=== PATIENT | female | born 1960 | race Caucasian/White ===

== ENCOUNTER → 2016-04-14 | Outpatient (CLI) | payer OTHER ==
[~2016-04-14] MED LIST: ACET-1256 PO; ALBINS/ INH; ALBU0.08 INH; ALUM-76 PO; ASPEC325 PO; ATV/1 PO; BENZ1TAB2 PO; BISA1TAB15 PO; CEFU1TAB36 PO; CLC100X PO; CLON1TAB3 PO; CLON2TAB3 PO; DEXTSYP29 PO; DIVA500T5 PO; DIVA500T59 PO; FLUP10TA PO; FLUP5TAB PO; FRRG PO; GLIP5TAB11 PO; GLYB5TAB8 PO; GLYCDRO6 OPB; HYDCR25 TOP; HYDROCORTISONE CR TOP; INSUINJ14 SC; LOPE1CAP6 PO; LOPE1TAB25 PO; LSX40 PO; METF-384 PO; MIRA1TAB3 PO; NVLGIPEN SQ; NYST100098 TOP; NYST1POW7 TOP; OMEP20CA9 PO; ONDA4TAB46 PO; POLY99.02 OPB; PPTBS PO; PRED50TA PO; PRLDMDV INJ; PROC1TAB5 PO; PROP10TA7 PO; PSYL55.43 PO; QUET1TAB13 PO; SIMV20TA2 PO; SOLI10TA2 PO; ULT/50 PO; ZONI100C39 PO; ZTHM250 PO; [UNRECOGNIZED DRUG - CODE] PO
[2016-04-14 08:46] LABS: ALT/SGPT 38 U/L (12-78); BLOOD UREA NITROGEN 10 mg/dl (7-18); BUN/CREATININE RATIO 13.1 (10-20); CALCIUM 9.2 mg/dl (8.5-10.1); CARBON DIOXIDE 27 mmol/L (21-32); CHLORIDE 103 mmol/L (98-107); CHOLESTEROL 176 mg/dl (0-200); CREATININE 0.78 mg/dl (0.60-1.20); GLUCOSE 92 mg/dl (70-99); POTASSIUM 3.7 mmol/L (3.5-5.1); SODIUM 142 mmol/L (136-145)
[2016-04-14 08:49] LABS: ALB/GLOB RATIO 0.9 (0.9-2); ALKALINE PHOSPHATASE 116 U/L (45-117); AST/SGOT 28 U/L (15-37); CHOLESTEROL/HDL RATIO 6.1; HDL CHOLESTEROL 29 mg/dl; LDL CHOLESTEROL CALCULATED 78 mg/dl; TRIGLYCERIDES 347 mg/dl (0-150); VERY LOW DENSITY LIPOPROT CALC 69 mg/dl
[2016-04-14 09:07] LABS: ESTIMATED AVERAGE GLUCOSE 140 mg/dl; HA1C FLAG Normal (Normal)
== END | disposition home or self-care (01) ==
LOC: C.LABSPEC 08:21
PROVIDERS: ATTEND Nurse Practitioner Family
DX: E11.9 Type 2 diabetes mellitus without complications (principal)

== ENCOUNTER → 2016-04-23 | Outpatient (CLI) | payer OTHER ==
[2016-04-23 10:14] LABS: ALT/SGPT 37 U/L (12-78); BLOOD UREA NITROGEN 5 mg/dl (7-18); BUN/CREATININE RATIO 5.7 (10-20); CALCIUM 9.2 mg/dl (8.5-10.1); CARBON DIOXIDE 26 mmol/L (21-32); CHLORIDE 105 mmol/L (98-107); CREATININE 0.91 mg/dl (0.60-1.20); GLUCOSE 139 mg/dl (70-99); POTASSIUM 4.6 mmol/L (3.5-5.1); SODIUM 142 mmol/L (136-145)
[2016-04-23 10:24] LABS: ALB/GLOB RATIO 0.9 (0.9-2); ALKALINE PHOSPHATASE 120 U/L (45-117); AST/SGOT 33 U/L (15-37)
== END | disposition home or self-care (01) ==
LOC: C.LAB 09:12
PROVIDERS: ATTEND Psychiatry & Neurology Psychiatry
DX: Z79.899 Other long term (current) drug therapy (principal)

== ENCOUNTER → 2016-05-25 | Outpatient (CLI) | payer OTHER ==
--- NOTE | 2016-05-27 08:06 | CODING QUERY NO DIAGNOSIS ---
: 1960 TREATMENT RENDERED WITHOUT A DIAGNOSIS To promote full compliance with coding requirements relating to patient care, physician participation is requested in all cases of process development chemist uncertainty. Please assist us with providing a diagnosis/symptom for the test(s) below: A diagnosis/symptom was not documented on your Order. A valid diagnosis/symptom is required to bill all insurances. Please remember that we are unable to code a diagnosis of rule out, probable, possible, questionable, or suspected. Tests that require a diagnosis: DOS: 05/25/16 * Cdiff Toxin B Gene DIAGNOSIS: Provider Signature: Date: Thank you Evelina Rogel Health Information Management Once completed, please kindly fax back to [phone] For questions please call [phone]
== END | disposition home or self-care (01) ==
LOC: C.LABSPEC 08:38
PROVIDERS: ATTEND Internal Medicine
DX: R19.7 Diarrhea, unspecified (principal)

== ENCOUNTER → 2016-06-09 | Outpatient (CLI) | payer OTHER ==
[2016-06-09 08:46] LABS: URINE APPEARANCE CLOUDY (CLEAR); URINE BILIRUBIN NEG (NEG); URINE COLOR YELLOW; URINE EPITHELIAL CELL AUTO 20-30 /lpf (0-5); URINE NITRITE NEG (NEG); URINE PH 5.5 (4.5-7.5); URINE SPECIFIC GRAVITY 1.014 (1.000-1.030); UROBILINOGEN NEG (NEG)
[2016-06-09 08:47] LABS: MANUAL MICROSCOPIC REQUIRED? NO; REVIEW REQ? NO
== END | disposition home or self-care (01) ==
LOC: C.LABSPEC 08:16
PROVIDERS: ATTEND Internal Medicine
DX: N39.0 Urinary tract infection, site not specified (principal)

== ENCOUNTER → 2016-06-21 | Outpatient (CLI) | payer OTHER | END | disposition home or self-care (01) | LOC: C.LABSPEC 17:12 | PROVIDERS: ATTEND Nurse Practitioner Family | DX: R35.0 Frequency of micturition (principal); N39.41 Urge incontinence ==

== ENCOUNTER 2016-06-30 03:20 | Emergency (ER) | payer OTHER ==
[~2016-06-30] VITALS: Ht 167.6 cm; Wt 109.0 kg
[~2016-06-30 03:20] MED LIST changes: -ALBINS/ INH; -CLON2TAB3 PO; -FLUP5TAB PO; -GLIP5TAB11 PO; -GLYCDRO6 OPB; -HYDCR25 TOP; -LOPE1CAP6 PO; -NVLGIPEN SQ; -NYST1POW7 TOP; -ONDA4TAB46 PO; -PRED50TA PO; -ZTHM250 PO
[2016-06-30 03:35] VITALS: Ht 167.6 cm; Wt 109.0 kg
[2016-06-30] MEDS ORDERED: ALBUT/IPRATROP 3MG/0.5MG NEB 3 ML VIAL INH STA ×2 (03:58→04:33)
[2016-06-30] MEDS ORDERED: SODIUM CHLORIDE 0.9% 500ML 500 ML IV STA (03:58)
[2016-06-30] MEDS ORDERED: CEFTRIAXONE SOD INJ 1 GM ADDVIAL IV STA (03:58)
[2016-06-30] MEDS ORDERED: SODIUM CHLORIDE 0.9% 1000ML 1,000 ML IV STA (03:58)
[2016-06-30] MEDS ORDERED: ACETAMINOPHEN 500 MG TAB PO STA (03:58)
[2016-06-30 04:07] LABS: BASO % 0.4 %; BASO ABS # 0.02 K/uL (0-0.2); COMPLETE YES; EOS % 2.6 %; HEMATOCRIT 37.5 % (37-47); IG% 0.4 %; LYMPH % 21.1 %; LYMPH ABS # 1.06 K/uL (1.2-3.4); MEAN CELL VOLUME 90.6 fL (80-100); MEAN CORPUSCULAR HEMOGLOBIN 30.4 pg (25-34); MEAN CORPUSCULAR HGB CONC 33.6 g/dl (32-36); MEAN PLATELET VOLUME 11.4 fL (7.4-10.4); MONO % 12.5 %; PLATELET COUNT 111 K/uL (130-400); RED BLOOD COUNT 4.14 M/uL (4.2-5.4); WHITE BLOOD COUNT 5.02 K/uL (4.8-10.8)
[2016-06-30 04:24] LABS: BUN/CREATININE RATIO 17.3 (10-20); CALCIUM 8.7 mg/dl (8.5-10.1); CREATININE 0.79 mg/dl (0.60-1.20); MAGNESIUM 1.9 mg/dl (1.8-2.4); POTASSIUM 4.6 mmol/L (3.5-5.1)
[2016-06-30 04:26] LABS: C-REACTIVE PROTEIN 0.99 mg/dl (0-0.29); CKMB/CK RATIO 1.3 (0-3.0)
[2016-06-30] MEDS ORDERED: METHYLPREDNISOLONE IV 80 MG in SYRINGE 0 ML IV ONE (04:30)
[2016-06-30] MEDS ORDERED: ALBINS/ INH (04:35)
[2016-06-30] MEDS ORDERED: GLYCDRO6 OPB (04:38)
[2016-06-30] MEDS ORDERED: LOPE1CAP6 PO (04:38)
[2016-06-30] MEDS ORDERED: CLON2TAB3 PO (04:41)
[2016-06-30] MEDS ORDERED: DIVA500T5 PO ×2 (04:44)
[2016-06-30] MEDS ORDERED: METHYLPREDNISOLONE 125 MG VIAL ONE (04:46)
[2016-06-30] MEDS ORDERED: GLIP5TAB11 PO (05:05)
[2016-06-30] MEDS ORDERED: ONDA4TAB46 PO (05:09)
[2016-06-30] MEDS ORDERED: HYDCR25 TOP (05:13)
[2016-06-30] MEDS ORDERED: FLUP5TAB PO (05:16)
[2016-06-30] MEDS ORDERED: FLUP10TA PO (05:16)
[2016-06-30] MEDS ORDERED: PRLDMDV INJ (05:18)
[2016-06-30] MEDS ORDERED: NVLGIPEN SQ (05:24)
[2016-06-30] MEDS ORDERED: NYST1POW7 TOP (05:24)
[2016-06-30 05:38] VITALS: TEMP 37.3
[2016-06-30 05:55] LABS: URINE APPEARANCE CLEAR (CLEAR); URINE BILIRUBIN NEG (NEG); URINE COLOR YELLOW; URINE EPITHELIAL CELL AUTO 20-30 /lpf (0-5); URINE NITRITE NEG (NEG); URINE PH 7.5 (4.5-7.5); URINE SPECIFIC GRAVITY 1.018 (1.000-1.030); UROBILINOGEN NEG (NEG); ZZUR CULT IF INDIC CLEAN CATCH YES
[2016-06-30 06:00] LABS: MANUAL MICROSCOPIC REQUIRED? NO; REVIEW REQ? NO
[2016-06-30] MEDS ORDERED: ZTHM250 PO (06:13)
[2016-06-30] MEDS ORDERED: PRED50TA PO (06:13)
[2016-06-30] MEDS ORDERED: AZITHROMYCIN 250 MG TAB PO ONE (06:15)
--- NOTE | 2016-06-30 06:17 | EMERGENCY ROOM VISIT NOTE ---
History First contact with patient: 03:34 Chief Complaint: ILLNESS Stated Complaint: FEVER, COUGH, CONGESTION, RIB PAIN History of Present Illness The patient is a 55 year old female who presents to the Emergency Department via EMS for evaluation of her fever, cough, congestion, and complaints of rib pain. The patient was recently treated for urinary tract infection with Omnicef. It was noticed this evening the patient was having a moist productive cough. She was having increasing rest for comfort. The patient does have a history of respiratory disease. She was found to have a fever. The patient reports after smoking a cigarette tonight, she had worsening symptoms of cough and breathing difficulties. The patient complains of pain to the RIGHT-sided ribs. She denies any headaches, dizziness, palpitations, hemoptysis, abdominal pain, hematuria, or dysuria. Review of Systems A complete 10-point Review of Systems was discussed with the patient, with pertinent positives and negatives listed in the History of Present Illness. All remaining Review of Systems questions can be considered negative unless otherwise specified. Past Medical/Surgical History Medical Problems: (1) Bipolar disorder (2) DM2 (diabetes mellitus, type 2) (3) GERD (gastroesophageal reflux disease) (4) History of kidney stones (5) HLD (hyperlipidemia) (6) Left Hip DJD (7) Schizoaffective disorder (8) Seizure disorder (9) Tobacco abuse Surgical Problems: (1) H/O hand surgery (2) H/O tubal ligation Family History Patient reports no known family medical history. Social History Smoking Status: Current Every Day Smoker Alcohol Use: none Drug Use: none Marital Status: single Housing Status: assisted living Occupation Status: disabled Current/Historical Medications Scheduled Azithromycin (Azithromycin), 1 TAB PO DAILY Cefuroxime Axetil (Cefuroxime Axetil), 500 MG PO BID Clonazepam (Klonopin), 2 MG PO DAILY Divalproex Sodium (Depakote Delay Rel), 1,000 MG PO HS Divalproex Sodium (Depakote Delay Rel), 500 MG PO QAM Fluphenazine Decanoate (Fluphenazine Decanoate), 25 MG INJ MONTHLY Fluphenazine Hcl (Prolixin), 5 MG PO HS Fluphenazine Hcl (Prolixin), 10 MG PO HS Furosemide (Furosemide), 40 MG PO QAM Glipizide (Glucotrol), 5 MG PO QAM Ydnkmcus-Cuzqzsmwyzkm-Vpgdmwzh (Artificial Tears), 1 DROP OPB TID Insulin Aspart (Novolog Flexpen), SQ ACHS Metformin Hcl (Glucophage), 1,000 MG PO BIDM Mirabegron (Myrbetriq Er), 50 MG PO QAM Omeprazole (Prilosec), 20 MG PO DAILY Propranolol Hcl (Inderal), 10 MG PO HS Simvastatin (Zocor), 20 MG PO HS Zonisamide (Zonegran), 200 MG PO QAM Scheduled PRN Acetaminophen (Tylenol), 500 MG PO Q4 PRN for Mild Pain Albuterol Sulf (Proventil 0.083% 2.5MG/3ML), 2.5 MG INH Q6 PRN for SOB/Wheezing Hydrocortisone (Hydrocortisone), 1 APPLN TOP BID PRN for RASH Loperamide Hcl (Anti-Diarrheal), 2 MG PO TID PRN for Diarrhea Nystatin (Topical) (Nystatin), 1 APPLN TOP BID PRN for IRRITATION Ondansetron Hcl (Zofran), 4 MG PO Q8 PRN for Nausea or Vomiting Allergies Coded Allergies: No Known Allergies (Unverified , 06/30/16) Physical Exam Vital Signs Date Time Temp Pulse Resp B/P Pulse Ox O2 Delivery O2 Flow Rate FiO2 06/30/16 06:29 70 20 105/58 95 06/30/16 05:38 37.3 06/30/16 05:01 123/50 06/30/16 04:50 66 18 100 Room Air 06/30/16 04:31 140/86 06/30/16 04:20 69 94 Room Air 06/30/16 04:02 Room Air 06/30/16 04:01 06/30/16 03:50 70 26 94 Room Air 06/30/16 03:43 118/64 06/30/16 03:36 71 06/30/16 03:35 38.7 71 26 118/64 95 Room Air 06/30/16 03:29 Pain Rating (0-10): 8 Physical Exam VITAL SIGNS - Vital signs and nursing notes were reviewed. GENERAL - 55-year-old female appearing her stated age who is in no acute distress. Communicates well with provider and answers questions appropriately. HEAD - NC/AT. EYES - PERRL with EOMI bilaterally. Sclera anicteric. Palpebral conjunctiva pink and moist with no injection noted. EARS - No deformities of external structures noted on gross examination bilaterally. No pain elicited with palpation of the tragus bilaterally. External auditory canals without discharge or otorrhea. Tympanic membranes pearly hall without retraction or bulging. NOSE - Midline and without cyanosis. No epistaxis or purulent drainage noted. Septum midline without deviation or septal hematoma noted. MOUTH/OROPHARYNX - Without perioral cyanosis. Buccal mucosa pink and moist and without leukoplakia. Tongue midline with equal elevation of palate bilaterally. No tonsillar hypertrophy, erythema, or exudates noted. NECK - Neck with FROM. Supple to palpation. LUNGS - Chest wall symmetric without accessory muscle use, intercostals retractions, or central cyanosis. Normal vesicular breath sounds CTA B/L. No wheezes, rales, or rhonchi appreciated. CARDIAC - RRR with S1/S2. No murmur, rubs, or gallops appreciated. No reproducible tenderness to palpation appreciated over the anterior chest wall. ABDOMEN - Abdominal contour flat and without pulsations or visible masses. BS normoactive all four quadrants. No tenderness, palpable masses, hepatosplenomegaly, or ascites noted. EXTREMITIES - No clubbing or peripheral cyanosis. No pretibial edema present. +3 /5 radial and dorsalis pedis pulses palpated throughout. +5/5 strength noted in UE/LE bilaterally. NEUROLOGIC - Cranial nerves II through XII grossly intact. Sensory intact to light touch throughout. PSYCH - A&Ox3 and cooperates fully with examiner. Pt is very pleasant and interacts well with examiner. Medical Decision & Procedures ER Provider Diagnostic Interpretation: Chest x-ray was obtained and demonstrates no acute focal consolidations or cardiopulmonary processes per my interpretation. Images were reviewed by my attending physician who agrees. Radiologist's impression unavailable at the time of dictation. Laboratory Results 06/30/16 03:40 Red Blood Count 4.14, Mean Corpuscular Volume 90.6, Mean Corpuscular Hemoglobin 30.4, Mean Corpuscular Hemoglobin Concent 33.6, Mean Platelet Volume 11.4, Neutrophils (%) (Auto) 63.0, Lymphocytes (%) (Auto) 21.1, Monocytes (%) (Auto) 12.5, Eosinophils (%) (Auto) 2.6, Basophils (%) (Auto) 0.4, Neutrophils # (Auto ) 3.16, Lymphocytes # (Auto) 1.06, Monocytes # (Auto) 0.63, Eosinophils # (Auto ) 0.13, Basophils # (Auto) 0.02 06/30/16 03:40 Test 06/30/16 03:40 06/30/16 04:24 06/30/16 04:25 06/30/16 04:31 White Blood Count 5.02 K/uL (4.8-10.8) Red Blood Count 4.14 M/uL (4.2-5.4) Hemoglobin 12.6 g/dL (12.0-16.0) Hematocrit 37.5 % (37-47) Mean Corpuscular Volume 90.6 fL (80-100) Mean Corpuscular Hemoglobin 30.4 pg (25-34) Mean Corpuscular Hemoglobin Concent 33.6 g/dl (32-36) Platelet Count 111 K/uL (130-400) Mean Platelet Volume 11.4 fL (7.4-10.4) Neutrophils (%) (Auto) 63.0 % Lymphocytes (%) (Auto) 21.1 % Monocytes (%) (Auto) 12.5 % Eosinophils (%) (Auto) 2.6 % Basophils (%) (Auto) 0.4 % Neutrophils # (Auto) 3.16 K/uL (1.4-6.5) Lymphocytes # (Auto) 1.06 K/uL (1.2-3.4) Monocytes # (Auto) 0.63 K/uL (0.11-0.59) Eosinophils # (Auto) 0.13 K/uL (0-0.5) Basophils # (Auto) 0.02 K/uL (0-0.2) RDW Standard Deviation 46.3 fL (36.4-46.3) RDW Coefficient of Variation 14.0 % (11.5-14.5) Immature Granulocyte % (Auto) 0.4 % Immature Granulocyte # (Auto) 0.02 K/uL (0.00-0.02) Prothrombin Time 11.0 SECONDS (9.0-12.0) Prothromb Time International Ratio 1.0 (0.9-1.1) Activated Partial Thromboplast Time 25.9 SECONDS (21.0-31.0) Partial Thromboplastin Ratio 1.0 Anion Gap 7.0 mmol/L (3-11) Est Creatinine Clear Calc Drug Dose 102.9 ml/min Estimated GFR () 99.1 Estimated GFR (Non- 85.5 BUN/Creatinine Ratio 17.3 (10-20) Calcium Level 8.7 mg/dl (8.5-10.1) Magnesium Level 1.9 mg/dl (1.8-2.4) Total Bilirubin 0.3 mg/dl (0.2-1) Aspartate Amino Transf (AST/SGOT) 61 U/L (15-37) Alanine Aminotransferase (ALT/SGPT) 40 U/L (12-78) Alkaline Phosphatase 79 U/L (45-117) Total Creatine Kinase 69 U/L (26-192) Creatine Kinase MB 0.9 ng/ml (0.5-3.6) Creatine Kinase MB Ratio 1.3 (0-3.0) C-Reactive Protein 0.99 mg/dl (0-0.29) Total Protein 6.9 gm/dl (6.4-8.2) Albumin 3.4 gm/dl (3.4-5.0) Globulin 3.5 gm/dl (2.5-4.0) Albumin/Globulin Ratio 1.0 (0.9-2) Lipase 155 U/L (73-393) Bedside Lactic Acid Venous 2.05 mmol/L (0.90-1.70) Bedside D-Dimer 265 ng/mlFEU (0-450) Bedside Troponin I 0.000 ng/ml (0-0.045) Influenza Type A Antigen Neg for Influ A (NEG) Influenza Type B Antigen Neg for Influ B (NEG) Test 06/30/16 05:30 Urine Color YELLOW Urine Appearance CLEAR (CLEAR) Urine pH 7.5 (4.5-7.5) Urine Specific [place] 1.018 (1.000-1.030) Urine Protein NEG (NEG) Urine Glucose (UA) NEG (NEG) Urine Ketones TRACE (NEG) Urine Occult Blood NEG (NEG) Urine Nitrite NEG (NEG) Urine Bilirubin NEG (NEG) Urine Urobilinogen NEG (NEG) Urine Leukocyte Esterase SMALL (NEG) Urine WBC (Auto) 10-30 /hpf (0-5) Urine RBC (Auto) 0-4 /hpf (0-4) Urine Hyaline Casts (Auto) 1-5 /lpf (0-5) Urine Epithelial Cells (Auto) 20-30 /lpf (0-5) Urine Bacteria (Auto) NEG (NEG) Date/Time Source Procedure Growth Status 06/30/16 04:15 Blood Blood Culture - Final NO GROWTH Complete 06/30/16 05:30 Urine , Clean Catch Urine Culture - Final THREE TYPES OF ORGANISMS PRESENT, ALL... Complete Medications Administered Medications (Trade) Dose Ordered Sig/Kanu Route Start Time Stop Time Status Last Admin Dose Admin Sodium Chloride 500 ml @ 999 mls/hr Q31M STAT IV 06/30/16 03:58 06/30/16 04:28 DC 06/30/16 03:58 999 MLS/HR Sodium Chloride (Nss 1000ml) 1,000 ml @ 125 mls/hr Q8H STAT IV 06/30/16 03:58 06/30/16 06:45 DC 06/30/16 04:12 125 MLS/HR Acetaminophen (Tylenol Tab) 1,000 mg NOW STAT PO 06/30/16 03:58 06/30/16 04:02 DC 06/30/16 04:12 1,000 MG Albuterol/ Ipratropium (Duoneb) 3 ml NOW STAT INH 06/30/16 03:58 06/30/16 04:02 DC 06/30/16 04:11 3 ML Ceftriaxone Sodium (Rocephin Inj) 1 gm NOW STAT IV 06/30/16 03:58 06/30/16 04:02 DC 06/30/16 04:12 1 GM Albuterol/ Ipratropium (Duoneb) 3 ml NOW STAT INH 06/30/16 04:33 06/30/16 04:34 DC 06/30/16 04:42 3 ML Methylprednisolone Sodium Succinate (Solu-Medrol IV) 125 mg STK-MED ONCE .ROUTE 06/30/16 04:46 06/30/16 04:47 DC 06/30/16 04:42 80 MG Azithromycin (Zithromax Tab) 500 mg NOW ONCE PO 06/30/16 06:15 06/30/16 06:16 DC 06/30/16 06:13 500 MG Procedure Patient was placed on the quality assurance monitor body and monitored throughout the entire extent of their stay. In addition, the patient's pulse oximetry was monitored throughout the entire stay. Any abnormalities or aberrancies were addressed appropriately. ECG Indication: SOB/dyspnea Rate (beats per minute): 70 Rhythm: normal sinus Findings: no acute ischemic change, other (T-wave flatening in the lateral leads - improved from ST inversion in lateral leads seen on 11/26/2015.) ED Course Patient was seen and evaluated by myself. Labs were drawn, saline lock in place. The patient was hydrated with a 500 mL normal saline bolus. Blood cultures were obtained. Influenza swabs were obtained. Chest x-ray and EKG were obtained. She received 1 g of Tylenol orally for fever. She received 1 DuoNeb as well as 1 g of IV Rocephin. Laboratory results demonstrate no acute leukocytosis. The patient is not anemic. There are no significant electrolyte abnormalities. Cardiac enzymes were negative. Troponin was negative. D-dimer was not elevated. Chest x-ray was reviewed by myself and my attending physician. Patient was reviewed and feels somewhat better at this time. She was treated with an additional DuoNeb and received 125 mg Solu-Medrol intravenously. Plantar lactic acid is mildly elevated. On review the patient, she feels markedly better at this time. She is drinking and feeling much better. She was provided initial dose of azithromycin in the emergency setting. She'll follow closely with her primary care provider later this week for recheck. She will return for any changing or worsening symptoms. Patient discharged home afebrile and in good condition. Medical Decision Given the patient's presentation and stated complaints, I did elect to perform the above-mentioned workup. The patient presents today with a fever as well as difficulty with breathing. Chest x-ray demonstrate no focal consolidations or cardiac palpated processes otherwise. EKG and cardiac enzymes are negative. D- dimer does not suggest likelihood of PE. She responded well to DuoNeb treatment as well as IV Solu-Medrol. Her fever responded to antipyretics. She received IV fluid and was drinking without issue in the emergency setting. Blood cultures are pending at this time. The patient is likely experiencing an acute bronchitis on a chronic COPD patient. Her symptoms didn't resolve appropriately with the above-mentioned treatment. She is not hypoxic. I do not feel the patient warrants admission at this time. She will follow closely with her primary care provider from today's visit. She will return for any changing or worsening symptoms. Patient discharged home afebrile and in good condition. In the evaluation and treatment of this patient, the following differential diagnoses were considered: AL, ASC, Dysrhythmia, Angina, Mediastinitis, GERD, Esophagitis, PE, Pneumonia, Bronchitis, Costochondritis, Rib Fracture, Zoster. Impression Primary Impression: Acute bronchitis Additional Impressions: COPD with exacerbation Fever Departure Information Dispostion Home / Self-Care Condition GOOD Prescriptions Azithromycin (Azithromycin) 250 Mg Tab 1 TAB PO DAILY for 4 Days, #4 TAB Prov: Xavier Miguel PA-C 06/30/16 Referrals Segundo Rojas D.O. (PCP) Patient Instructions Bronchitis Acute, ED Fever Control, [facility] Additional Instructions Patient was seen in the emergency department today for cough and fever with COPD exacerbation. Please use nebulizer treatments every 4 hours for the next 3-4 days and then as needed for symptoms. You were prescribed Azithromycin to be taken as prescribed. This is an antibiotic. All antibiotics have the potential to cause diarrhea. Stop this medication and contact a medical provider if you were to develop any significant adverse side effects including: wheezing, shortness of breath, passing out, vomiting, or a diffuse rash. Always take antibiotics as directed and COMPLETE the ENTIRE course regardless of the improvement of your symptoms. You have been prescribed Prednisone 50 mg to be taken orally once a day for the next 4 days. This is an anti-inflammatory medicine to be used to help minimize your symptoms. You should take the COMPLETE course of the medication. For pain/fever control, you can use the following yzqe-anv-ikmbnhp medicines ( if >12 yo): - Regular strength (325mg/tab) Tylenol (acetaminophen) 2 tabs every 4-6 hours as needed. Do not exceed 12 tablets in a 24 hour period. Avoid taking more than 4 grams (4000 mg) of Tylenol per day. This includes any other sources of acetaminophen you may take on a regular basis. - Regular strength (200 mg/tab) Advil (ibuprofen) 1-2 tabs every 4-6 hours as needed. Do not exceed a dose of 3200 mg per day. Follow-up with your primary care provider in 48-72 hours for recheck. Return for any changing or worsening symptoms. Problem Qualifiers Primary Impression: Acute bronchitis Bronchitis organism: unspecified organism Qualified Codes: J20.9 - Acute bronchitis, unspecified Additional Impressions: Fever Fever type: unspecified Qualified Codes: R50.9 - Fever, unspecified
[2016-06-30 06:29] VITALS: BP 105/58; PULSE 70; O2SAT 95
--- NOTE | 2016-06-30 07:14 | DIAGNOSTIC IMAGING REPORT ---
CHEST ONE VIEW PORTABLE CLINICAL HISTORY: Cough and fever. COMPARISON STUDY: Chest radiograph November 26, 2015. FINDINGS: Lung volumes are normal. There is no consolidation to suggest pneumonia. Cardiomediastinal silhouette is stable. Pulmonary vascularity is normal. IMPRESSION: No acute cardiopulmonary findings. Electronically signed by: Gaurav Ferris M.D. 06/30/2016 7:12 AM Dictated Date/Time: 06/30/2016 7:11 AM
== END 2016-06-30 06:31 | disposition home or self-care (01) ==
LOC: EDBD 03:20 → C.EDB 03:21
DX: J44.1 Chronic obstructive pulmonary disease with (acute) exacerbation (principal); F31.9 Bipolar disorder, unspecified; E11.9 Type 2 diabetes mellitus without complications; Z87.442 Personal history of urinary calculi; K21.9 Gastro-esophageal reflux disease without esophagitis; E78.5 Hyperlipidemia, unspecified; G40.909 Epilepsy, unspecified, not intractable, without status epilepticus; F25.9 Schizoaffective disorder, unspecified; F17.210 Nicotine dependence, cigarettes, uncomplicated; Z98.51 Tubal ligation status; Z79.4 Long term (current) use of insulin; Z79.899 Other long term (current) drug therapy

== ENCOUNTER → 2016-08-23 | Outpatient (CLI) | payer OTHER ==
[~2016-08-23] MED LIST changes: +ALBINS/ INH; -ALBU0.08 INH; -ALUM-76 PO; -ASPEC325 PO; -ATV/1 PO; +AZIT-57 PO; -BENZ1TAB2 PO; -BISA1TAB15 PO; -CLC100X PO; -CLON1TAB3 PO; +CLON2TAB3 PO; -DEXTSYP29 PO; -DIVA500T59 PO; +FLUP5TAB PO; -FRRG PO; +GLIP5TAB11 PO; -GLYB5TAB8 PO; +GLYCDRO6 OPB; +HYDCR25 TOP; -HYDROCORTISONE CR TOP; -INSUINJ14 SC; +LOPE1CAP6 PO; -LOPE1TAB25 PO; +NVLGIPEN SQ; -NYST100098 TOP; +NYST1POW7 TOP; +ONDA4TAB46 PO; -POLY99.02 OPB; -PPTBS PO; -PROC1TAB5 PO; -PSYL55.43 PO; -QUET1TAB13 PO; -SOLI10TA2 PO; -ULT/50 PO; -[UNRECOGNIZED DRUG - CODE] PO
== END | disposition home or self-care (01) ==
LOC: C.LABSPEC 17:01
PROVIDERS: ATTEND Nurse Practitioner Family
DX: N39.0 Urinary tract infection, site not specified (principal)

== ENCOUNTER → 2016-09-18 | Outpatient (CLI) | payer OTHER ==
[2016-09-18 11:05] LABS: URINE APPEARANCE TURBID (CLEAR); URINE BILIRUBIN NEG (NEG); URINE COLOR YELLOW; URINE EPITHELIAL CELL AUTO >30 /lpf (0-5); URINE NITRITE POS (NEG); URINE PH 7.5 (4.5-7.5); URINE SPECIFIC GRAVITY 1.016 (1.000-1.030); UROBILINOGEN NEG (NEG)
[2016-09-18 11:16] LABS: MANUAL MICROSCOPIC REQUIRED? NO; REVIEW REQ? YES; SULFASALICYLIC ACID NEG (NEG)
== END | disposition home or self-care (01) ==
LOC: C.LABSPEC 08:16
PROVIDERS: ATTEND Internal Medicine
DX: N39.0 Urinary tract infection, site not specified (principal)

== ENCOUNTER → 2016-10-11 | Outpatient (CLI) | payer OTHER ==
[~2016-10-11] MED LIST changes: -AZIT-57 PO; +ZTHM250 PO
--- NOTE | 2016-10-11 16:06 | MAMMOGRAPHY REPORT ---
BILATERAL DIGITAL SCREENING MAMMOGRAM WITH CAD: 10/11/2016 CLINICAL HISTORY: Routine screening. Patient has no complaints. TECHNIQUE: Bilateral CC and MLO views were obtained. Current study was also evaluated with a Compute r Aided Detection (CAD) system. COMPARISON: Comparison is made to exams dated: 10/10/2015 mammogram, 09/26/2014 mammogram, 09/25/2013 ma mmogram, 09/19/2012 mammogram, 09/09/2011 mammogram, and 08/19/2010 mammogram - [facility]. BREAST COMPOSITION: There are scattered areas of fibroglandular density in both breasts. FINDINGS: The exam is suboptimal due to inability of the patient to adequately position for the exam, despite assistance from 2 mammography technologists. An asymmetry in the lateral anterior right sarah ast appears similar on all available prior mammograms dating back to at least 08/07/2009, therefore l ikely benign. No new suspicious mass, architectural distortion or cluster of microcalcifications is seen. IMPRESSION: ACR BI-RADS CATEGORY 1: NEGATIVE There is no mammographic evidence of malignancy. A 1 year screening mammogram is recommended. The pa tient will receive written notification of the results. Approximately 10% of breast cancers are not detected with mammography. A negative mammographic report should not delay biopsy if a clinically suggestive mass is present. Cornelia Ambrose M.D. ay/:10/11/2016 15:23:38 Attending Technologist: Tiara Castorena RT(R)(M), [facility] Visual Merchandiser: Lacy Dietz RT(R)(M), [facility] letter sent: Normal 1/2 BI-RADS Code: ACR BI-RADS Category 1: Negative
== END | disposition home or self-care (01) ==
LOC: C.MAMM 14:53
PROVIDERS: ATTEND Obstetrics & Gynecology
DX: Z12.31 Encounter for screening mammogram for malignant neoplasm of breast (principal)

== ENCOUNTER → 2016-10-26 | Outpatient (CLI) | payer OTHER ==
[2016-10-26 15:02] LABS: URINE APPEARANCE CLOUDY (CLEAR); URINE BILIRUBIN NEG (NEG); URINE COLOR DK YELLOW; URINE EPITHELIAL CELL AUTO >30 /lpf (0-5); URINE NITRITE POS (NEG); URINE PH 5.5 (4.5-7.5); URINE SPECIFIC GRAVITY 1.028 (1.000-1.030); UROBILINOGEN NEG (NEG)
[2016-10-26 15:03] LABS: MANUAL MICROSCOPIC REQUIRED? NO; REVIEW REQ? NO
== END | disposition home or self-care (01) ==
LOC: C.LAB 12:41
PROVIDERS: ATTEND Psychiatry & Neurology Psychiatry
DX: N39.0 Urinary tract infection, site not specified (principal); Z51.81 Encounter for therapeutic drug level monitoring; Z79.899 Other long term (current) drug therapy

== ENCOUNTER → 2017-01-14 | Outpatient (CLI) | payer OTHER ==
[~2017-01-14] MED LIST changes: +AZIT-57 PO; -ZTHM250 PO
== END | disposition home or self-care (01) ==
LOC: C.PAPS 10:53
PROVIDERS: ATTEND Physician Assistant
DX: Z12.4 Encounter for screening for malignant neoplasm of cervix (principal)

== ENCOUNTER → 2017-01-26 | Outpatient (CLI) | payer OTHER ==
[2017-01-26 09:26] LABS: BLOOD UREA NITROGEN 11 mg/dl (7-18); CALCIUM 8.9 mg/dl (8.5-10.1); CARBON DIOXIDE 25 mmol/L (21-32); CHLORIDE 108 mmol/L (98-107); CHOLESTEROL 134 mg/dl (0-200); CREATININE 0.71 mg/dl (0.60-1.20); GLUCOSE 89 mg/dl (70-99); POTASSIUM 4.2 mmol/L (3.5-5.1); SODIUM 142 mmol/L (136-145); TRIGLYCERIDES 169 mg/dl (0-150); VERY LOW DENSITY LIPOPROT CALC 34 mg/dl
[2017-01-26 09:29] LABS: CHOLESTEROL/HDL RATIO 3.6; HDL CHOLESTEROL 37 mg/dl; LDL CHOLESTEROL CALCULATED 63 mg/dl
[2017-01-26 09:53] LABS: HEMATOCRIT 38.1 % (37-47); MEAN CELL VOLUME 92.7 fL (80-100); MEAN CORPUSCULAR HEMOGLOBIN 30.9 pg (25-34); MEAN CORPUSCULAR HGB CONC 33.3 g/dl (32-36); MEAN PLATELET VOLUME 12.2 fL (7.4-10.4); PLATELET COUNT 101 K/uL (130-400); RED BLOOD COUNT 4.11 M/uL (4.2-5.4); WHITE BLOOD COUNT 9.24 K/uL (4.8-10.8)
[2017-01-26 09:54] LABS: PLT ESTIMATE DECREASED
[2017-01-26 10:09] LABS: ESTIMATED AVERAGE GLUCOSE 117 mg/dl; HA1C FLAG Normal (Normal)
== END | disposition home or self-care (01) ==
LOC: C.LABSPEC 08:58
PROVIDERS: ATTEND Nurse Practitioner Adult Health
DX: I10 Essential (primary) hypertension (principal); E11.9 Type 2 diabetes mellitus without complications; E78.5 Hyperlipidemia, unspecified

== ENCOUNTER → 2017-04-13 | Outpatient (CLI) | payer OTHER | END | disposition home or self-care (01) | LOC: C.LABSPEC 08:23 | PROVIDERS: ATTEND Psychiatry & Neurology Psychiatry | DX: Z79.899 Other long term (current) drug therapy (principal) ==

== ENCOUNTER → 2017-05-25 | Outpatient (CLI) | payer OTHER ==
[2017-05-25 09:09] LABS: HEMOGLOBIN A1C 5.7 % (4.5-5.6)
== END | disposition home or self-care (01) ==
LOC: C.LABSPEC 07:43
PROVIDERS: ATTEND Internal Medicine
DX: E11.9 Type 2 diabetes mellitus without complications (principal)

== ENCOUNTER → 2017-10-26 | Outpatient (CLI) | payer OTHER ==
[~2017-10-26] MED LIST changes: +CLON2TAB10 PO; -CLON2TAB3 PO; +DIVA-36 PO; -DIVA500T5 PO
== END | disposition home or self-care (01) ==
LOC: C.LABSPEC 08:25
PROVIDERS: ATTEND Psychiatry & Neurology Psychiatry
DX: Z79.899 Other long term (current) drug therapy (principal)

== ENCOUNTER 2018-06-02 06:22 | Inpatient (IN) ==
[2018-06-02] MEDS ORDERED: ACETAMINOPHEN 500 MG TAB PO STA (06:44)
[2018-06-02] MEDS ORDERED: SODIUM CHLORIDE 0.9% 500 ML IV SCH (06:45)
[2018-06-02 07:14] LABS: Appearance Urine Turbid (Clear); Bacteria Urine Automated Negative (Negative); Bilirubin Urine Negative (Negative); Blood Urine 2+ (Negative); Color Urine Yellow; Glucose Urine UA Negative (Negative); Ketones Urine Trace (Negative); Leukocyte Esterase Urine 3+ (Negative); Nitrite Urine Negative (Negative); Protein Urine 1+ (Negative); Specific Gravity Urine 1.011 (1.000-1.030); Urobilinogen Urine Negative (Negative); WBC Urine Automated >30 /hpf (0-5)
--- NOTE | 2018-06-02 07:24 | XRay Report ---
XR chest 1V portable CLINICAL HISTORY: fever, AMS COMPARISON STUDY: Chest radiograph June 28, 2016. FINDINGS: Lung volumes are at the lower limits of normal. There is no pneumothorax or pleural effusio n. There is no consolidation or evidence for pulmonary edema. Mild enlargement of the cardiac silhoue tte is noted. Otherwise, mediastinal contours are unremarkable. IMPRESSION: 1. No acute cardiopulmonary findings. 2. Mild enlargement of the cardiac silhouette. Electronically signed by: Gaurav Ferris M.D. 06/02/2018 7:23 AM
[2018-06-02] MEDS ORDERED: cefTRIAXone SODIUM 1,000 MG/50 ML BAG IV STA (07:25)
--- NOTE | 2018-06-02 07:30 | Emergency Department Note ---
Entered by Brett Ovalle acting as a scribe for History of Present Illness General Chief complaint: Illness Time Seen by Provider: 06/02/18 06:38 Source: patient History of Present Illness Provider complaint: Cough/Fever Onset (ago): day(s) Location: chest Pain Consistency: + other (worsening) Quality: + other (Cough) Associated symptoms: + fever/chills and + weakness Treatments prior to arrival: none This history is limited secondary to confusion in the patient. The patient is a 57 year old female who presents to the Emergency Room with complaints of a worsening cough over the past couple of days. The patient presents from the assisted living facility at [facility] for worsening weakness. She has been febrile as well. There were no falls reported by [facility] staff. Home Medications Home Medications Medication Instructions Recorded Confirmed Type acetaminophen 650 mg PO Q4H PRN 06/02/18 06/02/18 History albuterol sulfate 2.5 mg INHALATION Q6H PRN 06/02/18 06/02/18 History clonazepam 2 mg PO HS 06/02/18 06/02/18 History dextran 70-hypromellose (PF) 1 drp OPHTHALMIC (EYE) TID 06/02/18 06/02/18 History [Artificial Tears (PF)] dextromethorphan-guaifenesin 5 ml PO Q4H PRN 06/02/18 06/02/18 History [Siltussin-DM] divalproex 1,000 mg PO HS 06/02/18 06/02/18 History divalproex 500 mg PO QAM 06/02/18 06/02/18 History fluphenazine HCl 1 ml INJ MONTHLY 06/02/18 06/02/18 History fluphenazine HCl 5 mg PO HS 06/02/18 06/02/18 History fluphenazine HCl 10 mg PO HS 06/02/18 06/02/18 History fluticasone 2 spray INTRANASAL DAILY 06/02/18 06/02/18 History insulin aspart U-100 [Novolog 0 unit SUBCUT BID 06/02/18 06/02/18 History Flexpen U-100 Insulin] menthol-zinc oxide [Calmoseptine] 1 applic TOPICAL DAILY PRN 06/02/18 06/02/18 History metformin 1,000 mg PO QPM 06/02/18 06/02/18 History metformin 500 mg PO QAM 06/02/18 06/02/18 History mirabegron [Myrbetriq] 50 mg PO DAILY 06/02/18 06/02/18 History naproxen sodium 440 mg PO BID PRN 06/02/18 06/02/18 History nitrofurantoin macrocrystal 50 mg PO DAILY 06/02/18 06/02/18 History nystatin 1 applic TOPICAL UD PRN 06/02/18 06/02/18 History omeprazole 20 mg PO BID 06/02/18 06/02/18 History propranolol 10 mg PO DAILY 06/02/18 06/02/18 History simvastatin 20 mg PO PM 06/02/18 06/02/18 History tolterodine 4 mg PO DAILY 06/02/18 06/02/18 History zonisamide 200 mg PO DAILY 06/02/18 06/02/18 History Allergies Allergy/AdvReac Type Severity Reaction Status Date / Time No Known Allergies Allergy Unverified 06/02/18 07:04 Past Med/Surg History Social History Communication Ability: Effective Beliefs That Will Affect Care: None Current Living Situation: Personal Care Facility Other Information That Helps Us Care for You: No Feels Safe at Home: Yes Safety Concerns: Feels Safe At This Time Smoking Status: Current every day smoker Hx Alcohol Use: No Hx Substance Use: No Review of Systems See HPI for pertinent positives & negatives. and A total of 10 systems reviewed and were otherwise negative Physical Exam Vital Signs Vital Signs - 24 hr 06/03/18 23:15 06/03/18 23:51 06/04/18 07:32 Temperature 37.1 C 37.2 C Temperature Source Oral Oral Pulse Rate [Right Finger] 82 76 Respiratory Rate 22 20 Respiratory Effort / Characteristics Non-Labored Spontaneous Respiratory Depth Normal Respiratory Pattern Regular Blood Pressure [Right Arm] 136/74 147/80 H Blood Pressure Mean [Right Arm] 94 102 Blood Pressure Position [Right Arm] Lying Lying Pulse Oximetry 90 90 Oxygen Delivery Method Room Air Room Air Room Air 06/04/18 15:16 06/04/18 16:15 Temperature 36.6 C Temperature Source Oral Pulse Rate [Right Finger] 61 Respiratory Rate 20 Respiratory Effort / Characteristics Non-Labored Respiratory Depth Normal Respiratory Pattern Regular Blood Pressure [Right Arm] 118/65 Blood Pressure Mean [Right Arm] 82 Blood Pressure Position [Right Arm] Pulse Oximetry 98 Oxygen Delivery Method Room Air Vital signs reviewed. General: Chronically ill-appearing middle aged female, in no significant distress. Somnolent but arousable. HEENT: No scleral icterus, PERRLA, neck supple. Atraumatic. Mucous membranes are dry. Cardiovascular: Regular rate and rhythm, no extra sounds. Pulmonary: Clear to auscultation bilaterally, normal work of breathing. Abdomen: Soft, nontender, nondistended, positive bowel sounds. Musculoskeletal: Atraumatic, no peripheral edema. Neurologic: Somnolent, but arousable. Patient answers some questions appropriately. Follows commands. Cranial nerves 2 through 12 grossly intact. Skin: Warm, dry, no rash Course 0644: Past medical records reviewed. The patient was evaluated in room B7, and a complete history and physical examination were performed. 0937: I reviewed the patient's case with Celine Felder Caesar LIRA. She will evaluate the patient for further management. Consultations Consultation #1: [id number]: I reviewed the patient's case with Celine Felder Caesar LIRA. She will evaluate the patient for further management. Administered Medications Acetaminophen (Tylenol) 650 mg PO Q6 PRN PRN Reason: Pain Stop: 07/02/18 19:51 Last Admin: 06/03/18 09:16 Dose: 650 mg Documented by: [id number] Artificial Tears (Artificial Tears) 1 drops OP TID [facility] Stop: 07/02/18 20:59 Last Admin: 06/04/18 14:06 Dose: 1 drops Documented by: [id number] Admin: 06/04/18 08:34 Dose: 1 drops Documented by: [id number] Admin: 06/03/18 20:38 Dose: 1 drops Documented by: [id number] Admin: 06/03/18 13:10 Dose: 1 drops Documented by: [id number] Admin: 06/03/18 09:02 Dose: 1 drops Documented by: [id number] Admin: 06/02/18 20:29 Dose: 1 drops Documented by: [id number] Clonazepam (Klonopin) 2 mg PO HS [facility] Stop: 07/02/18 20:59 Last Admin: 06/03/18 20:37 Dose: 2 mg Documented by: [id number] Admin: 06/02/18 20:28 Dose: 2 mg Documented by: [id number] Divalproex Sodium (Depakote Delay Release) 500 mg PO DAILY [facility] Stop: 07/03/18 08:59 Last Admin: 06/04/18 08:35 Dose: 500 mg Documented by: [id number] Admin: 06/03/18 09:02 Dose: 500 mg Documented by: [id number] Divalproex Sodium (Depakote Delay Release) 1,000 mg PO [facility] Stop: 07/02/18 20:59 Last Admin: 06/03/18 20:38 Dose: 1,000 mg Documented by: [id number] Admin: 06/02/18 20:27 Dose: 1,000 mg Documented by: [id number] Enoxaparin Sodium (Lovenox) 40 mg SQ QAM [facility] Stop: 07/03/18 08:59 Last Admin: 06/04/18 08:38 Dose: 40 mg Documented by: [id number] Admin: 06/03/18 09:08 Dose: 40 mg Documented by: [id number] Fluphenazine HCl (Prolixin) 15 mg PO [facility] Stop: 07/02/18 20:59 Last Admin: 06/03/18 20:39 Dose: 15 mg Documented by: [id number] Admin: 06/02/18 20:27 Dose: 15 mg Documented by: [id number] Fluticasone Propionate (Flonase) 2 sprays NA DAILY [facility] Stop: 07/03/18 08:59 Last Admin: 06/04/18 08:34 Dose: 2 sprays Documented by: [id number] Admin: 06/03/18 09:03 Dose: 2 sprays Documented by: [id number] Cefepime HCl 2,000 mg/ Syringe 20 mls @ 1 mls/min IV Q8H [facility] Stop: 06/17/18 09:59 Last Admin: 06/04/18 17:40 Dose: 1 mls/min Documented by: [id number] Admin: 06/04/18 08:43 Dose: 1 mls/min Documented by: [id number] Admin: 06/04/18 02:00 Dose: 1 mls/min Documented by: [id number] Admin: 06/03/18 17:31 Dose: 1 mls/min Documented by: [id number] Admin: 06/03/18 10:08 Dose: 1 mls/min Documented by: [id number] Insulin Aspart (Novolog Flexpen) 0 units SC ACHS [facility] Stop: 07/02/18 13:33 Last Admin: 06/04/18 17:42 Dose: 6 units Documented by: [id number] Cosigned by: [id number] Admin: 06/04/18 14:06 Dose: Not Given Documented by: [id number] Cosigned by: [id number] Admin: 06/04/18 08:41 Dose: 5 units Documented by: [id number] Cosigned by: [id number] Admin: 06/03/18 20:37 Dose: Not Given Documented by: [id number] Cosigned by: [id number] Admin: 06/03/18 17:30 Dose: 4 units Documented by: [id number] Cosigned by: [id number] Admin: 06/03/18 13:09 Dose: 4 units Documented by: [id number] Cosigned by: [id number] Admin: 06/03/18 09:00 Dose: 6 units Documented by: [id number] Cosigned by: [id number] Admin: 06/02/18 20:13 Dose: Not Given Documented by: [id number] Cosigned by: [id number] Admin: 06/02/18 18:00 Dose: 3 units Documented by: [id number] Cosigned by: [id number] Admin: 06/02/18 14:05 Dose: Not Given Documented by: [id number] Cosigned by: [id number] Myrbetriq Er~ Non- Formulary Patient's Own Med 1 ea PO QAM [facility] Stop: 07/04/18 08:59 Last Admin: 06/04/18 08:37 Dose: 1 tab Documented by: [id number] Zonisamide ~ Non- Formulary Patient's Own Med 1 ea PO QAM [facility] Stop: 07/04/18 08:59 Last Admin: 06/04/18 08:36 Dose: 1 tab Documented by: [id number] Pantoprazole Sodium (Protonix) 40 mg PO BID [facility] Stop: 07/02/18 20:59 Last Admin: 06/04/18 08:35 Dose: 40 mg Documented by: [id number] Admin: 06/03/18 20:38 Dose: 40 mg Documented by: [id number] Admin: 06/03/18 09:03 Dose: 40 mg Documented by: [id number] Admin: 06/02/18 20:27 Dose: 40 mg Documented by: [id number] Propranolol HCl (Inderal) 10 mg PO DAILY [facility] Stop: 07/03/18 08:59 Last Admin: 06/04/18 08:39 Dose: 10 mg Documented by: [id number] Admin: 06/03/18 09:02 Dose: 10 mg Documented by: [id number] Simvastatin (Zocor) 20 mg PO PM [facility] Stop: 07/02/18 20:59 Last Admin: 06/03/18 20:38 Dose: 20 mg Documented by: [id number] Admin: 06/02/18 20:27 Dose: 20 mg Documented by: [id number] Tolterodine Tartrate (Detrol La) 4 mg PO DAILY [facility] Stop: 07/03/18 08:59 Last Admin: 06/04/18 08:35 Dose: 4 mg Documented by: [id number] Admin: 06/03/18 09:03 Dose: 4 mg Documented by: [id number] Discontinued Medications Acetaminophen (Tylenol) 1,000 mg PO ONE STA Stop: 06/02/18 06:45 Last Admin: 06/02/18 07:18 Dose: 1,000 mg Documented by: [id number] Acetaminophen (Tylenol) Confirm Administered Dose 650 mg .ROUTE .STK-MED ONE Stop: 06/02/18 20:25 Last Admin: 06/02/18 20:26 Dose: 650 mg Documented by: [id number] Sodium Chloride (Nss) 500 mls @ 999 mls/hr IV .Q31M [facility] Stop: 06/02/18 07:15 Last Infusion: 06/02/18 07:52 Dose: 0 mls/hr Documented by: [id number] Admin: 06/02/18 07:18 Dose: 999 mls/hr Documented by: [id number] Ceftriaxone Sodium (Rocephin) 1,000 mg in 50 mls @ 100 mls/hr IV NOW STA Stop: 06/02/18 07:54 Last Infusion: 06/02/18 08:13 Dose: 0 mls/hr Documented by: [id number] Admin: 06/02/18 07:41 Dose: 100 mls/hr Documented by: [id number] Sodium Chloride (Nss) 500 mls @ 999 mls/hr IV .Q31M ONE Stop: 06/02/18 09:30 Last Infusion: 06/02/18 09:37 Dose: 0 mls/hr Documented by: [id number] Admin: 06/02/18 09:05 Dose: 999 mls/hr Documented by: [id number] Ceftriaxone Sodium 1,000 mg/ (Dextrose) 50 mls @ 100 mls/hr IV Q24H [facility]; Protocol Stop: 06/13/18 07:59 Last Admin: 06/03/18 09:15 Dose: Not Given Documented by: [id number] Sodium Chloride (Nss 1000ml) 1,000 mls @ 80 mls/hr IV .[id number] [facility] Stop: 06/03/18 03:14 Last Infusion: 06/03/18 03:45 Dose: 0 mls/hr Documented by: [id number] Admin: 06/02/18 14:46 Dose: 80 mls/hr Documented by: [id number] Miscellaneous (Order Awaiting Action) 1 ea N/A QS [facility] Stop: 07/02/18 15:59 Last Admin: 06/03/18 22:25 Dose: Not Given Documented by: [id number] Admin: 06/03/18 08:58 Dose: Not Given Documented by: [id number] Admin: 06/02/18 23:15 Dose: Not Given Documented by: [id number] Admin: 06/02/18 16:01 Dose: Not Given Documented by: [id number] Miscellaneous (Order Awaiting Action) 1 ea N/A QS [facility] Stop: 07/02/18 15:59 Last Admin: 06/03/18 22:25 Dose: Not Given Documented by: [id number] Admin: 06/03/18 08:59 Dose: Not Given Documented by: [id number] Admin: 06/02/18 23:15 Dose: Not Given Documented by: [id number] Admin: 06/02/18 16:01 Dose: Not Given Documented by: [id number] Non-Formulary Medication (Zonisamide) 200 mg PO DAILY [facility] Stop: 07/03/18 08:59 Last Admin: 06/03/18 10:14 Dose: Not Given Documented by: [id number] Medical Decision Making Differential Diagnosis Differential diagnosis: Etiologies such as viral syndrome, otitis, pharyngitis, pneumonia, influenza, meningitis, urinary tract infection, septic arthritis, soft tissue infectious process, intra-abdominal process, sepsis, bacteremia, as well as others were entertained. Medical Records Attestation: I reviewed the patient's medical records. Home Medications Current Medication List: was personally reviewed by me Laboratory Data Attestation: I reviewed the patient's lab results. Result diagrams: 06/04/18 06:07 06/04/18 06:07 Lab Results 06/02/18 06/02/18 06/02/18 Range/Units 06:50 06:50 07:37 WBC (4.8-10.8) K/uL RBC (4.2-5.4) M/uL Hgb (12.0-16.0) g/dL Hct (37-47) % MCV (80-100) fL MCH (25-34) pg MCHC (32-36) g/dL RDW Std Deviation (36.4-46.3) fL RDW Coeff of Celio (11.5-14.5) % Plt Count (130-400) K/uL MPV (7.4-10.4) fL Immature Gran % (Auto) % Neut % (Auto) % Lymph % (Auto) % Gage % (Auto) % Eos % (Auto) % Baso % (Auto) % Immature Gran # (Auto) (0.00-0.02) K/uL Neut # (Auto) (1.4-6.5) K/uL Lymph # (Auto) (1.2-3.4) K/uL Gage # (Auto) (0.11-0.59) K/uL Eos # (Auto) (0-0.5) K/uL Baso # (Auto) (0-0.2) K/uL Platelet Estimate (Normal) PT (9.0-12.0) Seconds INR (0.9-1.1) Sodium (136-145) mmol/L Potassium (3.5-5.1) mmol/L Chloride (98-107) mmol/L Carbon Dioxide (21-32) mmol/L Anion Gap (3-11) BUN (7-18) mg/dl Creatinine (0.6-1.2) mg/dl Est Cr Clr Drug Dosing ml/min Est GFR ( Amer) Est GFR (Non-Af Amer) BUN/Creatinine Ratio (10-20) Glucose (70-99) mg/dl POC Glucose (70-99) Estimat Average Glucose mg/dl Hemoglobin A1c (4.5-5.6) % Lactate 2.5 H* (0.4-2.0) mmol/L Calcium (8.5-10.1) mg/dl Total Bilirubin (0.2-1) mg/dl AST (15-37) U/L ALT (12-78) U/L Alkaline Phosphatase (45-117) U/L Troponin I (0-0.045) ng/ml Total Protein (6.4-8.2) gm/dl Albumin (3.4-5.0) gm/dl Globulin (2.5-4.0) gm/dl Albumin/Globulin Ratio (0.9-2) Urine Color Yellow Urine Appearance Turbid H (Clear) Urine pH 7.0 (4.5-7.5) Ur Specific Luana 1.011 (1.000-1.030) Urine Protein 1+ H (Negative) Urine Glucose (UA) Negative (Negative) Urine Ketones Trace H (Negative) Urine Blood 2+ H (Negative) Urine Nitrite Negative (Negative) Urine Bilirubin Negative (Negative) Urine Urobilinogen Negative (Negative) Ur Leukocyte Esterase 3+ H (Negative) Urine WBC (Auto) >30 H (0-5) /hpf Urine RBC (Auto) 10-30 H (0-4) /hpf U Hyaline Cast (Auto) 1-5 (0-5) /lpf U Epithel Cells (Auto) 5-10 H (0-5) /lpf Urine Bacteria (Auto) Negative (Negative) Influenza Type A (PCR) Neg for Influ A (Neg) Influenza Type B (PCR) Neg for Influ B (Neg) 06/02/18 06/02/18 06/02/18 Range/Units 07:39 07:39 13:55 WBC 10.57 (4.8-10.8) K/uL RBC 3.73 L (4.2-5.4) M/uL Hgb 11.7 L (12.0-16.0) g/dL Hct 34.6 L (37-47) % MCV 92.8 (80-100) fL MCH 31.4 (25-34) pg MCHC 33.8 (32-36) g/dL RDW Std Deviation 46.8 H (36.4-46.3) fL RDW Coeff of Celio 13.8 (11.5-14.5) % Plt Count 101 L (130-400) K/uL MPV 10.8 H (7.4-10.4) fL Immature Gran % (Auto) 0.4 % Neut % (Auto) 59.9 % Lymph % (Auto) 22.2 % Gage % (Auto) 17.1 % Eos % (Auto) 0.3 % Baso % (Auto) 0.1 % Immature Gran # (Auto) 0.04 H (0.00-0.02) K/uL Neut # (Auto) 6.33 (1.4-6.5) K/uL Lymph # (Auto) 2.35 (1.2-3.4) K/uL Gage # (Auto) 1.81 H (0.11-0.59) K/uL Eos # (Auto) 0.03 (0-0.5) K/uL Baso # (Auto) 0.01 (0-0.2) K/uL Platelet Estimate (Normal) PT (9.0-12.0) Seconds INR (0.9-1.1) Sodium 135 L (136-145) mmol/L Potassium 3.8 (3.5-5.1) mmol/L Chloride 101 (98-107) mmol/L Carbon Dioxide 28 (21-32) mmol/L Anion Gap 6.0 (3-11) BUN 15 (7-18) mg/dl Creatinine 0.98 (0.6-1.2) mg/dl Est Cr Clr Drug Dosing 78.3 ml/min Est GFR ( Amer) 75.3 Est GFR (Non-Af Amer) 64.9 BUN/Creatinine Ratio 15.4 (10-20) Glucose 159 H (70-99) mg/dl POC Glucose (70-99) Estimat Average Glucose mg/dl Hemoglobin A1c (4.5-5.6) % Lactate 2.7 H* (0.4-2.0) mmol/L Calcium 9.0 (8.5-10.1) mg/dl Total Bilirubin 0.6 (0.2-1) mg/dl AST 34 (15-37) U/L ALT 32 (12-78) U/L Alkaline Phosphatase 86 (45-117) U/L Troponin I < 0.015 (0-0.045) ng/ml Total Protein 7.1 (6.4-8.2) gm/dl Albumin 2.9 L (3.4-5.0) gm/dl Globulin 4.2 H (2.5-4.0) gm/dl Albumin/Globulin Ratio 0.7 L (0.9-2) Urine Color Urine Appearance (Clear) Urine pH (4.5-7.5) Ur Specific Luana (1.000-1.030) Urine Protein (Negative) Urine Glucose (UA) (Negative) Urine Ketones (Negative) Urine Blood (Negative) Urine Nitrite (Negative) Urine Bilirubin (Negative) Urine Urobilinogen (Negative) Ur Leukocyte Esterase (Negative) Urine WBC (Auto) (0-5) /hpf Urine RBC (Auto) (0-4) /hpf U Hyaline Cast (Auto) (0-5) /lpf U Epithel Cells (Auto) (0-5) /lpf Urine Bacteria (Auto) (Negative) Influenza Type A (PCR) (Neg) Influenza Type B (PCR) (Neg) 06/02/18 06/02/18 06/02/18 Range/Units 13:55 16:41 20:09 WBC (4.8-10.8) K/uL RBC (4.2-5.4) M/uL Hgb (12.0-16.0) g/dL Hct (37-47) % MCV (80-100) fL MCH (25-34) pg MCHC (32-36) g/dL RDW Std Deviation (36.4-46.3) fL RDW Coeff of Celio (11.5-14.5) % Plt Count (130-400) K/uL MPV (7.4-10.4) fL Immature Gran % (Auto) % Neut % (Auto) % Lymph % (Auto) % Gage % (Auto) % Eos % (Auto) % Baso % (Auto) % Immature Gran # (Auto) (0.00-0.02) K/uL Neut # (Auto) (1.4-6.5) K/uL Lymph # (Auto) (1.2-3.4) K/uL Gage # (Auto) (0.11-0.59) K/uL Eos # (Auto) (0-0.5) K/uL Baso # (Auto) (0-0.2) K/uL Platelet Estimate (Normal) PT (9.0-12.0) Seconds INR (0.9-1.1) Sodium (136-145) mmol/L Potassium (3.5-5.1) mmol/L Chloride (98-107) mmol/L Carbon Dioxide (21-32) mmol/L Anion Gap (3-11) BUN (7-18) mg/dl Creatinine (0.6-1.2) mg/dl Est Cr Clr Drug Dosing ml/min Est GFR ( Amer) Est GFR (Non-Af Amer) BUN/Creatinine Ratio (10-20) Glucose (70-99) mg/dl POC Glucose 100 H 194 H 151 H (70-99) Estimat Average Glucose mg/dl Hemoglobin A1c (4.5-5.6) % Lactate (0.4-2.0) mmol/L Calcium (8.5-10.1) mg/dl Total Bilirubin (0.2-1) mg/dl AST (15-37) U/L ALT (12-78) U/L Alkaline Phosphatase (45-117) U/L Troponin I (0-0.045) ng/ml Total Protein (6.4-8.2) gm/dl Albumin (3.4-5.0) gm/dl Globulin (2.5-4.0) gm/dl Albumin/Globulin Ratio (0.9-2) Urine Color Urine Appearance (Clear) Urine pH (4.5-7.5) Ur Specific Luana (1.000-1.030) Urine Protein (Negative) Urine Glucose (UA) (Negative) Urine Ketones (Negative) Urine Blood (Negative) Urine Nitrite (Negative) Urine Bilirubin (Negative) Urine Urobilinogen (Negative) Ur Leukocyte Esterase (Negative) Urine WBC (Auto) (0-5) /hpf Urine RBC (Auto) (0-4) /hpf U Hyaline Cast (Auto) (0-5) /lpf U Epithel Cells (Auto) (0-5) /lpf Urine Bacteria (Auto) (Negative) Influenza Type A (PCR) (Neg) Influenza Type B (PCR) (Neg) 06/03/18 06/03/18 06/03/18 Range/Units 07:34 07:34 07:34 WBC 9.01 (4.8-10.8) K/uL RBC 3.71 L (4.2-5.4) M/uL Hgb 11.4 L (12.0-16.0) g/dL Hct 34.6 L (37-47) % MCV 93.3 (80-100) fL MCH 30.7 (25-34) pg MCHC 32.9 (32-36) g/dL RDW Std Deviation 47.5 H (36.4-46.3) fL RDW Coeff of Celio 13.8 (11.5-14.5) % Plt Count 84 L (130-400) K/uL MPV 10.8 H (7.4-10.4) fL Immature Gran % (Auto) 0.2 % Neut % (Auto) 61.7 % Lymph % (Auto) 18.9 % Gage % (Auto) 18.3 % Eos % (Auto) 0.8 % Baso % (Auto) 0.1 % Immature Gran # (Auto) 0.02 (0.00-0.02) K/uL Neut # (Auto) 5.56 (1.4-6.5) K/uL Lymph # (Auto) 1.70 (1.2-3.4) K/uL Gage # (Auto) 1.65 H (0.11-0.59) K/uL Eos # (Auto) 0.07 (0-0.5) K/uL Baso # (Auto) 0.01 (0-0.2) K/uL Platelet Estimate Decreased (Normal) PT (9.0-12.0) Seconds INR (0.9-1.1) Sodium 138 (136-145) mmol/L Potassium 3.8 (3.5-5.1) mmol/L Chloride 106 (98-107) mmol/L Carbon Dioxide 26 (21-32) mmol/L Anion Gap 6.0 (3-11) BUN 9 D (7-18) mg/dl Creatinine 0.66 D (0.6-1.2) mg/dl Est Cr Clr Drug Dosing 116.2 ml/min Est GFR ( Amer) 115.3 Est GFR (Non-Af Amer) 99.4 BUN/Creatinine Ratio 13.9 (10-20) Glucose 155 H (70-99) mg/dl POC Glucose (70-99) Estimat Average Glucose 140 mg/dl Hemoglobin A1c 6.5 H (4.5-5.6) % Lactate (0.4-2.0) mmol/L Calcium 8.8 (8.5-10.1) mg/dl Total Bilirubin (0.2-1) mg/dl AST (15-37) U/L ALT (12-78) U/L Alkaline Phosphatase (45-117) U/L Troponin I (0-0.045) ng/ml Total Protein (6.4-8.2) gm/dl Albumin (3.4-5.0) gm/dl Globulin (2.5-4.0) gm/dl Albumin/Globulin Ratio (0.9-2) Urine Color Urine Appearance (Clear) Urine pH (4.5-7.5) Ur Specific Luana (1.000-1.030) Urine Protein (Negative) Urine Glucose (UA) (Negative) Urine Ketones (Negative) Urine Blood (Negative) Urine Nitrite (Negative) Urine Bilirubin (Negative) Urine Urobilinogen (Negative) Ur Leukocyte Esterase (Negative) Urine WBC (Auto) (0-5) /hpf Urine RBC (Auto) (0-4) /hpf U Hyaline Cast (Auto) (0-5) /lpf U Epithel Cells (Auto) (0-5) /lpf Urine Bacteria (Auto) (Negative) Influenza Type A (PCR) (Neg) Influenza Type B (PCR) (Neg) 06/03/18 06/03/18 06/03/18 Range/Units 07:34 07:45 11:46 WBC (4.8-10.8) K/uL RBC (4.2-5.4) M/uL Hgb (12.0-16.0) g/dL Hct (37-47) % MCV (80-100) fL MCH (25-34) pg MCHC (32-36) g/dL RDW Std Deviation (36.4-46.3) fL RDW Coeff of Celio (11.5-14.5) % Plt Count (130-400) K/uL MPV (7.4-10.4) fL Immature Gran % (Auto) % Neut % (Auto) % Lymph % (Auto) % Gage % (Auto) % Eos % (Auto) % Baso % (Auto) % Immature Gran # (Auto) (0.00-0.02) K/uL Neut # (Auto) (1.4-6.5) K/uL Lymph # (Auto) (1.2-3.4) K/uL Gage # (Auto) (0.11-0.59) K/uL Eos # (Auto) (0-0.5) K/uL Baso # (Auto) (0-0.2) K/uL Platelet Estimate (Normal) PT 10.3 (9.0-12.0) Seconds INR 1.0 (0.9-1.1) Sodium (136-145) mmol/L Potassium (3.5-5.1) mmol/L Chloride (98-107) mmol/L Carbon Dioxide (21-32) mmol/L Anion Gap (3-11) BUN (7-18) mg/dl Creatinine (0.6-1.2) mg/dl Est Cr Clr Drug Dosing ml/min Est GFR ( Amer) Est GFR (Non-Af Amer) BUN/Creatinine Ratio (10-20) Glucose (70-99) mg/dl POC Glucose 154 H 112 H (70-99) Estimat Average Glucose mg/dl Hemoglobin A1c (4.5-5.6) % Lactate (0.4-2.0) mmol/L Calcium (8.5-10.1) mg/dl Total Bilirubin (0.2-1) mg/dl AST (15-37) U/L ALT (12-78) U/L Alkaline Phosphatase (45-117) U/L Troponin I (0-0.045) ng/ml Total Protein (6.4-8.2) gm/dl Albumin (3.4-5.0) gm/dl Globulin (2.5-4.0) gm/dl Albumin/Globulin Ratio (0.9-2) Urine Color Urine Appearance (Clear) Urine pH (4.5-7.5) Ur Specific Luana (1.000-1.030) Urine Protein (Negative) Urine Glucose (UA) (Negative) Urine Ketones (Negative) Urine Blood (Negative) Urine Nitrite (Negative) Urine Bilirubin (Negative) Urine Urobilinogen (Negative) Ur Leukocyte Esterase (Negative) Urine WBC (Auto) (0-5) /hpf Urine RBC (Auto) (0-4) /hpf U Hyaline Cast (Auto) (0-5) /lpf U Epithel Cells (Auto) (0-5) /lpf Urine Bacteria (Auto) (Negative) Influenza Type A (PCR) (Neg) Influenza Type B (PCR) (Neg) 06/03/18 06/03/18 06/04/18 Range/Units 16:53 20:28 06:07 WBC (4.8-10.8) K/uL RBC (4.2-5.4) M/uL Hgb (12.0-16.0) g/dL Hct (37-47) % MCV (80-100) fL MCH (25-34) pg MCHC (32-36) g/dL RDW Std Deviation (36.4-46.3) fL RDW Coeff of Celio (11.5-14.5) % Plt Count (130-400) K/uL MPV (7.4-10.4) fL Immature Gran % (Auto) % Neut % (Auto) % Lymph % (Auto) % Gage % (Auto) % Eos % (Auto) % Baso % (Auto) % Immature Gran # (Auto) (0.00-0.02) K/uL Neut # (Auto) (1.4-6.5) K/uL Lymph # (Auto) (1.2-3.4) K/uL Gage # (Auto) (0.11-0.59) K/uL Eos # (Auto) (0-0.5) K/uL Baso # (Auto) (0-0.2) K/uL Platelet Estimate (Normal) PT (9.0-12.0) Seconds INR (0.9-1.1) Sodium 139 (136-145) mmol/L Potassium 3.7 (3.5-5.1) mmol/L Chloride 106 (98-107) mmol/L Carbon Dioxide 25 (21-32) mmol/L Anion Gap 9.0 (3-11) BUN 12 (7-18) mg/dl Creatinine 0.68 (0.6-1.2) mg/dl Est Cr Clr Drug Dosing 112.8 ml/min Est GFR ( Amer) 114.1 Est GFR (Non-Af Amer) 98.5 BUN/Creatinine Ratio 17.7 (10-20) Glucose 137 H (70-99) mg/dl POC Glucose 100 H 141 H (70-99) Estimat Average Glucose mg/dl Hemoglobin A1c (4.5-5.6) % Lactate (0.4-2.0) mmol/L Calcium 8.8 (8.5-10.1) mg/dl Total Bilirubin (0.2-1) mg/dl AST (15-37) U/L ALT (12-78) U/L Alkaline Phosphatase (45-117) U/L Troponin I (0-0.045) ng/ml Total Protein (6.4-8.2) gm/dl Albumin (3.4-5.0) gm/dl Globulin (2.5-4.0) gm/dl Albumin/Globulin Ratio (0.9-2) Urine Color Urine Appearance (Clear) Urine pH (4.5-7.5) Ur Specific Luana (1.000-1.030) Urine Protein (Negative) Urine Glucose (UA) (Negative) Urine Ketones (Negative) Urine Blood (Negative) Urine Nitrite (Negative) Urine Bilirubin (Negative) Urine Urobilinogen (Negative) Ur Leukocyte Esterase (Negative) Urine WBC (Auto) (0-5) /hpf Urine RBC (Auto) (0-4) /hpf U Hyaline Cast (Auto) (0-5) /lpf U Epithel Cells (Auto) (0-5) /lpf Urine Bacteria (Auto) (Negative) Influenza Type A (PCR) (Neg) Influenza Type B (PCR) (Neg) 06/04/18 06/04/18 06/04/18 Range/Units 06:07 06:07 07:44 WBC 7.26 (4.8-10.8) K/uL RBC 3.68 L (4.2-5.4) M/uL Hgb 11.3 L (12.0-16.0) g/dL Hct 34.0 L (37-47) % MCV 92.4 (80-100) fL MCH 30.7 (25-34) pg MCHC 33.2 (32-36) g/dL RDW Std Deviation 47.1 H (36.4-46.3) fL RDW Coeff of Celio 13.8 (11.5-14.5) % Plt Count 102 L (130-400) K/uL MPV 10.7 H (7.4-10.4) fL Immature Gran % (Auto) 0.3 % Neut % (Auto) 54.0 % Lymph % (Auto) 28.1 % Gage % (Auto) 15.3 % Eos % (Auto) 2.2 % Baso % (Auto) 0.1 % Immature Gran # (Auto) 0.02 (0.00-0.02) K/uL Neut # (Auto) 3.92 (1.4-6.5) K/uL Lymph # (Auto) 2.04 (1.2-3.4) K/uL [place] # (Auto) 1.11 H (0.11-0.59) K/uL Eos # (Auto) 0.16 (0-0.5) K/uL Baso # (Auto) 0.01 (0-0.2) K/uL Platelet Estimate (Normal) PT 10.4 (9.0-12.0) Seconds INR 1.0 (0.9-1.1) Sodium (136-145) mmol/L Potassium (3.5-5.1) mmol/L Chloride (98-107) mmol/L Carbon Dioxide (21-32) mmol/L Anion Gap (3-11) BUN (7-18) mg/dl Creatinine (0.6-1.2) mg/dl Est Cr Clr Drug Dosing ml/min Est GFR ( Amer) Est GFR (Non-Af Amer) BUN/Creatinine Ratio (10-20) Glucose (70-99) mg/dl POC Glucose 140 H (70-99) Estimat Average Glucose mg/dl Hemoglobin A1c (4.5-5.6) % Lactate (0.4-2.0) mmol/L Calcium (8.5-10.1) mg/dl Total Bilirubin (0.2-1) mg/dl AST (15-37) U/L ALT (12-78) U/L Alkaline Phosphatase (45-117) U/L Troponin I (0-0.045) ng/ml Total Protein (6.4-8.2) gm/dl Albumin (3.4-5.0) gm/dl Globulin (2.5-4.0) gm/dl Albumin/Globulin Ratio (0.9-2) Urine Color Urine Appearance (Clear) Urine pH (4.5-7.5) Ur Specific [place] (1.000-1.030) Urine Protein (Negative) Urine Glucose (UA) (Negative) Urine Ketones (Negative) Urine Blood (Negative) Urine Nitrite (Negative) Urine Bilirubin (Negative) Urine Urobilinogen (Negative) Ur Leukocyte Esterase (Negative) Urine WBC (Auto) (0-5) /hpf Urine RBC (Auto) (0-4) /hpf U Hyaline Cast (Auto) (0-5) /lpf U Epithel Cells (Auto) (0-5) /lpf Urine Bacteria (Auto) (Negative) Influenza Type A (PCR) (Neg) Influenza Type B (PCR) (Neg) 06/04/18 06/04/18 Range/Units 11:55 16:17 WBC (4.8-10.8) K/uL RBC (4.2-5.4) M/uL Hgb (12.0-16.0) g/dL Hct (37-47) % MCV (80-100) fL MCH (25-34) pg MCHC (32-36) g/dL RDW Std Deviation (36.4-46.3) fL RDW Coeff of Celio (11.5-14.5) % Plt Count (130-400) K/uL MPV (7.4-10.4) fL Immature Gran % (Auto) % Neut % (Auto) % Lymph % (Auto) % [place] % (Auto) % Eos % (Auto) % Baso % (Auto) % Immature Gran # (Auto) (0.00-0.02) K/uL Neut # (Auto) (1.4-6.5) K/uL Lymph # (Auto) (1.2-3.4) K/uL [place] # (Auto) (0.11-0.59) K/uL Eos # (Auto) (0-0.5) K/uL Baso # (Auto) (0-0.2) K/uL Platelet Estimate (Normal) PT (9.0-12.0) Seconds INR (0.9-1.1) Sodium (136-145) mmol/L Potassium (3.5-5.1) mmol/L Chloride (98-107) mmol/L Carbon Dioxide (21-32) mmol/L Anion Gap (3-11) BUN (7-18) mg/dl Creatinine (0.6-1.2) mg/dl Est Cr Clr Drug Dosing ml/min Est GFR ( Amer) Est GFR (Non-Af Amer) BUN/Creatinine Ratio (10-20) Glucose (70-99) mg/dl POC Glucose 119 H 175 H (70-99) Estimat Average Glucose mg/dl Hemoglobin A1c (4.5-5.6) % Lactate (0.4-2.0) mmol/L Calcium (8.5-10.1) mg/dl Total Bilirubin (0.2-1) mg/dl AST (15-37) U/L ALT (12-78) U/L Alkaline Phosphatase (45-117) U/L Troponin I (0-0.045) ng/ml Total Protein (6.4-8.2) gm/dl Albumin (3.4-5.0) gm/dl Globulin (2.5-4.0) gm/dl Albumin/Globulin Ratio (0.9-2) Urine Color Urine Appearance (Clear) Urine pH (4.5-7.5) Ur Specific [place] (1.000-1.030) Urine Protein (Negative) Urine Glucose (UA) (Negative) Urine Ketones (Negative) Urine Blood (Negative) Urine Nitrite (Negative) Urine Bilirubin (Negative) Urine Urobilinogen (Negative) Ur Leukocyte Esterase (Negative) Urine WBC (Auto) (0-5) /hpf Urine RBC (Auto) (0-4) /hpf U Hyaline Cast (Auto) (0-5) /lpf U Epithel Cells (Auto) (0-5) /lpf Urine Bacteria (Auto) (Negative) Influenza Type A (PCR) (Neg) Influenza Type B (PCR) (Neg) Imaging Data Attestation: I personally reviewed and interpreted this imaging study as foll ows: Radiologist's Impression: XR chest 1V portable CLINICAL HISTORY: fever, AMS COMPARISON STUDY: Chest radiograph June 28, 2016. FINDINGS: Lung volumes are at the lower limits of normal. There is no pneumothorax or pleural effusion. There is no consolidation or evidence for pulmonary edema. Mild enlargement of the cardiac silhouette is noted. Otherwise, mediastinal contours are unremarkable. IMPRESSION: 1. No acute cardiopulmonary findings. 2. Mild enlargement of the cardiac silhouette. Electronically signed by: Gaurav Ferris M.D. 06/02/2018 7:23 AM ECG Data Attestation: I personally reviewed and interpreted this ECG as follows: Indication: altered mental status Rate (beats per minute): 69 Rhythm: normal sinus Findings: + nonspecific-ST abn; no ectopy Blood Pressure Blood Pressure Findings: Normal blood pressure MDM Narrative This pt was evaluated and appeared to be in no distress. IV access was obtained and lab work was drawn. Pt was hydrated with NSS. Lab work reveals a normal WBC and slightly elevated lactate. UA is positive for infection. Ceftriaxone 1 gm was given IV. EKG reveals nonspecific ST changes. CXR reveals no acute changes. Pt's case was d/w the hospitalist service for further management. Impression & Plan Altered mental status, UTI (urinary tract infection) Discharge Plan Visit Data *Final* Discharge Date/Time: 06/02/18 13:10 Chief Complaint: Illness ED Provider: Huma Mayes Discharge Problem: Altered mental status, UTI (urinary tract infection) Patient Disposition: Admitted As Inpatient Discharge Instructions Interventions: ED Discharge Assessment Last Done: 06/02/18 13:10 Discharge Problem: Altered mental status Qualifiers: Altered mental status type: unspecified Qualified Code(s): R41.82 - Altered mental status, unspecified UTI (urinary tract infection) Qualifiers: Urinary tract infection type: site unspecified Hematuria presence: without hematuria Qualified Code(s): N39.0 - Urinary tract infection, site not specified The scribe's documentation has been prepared under my direction and personally reviewed by me in its entirety. I confirm that the note above accurately reflects all work, treatment, procedures, and medical decision making performed by me.
[2018-06-02 07:54] LABS: Basophils # (auto) 0.01 K/uL (0-0.2); Basophils % (auto) 0.1 %; Eosinophils # (auto) 0.03 K/uL (0-0.5); Eosinophils % (auto) 0.3 %; Hematocrit (blood only) 34.6 % (37-47); Hemoglobin 11.7 g/dL (12.0-16.0); Immature Granulocytes # (auto) 0.04 K/uL (0.00-0.02); Immature Granulocytes % (auto) 0.4 %; Lymphocytes # (auto) 2.35 K/uL (1.2-3.4); Lymphocytes % (auto) 22.2 %; Mean Corpuscular Hgb Conc 33.8 g/dL (32-36); Mean Corpuscular Volume 92.8 fL (80-100); Mean Platelet Volume 10.8 fL (7.4-10.4); Monocytes # (auto) 1.81 K/uL (0.11-0.59); Monocytes % (auto) 17.1 %; Neutrophils # (auto) 6.33 K/uL (1.4-6.5); Neutrophils % (auto) 59.9 %; Platelet Count 101 K/uL (130-400); RDW Coefficient of Variation 13.8 % (11.5-14.5); RDW Standard Deviation 46.8 fL (36.4-46.3); Red Blood Count 3.73 M/uL (4.2-5.4); White Blood Count 10.57 K/uL (4.8-10.8)
[2018-06-02 08:24] LABS: Alanine Aminotransferase 32 U/L (12-78); Albumin Level 2.9 gm/dl (3.4-5.0); Aspartate Aminotransferase 34 U/L (15-37); BUN Creatinine Ratio 15.4 (10-20); Blood Urea Nitrogen 15 mg/dl (7-18); Carbon Dioxide 28 mmol/L (21-32); Chloride 101 mmol/L (98-107); Creatinine Clr Calc Pharmacy 78.3 ml/min; Est GFR (African American) 75.3; Est GFR (Non-African American) 64.9; Glucose 159 mg/dl (70-99); Potassium 3.8 mmol/L (3.5-5.1); Sodium 135 mmol/L (136-145)
[2018-06-02 08:28] LABS: Albumin Globulin Ratio 0.7 (0.9-2); Alkaline Phosphatase 86 U/L (45-117); Bilirubin,Total 0.6 mg/dl (0.2-1); Globulin 4.2 gm/dl (2.5-4.0); Total Protein 7.1 gm/dl (6.4-8.2); Troponin I < 0.015 ng/ml (0-0.045)
[2018-06-02 08:44] LABS: Influenza A virus by PCR Neg for Influ A (Neg); Influenza B virus by PCR Neg for Influ B (Neg)
[2018-06-02] MEDS ORDERED: SODIUM CHLORIDE 0.9% 500 ML IV ONE (09:00)
--- NOTE | 2018-06-02 10:59 | History & Physical Report ---
Date of Service June 02, 2018 Assessment & Plan (1) UTI (urinary tract infection): Pt with a history of prior UTIs - last appears to have been in March (Proteus resistant to nitrofurantoin) - Starting empiric Rocephin while waiting on urine culture - Does not appear septic on exam (no tachycardia, not hypotensive, afebrile, no leukocytosis) - elevated lactate likely secondary to hypovolemia in conjunction with Metformin. Pt received IVF in ED - will recheck lactate later today. - Will hold on further IVF for now due to chronic dependent edema - attempt to encourage oral fluid intake instead. - Repeat labs in AM (2) DM2 (diabetes mellitus, type 2): - Last A1c 3 months ago was 6.7 - will recheck in AM - HOLD Metformin for now - BSG ACHS - Sliding scale insulin coverage - Diabetic diet (3) GERD (gastroesophageal reflux disease): - Continue outpatient PPI therapy (4) Seizure disorder: - Continue outpatient zonisamide and divalproex (5) Bipolar disorder: Appears stable at present time - continue outpatient regimen (6) Tobacco abuse: - Pt uninterested in quitting at this time (7) HLD (hyperlipidemia): - Continue simvastatin (8) Schizophrenia: - Continue outpatient regimen - appears stable at this time (9) Mild intellectual disability: Pt seems to have limited understanding of treatment plan and goals of care - resides at [facility]. activities leader/caregiver updated at bedside - Consult case management for discharge planning - PT/OT evaluation to ensure pt appropriate to return to [facility] or if significantly deconditioned and requiring additional services (10) Overactive bladder: - Continue home meds (11) Dependent edema: Per caregiver, no worse than usual. Hold additional IVF at this time. Patient seen and reviewed with collaborating physician, Dr. Maldonado. Plan of care discussed and as outlined above. Pt to be followed by Dr. Ríos starting in the AM. Leslye Oreilly PA-C History of Present Illness Primary Care Provider: Dr. Matthew Lopez This is a 57 y/o female with a past medical history of schizophrenia, mild intellectual disability, type 2 DM, seizure disorder, hyperlipidemia and GERD who presents via EMS from [facility] with progressive weakness resulting in two controlled falls last night. Patient is a poor historian so additional history obtained from medical records and caregiver from [facility] (Jayde) who is at the bedside. Apparently pt was exposed to someone who had the flu earlier this week. She was started on Tamiflu for prophylaxis but couldn't tolerate due to side effects (specifically shakiness) so this was stopped. Two days ago, EMS was called due to low BP and weakness but vitals were normal when EMS arrived and patient declined transport. Since then, she has continued with progressive weakness culminating in two controlled falls last night. After the second, EMS was called again and pt agreed to transport. She has been more fatigued and sleeping more than usual for the past few days. She has been having fevers up to 102F per staff for which she has been receiving ATC Tylenol with improvement. Her appetite has been decreased but no reported nausea or vomiting. She had two loose BMs yesterday but no other diarrhea. No melena or hematochezia. Staff have noted increased urinary incontinence. Urine is dark colored with sediment and foul odor. No hematuria. Has not complained of dysuria but does admit to some lower abdominal pain. Pt has a history of overactive bladder for which she follows with Dr. Adame - last visit about a month ago per caregiver. Last UTI in March - Proteus on culture. Allergies Allergy/AdvReac Type Severity Reaction Status Date / Time No Known Allergies Allergy Unverified 06/02/18 07:04 Home Medications Home Medications Medication Instructions Recorded Confirmed Type acetaminophen 650 mg PO Q4H PRN 06/02/18 06/02/18 History albuterol sulfate 2.5 mg INHALATION Q6H PRN 06/02/18 06/02/18 History clonazepam 2 mg PO HS 06/02/18 06/02/18 History dextran 70-hypromellose (PF) 1 drp OPHTHALMIC (EYE) TID 06/02/18 06/02/18 History [Artificial Tears (PF)] dextromethorphan-guaifenesin 5 ml PO Q4H PRN 06/02/18 06/02/18 History [Siltussin-DM] divalproex 1,000 mg PO DAILY 06/02/18 06/02/18 History divalproex 500 mg PO DAILY 06/02/18 06/02/18 History fluphenazine HCl 1 ml INJ MONTHLY 06/02/18 06/02/18 History fluphenazine HCl 5 mg PO HS 06/02/18 06/02/18 History fluphenazine HCl 10 mg PO HS 06/02/18 06/02/18 History fluticasone 2 spray INTRANASAL DAILY 06/02/18 06/02/18 History insulin aspart U-100 [Novolog 0 unit SUBCUT BID 06/02/18 06/02/18 History Flexpen U-100 Insulin] menthol-zinc oxide [Calmoseptine] 1 applic TOPICAL DAILY PRN 06/02/18 06/02/18 History metformin 1,000 mg PO QPM 06/02/18 06/02/18 History metformin 500 mg PO QAM 06/02/18 06/02/18 History mirabegron [Myrbetriq] 50 mg PO DAILY 06/02/18 06/02/18 History naproxen sodium 440 mg PO BID PRN 06/02/18 06/02/18 History nitrofurantoin macrocrystal 50 mg PO DAILY 06/02/18 06/02/18 History nystatin 1 applic TOPICAL UD PRN 06/02/18 06/02/18 History omeprazole 20 mg PO BID 06/02/18 06/02/18 History propranolol 10 mg PO DAILY 06/02/18 06/02/18 History simvastatin 20 mg PO PM 06/02/18 06/02/18 History tolterodine 4 mg PO DAILY 06/02/18 06/02/18 History zonisamide 200 mg PO DAILY 06/02/18 06/02/18 History Past Med/Surg History Social History Preferred Language: Czech Communication Ability: Effective Thai Masseur Required: No Beliefs That Will Affect Care: None Current Living Situation: Personal Care Facility Other Information That Helps Us Care for You: No Feels Safe at Home: Yes Safety Concerns: Feels Safe At This Time Smoking Status: Current every day smoker Hx Alcohol Use: No Hx Substance Use: No Review of Systems Unobtainable due to mental health condition (See HPI - additional ROS limited) Physical Exam Vital Signs (Past 24 Hours): Last Vital Signs Temp 36.9 C 06/02/18 09:06 Pulse 68 06/02/18 07:00 Resp 26 H 06/02/18 10:01 BP 112/50 L 06/02/18 10:01 Pulse Ox 99 06/02/18 10:01 Constitutional: WD/WN, vitals as above + obese; no acute distress and not lethargic frequently sleeping but easily arousable - will attempt to answer questions when asked but doesn't always know the answer Eyes: PERRL, conjunctivae normal, anicteric sclerae ENMT: external ear and nose normal, oropharynx normal Neck: trachea midline Respiratory: no respiratory distress and no labored breathing Auscultation: + wheezes (occasional faint); no diminished lung sounds, no rales and no rhonchi Cardiovascular: Rate/Rhythm: regular rate and regular rhythm Heart Sounds: no gallop, no murmur and no cardiac rub Vessels: no carotid bruit Extremities: normal capillary refill and + edema (bilateral LE (non-pitting)); no calf tenderness Gastrointestinal (Abdomen): Inspection/Auscultation: normal bowel sounds; abdomen not distended Percussion/Palpation: abdomen soft; abdomen nontender and no guarding Musculoskeletal: no cyanosis or clubbing, extremities motor strength 5/5 Skin: no rashes, warm and dry Neurologic: moves all extremities; not confused Cranial Nerves: tongue m idline Results & Data Laboratory Results Laboratory Results - last 24 hr 06/02/18 06/02/18 06/02/18 06:50 06:50 07:37 WBC RBC Hgb Hct MCV MCH MCHC RDW Std Deviation RDW Coeff of Celio Plt Count MPV Immature Gran % (Auto) Neut % (Auto) Lymph % (Auto) [place] % (Auto) Eos % (Auto) Baso % (Auto) Immature Gran # (Auto) Neut # (Auto) Lymph # (Auto) [place] # (Auto) Eos # (Auto) Baso # (Auto) Sodium Potassium Chloride Carbon Dioxide Anion Gap BUN Creatinine Est Cr Clr Drug Dosing Est GFR ( Amer) Est GFR (Non-Af Amer) BUN/Creatinine Ratio Glucose Lactate 2.5 H* Calcium Total Bilirubin AST ALT Alkaline Phosphatase Troponin I Total Protein Albumin Globulin Albumin/Globulin Ratio Urine Color Yellow Urine Appearance Turbid H Urine pH 7.0 Ur Specific [place] 1.011 Urine Protein 1+ H Urine Glucose (UA) Negative Urine Ketones Trace H Urine Blood 2+ H Urine Nitrite Negative Urine Bilirubin Negative Urine Urobilinogen Negative Ur Leukocyte Esterase 3+ H Urine WBC (Auto) >30 H Urine RBC (Auto) 10-30 H U Hyaline Cast (Auto) 1-5 U Epithel Cells (Auto) 5-10 H Urine Bacteria (Auto) Negative Influenza Type A (PCR) Neg for Influ A Influenza Type B (PCR) Neg for Influ B 06/02/18 06/02/18 07:39 07:39 WBC 10.57 RBC 3.73 L Hgb 11.7 L Hct 34.6 L MCV 92.8 MCH 31.4 MCHC 33.8 RDW Std Deviation 46.8 H RDW Coeff of Celio 13.8 Plt Count 101 L MPV 10.8 H Immature Gran % (Auto) 0.4 Neut % (Auto) 59.9 Lymph % (Auto) 22.2 [place] % (Auto) 17.1 Eos % (Auto) 0.3 Baso % (Auto) 0.1 Immature Gran # (Auto) 0.04 H Neut # (Auto) 6.33 Lymph # (Auto) 2.35 [place] # (Auto) 1.81 H Eos # (Auto) 0.03 Baso # (Auto) 0.01 Sodium 135 L Potassium 3.8 Chloride 101 Carbon Dioxide 28 Anion Gap 6.0 BUN 15 Creatinine 0.98 Est Cr Clr Drug Dosing 78.3 Est GFR ( Amer) 75.3 Est GFR (Non-Af Amer) 64.9 BUN/Creatinine Ratio 15.4 Glucose 159 H Lactate Calcium 9.0 Total Bilirubin 0.6 AST 34 ALT 32 Alkaline Phosphatase 86 Troponin I < 0.015 Total Protein 7.1 Albumin 2.9 L Globulin 4.2 H Albumin/Globulin Ratio 0.7 L Urine Color Urine Appearance Urine pH Ur Specific [place] Urine Protein Urine Glucose (UA) Urine Ketones Urine Blood Urine Nitrite Urine Bilirubin Urine Urobilinogen Ur Leukocyte Esterase Urine WBC (Auto) Urine RBC (Auto) U Hyaline Cast (Auto) U Epithel Cells (Auto) Urine Bacteria (Auto) Influenza Type A (PCR) Influenza Type B (PCR) Diagnostic Findings Chest X-ray 06/02/18 - IMPRESSION: 1. No acute cardiopulmonary findings. 2. Mild enlargement of the cardiac silhouette. Medications Administered Discontinued Medications Acetaminophen (Tylenol) 1,000 mg PO ONE STA Stop: 06/02/18 06:45 Last Admin: 06/02/18 07:18 Dose: 1,000 mg Documented by: [id number] Sodium Chloride (Nss) 500 mls @ 999 mls/hr IV .Q31M MAGDA Stop: 06/02/18 07:15 Last Infusion: 06/02/18 07:52 Dose: 0 mls/hr Documented by: [id number] Admin: 06/02/18 07:18 Dose: 999 mls/hr Documented by: [id number] Ceftriaxone Sodium (Rocephin) 1,000 mg in 50 mls @ 100 mls/hr IV NOW STA Stop: 06/02/18 07:54 Last Infusion: 06/02/18 08:13 Dose: 0 mls/hr Documented by: [id number] Admin: 06/02/18 07:41 Dose: 100 mls/hr Documented by: [id number] Sodium Chloride (Nss) 500 mls @ 999 mls/hr IV .Q31M ONE Stop: 06/02/18 09:30 Last Infusion: 06/02/18 09:37 Dose: 0 mls/hr Documented by: [id number] Admin: 06/02/18 09:05 Dose: 999 mls/hr Documented by: [id number] Supervising Physician Co-Signing Physician Notes Attending addendum The patient was seen and examined in emergency room in presence of the caregiver She is a 57 y/o female with a past medical history of schizophrenia, mild intellectual disability, type 2 DM, seizure disorder, hyperlipidemia and GERD who presents via EMS from [facility] with progressive weakness resulting in two controlled falls last night. Complains to have lower abdominal pain with urinary symptoms and generalized weakness Denies any fever and/or chills, no chest pain and no shortness of breath no numbness or tingling in extremities, On examination Alert and awake without any apparent distress at rest Hemodynamically stable Chest-clear to auscultate bilaterally Heart S1-S2 Abdomen-soft, tender hypogastrium, no tenderness in renal angles, bowel sounds present Extremities-trace edema bilaterally Admission labs and imaging studies noted UA suggestive of UTI Antibiotic has been started We will continue her usual medications at home Agree with assessment and plan as outlined above by Jayshree Maldonado (1) DM2 (diabetes mellitus, type 2) 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
[2018-06-02] MEDS ORDERED: GLUCOSE 40% GEL 15 GM TUBE PO PRN (13:34)
[2018-06-02] MEDS ORDERED: DEXTROSE 50% 50 ML SYRINGE IV PRN (13:34)
[2018-06-02] MEDS ORDERED: GLUCAGON FOR INJ 1 MG VIAL SQ PRN (13:34)
[2018-06-02] MEDS ORDERED: GLUCOSE 10 TABS/TUBE PO PRN (13:34)
[2018-06-02] MEDS ORDERED: CARBOHYDRATES FOR HYPOGLYCEMIA PO PRN (13:34)
[2018-06-02] MEDS ORDERED: ALBUTEROL 0.083% NEBU SOLN 3 ML VIAL INH PRN (13:35)
[2018-06-02] MEDS: INSULIN ASPART 100 UNITS/ML 3 ML PEN SC SCH ×3 (14:05→20:13)
[2018-06-02] MEDS ORDERED: SODIUM CHLORIDE 0.9% 1000ML 1,000 ML IV SCH (14:45)
[2018-06-02] MEDS ORDERED: ACETAMINOPHEN SOL 650 MG/20.3 ML UDC PO PRN (19:52)
[2018-06-02] MEDS ORDERED: ACETAMINOPHEN 325 MG TAB ONE (20:24)
[2018-06-02] MEDS: DIVALPROEX DELAY RELEASE 500 MG TAB PO SCH (20:27)
[2018-06-02] MEDS: PANTOprazole 40 MG TAB PO SCH (20:27)
[2018-06-02] MEDS: SIMVASTATIN 20 MG TAB PO SCH (20:27)
[2018-06-02] MEDS: clonazePAM 1 MG TAB PO SCH (20:28)
[2018-06-02] MEDS: ARTIFICIAL TEARS OP SCH (20:29)
[2018-06-02] MEDS ORDERED: DIVALPROEX EXTENDED RELEASE 500 MG TAB PO SCH (21:00)
[2018-06-03] MEDS ORDERED: cefTRIAXone SODIUM 1,000 MG in DEXTROSE 5% 50 ML IV SCH (08:00)
[2018-06-03 08:06] LABS: Hematocrit (blood only) 34.6 % (37-47); Hemoglobin 11.4 g/dL (12.0-16.0); Mean Corpuscular Hgb Conc 32.9 g/dL (32-36); Mean Corpuscular Volume 93.3 fL (80-100); RDW Coefficient of Variation 13.8 % (11.5-14.5); RDW Standard Deviation 47.5 fL (36.4-46.3); Red Blood Count 3.71 M/uL (4.2-5.4); White Blood Count 9.01 K/uL (4.8-10.8)
[2018-06-03 08:16] LABS: Prothrombin Time 10.3 Seconds (9.0-12.0)
[2018-06-03] MEDS ORDERED: CEFEPIME CONSULT ACTIVE PRN (08:23)
--- NOTE | 2018-06-03 08:28 | Hospitalist Progress Note ---
Date of Service June 03, 2018 Subjective Aware by RN of gram-negative jazmín bacteremia one bottle. Pseudomonas species on initial urine cultures. Change IV Ceftriaxone to Cefepime for now. Physical Exam Vital Signs (Past 24 Hours): Last Vital Signs Temp 38.6 C H 06/03/18 07:31 Pulse 82 06/03/18 07:31 Resp 20 06/03/18 07:31 BP 117/75 06/03/18 07:31 Pulse Ox 97 06/03/18 07:31
[2018-06-03 08:35] LABS: Basophils # (auto) 0.01 K/uL (0-0.2); Basophils % (auto) 0.1 %; Eosinophils # (auto) 0.07 K/uL (0-0.5); Eosinophils % (auto) 0.8 %; Immature Granulocytes # (auto) 0.02 K/uL (0.00-0.02); Immature Granulocytes % (auto) 0.2 %; Lymphocytes % (auto) 18.9 %; Mean Platelet Volume 10.8 fL (7.4-10.4); Monocytes # (auto) 1.65 K/uL (0.11-0.59); Monocytes % (auto) 18.3 %; Neutrophils # (auto) 5.56 K/uL (1.4-6.5); Neutrophils % (auto) 61.7 %; Platelet Count 84 K/uL (130-400)
[2018-06-03 08:38] LABS: Platelet Estimate Decreased (Normal)
[2018-06-03 08:49] LABS: BUN Creatinine Ratio 13.9 (10-20); Calcium 8.8 mg/dl (8.5-10.1); Creatinine Clr Calc Pharmacy 116.2 ml/min; Est GFR (African American) 115.3; Est GFR (Non-African American) 99.4; Potassium 3.8 mmol/L (3.5-5.1)
[2018-06-03 08:57] LABS: Estimated Average Glucose 140 mg/dl; Hemoglobin A1C 6.5 % (4.5-5.6)
[2018-06-03] MEDS ORDERED: ZONISAMIDE 200 MG PO SCH (09:00)
[2018-06-03] MEDS: INSULIN ASPART 100 UNITS/ML 3 ML PEN SC SCH ×4 (09:00→20:37)
[2018-06-03] MEDS ORDERED: NITROFURANTOIN MACROCRYSTAL 50 MG CAP PO SCH (09:00)
[2018-06-03] MEDS: DIVALPROEX DELAY RELEASE 500 MG TAB PO SCH ×2 (09:02→20:38)
[2018-06-03] MEDS: ARTIFICIAL TEARS OP SCH ×3 (09:02→20:38)
[2018-06-03] MEDS: PROPRANOLOL HCL 10 MG TAB PO SCH (09:02)
[2018-06-03] MEDS: FLUTICASONE PROPIONATE NA SPR 16 GM BTL SCH (09:03)
[2018-06-03] MEDS: PANTOprazole 40 MG TAB PO SCH ×2 (09:03→20:38)
[2018-06-03] MEDS: TOLTERODINE TARTRATE LA 4 MG CAPCR PO SCH (09:03)
[2018-06-03] MEDS: ENOXAPARIN INJ 40 MG/0.4 ML SYR SQ SCH (09:08)
[2018-06-03] MEDS: CEFEPIME 2,000 MG in SYRINGE 7.5 ML IV SCH ×2 (10:08→17:31)
--- NOTE | 2018-06-03 17:25 | Hospitalist Progress Note ---
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 HLD: Continue simvastatin Schizophrenia: Continue home meds Mild intellectual disability: Resides at [facility] Case management for discharge planning Overactive bladder: On Miragegron Dependent edema: Per caregiver, no worse than usual DVT Px: Lovenox SQ Code Status Full Code Disposition: PT/OT prior to DC Subjective Patient is seen and examined at bedside No apparent distress on exam Patient denies any chest pain, SOB, dizziness, abd pain History no reliable given intellectual disability No family at bedside Physical Exam Vital Signs (Past 24 Hours): Last Vital Signs Temp 36.7 C 06/03/18 15:13 Pulse 67 06/03/18 15:13 Resp 20 06/03/18 15:13 BP 107/59 L 06/03/18 15:13 Pulse Ox 97 06/03/18 15:53 Physical Exam: Physical Exam: Vitals signs as noted above General Appearance:Obese, no apparent distress Head: normocephalic, Atraumatic Eyes: normal inspection, EOMI Neck: supple, Trachea midline Respiratory/Chest: Decreased breath sounds, CTA Cardiovascular: S1, S2, No murmur Abdomen/GI:Soft, Non tender, Bowel sounds present Extremities/Musculoskelatal:normal inspection, B/L LE edema Neurologic/Psych:AAOX3, grossly no focal neurological deficits Skin: normal color, warm Results & Data Laboratory Results Short CBC 06/03/18 Range/Units 07:34 WBC 9.01 (4.8-10.8) K/uL Hgb 11.4 L (12.0-16.0) g/dL Hct 34.6 L (37-47) % Plt Count 84 L (130-400) K/uL BMP 06/03/18 07:34 Sodium 138 Potassium 3.8 Chloride 106 Carbon Dioxide 26 BUN 9 D Creatinine 0.66 D Glucose 155 H Calcium 8.8 (1) UTI (urinary tract infection) Hematuria presence: without hematuria Urinary tract infection type: site unspecified Qualified Code(s): N39.0 - Urinary tract infection, site not specified
[2018-06-03] MEDS: clonazePAM 1 MG TAB PO SCH (20:37)
[2018-06-03] MEDS: SIMVASTATIN 20 MG TAB PO SCH (20:38)
[2018-06-04] MEDS: CEFEPIME 2,000 MG in SYRINGE 7.5 ML IV SCH ×3 (02:00→17:40)
[2018-06-04 06:27] LABS: Basophils # (auto) 0.01 K/uL (0-0.2); Basophils % (auto) 0.1 %; Eosinophils # (auto) 0.16 K/uL (0-0.5); Eosinophils % (auto) 2.2 %; Hemoglobin 11.3 g/dL (12.0-16.0); Immature Granulocytes # (auto) 0.02 K/uL (0.00-0.02); Immature Granulocytes % (auto) 0.3 %; Lymphocytes # (auto) 2.04 K/uL (1.2-3.4); Lymphocytes % (auto) 28.1 %; Mean Corpuscular Hgb Conc 33.2 g/dL (32-36); Mean Corpuscular Volume 92.4 fL (80-100); Mean Platelet Volume 10.7 fL (7.4-10.4); Monocytes # (auto) 1.11 K/uL (0.11-0.59); Monocytes % (auto) 15.3 %; Neutrophils # (auto) 3.92 K/uL (1.4-6.5); Platelet Count 102 K/uL (130-400); RDW Coefficient of Variation 13.8 % (11.5-14.5); RDW Standard Deviation 47.1 fL (36.4-46.3); Red Blood Count 3.68 M/uL (4.2-5.4); White Blood Count 7.26 K/uL (4.8-10.8)
[2018-06-04 06:44] LABS: Prothrombin Time 10.4 Seconds (9.0-12.0)
[2018-06-04 07:13] LABS: BUN Creatinine Ratio 17.7 (10-20); Calcium 8.8 mg/dl (8.5-10.1); Creatinine Clr Calc Pharmacy 112.8 ml/min; Est GFR (African American) 114.1; Est GFR (Non-African American) 98.5; Potassium 3.7 mmol/L (3.5-5.1)
[2018-06-04] MEDS: FLUTICASONE PROPIONATE NA SPR 16 GM BTL SCH (08:34)
[2018-06-04] MEDS: ARTIFICIAL TEARS OP SCH ×3 (08:34→20:22)
[2018-06-04] MEDS: PANTOprazole 40 MG TAB PO SCH ×2 (08:35→20:23)
[2018-06-04] MEDS: DIVALPROEX DELAY RELEASE 500 MG TAB PO SCH ×2 (08:35→20:22)
[2018-06-04] MEDS: TOLTERODINE TARTRATE LA 4 MG CAPCR PO SCH (08:35)
[2018-06-04] MEDS: ZONISAMIDE PO SCH (08:36)
[2018-06-04] MEDS: MYRBETRIQ PO SCH (08:37)
[2018-06-04] MEDS: ENOXAPARIN INJ 40 MG/0.4 ML SYR SQ SCH (08:38)
[2018-06-04] MEDS: PROPRANOLOL HCL 10 MG TAB PO SCH (08:39)
[2018-06-04] MEDS: INSULIN ASPART 100 UNITS/ML 3 ML PEN SC SCH ×4 (08:41→20:23)
[2018-06-04] MEDS ORDERED: LORazepam 0.5 MG TAB PO PRN (14:23)
--- NOTE | 2018-06-04 16:13 | Hospitalist Progress Note ---
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 HLD: Continue simvastatin Schizophrenia: Continue home meds Mild intellectual disability: Resides [facility] Case management for discharge planning Overactive bladder: On Miragegron Dependent edema: Per caregiver, no worse than usual DVT Px: Lovenox SQ Code Status Full Code Disposition: PT/OT prior to DC Subjective Patient is seen and examined at bedside Agitated intermittent per staff Patient denies any chest pain, SOB, dizziness, abd pain History no reliable given intellectual disability No family at bedside Physical Exam Vital Signs (Past 24 Hours): Last Vital Signs Temp 36.6 C 06/04/18 15:16 Pulse 61 06/04/18 15:16 Resp 20 06/04/18 15:16 BP 118/65 06/04/18 15:16 Pulse Ox 98 06/04/18 15:16 Physical Exam: Physical Exam: Vitals signs as noted above General Appearance:Obese, no apparent distress Head: normocephalic, Atraumatic Eyes: normal inspection, EOMI Neck: supple, Trachea midline Respiratory/Chest: Decreased breath sounds, CTA Cardiovascular: S1, S2, No murmur Abdomen/GI:Soft, Non tender, Bowel sounds present Extremities/Musculoskelatal:normal inspection, B/L LE edema Neurologic/Psych:AAOX3, grossly no focal neurological deficits Skin: normal color, warm Results & Data Laboratory Results Short CBC 06/04/18 Range/Units 06:07 WBC 7.26 (4.8-10.8) K/uL Hgb 11.3 L (12.0-16.0) g/dL Hct 34.0 L (37-47) % Plt Count 102 L (130-400) K/uL BMP 06/04/18 06:07 Sodium 139 Potassium 3.7 Chloride 106 Carbon Dioxide 25 BUN 12 Creatinine 0.68 Glucose 137 H Calcium 8.8 (1) UTI (urinary tract infection) Hematuria presence: without hematuria Urinary tract infection type: site unspecified Qualified Code(s): N39.0 - Urinary tract infection, site not specified
[2018-06-04] MEDS: clonazePAM 1 MG TAB PO SCH (20:21)
[2018-06-04] MEDS: SIMVASTATIN 20 MG TAB PO SCH (20:22)
[2018-06-05] MEDS: CEFEPIME 2,000 MG in SYRINGE 7.5 ML IV SCH ×3 (01:57→17:39)
[2018-06-05 06:38] LABS: Hematocrit (blood only) 34.1 % (37-47); Hemoglobin 11.1 g/dL (12.0-16.0); Mean Corpuscular Hgb Conc 32.6 g/dL (32-36); Mean Corpuscular Volume 92.7 fL (80-100); Mean Platelet Volume 10.6 fL (7.4-10.4); Platelet Count 128 K/uL (130-400); RDW Coefficient of Variation 14.1 % (11.5-14.5); Red Blood Count 3.68 M/uL (4.2-5.4); White Blood Count 5.86 K/uL (4.8-10.8)
[2018-06-05 07:05] LABS: BUN Creatinine Ratio 18.1 (10-20); Calcium 8.5 mg/dl (8.5-10.1); Creatinine Clr Calc Pharmacy 94.7 ml/min; Est GFR (African American) 94.8; Est GFR (Non-African American) 81.8; Potassium 3.7 mmol/L (3.5-5.1)
[2018-06-05] MEDS: TOLTERODINE TARTRATE LA 4 MG CAPCR PO SCH (08:26)
[2018-06-05] MEDS: PANTOprazole 40 MG TAB PO SCH ×2 (08:26→21:31)
[2018-06-05] MEDS: PROPRANOLOL HCL 10 MG TAB PO SCH (08:26)
[2018-06-05] MEDS: FLUTICASONE PROPIONATE NA SPR 16 GM BTL SCH (08:27)
[2018-06-05] MEDS: DIVALPROEX DELAY RELEASE 500 MG TAB PO SCH ×2 (08:27→21:31)
[2018-06-05] MEDS: ARTIFICIAL TEARS OP SCH ×3 (08:27→21:37)
[2018-06-05] MEDS: ENOXAPARIN INJ 40 MG/0.4 ML SYR SQ SCH (08:27)
[2018-06-05] MEDS: ZONISAMIDE PO SCH (08:29)
[2018-06-05] MEDS: MYRBETRIQ PO SCH (08:32)
[2018-06-05] MEDS: INSULIN ASPART 100 UNITS/ML 3 ML PEN SC SCH ×4 (08:38→21:31)
--- NOTE | 2018-06-05 14:18 | Infectious Disease Consult ---
Date of Consultation June 05, 2018 Assessment & Plan (1) Bacteremia due to Pseudomonas: Patient was pseudomonal bacteremia likely from urinary tract infection. Appears to be responding to cefepime. Would recommend 7 days of IV cefepime, followed by another 1-2 weeks of oral ciprofloxacin. Await follow-up blood cultures. Will follow. (2) UTI (urinary tract infection): History of Present Illness Reason for Consultation: Bacteremia Attending Physician: Chapincito Ríos MD History of Present Illness 57-year-old female with history of schizophrenia, intellectual disability, hyperlipidemia, type 2 diabetes mellitus, recurrent urinary tract infections, who was admitted with several days of increasing weakness, anorexia, nausea, with several falls. She been exposed to the flu earlier in the week and had been given Tamiflu for prophylaxis. She was ultimately admitted to the hospital with evidence of recurrent urinary tract infection and now blood cultures were reported positive for pseudomonas aeruginosa. Previous urine culture also positive for fully sensitive Pseudomonas. Patiently currently on IV cefepime. She denies any specific complaints although reliability in question. Has been afebrile with normal white count. Allergies Allergy/AdvReac Type Severity Reaction Status Date / Time No Known Allergies Allergy Unverified 06/02/18 07:04 Home Medications Home Medications Medication Instructions Recorded Confirmed Type acetaminophen 650 mg PO Q4H PRN 06/02/18 06/02/18 History albuterol sulfate 2.5 mg INHALATION Q6H PRN 06/02/18 06/02/18 History clonazepam 2 mg PO HS 06/02/18 06/02/18 History dextran 70-hypromellose (PF) 1 drp OPHTHALMIC (EYE) TID 06/02/18 06/02/18 History [Artificial Tears (PF)] dextromethorphan-guaifenesin 5 ml PO Q4H PRN 06/02/18 06/02/18 History [Siltussin-DM] divalproex 1,000 mg PO HS 06/02/18 06/02/18 History divalproex 500 mg PO QAM 06/02/18 06/02/18 History fluphenazine HCl 1 ml INJ MONTHLY 06/02/18 06/02/18 History fluphenazine HCl 5 mg PO HS 06/02/18 06/02/18 History fluphenazine HCl 10 mg PO HS 06/02/18 06/02/18 History fluticasone 2 spray INTRANASAL DAILY 06/02/18 06/02/18 History insulin aspart U-100 [Novolog 0 unit SUBCUT BID 06/02/18 06/02/18 History Flexpen U-100 Insulin] menthol-zinc oxide [Calmoseptine] 1 applic TOPICAL DAILY PRN 06/02/18 06/02/18 History metformin 1,000 mg PO QPM 06/02/18 06/02/18 History metformin 500 mg PO QAM 06/02/18 06/02/18 History mirabegron [Myrbetriq] 50 mg PO DAILY 06/02/18 06/02/18 History naproxen sodium 440 mg PO BID PRN 06/02/18 06/02/18 History nitrofurantoin macrocrystal 50 mg PO DAILY 06/02/18 06/02/18 History nystatin 1 applic TOPICAL UD PRN 06/02/18 06/02/18 History omeprazole 20 mg PO BID 06/02/18 06/02/18 History propranolol 10 mg PO DAILY 06/02/18 06/02/18 History simvastatin 20 mg PO PM 06/02/18 06/02/18 History tolterodine 4 mg PO DAILY 06/02/18 06/02/18 History zonisamide 200 mg PO DAILY 06/02/18 06/02/18 History Patient History Medical History Schizophrenia (Chronic) Overactive bladder (Chronic) Mild intellectual disability (Chronic) Dependent edema (Chronic) Schizoaffective disorder (Chronic) Bipolar disorder (Chronic) Seizure disorder (Chronic) GERD (gastroesophageal reflux disease) (Chronic) DM2 (diabetes mellitus, type 2) (Chronic) HLD (hyperlipidemia) (Chronic) Tobacco abuse (Chronic) Morbid obesity (Chronic) Osteoarthritis (Chronic) Surgical History H/O tubal ligation (Chronic) History of total left hip replacement (Chronic) Social History Communication Ability: Effective Beliefs That Will Affect Care: None Current Living Situation: Personal Care Facility Other Information That Helps Us Care for You: No Feels Safe at Home: Yes Safety Concerns: Feels Safe At This Time Smoking Status: Current every day smoker Hx Alcohol Use: No Hx Substance Use: No Review of Systems Not obtainable because of patient's cognitive status Physical Exam Vital Signs (Past 24 Hours): Last Vital Signs Temp 36.8 C 06/05/18 07:24 Pulse 61 06/05/18 07:24 Resp 16 06/05/18 07:24 BP 118/73 06/05/18 07:24 Pulse Ox 93 06/05/18 07:24 Constitutional: WD/WN, vitals as above comfortable; no acute distress Eyes: PERRL, conjunctivae normal, anicteric sclerae ENMT: external ear and nose normal, oropharynx normal Neck: trachea midline, no thyromegaly neck nontender Respiratory: normal respiratory effort, lungs clear to auscultation normal percussion; does not use accessory muscles Cardiovascular: Rate/Rhythm: regular rate and regular rhythm Heart Sounds: normal S1 and normal S2; no gallop, no murmur and no cardiac rub Vessels: normal peripheral pulses; no JVD Gastrointestinal (Abdomen): normal bowel sounds, soft, nontender, no hepatosplenomegaly Musculoskeletal: no cyanosis or clubbing, extremities motor strength 5/5 Spine: thoracic spine normal to inspection and lumbar spine normal to inspection; no cervical spinal tenderness Skin: no rashes, warm and dry normal turgor; no lesions Neurologic: patellar DTR's 2+ bilat, sensation intact no focal motor deficits Psychiatric: A+Ox3, euthymic affect Orientation: cooperative Lymphatic: no cervical or axillary lymphadenopathy no inguinal lymphadenopathy Results & Data Laboratory Results Short CBC 06/05/18 Range/Units 06:08 WBC 5.86 (4.8-10.8) K/uL Hgb 11.1 L (12.0-16.0) g/dL Hct 34.1 L (37-47) % Plt Count 128 L (130-400) K/uL BMP 06/05/18 06:08 Sodium 140 Potassium 3.7 Chloride 106 Carbon Dioxide 27 BUN 15 Creatinine 0.81 Glucose 149 H Calcium 8.5 Diagnostic Findings Microbiology 06/02/18 07:42 Blood Blood Culture - Preliminary Pseudomonas aeruginosa 06/02/18 06:50 Urine,Straight Cath Urine Culture - Final Pseudomonas aeruginosa 06/02/18 07:38 Blood Blood Culture - Preliminary No growth to date. XR chest 1V portable CLINICAL HISTORY: fever, AMS COMPARISON STUDY: Chest radiograph June 28, 2016. FINDINGS: Lung volumes are at the lower limits of normal. There is no pneumothorax or pleural effusion. There is no consolidation or evidence for pulmonary edema. Mild enlargement of the cardiac silhouette is noted. Otherwise, mediastinal contours are unremarkable. IMPRESSION: 1. No acute cardiopulmonary findings. 2. Mild enlargement of the cardiac silhouette. Electronically signed by: Gaurav Ferris M.D. (1) UTI (urinary tract infection) Hematuria presence: without hematuria Urinary tract infection type: site unspecified Qualified Code(s): N39.0 - Urinary tract infection, site not specified
--- NOTE | 2018-06-05 18:58 | Hospitalist Progress Note ---
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 HLD: Continue simvastatin Schizophrenia: Continue home meds Mild intellectual disability: Resides at [facility] Case management for discharge planning Overactive bladder: On Miragegron Dependent edema: Per caregiver, no worse than usual DVT Px: Lovenox SQ Code Status Full Code Disposition: PT/OT prior to DC Subjective Patient is seen and examined at bedside Reports diarrhea Patient denies any chest pain, SOB, dizziness, abd pain History no reliable given intellectual disability No other complaints Eager to get discharged Physical Exam Vital Signs (Past 24 Hours): Last Vital Signs Temp 36.7 C 06/05/18 15:28 Pulse 54 L 06/05/18 15:28 Resp 16 06/05/18 15:28 BP 126/64 06/05/18 15:28 Pulse Ox 97 06/05/18 15:28 Physical Exam: Physical Exam: Vitals signs as noted above General Appearance:Obese, no apparent distress Head: normocephalic, Atraumatic Eyes: normal inspection, EOMI Neck: supple, Trachea midline Respiratory/Chest: Decreased breath sounds, CTA Cardiovascular: S1, S2, No murmur Abdomen/GI:Soft, Non tender, Bowel sounds present Extremities/Musculoskelatal:normal inspection, B/L LE edema Neurologic/Psych:AAOX3, grossly no focal neurological deficits Skin: normal color, warm Results & Data Laboratory Results Short CBC 06/05/18 Range/Units 06:08 WBC 5.86 (4.8-10.8) K/uL Hgb 11.1 L (12.0-16.0) g/dL Hct 34.1 L (37-47) % Plt Count 128 L (130-400) K/uL BMP 06/05/18 06:08 Sodium 140 Potassium 3.7 Chloride 106 Carbon Dioxide 27 BUN 15 Creatinine 0.81 Glucose 149 H Calcium 8.5 (1) UTI (urinary tract infection) Hematuria presence: without hematuria Urinary tract infection type: site unspecified Qualified Code(s): N39.0 - Urinary tract infection, site not specified
[2018-06-05] MEDS: clonazePAM 1 MG TAB PO SCH (21:31)
[2018-06-05] MEDS: SIMVASTATIN 20 MG TAB PO SCH (21:31)
[2018-06-06] MEDS: CEFEPIME 2,000 MG in SYRINGE 7.5 ML IV SCH ×3 (01:50→17:58)
[2018-06-06 06:42] LABS: BUN Creatinine Ratio 18.4 (10-20); Calcium 8.5 mg/dl (8.5-10.1); Creatinine Clr Calc Pharmacy 102.2 ml/min; Est GFR (Non-African American) 89.7; Potassium 3.9 mmol/L (3.5-5.1)
[2018-06-06] MEDS: PANTOprazole 40 MG TAB PO SCH ×2 (07:44→20:20)
[2018-06-06] MEDS: PROPRANOLOL HCL 10 MG TAB PO SCH (07:44)
[2018-06-06] MEDS: TOLTERODINE TARTRATE LA 4 MG CAPCR PO SCH (07:44)
[2018-06-06] MEDS: FLUTICASONE PROPIONATE NA SPR 16 GM BTL SCH (07:45)
[2018-06-06] MEDS: ARTIFICIAL TEARS OP SCH ×3 (07:45→20:18)
[2018-06-06] MEDS: ENOXAPARIN INJ 40 MG/0.4 ML SYR SQ SCH (07:45)
[2018-06-06] MEDS: MYRBETRIQ PO SCH (07:46)
[2018-06-06] MEDS: ZONISAMIDE PO SCH (07:47)
[2018-06-06] MEDS: INSULIN ASPART 100 UNITS/ML 3 ML PEN SC SCH ×4 (08:45→20:21)
[2018-06-06] MEDS: DIVALPROEX DELAY RELEASE 500 MG TAB PO SCH ×2 (08:46→20:19)
--- NOTE | 2018-06-06 17:29 | Hospitalist Progress Note ---
Date of Service June 06, 2018 Assessment & Plan (1) UTI (urinary tract infection): UTI Possible Bacteremia Urine Culture:Pesudomonas Blood Culture: 2: Pesudomonas Received IV fluids ECHO: No evidence of mass/vegetation Repeat Blood Cx:No growth to date Continue Cefepime Day #4/7 Need to be transitioned to 1-2 weeks of oral ciprofloxacin Appreciate ID Input Diarrhea: Likely due to Abx Stool For C.diff: pending diarrhea improving DM II A1C: 6.5 Hold Metformin Monitor BGs Continue ISS GERD (gastroesophageal reflux disease): Continue PPI Seizure disorder: Continue zonisamide, divalproex Bipolar disorder: continue home meds 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 HLD: Continue simvastatin Schizophrenia: Continue home meds Mild intellectual disability: Resides at [facility] Case management for discharge planning Overactive bladder: On Miragegron Dependent edema: Per caregiver, no worse than usual DVT Px: Lovenox SQ Code Status Full Code Disposition: PT/OT prior to DC Subjective Patient is seen and examined at bedside Diarrhea improving Requests to be discharged Denies chest pain, SOB, dizziness, abd pain History no reliable given intellectual disability Physical Exam Vital Signs (Past 24 Hours): Last Vital Signs Temp 36.3 C L 06/06/18 15:23 Pulse 58 L 06/06/18 15:23 Resp 20 06/06/18 15:23 BP 121/73 06/06/18 15:23 Pulse Ox 97 06/06/18 15:23 Physical Exam: Physical Exam: Vitals signs as noted above General Appearance:Obese, no apparent distress Head: normocephalic, Atraumatic Eyes: normal inspection, EOMI Neck: supple, Trachea midline Respiratory/Chest: Decreased breath sounds, CTA Cardiovascular: S1, S2, No murmur Abdomen/GI:Soft, Non tender, Bowel sounds present Extremities/Musculoskelatal:normal inspection, B/L LE edema Neurologic/Psych:AAOX3, grossly no focal neurological deficits Skin: normal color, warm Results & Data Laboratory Results [facility] 06/06/18 05:40 Sodium 141 Potassium 3.9 Chloride 108 H Carbon Dioxide 26 BUN 14 Creatinine 0.75 Glucose 153 H Calcium 8.5 (1) UTI (urinary tract infection) Hematuria presence: without hematuria Urinary tract infection type: site unspecified Qualified Code(s): N39.0 - Urinary tract infection, site not specified
[2018-06-06] MEDS: SIMVASTATIN 20 MG TAB PO SCH (20:20)
[2018-06-06] MEDS: clonazePAM 1 MG TAB PO SCH (20:22)
[2018-06-07] MEDS: CEFEPIME 2,000 MG in SYRINGE 7.5 ML IV SCH ×2 (05:27→17:37)
[2018-06-07] MEDS: PROPRANOLOL HCL 10 MG TAB PO SCH (08:07)
[2018-06-07] MEDS: TOLTERODINE TARTRATE LA 4 MG CAPCR PO SCH (08:07)
[2018-06-07] MEDS: DIVALPROEX DELAY RELEASE 500 MG TAB PO SCH ×2 (08:07→19:43)
[2018-06-07] MEDS: ARTIFICIAL TEARS OP SCH ×3 (08:07→19:42)
[2018-06-07] MEDS: MYRBETRIQ PO SCH (08:08)
[2018-06-07] MEDS: ZONISAMIDE PO SCH (08:08)
[2018-06-07] MEDS: FLUTICASONE PROPIONATE NA SPR 16 GM BTL SCH (08:10)
[2018-06-07] MEDS: ENOXAPARIN INJ 40 MG/0.4 ML SYR SQ SCH (08:10)
[2018-06-07] MEDS: PANTOprazole 40 MG TAB PO SCH ×2 (08:10→19:43)
[2018-06-07] MEDS: INSULIN ASPART 100 UNITS/ML 3 ML PEN SC SCH ×4 (09:02→20:41)
--- NOTE | 2018-06-07 15:29 | Hospitalist Progress Note ---
Date of Service June 07, 2018 Assessment & Plan (1) UTI (urinary tract infection): UTI Possible Bacteremia -/2 Positive Urine Culture:Pesudomonas Blood Culture: 04/05: Pesudomonas ECHO: No evidence of mass/vegetation Repeat Blood Cx:No growth to date Continue Cefepime Day #5/7 Need to be transitioned to 1-2 weeks of oral ciprofloxacin Appreciate ID Input and recommendation Clinically without any symptoms Diarrhea: Likely due to Abx Stool For C.diff: Not collected yet diarrhea improving Denies any chest DM II A1C: 6.5 Hold Metformin Monitor BGs Continue ISS GERD (gastroesophageal reflux disease): Continue PPI Seizure disorder: Continue zonisamide, divalproex No seizures noted Bipolar disorder: continue home meds 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 HLD: Continue simvastatin Schizophrenia: Continue home meds Mild intellectual disability: Resides at [facility] Case management for discharge planning Overactive bladder: On Miragegron Dependent edema: Per caregiver, no worse than usual DVT Px: Lovenox SQ Code Status Full Code Disposition: PT/OT prior to DC Medically stable to be discharged We will discharge with intravenous antibiotic course is done Subjective This is a 57 y/o female with a past medical history of schizophrenia, mild intellectual disability, type 2 DM, seizure disorder, hyperlipidemia and GERD who presents via EMS from [facility] with progressive weakness resulting in two controlled falls the night before admission. 06/07 Patient is seen and examined the medical floor She remains stable in bed without any acute symptoms She wants to be discharged Physical Exam Vital Signs (Past 24 Hours): Last Vital Signs Temp 36.6 C 06/07/18 15:08 Pulse 53 L 06/07/18 15:08 Resp 20 06/07/18 15:08 BP 113/59 L 06/07/18 15:08 Pulse Ox 95 06/07/18 15:08 Constitutional: WD/WN, vitals as above + obese and comfortable; no acute distress and not lethargic Eyes: PERRL, conjunctivae normal, anicteric sclerae ENMT: external ear and nose normal, oropharynx normal Neck: trachea midline, no thyromegaly Respiratory: normal respiratory effort, lungs clear to auscultation normal percussion; no respiratory distress, no labored breathing and does not use accessory muscles Auscultation: + diminished lung sounds and + wheezes (occasional faint) Cardiovascular: Rate/Rhythm: regular rate and regular rhythm Heart Sounds: normal S1 and normal S2 Vessels: + JVD Extremities: normal capillary refill and + edema (bilateral LE (non-pitting)) Gastrointestinal (Abdomen): normal bowel sounds, soft, nontender, no hepatosplenomegaly Inspection/Auscultation: normal bowel sounds; abdomen not distended Percussion/Palpation: abdomen soft; abdomen nontender and no guarding Musculoskeletal: no cyanosis or clubbing, extremities motor strength 5/5 Spine: thoracic spine normal to inspection and lumbar spine normal to inspection; no cervical spinal tenderness Skin: no rashes, warm and dry normal turgor; no lesions Neurologic: patellar DTR's 2+ bilat, sensation intact moves all extremities; no focal motor deficits and not confused Psychiatric: A+Ox3, euthymic affect Orientation: cooperative Lymphatic: no cervical or axillary lymphadenopathy no inguinal lymphadenopathy Results & Data Medications Administered Current Inpatient Medications Acetaminophen (Tylenol) 650 mg PO Q6 PRN PRN Reason: Pain Stop: 07/02/18 19:51 Last Admin: 06/03/18 09:16 Dose: 650 mg Documented by: Albuterol (Ventolin 0.083% 2.5mg/3ml) 2.5 mg INH Q6H PRN PRN Reason: Shortness Of Breath Stop: 07/02/18 13:34 Artificial Tears (Artificial Tears) 1 drops OP TID MAGDA Stop: 07/02/18 20:59 Last Admin: 06/07/18 12:49 Dose: 1 drops Documented by: Clonazepam (Klonopin) 2 mg PO HS MAGDA Stop: 07/02/18 20:59 Last Admin: 06/06/18 20:22 Dose: 2 mg Documented by: Dextrose (Dextrose 50%) 25 - 50 ml IV UD PRN; Protocol PRN Reason: Hypoglycemia Protocol Stop: 07/02/18 13:33 Divalproex Sodium (Depakote Delay Release) 500 mg PO DAILY MAGDA Stop: 07/03/18 08:59 Last Admin: 06/07/18 08:07 Dose: 500 mg Documented by: Divalproex Sodium (Depakote Delay Release) 1,000 mg PO HS MAGDA Stop: 07/02/18 20:59 Last Admin: 06/06/18 20:19 Dose: 1,000 mg Documented by: Enoxaparin Sodium (Lovenox) 40 mg SQ QAM MAGDA Stop: 07/03/18 08:59 Last Admin: 06/07/18 08:10 Dose: 40 mg Documented by: Fluphenazine HCl (Prolixin) 15 mg PO HS [facility] Stop: 07/02/18 20:59 Last Admin: 06/07/18 08:09 Dose: 15 mg Documented by: Fluticasone Propionate (Flonase) 2 sprays NA DAILY MAGDA Stop: 07/03/18 08:59 Last Admin: 06/07/18 08:10 Dose: 2 sprays Documented by: Glucagon (Glucagen) 1 mg SQ UD PRN; Protocol PRN Reason: Hypoglycemia Protocol Stop: 07/02/18 13:33 Glucose (Dex4 Glucose) 4 - 8 tabs PO UD PRN; Protocol PRN Reason: Hypoglycemia Protocol Stop: 07/02/18 13:33 Glucose (Glucose 40%) 15 - 30 gm PO UD PRN; Protocol PRN Reason: Hypoglycemia Protocol Stop: 07/02/18 13:33 Cefepime HCl 2,000 mg/ Syringe 20 mls @ 5 mls/min IV Q12H MAGDA Stop: 06/17/18 05:59 Last Admin: 06/07/18 05:27 Dose: 5 mls/min Documented by: Insulin Aspart (Novolog Flexpen) 0 units SC ACHS [facility] Stop: 07/02/18 13:33 Last Admin: 06/07/18 12:49 Dose: 5 units Documented by: Lorazepam (Ativan) 0.5 mg PO TID PRN PRN Reason: Agitation Stop: 07/04/18 14:22 Last Admin: 06/04/18 20:21 Dose: 0.5 mg Documented by: Miscellaneous (Carbohydrates For Hypoglycemia) 15 - 30 gm PO UD PRN PRN Reason: Hypoglycemia Treatment Stop: 07/02/18 13:33 Miscellaneous Information (Cefepime Consult Active) 1 ea N/A UD PRN PRN Reason: Consult Stop: 07/03/18 08:22 Myrbetriq Er~ Non- Formulary Patient's Own Med 1 ea PO QAM [facility] Stop: 07/04/18 08:59 Last Admin: 06/07/18 08:08 Dose: 1 tab Documented by: Zonisamide ~ Non- Formulary Patient's Own Med 1 ea PO QAM [facility] Stop: 07/04/18 08:59 Last Admin: 06/07/18 08:08 Dose: 1 tab Documented by: Pantoprazole Sodium (Protonix) 40 mg PO BID [facility] Stop: 07/02/18 20:59 Last Admin: 06/07/18 08:10 Dose: 40 mg Documented by: Propranolol HCl (Inderal) 10 mg PO DAILY [facility] Stop: 07/03/18 08:59 Last Admin: 06/07/18 08:07 Dose: 10 mg Documented by: Simvastatin (Zocor) 20 mg PO PM [facility] Stop: 07/02/18 20:59 Last Admin: 06/06/18 20:20 Dose: 20 mg Documented by: Tolterodine Tartrate (Detrol La) 4 mg PO DAILY [facility] Stop: 07/03/18 08:59 Last Admin: 06/07/18 08:07 Dose: 4 mg Documented by: (1) UTI (urinary tract infection) Hematuria presence: without hematuria Urinary tract infection type: site unspecified Qualified Code(s): N39.0 - Urinary tract infection, site not specified
[2018-06-07] MEDS: clonazePAM 1 MG TAB PO SCH (19:42)
[2018-06-07] MEDS: SIMVASTATIN 20 MG TAB PO SCH (19:43)
[2018-06-08] MEDS: CEFEPIME 2,000 MG in SYRINGE 7.5 ML IV SCH ×2 (05:18→18:15)
[2018-06-08] MEDS: FLUTICASONE PROPIONATE NA SPR 16 GM BTL SCH (07:35)
[2018-06-08] MEDS: ZONISAMIDE PO SCH (07:35)
[2018-06-08] MEDS: MYRBETRIQ PO SCH (07:35)
[2018-06-08] MEDS: PANTOprazole 40 MG TAB PO SCH ×2 (07:36→20:14)
[2018-06-08] MEDS: TOLTERODINE TARTRATE LA 4 MG CAPCR PO SCH (07:36)
[2018-06-08] MEDS: DIVALPROEX DELAY RELEASE 500 MG TAB PO SCH ×2 (07:36→20:14)
[2018-06-08] MEDS: ARTIFICIAL TEARS OP SCH ×3 (07:36→20:18)
[2018-06-08] MEDS: PROPRANOLOL HCL 10 MG TAB PO SCH (07:37)
[2018-06-08] MEDS: ENOXAPARIN INJ 40 MG/0.4 ML SYR SQ SCH (07:39)
[2018-06-08 08:00] LABS: Basophils # (auto) 0.02 K/uL (0-0.2); Basophils % (auto) 0.3 %; Eosinophils # (auto) 0.28 K/uL (0-0.5); Hematocrit (blood only) 37.7 % (37-47); Hemoglobin 12.5 g/dL (12.0-16.0); Immature Granulocytes # (auto) 0.32 K/uL (0.00-0.02); Immature Granulocytes % (auto) 4.6 %; Lymphocytes # (auto) 3.02 K/uL (1.2-3.4); Lymphocytes % (auto) 43.6 %; Mean Corpuscular Hgb Conc 33.2 g/dL (32-36); Mean Corpuscular Volume 94.3 fL (80-100); Mean Platelet Volume 9.9 fL (7.4-10.4); Monocytes # (auto) 0.62 K/uL (0.11-0.59); Monocytes % (auto) 8.9 %; Neutrophils # (auto) 2.67 K/uL (1.4-6.5); Neutrophils % (auto) 38.6 %; Platelet Count 222 K/uL (130-400); RDW Coefficient of Variation 14.3 % (11.5-14.5); RDW Standard Deviation 49.1 fL (36.4-46.3); White Blood Count 6.93 K/uL (4.8-10.8)
[2018-06-08 08:43] LABS: BUN Creatinine Ratio 11.2 (10-20); Calcium 9.1 mg/dl (8.5-10.1); Est GFR (African American) 107.5; Est GFR (Non-African American) 92.7; Potassium 4.3 mmol/L (3.5-5.1)
[2018-06-08] MEDS: INSULIN ASPART 100 UNITS/ML 3 ML PEN SC SCH ×4 (08:52→20:30)
--- NOTE | 2018-06-08 10:58 | Infectious Disease Progress Nt ---
Date of Service June 08, 2018 Assessment & Plan (1) Bacteremia due to Pseudomonas: Patient with pseudomonal bacteremia likely from urinary tract infection. Appears to be responding to cefepime. Would complete 7 days of IV cefepime, followed by another 1-2 weeks of oral ciprofloxacin. Will follow. (2) UTI (urinary tract infection): Subjective Patient seen in follow-up for pseudomonal sepsis with urinary tract infection. Continues on IV antibiotics, tolerating without apparent difficulty. Denies any new complaints. No fever. Review of Systems All systems reviewed & are unremarkable except as noted in HPI & below Physical Exam Vital Signs (Past 24 Hours): Last Vital Signs Temp 36.4 C L 06/08/18 08:27 Pulse 61 06/08/18 08:27 Resp 20 06/08/18 08:27 BP 119/72 06/08/18 08:27 Pulse Ox 98 06/08/18 08:27 Constitutional: WD/WN, vitals as above comfortable; no acute distress Eyes: PERRL, conjunctivae normal, anicteric sclerae ENMT: external ear and nose normal, oropharynx normal Neck: trachea midline, no thyromegaly neck nontender Respiratory: normal respiratory effort, lungs clear to auscultation normal percussion; does not use accessory muscles Cardiovascular: Rate/Rhythm: regular rate and regular rhythm Heart Sounds: normal S1 and normal S2; no gallop, no murmur and no cardiac rub Vessels: normal peripheral pulses; no JVD Gastrointestinal (Abdomen): normal bowel sounds, soft, nontender, no hepatosplenomegaly Musculoskeletal: no cyanosis or clubbing, extremities motor strength 5/5 Spine: thoracic spine normal to inspection and lumbar spine normal to inspection; no cervical spinal tenderness Skin: no rashes, warm and dry normal turgor; no lesions Neurologic: patellar DTR's 2+ bilat, sensation intact no focal motor deficits Psychiatric: A+Ox3, euthymic affect Orientation: cooperative Lymphatic: no cervical or axillary lymphadenopathy no inguinal lymphad enopathy Results & Data Laboratory Results Short CBC 06/08/18 Range/Units 07:33 WBC 6.93 (4.8-10.8) K/uL Hgb 12.5 (12.0-16.0) g/dL Hct 37.7 (37-47) % Plt Count 222 (130-400) K/uL [facility] 06/08/18 07:33 Sodium 141 Potassium 4.3 Chloride 106 Carbon Dioxide 27 BUN 8 Creatinine 0.73 Glucose 146 H Calcium 9.1 Diagnostic Findings Microbiology 06/02/18 07:42 Blood Blood Culture - Final Pseudomonas aeruginosa 06/02/18 07:38 Blood Blood Culture - Final No growth 06/04/18 06:13 Blood Blood Culture - Preliminary No growth to date. 06/04/18 06:07 Blood Blood Culture - Preliminary No growth to date. 06/02/18 06:50 Urine,Straight Cath Urine Culture - Final Pseudomonas aeruginosa (1) UTI (urinary tract infection) Hematuria presence: without hematuria Urinary tract infection type: site unspecified Qualified Code(s): N39.0 - Urinary tract infection, site not specified
--- NOTE | 2018-06-08 14:56 | Hospitalist Progress Note ---
Date of Service June 08, 2018 Assessment & Plan (1) UTI (urinary tract infection): UTI Possible Bacteremia -1/2 Positive Urine Culture:Pesudomonas Blood Culture: 2: Pesudomonas ECHO: No evidence of mass/vegetation Repeat Blood Cx:No growth to date Continue Cefepime Day #6/7 Need to be transitioned to 1-2 weeks of oral ciprofloxacin Appreciate ID Input and recommendation Clinically without any symptoms We will discharge tomorrow with oral antibiotic as planned Diarrhea: Likely due to Abx Stool For C.diff: Not collected yet diarrhea improving Denies any more symptoms DM II A1C: 6.5 Hold Metformin Monitor BGs Continue ISS GERD (gastroesophageal reflux disease): Continue PPI Seizure disorder: Continue zonisamide, divalproex No seizures noted Bipolar disorder: continue home meds No acute delirium 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 HLD: Continue simvastatin Schizophrenia: Continue home meds Mild intellectual disability: Resides at [facility] Case management for discharge planning Overactive bladder: On Miragegron Dependent edema: Per caregiver, no worse than usual DVT Px: Lovenox SQ Code Status Full Code Disposition: PT/OT prior to DC Medically stable to be discharged Likely be discharged tomorrow on oral antibiotic Subjective This is a 57 y/o female with a past medical history of schizophrenia, mild intellectual disability, type 2 DM, seizure disorder, hyperlipidemia and GERD who presents via EMS from [facility] with progressive weakness resulting in two controlled falls the night before admission. 06/07 Patient is seen and examined the medical floor She remains stable in bed without any acute symptoms She wants to be discharged 06/08 She denies any complaints today She wants to be discharged soon No acute events noted since yesterday Physical Exam Vital Signs (Past 24 Hours): Last Vital Signs Temp 36.4 C L 06/08/18 08:27 Pulse 61 06/08/18 08:27 Resp 20 06/08/18 08:27 BP 119/72 06/08/18 08:27 Pulse Ox 98 06/08/18 08:27 Physical Exam: No apparent distress at rest. Out of bed on a chair without any symptoms Constitutional: WD/WN, vitals as above + obese and comfortable; no acute distress and not lethargic Eyes: PERRL, conjunctivae normal, anicteric sclerae ENMT: external ear and nose normal, oropharynx normal Neck: trachea midline, no thyromegaly trachea midline; neck nontender Respiratory: normal respiratory effort, lungs clear to auscultation normal percussion; no respiratory distress, no labored breathing and does not use accessory muscles Auscultation: + diminished lung sounds and + wheezes (occasional faint) Cardiovascular: Rate/Rhythm: regular rate and regular rhythm Heart Sounds: normal S1 and normal S2 Vessels: + JVD Extremities: normal capillary refill and + edema (bilateral LE (non-pitting)) Gastrointestinal (Abdomen): normal bowel sounds, soft, nontender, no hepatosplenomegaly Inspection/Auscultation: normal bowel sounds; abdomen not distended Percussion/Palpation: abdomen soft; abdomen nontender and no guarding Musculoskeletal: no cyanosis or clubbing, extremities motor strength 5/5 Spine: thoracic spine normal to inspection and lumbar spine normal to inspection; no cervical spinal tenderness Skin: no rashes, warm and dry normal turgor; no lesions Neurologic: patellar DTR's 2+ bilat, sensation intact moves all extremities; no focal motor deficits and not confused Cranial Nerves: tongue midline Lymphatic: no cervical or axillary lymphadenopathy no inguinal lymphadenopathy Results & Data Laboratory Results Short CBC 06/08/18 Range/Units 07:33 WBC 6.93 (4.8-10.8) K/uL Hgb 12.5 (12.0-16.0) g/dL Hct 37.7 (37-47) % Plt Count 222 (130-400) K/uL BMP 06/08/18 07:33 Sodium 141 Potassium 4.3 Chloride 106 Carbon Dioxide 27 BUN 8 Creatinine 0.73 Glucose 146 H Calcium 9.1 Medications Administered Current Inpatient Medications Acetaminophen (Tylenol) 650 mg PO Q6 PRN PRN Reason: Pain Stop: 07/02/18 19:51 Last Admin: 06/03/18 09:16 Dose: 650 mg Documented by: Albuterol (Ventolin 0.083% 2.5mg/3ml) 2.5 mg INH Q6H PRN PRN Reason: Shortness Of Breath Stop: 07/02/18 13:34 Artificial Tears (Artificial Tears) 1 drops OP TID MAGDA Stop: 07/02/18 20:59 Last Admin: 06/08/18 14:28 Dose: Not Given Documented by: Clonazepam (Klonopin) 2 mg PO HS MAGDA Stop: 07/02/18 20:59 Last Admin: 06/07/18 19:42 Dose: 2 mg Documented by: Dextrose (Dextrose 50%) 25 - 50 ml IV UD PRN; Protocol PRN Reason: Hypoglycemia Protocol Stop: 07/02/18 13:33 Divalproex Sodium (Depakote Delay Release) 500 mg PO DAILY [facility] Stop: 07/03/18 08:59 Last Admin: 06/08/18 07:36 Dose: 500 mg Documented by: Divalproex Sodium (Depakote Delay Release) 1,000 mg PO HS [facility] Stop: 07/02/18 20:59 Last Admin: 06/07/18 19:43 Dose: 1,000 mg Documented by: Enoxaparin Sodium (Lovenox) 40 mg SQ QAM [facility] Stop: 07/03/18 08:59 Last Admin: 06/08/18 07:39 Dose: 40 mg Documented by: Fluphenazine HCl (Prolixin) 15 mg PO HS [facility] Stop: 07/02/18 20:59 Last Admin: 06/07/18 19:42 Dose: 15 mg Documented by: Fluticasone Propionate (Flonase) 2 sprays NA DAILY [facility] Stop: 07/03/18 08:59 Last Admin: 06/08/18 07:35 Dose: 2 sprays Documented by: Glucagon (Glucagen) 1 mg SQ UD PRN; Protocol PRN Reason: Hypoglycemia Protocol Stop: 07/02/18 13:33 Glucose (Dex4 Glucose) 4 - 8 tabs PO UD PRN; Protocol PRN Reason: Hypoglycemia Protocol Stop: 07/02/18 13:33 Glucose (Glucose 40%) 15 - 30 gm PO UD PRN; Protocol PRN Reason: Hypoglycemia Protocol Stop: 07/02/18 13:33 Cefepime HCl 2,000 mg/ Syringe 20 mls @ 5 mls/min IV Q12H MAGDA Stop: 06/09/18 23:59 Last Admin: 06/08/18 05:18 Dose: 5 mls/min Documented by: Insulin Aspart (Novolog Flexpen) 0 units SC ACHS [facility] Stop: 07/02/18 13:33 Last Admin: 06/08/18 12:58 Dose: 6 units Documented by: Lorazepam (Ativan) 0.5 mg PO TID PRN PRN Reason: Agitation Stop: 07/04/18 14:22 Last Admin: 06/04/18 20:21 Dose: 0.5 mg Documented by: Miscellaneous (Carbohydrates For Hypoglycemia) 15 - 30 gm PO UD PRN PRN Reason: Hypoglycemia Treatment Stop: 07/02/18 13:33 Miscellaneous Information (Cefepime Consult Active) 1 ea N/A UD PRN PRN Reason: Consult Stop: 06/09/18 23:59 Myrbetriq Er~ Non- Formulary Patient's Own Med 1 ea PO QAM [facility]DA Stop: 07/04/18 08:59 Last Admin: 06/08/18 07:35 Dose: 1 tab Documented by: Zonisamide ~ Non- Formulary Patient's Own Med 1 ea PO QAM [facility] Stop: 07/04/18 08:59 Last Admin: 06/08/18 07:35 Dose: 1 tab Documented by: Pantoprazole Sodium (Protonix) 40 mg PO BID [facility] Stop: 07/02/18 20:59 Last Admin: 06/08/18 07:36 Dose: 40 mg Documented by: Propranolol HCl (Inderal) 10 mg PO DAILY [facility] Stop: 07/03/18 08:59 Last Admin: 06/08/18 07:37 Dose: 10 mg Documented by: Simvastatin (Zocor) 20 mg PO PM [facility] Stop: 07/02/18 20:59 Last Admin: 06/07/18 19:43 Dose: 20 mg Documented by: Tolterodine Tartrate (Detrol La) 4 mg PO DAILY [facility] Stop: 07/03/18 08:59 Last Admin: 06/08/18 07:36 Dose: 4 mg Documented by: (1) UTI (urinary tract infection) Hematuria presence: without hematuria Urinary tract infection type: site unspecified Qualified Code(s): N39.0 - Urinary tract infection, site not specified
[2018-06-08] MEDS: SIMVASTATIN 20 MG TAB PO SCH (20:15)
[2018-06-08] MEDS: clonazePAM 1 MG TAB PO SCH (20:17)
[2018-06-09] MEDS: CEFEPIME 2,000 MG in SYRINGE 7.5 ML IV SCH (05:29)
[2018-06-09] MEDS: ARTIFICIAL TEARS OP SCH (08:37)
[2018-06-09] MEDS: PROPRANOLOL HCL 10 MG TAB PO SCH (08:37)
[2018-06-09] MEDS: PANTOprazole 40 MG TAB PO SCH (08:37)
[2018-06-09] MEDS: ENOXAPARIN INJ 40 MG/0.4 ML SYR SQ SCH (08:38)
[2018-06-09] MEDS: FLUTICASONE PROPIONATE NA SPR 16 GM BTL SCH (08:38)
[2018-06-09] MEDS: TOLTERODINE TARTRATE LA 4 MG CAPCR PO SCH (08:39)
[2018-06-09] MEDS: DIVALPROEX DELAY RELEASE 500 MG TAB PO SCH (08:39)
[2018-06-09] MEDS: ZONISAMIDE PO SCH (08:41)
[2018-06-09] MEDS: MYRBETRIQ PO SCH (08:41)
[2018-06-09] MEDS: INSULIN ASPART 100 UNITS/ML 3 ML PEN SC SCH ×2 (08:46→12:47)
--- NOTE | 2018-06-09 12:23 | Hospitalist Progress Note ---
Date of Service June 09, 2018 Assessment & Plan (1) UTI (urinary tract infection): UTI Possible Bacteremia -1/2 Positive Urine Culture:Pesudomonas Blood Culture: 04/05: Pesudomonas ECHO: No evidence of mass/vegetation Repeat Blood Cx:No growth to date Continue Cefepime Day #7/ Need to be transitioned to 1-2 weeks of oral ciprofloxacin Appreciate ID Input and recommendation Clinically without any symptoms We will discharge tomorrow with oral antibiotic as planned IV antibiotic course is done and she will be discharged this afternoon on oral Cipro for 2 weeks Diarrhea: Likely due to Abx Stool For C.diff: Not collected yet diarrhea improving Denies any more symptoms Diarrhea is stopped DM II A1C: 6.5 Hold Metformin Monitor BGs Continue ISS GERD (gastroesophageal reflux disease): Continue PPI Seizure disorder: Continue zonisamide, divalproex No seizures noted Bipolar disorder: continue home meds No acute delirium Tobacco abuse: Wel[employer] to quit smoking HLD: Continue simvastatin Schizophrenia: Continue home meds Mild intellectual disability: Resides at [facility] Case management for discharge planning Overactive bladder: On Miragegron Dependent edema: Per caregiver, no worse than usual DVT Px: Lovenox SQ Code Status Full Code Disposition: PT/OT prior to DC Medically stable to be discharged Subjective This is a 57 y/o female with a past medical history of schizophrenia, mild intellectual disability, type 2 DM, seizure disorder, hyperlipidemia and GERD who presents via EMS from [facility] with progressive weakness resulting in two controlled falls the night before admission. 06/07 Patient is seen and examined the medical floor She remains stable in bed without any acute symptoms She wants to be discharged 06/08 She denies any complaints today She wants to be discharged soon No acute events noted since yesterday 06/09 Patient was seen and examined by me She remains stable without any symptoms She will be back [place] [facility] [place] Physical Exam Vital Signs (Past 24 Hours): Last Vital Signs Temp 36.5 C 06/09/18 11:34 Pulse 56 L 06/09/18 11:34 Resp 18 06/09/18 11:34 BP 113/59 L 06/09/18 11:34 Pulse Ox 94 06/09/18 11:34 Physical Exam: No apparent distress at rest Constitutional: WD/WN, vitals as above + obese and comfortable; no acute distress and not lethargic Eyes: PERRL, conjunctivae normal, anicteric sclerae ENMT: external ear and nose normal, oropharynx normal Neck: trachea midline, no thyromegaly trachea midline; neck nontender Respiratory: normal respiratory effort, lungs clear to auscultation normal percussion; no respiratory distress, no labored breathing and does not use accessory muscles Auscultation: + diminished lung sounds Cardiovascular: Rate/Rhythm: regular rate and regular rhythm Heart Sounds: normal S1 and normal S2 Vessels: + JVD Extremities: normal capillary refill and + edema (bilateral LE (non-pitting)) Gastrointestinal (Abdomen): normal bowel sounds, soft, nontender, no hepatosplenomegaly Inspection/Auscultation: normal bowel sounds; abdomen not distended Percussion/Palpation: abdomen soft; abdomen nontender and no guarding Musculoskeletal: no cyanosis or clubbing, extremities motor strength 5/5 Spine: thoracic spine normal to inspection and lumbar spine normal to insp ection; no cervical spinal tenderness Skin: no rashes, warm and dry normal turgor; no lesions Neurologic: moves all extremities; no focal motor deficits and not confused Cranial Nerves: tongue midline Psychiatric: A+Ox3, euthymic affect Orientation: cooperative Lymphatic: no cervical or axillary lymphadenopathy no inguinal lymphadenopathy Results & Data Medications Administered Current Inpatient Medications Acetaminophen (Tylenol) 650 mg PO Q6 PRN PRN Reason: Pain Stop: 07/02/18 19:51 Last Admin: 06/03/18 09:16 Dose: 650 mg Documented by: Albuterol (Ventolin 0.083% 2.5mg/3ml) 2.5 mg INH Q6H PRN PRN Reason: Shortness Of Breath Stop: 07/02/18 13:34 Artificial Tears (Artificial Tears) 1 drops OP TID [facility]DA Stop: 07/02/18 20:59 Last Admin: 06/09/18 08:37 Dose: 1 drops Documented by: Ciprofloxacin (Cipro) 500 mg PO BID [facility]; Protocol Stop: 06/24/18 20:59 Ciprofloxacin (Cipro) 500 mg PO BID [facility]; Protocol Stop: 06/10/18 12:00 Clonazepam (Klonopin) 2 mg PO HS [facility] Stop: 07/02/18 20:59 Last Admin: 06/08/18 20:17 Dose: 2 mg Documented by: Dextrose (Dextrose 50%) 25 - 50 ml IV UD PRN; Protocol PRN Reason: Hypoglycemia Protocol Stop: 07/02/18 13:33 Divalproex Sodium (Depakote Delay Release) 500 mg PO DAILY [facility] Stop: 07/03/18 08:59 Last Admin: 06/09/18 08:39 Dose: 500 mg Documented by: Divalproex Sodium (Depakote Delay Release) 1,000 mg PO HS [facility] Stop: 07/02/18 20:59 Last Admin: 06/08/18 20:14 Dose: 1,000 mg Documented by: Enoxaparin Sodium (Lovenox) 40 mg SQ QAM [facility] Stop: 07/03/18 08:59 Last Admin: 06/09/18 08:38 Dose: 40 mg Documented by: Fluphenazine HCl (Prolixin) 15 mg PO HS [facility] Stop: 07/02/18 20:59 Last Admin: 06/07/18 19:42 Dose: 15 mg Documented by: Fluticasone Propionate (Flonase) 2 sprays NA DAILY [facility] Stop: 07/03/18 08:59 Last Admin: 06/09/18 08:38 Dose: 2 sprays Documented by: Glucagon (Glucagen) 1 mg SQ UD PRN; Protocol PRN Reason: Hypoglycemia Protocol Stop: 07/02/18 13:33 Glucose (Dex4 Glucose) 4 - 8 tabs PO UD PRN; Protocol PRN Reason: Hypoglycemia Protocol Stop: 07/02/18 13:33 Glucose (Glucose 40%) 15 - 30 gm PO UD PRN; Protocol PRN Reason: Hypoglycemia Protocol Stop: 07/02/18 13:33 Cefepime HCl 2,000 mg/ Syringe 20 mls @ 5 mls/min IV Q12H [facility] Stop: 06/09/18 23:59 Last Admin: 06/09/18 05:29 Dose: 5 mls/min Documented by: Insulin Aspart (Novolog Flexpen) 0 units SC ACHS [facility] Stop: 07/02/18 13:33 Last Admin: 06/09/18 08:46 Dose: 3 units Documented by: Lorazepam (Ativan) 0.5 mg PO TID PRN PRN Reason: Agitation Stop: 07/04/18 14:22 Last Admin: 06/04/18 20:21 Dose: 0.5 mg Documented by: Miscellaneous (Carbohydrates For Hypoglycemia) 15 - 30 gm PO UD PRN PRN Reason: Hypoglycemia Treatment Stop: 07/02/18 13:33 Miscellaneous Information (Cefepime Consult Active) 1 ea N/A UD PRN PRN Reason: Consult Stop: 06/09/18 23:59 Myrbetriq Er~ Non- Formulary Patient's Own Med 1 ea PO QAM [facility] Stop: 07/04/18 08:59 Last Admin: 06/09/18 08:41 Dose: 1 tab Documented by: Zonisamide ~ Non- Formulary Patient's Own Med 1 ea PO QAM [facility] Stop: 07/04/18 08:59 Last Admin: 06/09/18 08:41 Dose: 2 tab Documented by: Pantoprazole Sodium (Protonix) 40 mg PO BID [facility] Stop: 07/02/18 20:59 Last Admin: 06/09/18 08:37 Dose: 40 mg Documented by: Propranolol HCl (Inderal) 10 mg PO DAILY [facility] Stop: 07/03/18 08:59 Last Admin: 06/09/18 08:37 Dose: 10 mg Documented by: Simvastatin (Zocor) 20 mg PO PM [facility] Stop: 07/02/18 20:59 Last Admin: 06/08/18 20:15 Dose: 20 mg Documented by: Tolterodine Tartrate (Detrol La) 4 mg PO DAILY [facility] Stop: 07/03/18 08:59 Last Admin: 06/09/18 08:39 Dose: 4 mg Documented by: (1) UTI (urinary tract infection) Hematuria presence: without hematuria Urinary tract infection type: site unspecified Qualified Code(s): N39.0 - Urinary tract infection, site not specified
--- NOTE | 2018-06-09 18:09 | Discharge Summary ---
Date of Service June 09, 2018 Admission HPI Per Admitting Provider Primary Care Provider: Dr. Matthew Lopez This is a 57 y/o female with a past medical history of schizophrenia, mild intellectual disability, type 2 DM, seizure disorder, hyperlipidemia and GERD who presents via EMS from [facility] with progressive weakness resulting in two controlled falls last night. Patient is a poor historian so additional history obtained from medical records and caregiver from [facility] (Jayde) who is at the bedside. Apparently pt was exposed to someone who had the flu earlier this week. She was started on Tamiflu for prophylaxis but couldn't tolerate due to side effects (specifically shakiness) so this was stopped. Two days ago, EMS was called due to low BP and weakness but vitals were normal when EMS arrived and patient declined transport. Since then, she has continued with progressive weakness culminating in two controlled falls last night. After the second, EMS was called again and pt agreed to transport. She has been more fatigued and sleeping more than usual for the past few days. She has been having fevers up to 102F per staff for which she has been receiving ATC Tylenol with improvement. Her appetite has been decreased but no reported nausea or vomiting. She had two loose BMs yesterday but no other diarrhea. No melena or hematochezia. Staff have noted increased urinary incontinence. Urine is dark colored with sediment and foul odor. No hematuria. Has not complained of dysuria but does admit to some lower abdominal pain. Pt has a history of overactive bladder for which she follows with Dr. Adame - last visit about a month ago per caregiver. Last UTI in March - Proteus on culture. Admission Exam Per Admitting Provider Vital Signs (Past 24 Hours): Last Vital Signs Temp 36.9 C 06/02/18 09:06 Pulse 68 06/02/18 07:00 Resp 26 H 06/02/18 10:01 BP 112/50 L 06/02/18 10:01 Pulse Ox 99 06/02/18 10:01 Constitutional: WD/WN, vitals as above + obese; no acute distress and not lethargic frequently sleeping but easily arousable - will attempt to answer questions when asked but doesn't always know the answer Eyes: PERRL, conjunctivae normal, anicteric sclerae ENMT: external ear and nose normal, oropharynx normal Neck: trachea midline Respiratory: no respiratory distress and no labored breathing Auscultation: + wheezes (occasional faint); no diminished lung sounds, no rales and no rhonchi Cardiovascular: Rate/Rhythm: regular rate and regular rhythm Heart Sounds: no gallop, no murmur and no cardiac rub Vessels: no carotid bruit Extremities: normal capillary refill and + edema (bilateral LE (non-pitting)); no calf tenderness Gastrointestinal (Abdomen): Inspection/Auscultation: normal bowel sounds; abdomen not distended Percussion/Palpation: abdomen soft; abdomen nontender and no guarding Musculoskeletal: no cyanosis or clubbing, extremities motor strength 5/5 Skin: no rashes, warm and dry Neurologic: moves all extremities; not confused Cranial Nerves: tongue midline Principal Diagnosis UTI-ongoing treatment with Cipro, generalized weakness-improved Discharge Exam Constitutional WD/WN, vitals as above + obese and comfortable; no acute distress and not lethargic Eyes PERRL, conjunctivae normal, anicteric sclerae ENMT external ear and nose normal, oropharynx normal Neck trachea midline, no thyromegaly trachea midline; neck nontender Respiratory normal respiratory effort, lungs clear to auscultation normal percussion; no respiratory distress, no labored breathing and does not use accessory muscles Auscultation: + diminished lung sounds Cardiovascular Rate/Rhythm: regular rate and regular rhythm Heart Sounds: normal S1 and normal S2 Vessels: + JVD Extremities: normal capillary refill and + edema (bilateral LE (non-pitting)) Gastrointestinal (Abdomen) normal bowel sounds, soft, nontender, no hepatosplenomegaly Inspection/Auscultation: normal bowel sounds; abdomen not distended Percussion/Palpation: abdomen soft; abdomen nontender and no guarding Musculoskeletal no cyanosis or clubbing, extremities motor strength 5/5 Spine: thoracic spine normal to inspection and lumbar spine normal to inspection; no cervical spinal tenderness Skin no rashes, warm and dry normal turgor; no lesions Neurologic patellar DTR's 2+ bilat, sensation intact moves all extremities; no focal motor deficits and not confused Cranial Nerves: tongue midline Psychiatric A+Ox3, euthymic affect Orientation: cooperative Lymphatic no cervical or axillary lymphadenopathy no inguinal lymphadenopathy Discharge Data Allergies Allergy/AdvReac Type Severity Reaction Status Date / Time No Known Allergies Allergy Unverified 06/02/18 07:04 Consultations 06/02/18 09:36 ED Decision to Admit Stat 06/02/18 13:42 Consult Case Management - Discharge Planning Routine 06/04/18 12:28 Consult Infectious Diseases Routine Hospital Course (1) UTI (urinary tract infection): UTI Possible Bacteremia -1/2 Positive Urine Culture:Pesudomonas Blood Culture: 2: Pesudomonas ECHO: No evidence of mass/vegetation Repeat Blood Cx:No growth to date Continue Cefepime Day #7 Need to be transitioned to 1-2 weeks of oral ciprofloxacin Appreciate ID Input and recommendation Clinically without any symptoms We will discharge tomorrow with oral antibiotic as planned IV antibiotic course is done and she will be discharged this afternoon on oral Cipro for 2 weeks Diarrhea: Likely due to Abx Stool For C.diff: Not collected yet diarrhea improving Denies any more symptoms Diarrhea is stopped DM II A1C: 6.5 Hold Metformin Monitor BGs Continue ISS GERD (gastroesophageal reflux disease): Continue PPI Seizure disorder: Continue zonisamide, divalproex No seizures noted Bipolar disorder: continue home meds No acute delirium 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 HLD: Continue simvastatin Schizophrenia: Continue home meds Mild intellectual disability: Resides at [facility] Case management for discharge planning Overactive bladder: On Miragegron Dependent edema: Per caregiver, no worse than usual DVT Px: Lovenox SQ Code Status Full Code Disposition: PT/OT prior to DC Medically stable to be discharged Total Time Total Time Spent Total Time Spent (In Minutes): 35 minutes Total Time Includes: Examination of the Patient, Discharge Planning, Medication Reconciliation and Communication With Other Providers Discharge Plan Discharge Items Patient Disposition: Home - Home Health Services Reason For Visit: UTI, WEAKNESS Discharge Diagnosis: UTI-ongoing treatment with Cipro, generalized weakness- improved Condition: Good Discharge Goals: Decrease discomfort and Improve function Activity: Resume your previous activity Activity Comment: Please take precaution to avoid falls Non-emergency contact: Primary Care Provider Call non-emergency contact if: you have any medication questions and your symptoms worsen Follow-up/Referrals: [facility] [Primary Care Provider] - Diet: Carb Consistent or DM2 and Heart Healthy Addtl Provider Instructions: Please take precaution to avoid falls Prescriptions: New ciprofloxacin HCl 500 mg Tablet 500 mg PO BID 14 Days Qty: 28 RF: 0 Continued metformin 500 mg Tablet 500 mg PO QAM RF: 0 metformin 500 mg Tablet 1,000 mg PO QPM RF: 0 acetaminophen 325 mg Tablet 650 mg PO Q4H PRN (Reason: Pain) RF: 0 albuterol sulfate 2.5 mg /3 mL (0.083 %) Solution For Nebulization 2.5 mg INHALATION Q6H PRN (Reason: Shortness Of Breath) RF: 0 fluphenazine HCl 10 mg Tablet 10 mg PO HS RF: 0 clonazepam 2 mg Tablet 2 mg PO HS RF: 0 fluticasone 50 mcg/actuation [place],Suspension 2 spray INTRANASAL DAILY RF: 0 fluphenazine HCl 5 mg Tablet 5 mg PO HS RF: 0 Artificial Tears (PF) 0.1-0.3 % Dropperette 1 drp OPHTHALMIC (EYE) TID RF: 0 Calmoseptine 0.44-20.6 % Ointment 1 applic TOPICAL DAILY PRN (Reason: Itching) RF: 0 fluphenazine HCl 1 ml INJ MONTHLY RF: 0 tolterodine 4 mg Capsule,Extended Release 24hr 4 mg PO DAILY RF: 0 dextromethorphan-guaifenesin [Siltussin-DM] 10-100 mg/5 mL Syrup 5 ml PO Q4H PRN (Reason: Cough) RF: 0 zonisamide 100 mg Capsule 200 mg PO DAILY RF: 0 propranolol 10 mg Tablet 10 mg PO DAILY RF: 0 simvastatin 20 mg Tablet 20 mg PO PM RF: 0 omeprazole 20 mg Capsule,Delayed Release(Dr/Ec) 20 mg PO BID RF: 0 nystatin 100,000 unit/gram Powder 1 applic TOPICAL UD PRN (Reason: Unknown) RF: 0 Novolog Flexpen U-100 Insulin 100 unit/mL Insulin Pen SUBCUT BID RF: 0 naproxen sodium 220 mg Capsule 440 mg PO BID PRN (Reason: Pain) RF: 0 Myrbetriq 50 mg Tablet Extended Release 24 Hr 50 mg PO DAILY RF: 0 divalproex 500 mg Tablet,Delayed Release (Dr/Ec) 500 mg PO QAM RF: 0 divalproex 500 mg Tablet,Delayed Release (Dr/Ec) 1,000 mg PO HS RF: 0 Discontinued nitrofurantoin macrocrystal 50 mg Capsule 50 mg PO DAILY RF: 0 Stand-Alone Forms: [facility] Discharge Orders: Discharge Order (Routine); Ordered 06/09/18 Ordered By: Madiha Maldonado Admission Data Admit Date/Time: 06/02/18 10:28 Attending Provider: Madiha Maldonado Admit Provider: [place] Ríos [facility] Other Providers: Gorge Tavera ; Jessica Ruggiero ; [place] Ríos Service: Medical Other Interventions: Discharge Summary Assessment (RN) Last Done: 06/09/18 11:34 DC Date/Time DO NOT enter until pt leaves facility: 06/09/18 13:45
[2018-06-10] MEDS ORDERED: CIPROFLOXACIN 500 MG TAB PO SCH ×2 (09:00→21:00)
== END 2018-06-09 13:45 | disposition home health service (06) | DRG 690 ==
LOC: ED 06:22 → SUATTDRO 10:28 → 4E 10:28

== ENCOUNTER 2018-08-08 17:46 | Inpatient (IN) ==
--- OUTSIDE RECORDS SUMMARY | 2018-08-08 17:49 | External Medical Summary | Continuity of Care Document ---
:1960 Author Name Luis Alfredo Bui Address Unavailable Unavailable , Care Team Providers Name Role Phone Deep Bui I. Unavailable [email or web address] Waqas MATHIS Unavailable [email or web address] Adrian LIRA Unavailable 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 Refills: 0 Ibuprofen 600 MG Oral Tablet; TAKE 1 TABLET 3 TIMES DA KATIE NEEDED. SORAYA Campbell Start: 07-Jul-2016 Quantity: 21 Refills: 0 Tolterodine Tartrate ER 4 MG Oral Capsul e Extended Release 24 Hour; TAKE ONE CAPSULE BY MOUTH ONE TIME DAILY DEL [place] Start: 16-Jun-2018 Quantity: 30 Refills: 1 Albuterol AERS Refills: 0 Artificial Tears SOLN Refills: 0 NovoLOG SOLN Refills: 0 Nitrofurantoin 50 MG CAPS Refills: 0 Furosemide 40 MG Oral Tablet; 1 po daily Refills: 0 Omeprazole 20 MG Oral Capsule Delayed Release; 1 po BID Refills: 0 Divalproex Sodium ER 500 MG Oral Tablet Extended Release 24 Hour; 1 PO in AM and 2 PO at HS Refills: 0 Zonegran 100 MG Oral Capsule; TAKE 2 CAPSULES DAILY Refills: 0 MiraLax Oral Powder; as directed Refills: 0 Propranolol HCl - 10 MG Oral Tablet; 1 tablet PO daily at HS Refills: 0 fluPHENAZine HCl - 10 MG Oral Tablet Refills: 0 Nystatin 887899 UNIT/GM External Cream Refills: 0 Myrbetriq 50 MG Oral Tablet Extended Release 24 Hour; TAKE 1 TABLET EVERY DAY DEL Alan Start: 19-Jun-2014 Quantity: 30 Refills: 6 Siltussin-DM Alcohol Free SYRP Refills: 0 Anti-Diarrheal 2 MG Oral Tablet Refills: 0 fluPHENAZine HCl TABS Refills: 0 fluPHENAZine Decanoate 25 MG/ML Injection Solution Refills: 0 glipiZIDE 5 MG Oral Tablet Refills: 0 Procedures History of Tubal Ligation Status: Comple mindy History of Cholecystectomy Status: Compl eted History of Wrist Surgery Status: Complet ed History of Hip Surgery Status: Completed Immunizations Immunizations not documented Family History Mother Family history of Mother At Age ___ Status: Active Father Family history of Acute Myocardial Infarction (V17.3) Status : Active Family history of Father At Age ___ Status: Active Plan of Treatment Planned Encounters Appointment; Hawk Adame M.D. Start: 15-Aug-2018 11:45 R equest Planned Observations Planned Goals not documented Results No Known Results Results not documented Encounters Appointment; Hawk Adame M.D. 11-Jul-2018 10:40 Encounter Diagnosis: Problem not documented Appointment; Anupam Matthew Au.D.|[facility] 27-Jun-2018 11:20 Encounter Diagnosis: Problem not documented Appointment; Hawk Adame M.D. 19-Apr-2018 11:15 Encounter Diagnosis: Problem not documented Appointment; Urology, Room 6 23-Mar-2018 11:15 Encounter Diagnosis: Problem not documented Appointment; Urology, Room 6 16-Mar-2018 11:15 Encounter Diagnosis: Problem not documented Appointment; Urology, Room 6 09-Mar-2018 11:15 Encounter Diagnosis: Problem not documented Appointment; Urology, Room 6 02-Mar-2018 16:00 Encounter Diagnosis: Problem not documented Appointment; Urology, Room 6 17-Feb-2018 12:30 Encounter Diagnosis: Problem not documented Appointment; Urology, Room 6 09-Feb-2018 13:00 Encounter Diagnosis: Problem not documented Appointment; Urology, Room 6 02-Feb-2018 9:00 Encounter Diagnosis: Problem not documented Appointment; Urology, Room 6 26-Jan-2018 11:40 Encounter Diagnosis: Problem not documented Appointment; Urology, Room 6 19-Jan-2018 11:40 Encounter Diagnosis: Problem not documented Appointment; Urology, Room 6 12-Jan-2018 11:45 Encounter Diagnosis: Problem not documented Appointment; Urology, Room 6 05-Jan-2018 11:45 Encounter Diagnosis: Problem not documented Appointment; Urology, Room 6 29-Dec-2017 13:00 Encounter Diagnosis: Problem not documented Appointment; Hawk Adame M.D. 20-Dec-2017 15:45 Encounter Diagnosis: Problem not documented Appointment; Kelly Stephens M.D. 09-Sep-2017 11:20 Encounter Diagnosis: Problem not documented Appointment; Hawk Adame M.D. 03-Aug-2017 16:00 Encounter Diagnosis: Problem not documented Appointment; Anupam Matthew Au.D.|[facility] 22-Jun-2017 10:20 Encounter Diagnosis: Problem not documented Appointment; Cornelia Weinberg PA-C 14-Jan-2017 10:50 Encounter Diagnosis: Problem not documented Appointment; Urology, RN 23-Aug-2016 13:00 Encounter Diagnosis: Problem not documented Appointment; Hawk Adame M.D. 15-Aug-2018 11:45 Encounter Diagnosis: Problem not documented"
[2018-08-08] MEDS ORDERED: SODIUM CHLORIDE 0.9% 500 ML IV SCH (18:00)
--- NOTE | 2018-08-08 18:29 | XRay Report ---
XR chest 1V portable CLINICAL HISTORY: fever COMPARISON STUDY: Chest radiograph June 02, 2018. FINDINGS: Mild elevation of the right hemidiaphragm is unchanged. There is no pneumothorax or pleural effusion. There is no consolidation or evidence for pulmonary edema. Cardiomediastinal silhouette is stable. Appearance of the chest is unchanged. IMPRESSION: No acute cardiopulmonary findings. No change in appearance of the chest. Electronically signed by: Gaurav Ferrsi M.D. 08/08/2018 6:28 PM
[2018-08-08] MEDS ORDERED: DAPTOmycin 600 MG in SYRINGE 0 ML IV ONE (18:31)
[2018-08-08] MEDS ORDERED: PIPERACILLIN/TAZOBACTAM 4.5 GM/120 ML BAG IV ONE (18:31)
[2018-08-08] MEDS ORDERED: PIPERACILL/TAZOBAC CONSULT ACTIVE PRN (18:31)
[2018-08-08 18:37] LABS: Basophils # (auto) 0.01 K/uL (0-0.2); Basophils % (auto) 0.1 %; Eosinophils # (auto) 0.09 K/uL (0-0.5); Eosinophils % (auto) 1.3 %; Hematocrit (blood only) 35.3 % (37-47); Hemoglobin 12.2 g/dL (12.0-16.0); Immature Granulocytes # (auto) 0.02 K/uL (0.00-0.02); Immature Granulocytes % (auto) 0.3 %; Lymphocytes # (auto) 2.29 K/uL (1.2-3.4); Lymphocytes % (auto) 32.2 %; Mean Corpuscular Hgb Conc 34.6 g/dL (32-36); Mean Platelet Volume 10.4 fL (7.4-10.4); Monocytes # (auto) 0.95 K/uL (0.11-0.59); Monocytes % (auto) 13.4 %; Neutrophils # (auto) 3.75 K/uL (1.4-6.5); Neutrophils % (auto) 52.7 %; Platelet Count 140 K/uL (130-400); RDW Coefficient of Variation 14.6 % (11.5-14.5); RDW Standard Deviation 48.2 fL (36.4-46.3); Red Blood Count 3.88 M/uL (4.2-5.4); White Blood Count 7.11 K/uL (4.8-10.8)
[2018-08-08] MEDS ORDERED: DAPTOmycin 475 MG in SYRINGE 0 ML IV ONE (18:45)
[2018-08-08 18:56] LABS: Alanine Aminotransferase 22 U/L (12-78); Albumin Level 3.2 gm/dl (3.4-5.0); Aspartate Aminotransferase 21 U/L (15-37); BUN Creatinine Ratio 10.9 (10-20); Blood Urea Nitrogen 11 mg/dl (7-18); Calcium 8.9 mg/dl (8.5-10.1); Carbon Dioxide 25 mmol/L (21-32); Chloride 102 mmol/L (98-107); Creatinine Clr Calc Pharmacy 80.3 ml/min; Est GFR (African American) 76.2; Est GFR (Non-African American) 65.8; Glucose 123 mg/dl (70-99); Potassium 4.1 mmol/L (3.5-5.1); Sodium 135 mmol/L (136-145)
[2018-08-08 19:01] LABS: Albumin Globulin Ratio 0.8 (0.9-2); Alkaline Phosphatase 83 U/L (45-117); Bilirubin,Total 0.5 mg/dl (0.2-1); Globulin 4.2 gm/dl (2.5-4.0); Total Protein 7.4 gm/dl (6.4-8.2); Troponin I < 0.015 ng/ml (0-0.045)
[2018-08-08 19:49] LABS: Appearance Urine Cloudy (Clear); Bacteria Urine Automated Negative (Negative); Bilirubin Urine Negative (Negative); Blood Urine Trace (Negative); Cast Urine Automated 0 /lpf (0-5); Color Urine Dark Yellow; Epithelial Cell Urine Auto 20-30 /lpf (0-5); Glucose Urine UA Negative (Negative); Ketones Urine 1+ (Negative); Leukocyte Esterase Urine 3+ (Negative); Nitrite Urine Negative (Negative); Specific Gravity Urine 1.021 (1.000-1.030); Urobilinogen Urine Negative (Negative); WBC Urine Automated >30 /hpf (0-5); pH Urine 8.5 (4.5-7.5)
--- NOTE | 2018-08-08 20:11 | CT Scan Report ---
CT OF THE HEAD WITHOUT CONTRAST CLINICAL HISTORY: Fall. COMPARISON STUDY: Head CT November 20, 2011. CT DOSE: 537.48 mGy.cm TECHNIQUE: Helical axial images of the head were obtained without IV contrast. Automated exposure con trol was utilized for the study. A dose lowering technique was utilized adhering to the principles o f ALARA. FINDINGS: No acute intracranial hemorrhage, midline shift or mass effect is present. Ventricular syst em is normal. Basilar cisterns are patent. A hypodensity within the right basal ganglia is unchanged. This may reflect an old lacunar infarct or prominent perivascular space. Mild white matter hypodensi ty suggests small vessel disease. There are no findings to suggest acute dural sinus thrombosis or ac ronaldo territorial infarct. There is no calvarial fracture. IMPRESSION: 1. No acute intracranial findings. 2. No calvarial fracture. Electronically signed by: Gaurav Ferris M.D. 08/08/2018 8:10 PM
[2018-08-08 20:12] LABS: Protein Urine Negative (Negative)
[2018-08-08] MEDS ORDERED: ACETAMINOPHEN 500 MG TAB PO STA (20:42)
--- NOTE | 2018-08-08 21:31 | History & Physical Report ---
Date of Service August 08, 2018 Assessment & Plan (1) Severe sepsis: (2) UTI (urinary tract infection): -Admit to [facility] with telemetry -Patient presenting by referral of [facility] for evaluation of suspected UTI, fever, weakness, confusion -On arrival to the ED: T-max 38.1, initial lactate 4.2 with repeat being 2.5 after IVF; no leukocytosis, heart rate and BP stable -Patient was given a 500cc NSS in the ED, given improvement in lactate and stable vitals will not resuscitate with 30 mL/kg -Admission to [facility] 06/2018 for pseudomonal UTI with bacteremia -Received Zosyn and daptomycin the ED, will continue with Zosyn only per now per prior culture results -Continue IVF, NSS at 125/hr -Infectious disease consult, ? Need for long-term prophylactic antibiotics given recurrent UTIs (3) DM2 (diabetes mellitus, type 2): -Hgb A1c 6.7 03/2018 -Hold oral agents and utilize NovoLog per protocol while hospitalized (4) Schizophrenia: (5) Bipolar disorder: -Continue home meds (6) Seizure disorder: -No recent seizure activity, continue Depakote (7) Dependent edema: -Hold furosemide and potassium replacement while receiving IVF for sepsis (8) HLD (hyperlipidemia): -Continue statin (9) DVT prophylaxis: -SQ Lovenox History of Present Illness Chief Complaint: Altered mental status, generalized weakness Primary Care Provider: Dr. Lopez 57-year-old female who presents to the ED with altered mental status and generalized weakness. Patient has underlying bipolar, s chizophrenia, mild intellectual disability and some information is obtained from caregiver at the bedside. Patient was admitted to [facility] 06/2018 for sepsis secondary to pseudomonal UTI and pseudomonal bacteremia. Patient has history of recurrent UTIs in the past. Yesterday, patient developed confusion, fevers, intermittent hypotension, urinary incontinence with foul-smelling urine. Today, patient was sitting out on the porch smoking a cigarette and caregiver reports that when she stood up she fell to the ground. There is no loss of consciousness however she did strike her head. No seizure-like activity reported. Patient did not want to come to the hospital therefore she was evaluated at [facility], was found to have fever of 102.2, and was referred to the ED for further evaluation. At the time my exam, patient is resting comfortably in bed. She offers no complaints. She denies chest pain or shortness of breath. No abdominal pain, nausea, vomiting, diarrhea. In the ED, T-max is 38.1, initial lactate 4.2 with repeat being 2.5 after IVF. UA suggest UTI. Head CT is negative for acute findings. BP remained stable. Patient was also given Tylenol, IV Dapto, IV Zosyn. Allergies Allergy/AdvReac Type Severity Reaction Status Date / Time No Known Allergies Allergy Unverified 08/08/18 19:10 Home Medications Home Medications Medication Instructions Recorded Confirmed Type Calmoseptine 1 applic TOPICAL DAILY PRN 06/02/18 08/08/18 History Myrbetriq 50 mg PO DAILY 06/02/18 08/08/18 History Novolog Flexpen U-100 Insulin 0 unit SUBCUT BID 06/02/18 08/08/18 History acetaminophen 650 mg PO Q4H PRN 06/02/18 08/08/18 History albuterol sulfate 2.5 mg INHALATION Q6H PRN 06/02/18 08/08/18 History clonazepam 2 mg PO HS 06/02/18 08/08/18 History dextromethorphan-guaifenesin 5 ml PO Q4H PRN 06/02/18 08/08/18 History [Siltussin-DM] divalproex 1,000 mg PO HS 06/02/18 08/08/18 History divalproex 500 mg PO QAM 06/02/18 08/08/18 History fluphenazine HCl 5 mg PO HS 06/02/18 08/08/18 History fluphenazine HCl 10 mg PO HS 06/02/18 08/08/18 History fluticasone propionate 2 spray INTRANASAL DAILY 06/02/18 08/08/18 History metformin 1,000 mg PO QPM 06/02/18 08/08/18 History metformin 500 mg PO QAM 06/02/18 08/08/18 History naproxen sodium 440 mg PO BID PRN 06/02/18 08/08/18 History nystatin 1 applic TOPICAL UD PRN 06/02/18 08/08/18 History omeprazole 20 mg PO BID 06/02/18 08/08/18 History propranolol 10 mg PO DAILY 06/02/18 08/08/18 History simvastatin 20 mg PO PM 06/02/18 08/08/18 History tolterodine 4 mg PO DAILY 06/02/18 08/08/18 History zonisamide 200 mg PO DAILY 06/02/18 08/08/18 History fluphenazine HCl 2.5 mg PO DAILY PRN 08/08/18 08/08/18 History fluphenazine decanoate 25 mg IM MONTHLY 08/08/18 08/08/18 History furosemide 20 mg PO DAILY 08/08/18 08/08/18 History ibuprofen 600 mg PO BID PRN 08/08/18 08/08/18 History lactobacillus combination no.4 3,000 mmu cells PO TIDM 08/08/18 08/08/18 History [Probiotic] loperamide 2 mg PO .DAILY UD PRN 08/08/18 08/08/18 History potassium chloride 10 meq PO DAILY 08/08/18 08/08/18 History Past Med/Surg History Medical History Osteoarthritis (Chronic) Morbid obesity (Chronic) Schizophrenia (Chronic) Overactive bladder (Chronic) Mild intellectual disability (Chronic) Dependent edema (Chronic) Bipolar disorder (Chronic) Seizure disorder (Chronic) GERD (gastroesophageal reflux disease) (Chronic) DM2 (diabetes mellitus, type 2) (Chronic) HLD (hyperlipidemia) (Chronic) Tobacco abuse (Chronic) Surgical History History of total left hip replacement (Chronic) H/O tubal ligation (Chronic) Family History Other Family history unobtainable Social History Preferred Language: Serbian Communication Ability: Effective Ski Patrol Required: No Beliefs That Will Affect Care: None marital status: Current Living Situation: Boarding Home and Legal Guardian Current Living Situation Comment: Robi Ruffin current occupational status: unemployed and disabled Other Information That Helps Us Care for You: No Feels Safe at Home: Yes Safety Concerns: Feels Safe At This Time Smoking Status: Current every day smoker Tobacco Type: cigarettes Cigarettes Per Day: 10 Do You Dip or Chew Tobacco: No Second Hand Exposure: Yes Tobacco Cessation Education Requested by Patient: No Hx Alcohol Use: No Hx Substance Use: No Review of Systems Review of Systems: Unobtainable due to mental health condition (Reviewed with patient and caregiver with pertinent positives and negatives per HPI) Physical Exam Constitutional: WD/WN, vitals as above + obese Eyes: PERRL, conjunctivae normal, anicteric sclerae ENMT: Ears: no external ear abnormality Nose: no external nose abnormality Mouth: + dry oral mucous membranes Respiratory: normal respiratory effort, lungs clear to auscultation Cardiovascular: Rate/Rhythm: regular rate and regular rhythm Vessels: normal peripheral pulses Extremities: + edema (+2 BLE, chronic) Gastrointestinal (Abdomen): normal bowel sounds, soft, nontender, no hepatosplenomegaly Musculoskeletal: no cyanosis or clubbing, extremities motor strength 5/5 Skin: no rashes, warm and dry Neurologic: PERRL, EOMI, accommodation nl, no face palsy, no dysarthria Psychiatric: Orientation: alert and oriented x 3 Affect: + flat affect Insight: + limited insight Results & Data Vital Signs (Past 12 Hours) Vital Signs Temp Pulse Pulse Resp BP BP Pulse Ox 08/08/18 20:25 38.1 C H 79 24 114/57 L 94 08/08/18 19:09 78 24 128/59 L 95 08/08/18 18:15 82 25 H 113/52 L 93 08/08/18 17:52 37.9 C H 83 20 103/48 L 92 Laboratory Results Laboratory Last Values WBC 7.11 K/uL (4.8-10.8) 08/08/18 18:18 RBC 3.88 M/uL (4.2-5.4) L 08/08/18 18:18 Hgb 12.2 g/dL (12.0-16.0) 08/08/18 18:18 Hct 35.3 % (37-47) L 08/08/18 18:18 MCV 91.0 fL (80-100) 08/08/18 18:18 MCH 31.4 pg (25-34) 08/08/18 18:18 MCHC 34.6 g/dL (32-36) 08/08/18 18:18 RDW Std Deviation 48.2 fL (36.4-46.3) H 08/08/18 18:18 RDW Coeff of Celio 14.6 % (11.5-14.5) H 08/08/18 18:18 Plt Count 140 K/uL (130-400) 08/08/18 18:18 MPV 10.4 fL (7.4-10.4) 08/08/18 18:18 Immature Gran % (Auto) 0.3 % 08/08/18 18:18 Neut % (Auto) 52.7 % 08/08/18 18:18 Lymph % (Auto) 32.2 % 08/08/18 18:18 [place] % (Auto) 13.4 % 08/08/18 18:18 Eos % (Auto) 1.3 % 08/08/18 18:18 Baso % (Auto) 0.1 % 08/08/18 18:18 Immature Gran # (Auto) 0.02 K/uL (0.00-0.02) 08/08/18 18:18 Neut # (Auto) 3.75 K/uL (1.4-6.5) 08/08/18 18:18 Lymph # (Auto) 2.29 K/uL (1.2-3.4) 08/08/18 18:18 [place] # (Auto) 0.95 K/uL (0.11-0.59) H 08/08/18 18:18 Eos # (Auto) 0.09 K/uL (0-0.5) 08/08/18 18:18 Baso # (Auto) 0.01 K/uL (0-0.2) 08/08/18 18:18 Sodium 135 mmol/L (136-145) L 08/08/18 18:18 Potassium 4.1 mmol/L (3.5-5.1) 08/08/18 18:18 Chloride 102 mmol/L (98-107) 08/08/18 18:18 Carbon Dioxide 25 mmol/L (21-32) 08/08/18 18:18 Anion Gap 8.0 (3-11) 08/08/18 18:18 BUN 11 mg/dl (7-18) 08/08/18 18:18 Creatinine 0.97 mg/dl (0.6-1.2) 08/08/18 18:18 Est Cr Clr Drug Dosing 80.3 ml/min 08/08/18 18:18 Est GFR ( Amer) 76.2 08/08/18 18:18 Est GFR (Non-Af Amer) 65.8 08/08/18 18:18 BUN/Creatinine Ratio 10.9 (10-20) 08/08/18 18:18 Glucose 123 mg/dl (70-99) H 08/08/18 18:18 POC Lactic Acid Otoniel 2.52 mmol/L (0.90-1.70) H 08/08/18 20:34 Calcium 8.9 mg/dl (8.5-10.1) 08/08/18 18:18 Total Bilirubin 0.5 mg/dl (0.2-1) 08/08/18 18:18 AST 21 U/L (15-37) 08/08/18 18:18 ALT 22 U/L (12-78) 08/08/18 18:18 Alkaline Phosphatase 83 U/L (45-117) 08/08/18 18:18 Troponin I < 0.015 ng/ml (0-0.045) 08/08/18 18:18 Total Protein 7.4 gm/dl (6.4-8.2) 08/08/18 18:18 Albumin 3.2 gm/dl (3.4-5.0) L 08/08/18 18:18 Globulin 4.2 gm/dl (2.5-4.0) H 08/08/18 18:18 Albumin/Globulin Ratio 0.8 (0.9-2) L 08/08/18 18:18 Urine Color Dark Yellow 08/08/18 19:27 Urine Appearance Cloudy (Clear) A 08/08/18 19:27 Urine pH 8.5 (4.5-7.5) H 08/08/18 19: Ur Specific [place] 1.021 (1.000-1.030) 08/08/18 19:27 Urine Protein Negative (Negative) 08/08/18 19: Urine Glucose (UA) Negative (Negative) 08/08/18 19: Urine Ketones 1+ (Negative) H 08/08/18 19: Urine Blood Trace (Negative) H 08/08/18 19: Urine Nitrite Negative (Negative) 08/08/18 19: Urine Bilirubin Negative (Negative) 08/08/18 19: Urine Urobilinogen Negative (Negative) 08/08/18 19: Ur Leukocyte Esterase 3+ (Negative) H 08/08/18 19:27 Urine WBC (Auto) >30 /hpf (0-5) H 08/08/18 19:27 Urine RBC (Auto) 10-30 /hpf (0-4) H 08/08/18 19:27 U Hyaline Cast (Auto) 0 /lpf (0-5) 08/08/18 19:27 U Epithel Cells (Auto) 20-30 /lpf (0-5) H 08/08/18 19:27 Urine Bacteria (Auto) Negative (Negative) 08/08/18 19:27 Diagnostic Findings CXR IMPRESSION: No acute cardiopulmonary findings. No change in appearance of the chest. HEAD CT IMPRESSION: 1. No acute intracranial findings. 2. No calvarial fracture. Code Status & VTE Plan Code Status Patient is a full code as per my discussion with patient's caregiver who is the bedside. VTE Prophylaxis Plan VTE Prophylaxis will be ordered: Yes Supervising Physician Co-Signing Physician Notes Care coordinated with Arabella MATHIS. Agree with above note. Patient seen and examined. Please refer to her notes for full details. Vital signs reviewed. Physical exam: General exam: Alert and awake. Not in acute distress. CVS: S1 and S2 heard, regular rate and rhythm, no murmurs. RS: Clear to auscultation, no wheezing or crackles. ABD: Soft, bowel sounds present, nontender, no distention. WINTER INTERN: alert and awake and obeys simple commands EXT: No edema, no erythema. Labs: Reviewed. Assessment and plan: 57F with hx Bipolar, schizophrenia,Mild intellectual disability , Recent UTI and bacteremia with pseudomonas again presents with sepsis from UTI. Severe sepsis UTi Hx of pseudomonas bacteremia elevated lactic acid iv fluids received zosyn and daptomycin in ER will continue zosyn for now follow cx currently hemodynamically stable. Hxof seizures on Depakote Hx of dependent edema lasix and kcl supplement on hold Other diagnosis and plan of care as per DEL Angela. Alejandro lucio MD. 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
[2018-08-08] MEDS ORDERED: GLUCOSE 10 TABS/TUBE PO PRN (22:28)
[2018-08-08] MEDS ORDERED: GLUCOSE 40% GEL 15 GM TUBE PO PRN (22:28)
[2018-08-08] MEDS ORDERED: GLUCAGON FOR INJ 1 MG VIAL SQ PRN (22:28)
[2018-08-08] MEDS ORDERED: DEXTROSE 50% 50 ML SYRINGE IV PRN (22:28)
[2018-08-08] MEDS ORDERED: CARBOHYDRATES FOR HYPOGLYCEMIA PO PRN (22:28)
[2018-08-08] MEDS ORDERED: ACETAMINOPHEN 325 MG TAB PO PRN (22:28)
[2018-08-08] MEDS: SODIUM CHLORIDE 0.9% 1000ML 1,000 ML IV SCH (23:30)
[2018-08-08] MEDS: DIVALPROEX DELAY RELEASE 500 MG TAB PO SCH (23:31)
[2018-08-08] MEDS: ENOXAPARIN INJ 40 MG/0.4 ML SYR SQ SCH (23:31)
[2018-08-08] MEDS: clonazePAM 1 MG TAB PO SCH (23:33)
--- NOTE | 2018-08-09 00:15 | Emergency Department Note ---
Entered by Pily Becker acting as a scribe for Foreign Richardson MD ED Provider Note CHIEF COMPLAINT: Fall HISTORY OF PRESENT ILLNESS: The patient is a 57 year old female with a history of GERD, diabetes, hyperlipidemia, osteoarthritis, seizure disorder, bipolar disorder, and schizophrenia who presents to the Emergency Room with complaints of an episode of a fall occurring just prior to arrival. Per cna caregiver, the patient was on her way to the ER from [facility] for a UA out of concern for a UTI when she fell and hit the back of her head. She states that the patient subsequently complained of a headache. She notes that the patient was last in the ER in June for a UTI and sepsis. She reports that the patient was sent in today because the patient was again experiencing increasing incontinence and confusion. She adds that the patient's blood pressure and temperature has been fluctuating. The cna caregiver notes that the patient's legs are edematous at baseline. She states that the patient's PCP is Dr. Lopez. Pt denies LOC, neck pain, chest pain, breathing difficulties, nausea, vomiting, abdominal pain, back pain, melena, hematochezia, urinary symptoms. REVIEW OF SYSTEMS: Limited secondary to altered mental status. PMHx/PSHx: UTI, GERD, diabetes, hyperlipidemia, osteoarthritis, seizure disorder, bipolar disorder, and schizophrenia SOCIAL HISTORY: Patient lives in assisted living at [facility]. She is , unemployed, and disabled. She is a current every day smoker. PHYSICAL EXAM: GENERAL: Awake, alert, tired-appearing, in no distress HENT: Normocephalic, atraumatic. Oropharynx unremarkable. EYES: PERRL. Normal conjunctiva. Sclera non-icteric. NECK: Inspection normal. Non-tender. Supple. No nuchal rigidity. FROM. No masses. RESPIRATORY: Clear to auscultation. No wheezes. No rales. Normal respiratory effort. CARDIAC: Normal rate. Normal rhythm. No murmurs. No rubs. Extremities warm and well perfused. Pulses equal. No JVD. GI: Soft, non-distended. No tenderness to palpation. No rebound or guarding. No masses. RECTAL: Deferred. MUSCULOSKELETAL: Atraumatic. Chest examination reveals no tenderness. The back is symmetrical on inspection without obvious abnormality. There is no CVA tenderness to palpation. No joint edema. LOWER EXTREMITIES: Calves are equal size bilaterally and non-tender. 1+ edema. No discoloration. NEURO: Mildly altered sensorium. Answers "no" to every question. No sensory or motor deficits noted. SKIN: No rash or jaundice noted. EMERGENCY DEPARTMENT COURSE: 1808: Past medical records reviewed. The patient was evaluated in room C11B, and a complete history and physical examination were performed. 2020: I checked on the patient and updated her and her cna caregiver on her results. 2107: I reviewed the patient's case with Dr. López - HospitalistVandana. Dr. López will evaluate the patient for further management. MEDICAL DECISION MAKING: Prior records/ancillary studies reviewed. Last urine blood infection was Pseudomonas. Nursing notes reviewed and agree them. Additional history obtained from the patient's caregiver. The patient's history was concerning for altered mental status and history of UTI. Differential diagnosis: Etiologies such as infection, sepsis, hypoglycemia, electrolyte abnormalities, cardiac sources, intracerebral event, toxicologic, neurologic, as well as others were entertained. Physical examination: As above. The patient was confused. She was answering no to all questions. ER treatment provided: IV Lock Normal saline hydration IV daptomycin IV Zosyn Oral Tylenol On reassessment the patient felt better. She was more coherent. She was answering questions. She was without complaints. Diagnostics interpretation by me: ECG: No ischemia The labs revealed an unremarkable CBC. Chemistry panel normal. Urinalysis conc erning for infection. The patient's lactate was significantly elevated. Repeat lactate after hydration showed improvement but still elevated. Given the fever, urine infection, and elevated lactate this is concerning for sepsis. The patient received broad-spectrum antibiotics. She will need admission to the hospital. Imaging studies: Head CT and chest x-ray were negative. Consultation: A consultation was placed with the hospitalist. The case was discussed and diagnostics were reviewed. The patient was evaluated in the ER for further treatment. IMPRESSION: Sepsis, UTI, altered mental status PLAN: Admitted as inpatient The scribe's documentation has been prepared under my direction and personally reviewed by me in its entirety. I confirm that the note above accurately reflects all work, treatment, procedures, and medical decision making performed by me. Impression & Plan Sepsis, UTI (urinary tract infection), Altered mental status Past Med/Surg History Medical History Osteoarthritis (Chronic) Morbid obesity (Chronic) Schizophrenia (Chronic) Overactive bladder (Chronic) Mild intellectual disability (Chronic) Dependent edema (Chronic) Bipolar disorder (Chronic) Seizure disorder (Chronic) GERD (gastroesophageal reflux disease) (Chronic) DM2 (diabetes mellitus, type 2) (Chronic) HLD (hyperlipidemia) (Chronic) Tobacco abuse (Chronic) Surgical History History of total left hip replacement (Chronic) H/O tubal ligation (Chronic) Family History Other Family history unobtainable Social History Preferred Language: Japanese Communication Ability: Effective Dental Prosthetist Required: No Beliefs That Will Affect Care: None marital status: Current Living Situation: Boarding Home and Legal Guardian Current Living Situation Comment: Robi Ruffin current occupational status: unemployed and disabled Other Information That Helps Us Care for You: No Feels Safe at Home: Yes Safety Concerns: Feels Safe At This Time Smoking Status: Current every day smoker Tobacco Type: cigarettes Cigarettes Per Day: 10 Do You Dip or Chew Tobacco: No Second Hand Exposure: Yes Tobacco Cessation Education Requested by Patient: No Hx Alcohol Use: No Hx Substance Use: No Results & Data Vital Signs Vital Signs - 24 hr 08/08/18 17:52 08/08/18 18:15 08/08/18 19:09 Temperature 37.9 C H Temperature Source Oral Sepsis Recent Fever Within 48 Hours No Sepsis Action Taken by Nursing No Action Required Pulse Rate 83 Pulse Rate [Finger] 82 78 Pulse Rhythm Regular Pulse Rhythm [Finger] Pulse Strength Normal Pulse Strength [Finger] Respiratory Rate 20 25 H 24 Respiratory Effort / Characteristics Non-Labored Spontaneous Respiratory Depth Normal Respiratory Pattern Regular Blood Pressure 103/48 L Blood Pressure [Right Arm] 113/52 L 128/59 L Blood Pressure Mean 66 Blood Pressure Mean [Right Arm] 72 82 Blood Pressure Position Sitting Blood Pressure Position [Right Arm] Pulse Oximetry 92 93 95 Oxygen Delivery Method Room Air Room Air Room Air 08/08/18 20:25 08/08/18 21:51 08/08/18 22:31 Temperature 38.1 C H 37.9 C H 37 C Temperature Source Oral Oral Oral Sepsis Recent Fever Within 48 Hours Sepsis Action Taken by Nursing Pulse Rate 77 Pulse Rate [Finger] 79 71 Pulse Rhythm Pulse Rhythm [Finger] Regular Pulse Strength Pulse Strength [Finger] Normal Respiratory Rate 24 26 H 20 Respiratory Effort / Characteristics Non-Labored Respiratory Depth Normal Respiratory Pattern Blood Pressure 118/53 L Blood Pressure [Right Arm] 114/57 L 120/57 L Blood Pressure Mean Blood Pressure Mean [Right Arm] 76 78 Blood Pressure Position Blood Pressure Position [Right Arm] Pulse Oximetry 94 92 92 Oxygen Delivery Method Room Air Room Air 08/08/18 23:00 Temperature 36.8 C Temperature Source Oral Sepsis Recent Fever Within 48 Hours Sepsis Action Taken by Nursing Pulse Rate Pulse Rate [Finger] 75 Pulse Rhythm Pulse Rhythm [Finger] Pulse Strength Pulse Strength [Finger] Respiratory Rate 20 Respiratory Effort / Characteristics Respiratory Depth Respiratory Pattern Blood Pressure Blood Pressure [Right Arm] 128/74 Blood Pressure Mean Blood Pressure Mean [Right Arm] 92 Blood Pressure Position Blood Pressure Position [Right Arm] Sitting Pulse Oximetry 95 Oxygen Delivery Method Room Air Home Medications Current Medication List: was personally reviewed by me Laboratory Data Attestation: I reviewed the patient's lab results. Result diagrams: 08/08/18 18:18 08/08/18 18:18 Lab Results 08/08/18 08/08/18 08/08/18 Range/Units 18:18 18:18 18:28 WBC 7.11 (4.8-10.8) K/uL RBC 3.88 L (4.2-5.4) M/uL Hgb 12.2 (12.0-16.0) g/dL Hct 35.3 L (37-47) % MCV 91.0 (80-100) fL MCH 31.4 (25-34) pg MCHC 34.6 (32-36) g/dL RDW Std Deviation 48.2 H (36.4-46.3) fL RDW Coeff of Celio 14.6 H (11.5-14.5) % Plt Count 140 (130-400) K/uL MPV 10.4 (7.4-10.4) fL Immature Gran % (Auto) 0.3 % Neut % (Auto) 52.7 % Lymph % (Auto) 32.2 % [place] % (Auto) 13.4 % Eos % (Auto) 1.3 % Baso % (Auto) 0.1 % Immature Gran # (Auto) 0.02 (0.00-0.02) K/uL Neut # (Auto) 3.75 (1.4-6.5) K/uL Lymph # (Auto) 2.29 (1.2-3.4) K/uL [place] # (Auto) 0.95 H (0.11-0.59) K/uL Eos # (Auto) 0.09 (0-0.5) K/uL Baso # (Auto) 0.01 (0-0.2) K/uL Sodium 135 L (136-145) mmol/L Potassium 4.1 (3.5-5.1) mmol/L Chloride 102 (98-107) mmol/L Carbon Dioxide 25 (21-32) mmol/L Anion Gap 8.0 (3-11) BUN 11 (7-18) mg/dl Creatinine 0.97 (0.6-1.2) mg/dl Est Cr Clr Drug Dosing 80.3 ml/min Est GFR ( Amer) 76.2 Est GFR (Non-Af Amer) 65.8 BUN/Creatinine Ratio 10.9 (10-20) Glucose 123 H (70-99) mg/dl POC Glucose (70-99) POC Lactic Acid Otoniel 4.28 H (0.90-1.70) mmol/L Calcium 8.9 (8.5-10.1) mg/dl Total Bilirubin 0.5 (0.2-1) mg/dl AST 21 (15-37) U/L ALT 22 (12-78) U/L Alkaline Phosphatase 83 (45-117) U/L Troponin I < 0.015 (0-0.045) ng/ml Total Protein 7.4 (6.4-8.2) gm/dl Albumin 3.2 L (3.4-5.0) gm/dl Globulin 4.2 H (2.5-4.0) gm/dl Albumin/Globulin Ratio 0.8 L (0.9-2) Urine Color Urine Appearance (Clear) Urine pH (4.5-7.5) Ur Specific Broxton (1.000-1.030) Urine Protein (Negative) Urine Glucose (UA) (Negative) Urine Ketones (Negative) Urine Blood (Negative) Urine Nitrite (Negative) Urine Bilirubin (Negative) Urine Urobilinogen (Negative) Ur Leukocyte Esterase (Negative) Urine WBC (Auto) (0-5) /hpf Urine RBC (Auto) (0-4) /hpf U Hyaline Cast (Auto) (0-5) /lpf U Epithel Cells (Auto) (0-5) /lpf Urine Bacteria (Auto) (Negative) 08/08/18 08/08/18 08/08/18 Range/Units 19:27 20:34 22:23 WBC (4.8-10.8) K/uL RBC (4.2-5.4) M/uL Hgb (12.0-16.0) g/dL Hct (37-47) % MCV (80-100) fL MCH (25-34) pg MCHC (32-36) g/dL RDW Std Deviation (36.4-46.3) fL RDW Coeff of Celio (11.5-14.5) % Plt Count (130-400) K/uL MPV (7.4-10.4) fL Immature Gran % (Auto) % Neut % (Auto) % Lymph % (Auto) % [place] % (Auto) % Eos % (Auto) % Baso % (Auto) % Immature Gran # (Auto) (0.00-0.02) K/uL Neut # (Auto) (1.4-6.5) K/uL Lymph # (Auto) (1.2-3.4) K/uL [place] # (Auto) (0.11-0.59) K/uL Eos # (Auto) (0-0.5) K/uL Baso # (Auto) (0-0.2) K/uL Sodium (136-145) mmol/L Potassium (3.5-5.1) mmol/L Chloride (98-107) mmol/L Carbon Dioxide (21-32) mmol/L Anion Gap (3-11) BUN (7-18) mg/dl Creatinine (0.6-1.2) mg/dl Est Cr Clr Drug Dosing ml/min Est GFR ( Amer) Est GFR (Non-Af Amer) BUN/Creatinine Ratio (10-20) Glucose (70-99) mg/dl POC Glucose 128 H (70-99) POC Lactic Acid Otoniel 2.52 H (0.90-1.70) mmol/L Calcium (8.5-10.1) mg/dl Total Bilirubin (0.2-1) mg/dl AST (15-37) U/L ALT (12-78) U/L Alkaline Phosphatase (45-117) U/L Troponin I (0-0.045) ng/ml Total Protein (6.4-8.2) gm/dl Albumin (3.4-5.0) gm/dl Globulin (2.5-4.0) gm/dl Albumin/Globulin Ratio (0.9-2) Urine Color Dark Yellow Urine Appearance Cloudy A (Clear) Urine pH 8.5 H (4.5-7.5) Ur Specific Broxton 1.021 (1.000-1.030) Urine Protein Negative (Negative) Urine Glucose (UA) Negative (Negative) Urine Ketones 1+ H (Negative) Urine Blood Trace H (Negative) Urine Nitrite Negative (Negative) Urine Bilirubin Negative (Negative) Urine Urobilinogen Negative (Negative) Ur Leukocyte Esterase 3+ H (Negative) Urine WBC (Auto) >30 H (0-5) /hpf Urine RBC (Auto) 10-30 H (0-4) /hpf U Hyaline Cast (Auto) 0 (0-5) /lpf U Epithel Cells (Auto) 20-30 H (0-5) /lpf Urine Bacteria (Auto) Negative (Negative) Administered Medications Clonazepam (Klonopin) 2 mg PO HS MAGDA Stop: 09/07/18 22:27 Last Admin: 08/08/18 23:33 Dose: 2 mg Documented by: [id number] Divalproex Sodium (Depakote Delay Release) 1,000 mg PO HS MAGDA Stop: 09/07/18 22:27 Last Admin: 08/08/18 23:31 Dose: 1,000 mg Documented by: [id number] Enoxaparin Sodium (Lovenox) 40 mg SQ QPM MAGDA Stop: 09/07/18 22:27 Last Admin: 08/08/18 23:31 Dose: 40 mg Documented by: [id number] Sodium Chloride (Nss 1000ml) 1,000 mls @ 125 mls/hr IV .Q8H MAGDA Stop: 09/07/18 22:27 Last Admin: 08/08/18 23:30 Dose: 125 mls/hr Documented by: [id number] Miscellaneous (Order Awaiting Action) 1 ea N/A QS MAGDA Stop: 09/08/18 00:00 Last Admin: 08/08/18 23:52 Dose: Not Given Documented by: [id number] Discontinued Medications Acetaminophen (Tylenol) 1,000 mg PO NOW STA Stop: 08/08/18 20:43 Last Admin: 08/08/18 20:52 Dose: 1,000 mg Documented by: [id number] Sodium Chloride (Nss) 500 mls @ 999 mls/hr IV .Q31M MAGDA Stop: 08/08/18 18:30 Last Infusion: 08/08/18 19:30 Dose: 0 mls/hr Documented by: [id number] Admin: 08/08/18 18:55 Dose: 999 mls/hr Documented by: [id number] Piperacillin Sod/Tazobactam Sod (Zosyn) 4.5 gm in 120 mls @ 240 mls/hr IV NOW O NE Stop: 08/08/18 19:00 Last Infusion: 08/08/18 19:54 Dose: 0 mls/hr Documented by: [id number] Admin: 08/08/18 19:28 Dose: 240 mls/hr Documented by: [id number] Daptomycin 475 mg/ Syringe 9.5 mls @ 4.75 mls/min IV NOW ONE; Protocol Stop: 08/08/18 18:46 Last Admin: 08/08/18 19:27 Dose: 4.75 mls/min Documented by: [id number] Imaging Data Radiologist's Impression: Radiology results as stated below per my review and the radiologist's interpretation: XR chest 1V portable CLINICAL HISTORY: fever COMPARISON STUDY: Chest radiograph June 02, 2018. FINDINGS: Mild elevation of the right hemidiaphragm is unchanged. There is no pneumothorax or pleural effusion. There is no consolidation or evidence for pulmonary edema. Cardiomediastinal silhouette is stable. Appearance of the chest is unchanged. IMPRESSION: No acute cardiopulmonary findings. No change in appearance of the chest. Electronically signed by: Gaurav Ferris M.D. 08/08/2018 6:[address] OF THE HEAD WITHOUT CONTRAST CLINICAL HISTORY: Fall. COMPARISON STUDY: Head CT November 20, 2011. CT DOSE: 537.48 mGy.cm TECHNIQUE: Helical axial images of the head were obtained without IV contrast. Automated exposure control was utilized for the study. A dose lowering technique was utilized adhering to the principles of ALARA. FINDINGS: No acute intracranial hemorrhage, midline shift or mass effect is present. Ventricular system is normal. Basilar cisterns are patent. A hypodensity within the right basal ganglia is unchanged. This may reflect an old lacunar infarct or prominent perivascular space. Mild white matter hypodensity suggests small vessel disease. There are no findings to suggest acute dural sinus thrombosis or acute territorial infarct. There is no calvarial fracture. IMPRESSION: 1. No acute intracranial findings. 2. No calvarial fracture. Electronically signed by: Gaurav Ferris M.D. 08/08/2018 8:10 PM ECG Data Attestation: I personally reviewed and interpreted this ECG as follows: Indication: other (fall) Rate (beats per minute): 79 Rhythm: normal sinus Findings: + T-wave inversion (lateral); no PAC, no PVC and no ST elevation Comparison ECG Date: from (06/02/18) Change: no significant change Blood Pressure Blood Pressure Findings: Normal blood pressure Discharge Plan Visit Data *Final* Discharge Date/Time: 08/08/18 21:51 Chief Complaint: Fall Stated Complaint: FALL, FEVER, UA ED Provider: Foreign Richardson Discharge Problem: Sepsis, UTI (urinary tract infection), Altered mental status Patient Disposition: Admitted As Inpatient Discharge Instructions Interventions: ED Discharge Assessment Last Done: 08/08/18 21:51 The scribe's documentation has been prepared under my direction and personally reviewed by me in its entirety. I confirm that the note above accurately reflects all work, treatment, procedures, and medical decision making performed by me.
[2018-08-09] MEDS ORDERED: SODIUM CHLORIDE 0.9% 500 ML IV SCH (00:45)
[2018-08-09] MEDS: PIPERACILLIN/TAZOBACTAM 4.5 GM in DEXTROSE 5% 100 ML IV SCH ×3 (02:22→17:49)
[2018-08-09 07:06] LABS: Hematocrit (blood only) 33.9 % (37-47); Hemoglobin 11.3 g/dL (12.0-16.0); Mean Corpuscular Hgb Conc 33.3 g/dL (32-36); Mean Corpuscular Volume 92.6 fL (80-100); Mean Platelet Volume 10.4 fL (7.4-10.4); Platelet Count 114 K/uL (130-400); RDW Coefficient of Variation 14.6 % (11.5-14.5); RDW Standard Deviation 49.9 fL (36.4-46.3); Red Blood Count 3.66 M/uL (4.2-5.4); White Blood Count 5.67 K/uL (4.8-10.8)
[2018-08-09 07:25] LABS: BUN Creatinine Ratio 11.2 (10-20); Calcium 8.6 mg/dl (8.5-10.1); Creatinine Clr Calc Pharmacy 93.8 ml/min; Est GFR (Non-African American) 79.4; Potassium 3.9 mmol/L (3.5-5.1)
[2018-08-09] MEDS: SODIUM CHLORIDE 0.9% 1000ML 1,000 ML IV SCH ×3 (07:42→21:31)
[2018-08-09] MEDS: LACTOBACILLUS ACIDOPHILUS (FLORANEX) TAB PO SCH ×3 (07:43→17:12)
[2018-08-09] MEDS: PROPRANOLOL HCL 10 MG TAB PO SCH (07:43)
[2018-08-09] MEDS: TOLTERODINE TARTRATE LA 4 MG CAPCR PO SCH (07:44)
[2018-08-09] MEDS: PANTOprazole 40 MG TAB PO SCH ×2 (07:44→21:15)
[2018-08-09] MEDS: MIRABEGRON ER 25 MG TAB PO SCH (07:44)
[2018-08-09] MEDS: DIVALPROEX DELAY RELEASE 500 MG TAB PO SCH ×2 (07:44→21:14)
[2018-08-09] MEDS: INSULIN ASPART 100 UNITS/ML 3 ML PEN SC SCH ×4 (08:31→21:11)
--- NOTE | 2018-08-09 10:15 | Infectious Disease Consult ---
Date of Consultation August 09, 2018 Assessment & Plan (1) UTI (urinary tract infection): pt will continue on zosyn for now pending additional culture results. History of Present Illness Attending Physician: Madiha Maldonado MD pt admitted with fevers and change in mental status. Temp in ER 38.1, now afebrile. Also had lactate 4 in ER, improved with hydration. UA in ER >30 wbc, 20-30 ep cell and no bacteria. blood and urine cultures pending .wbc nml at 5.6, creat 0.8. CT head and CXR negative in ER. Recent hospital stay in June for pseudomonas uti, dyer sensitive. Placed on zosyn pending culture results, tolerat ing well. On my exam she is oob to chair. Does c/o abd pain but denies dysuria, hematuria, no increased frequency. States +f/c at home, currently afebrile. no cp, sob, cough, wheeze, wheat. eating well no n/v/d/abd pain. Allergies Allergy/AdvReac Type Severity Reaction Status Date / Time No Known Allergies Allergy Unverified 08/08/18 19:10 Home Medications Home Medications Medication Instructions Recorded Confirmed Type Calmoseptine 1 applic TOPICAL DAILY PRN 06/02/18 08/08/18 History Myrbetriq 50 mg PO DAILY 06/02/18 08/08/18 History Novolog Flexpen U-100 Insulin 0 unit SUBCUT BID 06/02/18 08/08/18 History acetaminophen 650 mg PO Q4H PRN 06/02/18 08/08/18 History albuterol sulfate 2.5 mg INHALATION Q6H PRN 06/02/18 08/08/18 History clonazepam 2 mg PO HS 06/02/18 08/08/18 History dextromethorphan-guaifenesin 5 ml PO Q4H PRN 06/02/18 08/08/18 History [Siltussin-DM] divalproex 1,000 mg PO HS 06/02/18 08/08/18 History divalproex 500 mg PO QAM 06/02/18 08/08/18 History fluphenazine HCl 5 mg PO HS 06/02/18 08/08/18 History fluphenazine HCl 10 mg PO HS 06/02/18 08/08/18 History fluticasone propionate 2 spray INTRANASAL DAILY 06/02/18 08/08/18 History metformin 1,000 mg PO QPM 06/02/18 08/08/18 History metformin 500 mg PO QAM 06/02/18 08/08/18 History naproxen sodium 440 mg PO BID PRN 06/02/18 08/08/18 History nystatin 1 applic TOPICAL UD PRN 06/02/18 08/08/18 History omeprazole 20 mg PO BID 06/02/18 08/08/18 History propranolol 10 mg PO DAILY 06/02/18 08/08/18 History simvastatin 20 mg PO PM 06/02/18 08/08/18 History tolterodine 4 mg PO DAILY 06/02/18 08/08/18 History zonisamide 200 mg PO DAILY 06/02/18 08/08/18 History fluphenazine HCl 2.5 mg PO DAILY PRN 08/08/18 08/08/18 History fluphenazine decanoate 25 mg IM MONTHLY 08/08/18 08/08/18 History furosemide 20 mg PO DAILY 08/08/18 08/08/18 History ibuprofen 600 mg PO BID PRN 08/08/18 08/08/18 History lactobacillus combination no.4 3,000 mmu cells PO TIDM 08/08/18 08/08/18 History [Probiotic] loperamide 2 mg PO .DAILY UD PRN 08/08/18 08/08/18 History potassium chloride 10 meq PO DAILY 08/08/18 08/08/18 History Patient History Medical History Osteoarthritis (Chronic) Morbid obesity (Chronic) Schizophrenia (Chronic) Overactive bladder (Chronic) Mild intellectual disability (Chronic) Dependent edema (Chronic) Bipolar disorder (Chronic) Seizure disorder (Chronic) GERD (gastroesophageal reflux disease) (Chronic) DM2 (diabetes mellitus, type 2) (Chronic) HLD (hyperlipidemia) (Chronic) Tobacco abuse (Chronic) Surgical History History of total left hip replacement (Chronic) H/O tubal ligation (Chronic) Family History Other Family history unobtainable Social History Preferred Language: Yakut Communication Ability: Effective 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 Beliefs That Will Affect Care: None marital status: Current Living Situation: Boarding Home and Legal Guardian Current Living Situation Comment: Robi Ruffin current occupational status: unemployed and disabled Other Information That Helps Us Care for You: No Feels Safe at Home: Yes Safety Concerns: Feels Safe At This Time Smoking Status: Current every day smoker Tobacco Type: cigarettes Cigarettes Per Day: 10 Do You Dip or Chew Tobacco: No Second Hand Exposure: Yes Tobacco Cessation Education Requested by Patient: No Hx Alcohol Use: No Hx Substance Use: No Review of Systems Review of Systems: All systems reviewed & are unremarkable except as noted in HPI & below Physical Exam Constitutional: WD/WN, vitals as above Eyes: PERRL, conjunctivae normal, anicteric sclerae ENMT: external ear and nose normal, oropharynx normal Neck: normal visual inspection Respiratory: normal respiratory effort, lungs clear to auscultation Cardiovascular: RRR, no murmur, no edema Gastrointestinal (Abdomen): normal bowel sounds, soft, nontender, no hepatosplenomegaly Inspection/Auscultation: abdomen not distended Percussion/Palpation: abdomen soft; abdomen nontender, no guarding and abdomen not rigid Musculoskeletal: no cyanosis or clubbing, extremities motor strength 5/5 Skin: no rashes, warm and dry Psychiatric: A+Ox3, euthymic affect Results & Data Vital Signs (Past 12 Hours) Vital Signs Temp Pulse Pulse Resp BP Pulse Ox 08/09/18 07:42 36.3 C L 64 16 118/68 96 08/09/18 03:20 36.5 C 72 20 115/77 95 08/09/18 00:47 75 08/08/18 23:00 36.8 C 75 20 128/74 95 08/08/18 22:31 37 C 71 20 120/57 L 92
--- NOTE | 2018-08-09 12:02 | Hospitalist Progress Note ---
Date of Service August 09, 2018 Assessment & Plan (1) Severe sepsis: On admission :T-max 38.1, initial lactate 4.2 with repeat being 2.5 after IVF; no leukocytosis, heart rate and BP stable Management as mentioned below (2) UTI (urinary tract infection): Patient presenting by referral of [facility] for evaluation of suspected UTI, fever, weakness, confusion -Patient was given a 500cc NSS in the ED, given improvement in lactate and stable vitals will not resuscitate with 30 mL/kg -Admission to [facility] 06/2018 for pseudomonal UTI with bacteremia -Received Zosyn and daptomycin the ED, will continue with Zosyn only per now per prior culture results -Continue IVF, NSS at 125/hr -Infectious disease consult-appreciate input -Blood and urine culture are pending -Patient is clinically better (3) DM2 (diabetes mellitus, type 2): -Hgb A1c 6.7 03/2018 -Hold oral agents and utilize NovoLog per protocol while hospitalized (4) Schizophrenia: No acute symptoms (5) Bipolar disorder: -Continue home meds (6) Seizure disorder: -No recent seizure activity, continue Depakote (7) Dependent edema: -Hold furosemide and potassium replacement while receiving IVF for sepsis (8) HLD (hyperlipidemia): -Continue statin (9) DVT prophylaxis: -SQ Lovenox Wants to be discharged Subjective 08/09 Patient was seen and examined in medical telemetry unit 57F with hx Bipolar, schizophrenia,Mild intellectual disability , Recent UTI and bacteremia with pseudomonas again presents with sepsis from UTI. Denies any complaints today and wanted to know when she is going to get out of the hospital No shortness of breath, chest pain, palpitation, abdominal pain, nausea and/or vomiting Review of Systems Review of Systems: All systems reviewed and are unremarkable except as noted below Psychiatric: + depression and + anxiety Physical Exam Physical Exam: Sitting on a chair without any acute distress Constitutional: well developed and well nourished; no acute distress Eyes: PERRL, conjunctivae normal, anicteric sclerae ENMT: external ear and nose normal, oropharynx normal Neck: trachea midline, no thyromegaly Respiratory: normal respiratory effort Auscultation: + diminished lung sounds; no crackles Cardiovascular: Rate/Rhythm: regular rate and regular rhythm Heart Sounds: normal S1 and normal S2 Extremities: + edema (1+ bilateral) Gastrointestinal (Abdomen): Inspection/Auscultation: abdomen normal to inspection and normal bowel sounds Percussion/Palpation: abdomen soft; abdomen nontender Lymphatic: no cervical or axillary lymphadenopathy Results & Data Vital Signs (Past 12 Hours) Vital Signs Temp Pulse Pulse Resp BP Pulse Ox 08/09/18 11:11 36.2 C L 65 16 114/72 93 08/09/18 07:42 36.3 C L 64 16 118/68 96 08/09/18 03:20 36.5 C 72 20 115/77 95 08/09/18 00:47 75 (1) DM2 (diabetes mellitus, type 2) Diabetes mellitus custodial insulin use: without exterminator termite use
[2018-08-09] MEDS ORDERED: ZONISAMIDE PO SCH (17:45)
[2018-08-09] MEDS ORDERED: SIMVASTATIN 20 MG TAB PO SCH (21:00)
[2018-08-09] MEDS: ENOXAPARIN INJ 40 MG/0.4 ML SYR SQ SCH (21:13)
[2018-08-09] MEDS: clonazePAM 1 MG TAB PO SCH (21:17)
[2018-08-10] MEDS: PIPERACILLIN/TAZOBACTAM 4.5 GM in DEXTROSE 5% 100 ML IV SCH ×3 (02:12→19:31)
[2018-08-10] MEDS: SODIUM CHLORIDE 0.9% 1000ML 1,000 ML IV SCH ×2 (05:28→14:01)
[2018-08-10] MEDS: LACTOBACILLUS ACIDOPHILUS (FLORANEX) TAB PO SCH ×3 (07:59→18:20)
[2018-08-10] MEDS: TOLTERODINE TARTRATE LA 4 MG CAPCR PO SCH (07:59)
[2018-08-10] MEDS: MIRABEGRON ER 25 MG TAB PO SCH (07:59)
[2018-08-10] MEDS: DIVALPROEX DELAY RELEASE 500 MG TAB PO SCH (07:59)
[2018-08-10] MEDS: PANTOprazole 40 MG TAB PO SCH (07:59)
[2018-08-10] MEDS: PROPRANOLOL HCL 10 MG TAB PO SCH (07:59)
[2018-08-10] MEDS: INSULIN ASPART 100 UNITS/ML 3 ML PEN SC SCH ×3 (08:00→18:20)
[2018-08-10] MEDS ORDERED: ZONISAMIDE PO SCH ×2 (09:00)
--- NOTE | 2018-08-10 11:18 | Infectious Disease Progress Nt ---
Date of Service August 10, 2018 Assessment & Plan (1) UTI (urinary tract infection): pt will continue on zosyn for 3 days total. clinically improved. ok for d/c from ID standpoint when otherwise stable. Subjective oob to chair, feeling better, tolerating zosyn no abd pain ,no n/v/d. no f/c. eating well. no cp, sob, cough. urine culture with contaminant. clinically improved. blood cultures negative to date. no am labs. all remaining ros revie wed and are negative Review of Systems Review of Systems: All systems reviewed & are unremarkable except as noted in HPI & below Physical Exam Constitutional: WD/WN, vitals as above Eyes: PERRL, conjunctivae normal, anicteric sclerae ENMT: external ear and nose normal, oropharynx normal Neck: normal visual inspection Respiratory: normal respiratory effort, lungs clear to auscultation Cardiovascular: RRR, no murmur, no edema Gastrointestinal (Abdomen): normal bowel sounds, soft, nontender, no hepatosplenomegaly Inspection/Auscultation: abdomen not distended Percussion/Palpation: abdomen soft; abdomen nontender, no guarding and abdomen not rigid Musculoskeletal: no cyanosis or clubbing, extremities motor strength 5/5 Skin: no rashes, warm and dry Psychiatric: A+Ox3, euthymic affect Results & Data Vital Signs (Past 12 Hours) Vital Signs Temp Pulse Pulse Resp BP Pulse Ox 08/10/18 08:00 69 08/10/18 07:30 36.3 C L 53 L 18 129/78 94 08/10/18 04:18 36.6 C 94 H 22 129/84 92 08/10/18 00:05 58 L 08/09/18 23:24 36.6 C 58 L 24 138/78 94 Laboratory Results Microbiology 08/08/18 18:35 Blood Blood Culture - Preliminary No growth to date. 08/08/18 18:18 Blood Blood Culture - Preliminary No growth to date. 08/08/18 19:27 Urine,Clean Catch Urine Culture - Final Three types of organisms present, all moderate counts. Repeat collection recommended. No further identifications or sensitivities to follow.
--- NOTE | 2018-08-10 19:26 | Hospitalist Progress Note ---
Date of Service August 10, 2018 Assessment & Plan (1) UTI (urinary tract infection): Sepsis rule out Was sent from [facility] for eval of UTI, wekaness and confusion Present on admission with fever and elevated lactic acid UA positive for leukocytes Urine cx grew multiple organisms (contamination ) Received Dapto and zosyn in the ER has been on Zosyn since 08/08 Blood cx no growth so far ID on board recommended a total of 3 days course of abx Pt does not want to stay anymore in the hospital case discussed with and ID and ok from ID standpoint to discharge home No further abx needed on discharge Clinically improves (2) DM2 (diabetes mellitus, type 2): Hgb A1c 6.7 03/2018 Hold oral agents and utilize NovoLog per protocol while hospitalized Monitor BS (3) Schizophrenia: No acute symptoms (4) Bipolar disorder: -Continue home meds (5) Seizure disorder: No recent seizure activity continue Depakote Seizure precaution (6) Weakness: Fall precaution Continue PT/OT (7) Dependent edema: resume lasix on discharge (8) HLD (hyperlipidemia): Continue statin Bradycardia Asymptomatic Consider to decrease propranolol to 5 mg if worsening Continue monitor (9) DVT prophylaxis: -SQ Lovenox Disposition Does not want to stay for another night in the hospital Follow up with primary care provider in 1 week Subjective Pt was seen and examined Sitting in chair with no distress Pt said that she feels much better She does not want to stay for another night in the hospital She denies any urinary symptoms Denies any chest pain, palpitation, dizziness and SOB Physical Exam Physical Exam: General- No acute distress Head- atraumatic Eyes- PERRL, EOMI, ENT- oropharynx clear Neck- supple, no JVD Lungs- Diminished BS Heart- regular rhythm; no murmur Abdomen- normal bowel sounds, soft, nontender Extremities- no calf tenderness, +edema Neuro- alert, oriented x 3; PERRL, EOMI; no facial palsy; no dysarthria Skin- warm & dry Results & Data Vital Signs (Past 12 Hours) Vital Signs Temp Pulse Pulse Resp BP Pulse Ox 08/10/18 15:00 50 L 08/10/18 14:54 35.5 C L 51 L 19 140/77 96 08/10/18 11:39 36.6 C 51 L 18 125/74 97 08/10/18 08:00 69 05/09/19 07:30 36.3 C L 53 L 18 129/78 94 (1) DM2 (diabetes mellitus, type 2) Diabetes mellitus half-way insulin use: without half-way use
--- NOTE | 2018-08-12 00:39 | Discharge Summary ---
Date of Service August 10, 2018 Admission HPI Per Admitting Provider 57-year-old female who presents to the ED with altered mental status and generalized weakness. Patient has underlying bipolar, schizophrenia, mild intellectual disability and some information is obtained from caregiver at the bedside. Patient was admitted to [facility] 06/2018 for sepsis secondary to pseudomonal UTI and pseudomonal bacteremia. Patient has history of recurrent UTIs in the past. Yesterday, patient developed confusion, fevers, intermittent hypotension, urinary incontinence with foul-smelling urine. Today, patient was sitting out on the porch smoking a cigarette and caregiver reports that when she stood up she fell to the ground. There is no loss of consciousness however she did strike her head. No seizure-like activity reported. Patient did not want to come to the hospital therefore she was evaluated at [facility], was found to have fever of 102.2, and was referred to the ED for further evaluation. At the time my exam, patient is resting comfortably in bed. She offers no complaints. She denies chest pain or shortness of breath. No abdominal pain, nausea, vomiting, diarrhea. In the ED, T-max is 38.1, initial lactate 4.2 with repeat being 2.5 after IVF. UA suggest UTI. Head CT is negative for acute findings. BP remained stable. Patient was also given Tylenol, IV Dapto, IV Zosyn. Admission Exam Per Admitting Provider Constitutional: WD/WN, vitals as above + obese Eyes: PERRL, conjunctivae normal, anicteric sclerae ENMT: Ears: no external ear abnormality Nose: no external nose abnormality Mouth: + dry oral mucous membranes Respiratory: normal respiratory effort, lungs clear to auscultation Cardiovascular: Rate/Rhythm: regular rate and regular rhythm Vessels: normal peripheral pulses Extremities: + edema (+2 BLE, chronic) Gastrointestinal (Abdomen): normal bowel sounds, soft, nontender, no hepatosplenomegaly Musculoskeletal: no cyanosis or clubbing, extremities motor strength 5/5 Skin: no rashes, warm and dry Neurologic: PERRL, EOMI, accommodation nl, no face palsy, no dysarthria Psychiatric: Orientation: alert and oriented x 3 Affect: + flat affect Insight: + limited insight Principal Diagnosis UTI Weakness Bradycardia DM type 2 Schizophrenia Seizure Bipolar dx Dyslipidemia Discharge Exam General- No acute distress Head- atraumatic Eyes- PERRL, EOMI, ENT- oropharynx clear Neck- supple, no JVD Lungs- Diminished BS Heart- regular rhythm; no murmur Abdomen- normal bowel sounds, soft, nontender Extremities- no calf tenderness, +edema Neuro- alert, oriented x 3; PERRL, EOMI; no facial palsy; no dysarthria Skin- warm & dry Discharge Data Allergies Allergy/AdvReac Type Severity Reaction Status Date / Time No Known Allergies Allergy Unverified 08/08/18 19:10 Consultations 08/08/18 20:42 ED Decision to Admit Stat 08/08/18 22:28 Consult Case Management - Discharge Planning Routine Consult Infectious Diseases Routine Ordered Studies 08/08/18 17:58 CT head/brain wo con Stat XR chest 1V portable CLINICAL HISTORY: fever COMPARISON STUDY: Chest radiograph June 02, 2018. FINDINGS: Mild elevation of the right hemidiaphragm is unchanged. There is no pneumothorax or pleural effusion. There is no consolidation or evidence for p ulmonary edema. Cardiomediastinal silhouette is stable. Appearance of the chest is unchanged. IMPRESSION: No acute cardiopulmonary findings. No change in appearance of the chest. Electronically signed by: Gaurav Ferris M.D. 08/08/2018 6:28 PM Dictated: 08/08/181826 Transcribed: 08/08/181826 CT OF THE HEAD WITHOUT CONTRAST CLINICAL HISTORY: Fall. COMPARISON STUDY: Head CT November 20, 2011. CT DOSE: 537.48 mGy.cm TECHNIQUE: Helical axial images of the head were obtained without IV contrast. Automated exposure control was utilized for the study. A dose lowering techniqu e was utilized adhering to the principles of ALARA. FINDINGS: No acute intracranial hemorrhage, midline shift or mass effect is present. Ventricular system is normal. Basilar cisterns are patent. A hypodensity within the right basal ganglia is unchanged. This may reflect an old lacunar infarct or prominent perivascular space. Mild white matter hypodensity suggests small vessel disease. There are no findings to suggest acute dural sinus thrombosis or acute territorial infarct. There is no calvarial fracture. IMPRESSION: 1. No acute intracranial findings. 2. No calvarial fracture. Electronically signed by: Gaurav Ferris M.D. 08/08/2018 8:10 PM Dictated: 08/08/182007 Transcribed: 08/08/182007 Hospital Course (1) UTI (urinary tract infection): Sepsis rule out Was sent from [facility] for eval of UTI, wekaness and confusion Present on admission with fever and elevated lactic acid UA positive for leukocytes Urine cx grew multiple organisms (contamination ) Received Dapto and zosyn in the ER has been on Zosyn since 08/08 Blood cx no growth so far ID on board recommended a total of 3 days course of abx Pt does not want to stay anymore in the hospital case discussed with and ID and ok from ID standpoint to discharge home No further abx needed on discharge Clinically improves (2) DM2 (diabetes mellitus, type 2): Hgb A1c 6.7 03/2018 Hold oral agents and utilize NovoLog per protocol while hospitalized Monitor BS (3) Schizophrenia: No acute symptoms (4) Bipolar disorder: -Continue home meds (5) Seizure disorder: No recent seizure activity continue Depakote Seizure precaution (6) Weakness: Fall precaution Continue PT/OT (7) Dependent edema: resume lasix on discharge (8) HLD (hyperlipidemia): Continue statin Bradycardia Asymptomatic Consider to decrease propranolol to 5 mg if worsening Continue monitor (9) DVT prophylaxis: -SQ Lovenox Disposition Does not want to stay for another night in the hospital Follow up with primary care provider in 1 week Total Time Total Time Spent Total Time Spent (In Minutes): 35 minutes Total Time Includes: Examination of the Patient, Discharge Planning, Medication Reconciliation, Communication With Other Providers and Other Discharge Plan Discharge Items Patient Disposition: Personal Correction Reason For Visit: UTI,SEPSIS Discharge Diagnosis: UTI Weakness Bradycardia Discharge Goals: Decrease discomfort, Improve disease control, Improve function and Increase independence Activity: Resume your previous activity Activity Comment: as tolerated Non-emergency contact: Primary Care Provider Call non-emergency contact if: you have any medication questions and your temperature is above 101 Follow-up/Referrals: [facility] [Primary Care Provider] - Diet: Carb Consistent or DM2 Addtl Provider Instructions: Follow up with your primary care provider within 1 week (Please call to schedule for the follow up) Monitor your hear rate and if you become symptomatic your physician will decrease or discontinue the propranolol Continue physical and occupational therapy Fall precaution Seizure precaution Prescriptions: Continued fluphenazine decanoate 25 mg/mL Solution 25 mg IM MONTHLY RF: 0 fluphenazine HCl 2.5 mg Tablet 2.5 mg PO DAILY PRN (Reason: .MENTAL HEALTH) RF: 0 furosemide 20 mg Tablet 20 mg PO DAILY RF: 0 ibuprofen 600 mg Tablet 600 mg PO BID PRN (Reason: Pain) RF: 0 loperamide 2 mg Tablet 2 mg PO .DAILY UD PRN (Reason: Diarrhea) RF: 0 potassium chloride 10 mEq Capsule, Extended Release 10 meq PO DAILY RF: 0 Probiotic 3 billion cell Capsule 3,000 mmu cells PO TIDM RF: 0 metformin 500 mg Tablet 500 mg PO QAM RF: 0 metformin 500 mg Tablet 1,000 mg PO QPM RF: 0 acetaminophen 325 mg Tablet 650 mg PO Q4H PRN (Reason: Fever Or Pain) RF: 0 albuterol sulfate 2.5 mg /3 mL (0.083 %) Solution For Nebulization 2.5 mg INHALATION Q6H PRN (Reason: Shortness Of Breath) RF: 0 fluphenazine HCl 10 mg Tablet 10 mg PO HS RF: 0 clonazepam 2 mg Tablet 2 mg PO HS RF: 0 fluticasone propionate 50 mcg/actuation [place],Suspension 2 spray INTRANASAL DAILY RF: 0 fluphenazine HCl 5 mg Tablet 5 mg PO HS RF: 0 Calmoseptine 0.44-20.6 % Ointment 1 applic TOPICAL DAILY PRN (Reason: Itching) RF: 0 tolterodine 4 mg Capsule,Extended Release 24hr 4 mg PO DAILY RF: 0 dextromethorphan-guaifenesin [Siltussin-DM] 10-100 mg/5 mL Syrup 5 ml PO Q4H PRN (Reason: Cough) RF: 0 zonisamide 100 mg Capsule 200 mg PO DAILY RF: 0 propranolol 10 mg Tablet 10 mg PO DAILY RF: 0 simvastatin 20 mg Tablet 20 mg PO PM RF: 0 omeprazole 20 mg Capsule,Delayed Release(Dr/Ec) 20 mg PO BID RF: 0 nystatin 100,000 unit/gram Powder 1 applic TOPICAL UD PRN (Reason: .MONILIA INFECTION) RF: 0 Novolog Flexpen U-100 Insulin 100 unit/mL Insulin Pen SUBCUT BID RF: 0 naproxen sodium 220 mg Capsule 440 mg PO BID PRN (Reason: Pain) RF: 0 Myrbetriq 50 mg Tablet Extended Release 24 Hr 50 mg PO DAILY RF: 0 divalproex 500 mg Tablet,Delayed Release (Dr/Ec) 500 mg PO QAM RF: 0 divalproex 500 mg Tablet,Delayed Release (Dr/Ec) 1,000 mg PO HS RF: 0 Stand-Alone Forms: [facility], [facility], Work/School Release (Inpt) Discharge Orders: Discharge Order (Routine); Ordered 08/10/18 Ordered By: Richard Reyes Admission Data Admit Date/Time: 08/08/18 21:09 Attending Provider: Richard Reyes Admit Provider: Alejandro López [facility] Other Providers: Alejandro López ; Rafa Grady ; Madiha Maldonado Service: Telemetry Medical Other Interventions: Discharge Summary Assessment (RN) Last Done: 08/10/18 19:52 DC Date/Time DO NOT enter until pt leaves facility: 08/10/18 20:18
== END 2018-08-10 20:18 | disposition home or self-care (01) | DRG 689 ==
LOC: ED 17:46 → SUATTDRO 21:09 → 2N 21:09

== ENCOUNTER 2018-09-30 15:27 | Inpatient (IN) ==
[2018-09-30] MEDS ORDERED: SODIUM CHLORIDE 0.9% 1000ML 1,000 ML IV ONE ×3 (16:02→18:26)
--- NOTE | 2018-09-30 16:28 | XRay Report ---
SINGLE VIEW CHEST CLINICAL HISTORY: Generalized weakness. FINDINGS: An AP, portable, upright chest radiograph is compared to study dated 08/08/2018. Antegrade Th e cardiomediastinal silhouette is unremarkable noting atherosclerotic calcification of the thoracic a yusef. There are low lung volumes with bibasilar atelectasis. The lungs and pleural spaces are otherwi se clear. No pneumothorax is seen. The skeletal structures are osteopenic. The bony thorax is grossly intact. IMPRESSION: Low lung volumes with no active disease in the chest. Electronically signed by: Angelo Barclay M.D. 09/30/2018 4:26 PM
[2018-09-30 16:36] LABS: Basophils # (auto) 0.01 K/uL (0-0.2); Basophils % (auto) 0.1 %; Eosinophils # (auto) 0.07 K/uL (0-0.5); Eosinophils % (auto) 0.7 %; Hematocrit (blood only) 35.9 % (37-47); Hemoglobin 11.9 g/dL (12.0-16.0); Immature Granulocytes # (auto) 0.04 K/uL (0.00-0.02); Immature Granulocytes % (auto) 0.4 %; Lymphocytes # (auto) 3.13 K/uL (1.2-3.4); Lymphocytes % (auto) 32.3 %; Mean Corpuscular Hgb Conc 33.1 g/dL (32-36); Mean Corpuscular Volume 92.1 fL (80-100); Mean Platelet Volume 11.2 fL (7.4-10.4); Monocytes # (auto) 1.17 K/uL (0.11-0.59); Monocytes % (auto) 12.1 %; Neutrophils # (auto) 5.26 K/uL (1.4-6.5); Neutrophils % (auto) 54.4 %; Platelet Count 112 K/uL (130-400); RDW Coefficient of Variation 14.2 % (11.5-14.5); RDW Standard Deviation 47.6 fL (36.4-46.3); White Blood Count 9.68 K/uL (4.8-10.8)
[2018-09-30 16:53] LABS: Partial Thromboplastin Ratio 0.9; Partial Thromboplastin Time 24.5 Seconds (21.0-31.0); Prothrombin Time 10.5 Seconds (9.0-12.0)
[2018-09-30 16:54] LABS: Alanine Aminotransferase 23 U/L (12-78); Albumin Level 3.4 gm/dl (3.4-5.0); Aspartate Aminotransferase 25 U/L (15-37); BUN Creatinine Ratio 11.4 (10-20); Blood Urea Nitrogen 13 mg/dl (7-18); Calcium 8.9 mg/dl (8.5-10.1); Carbon Dioxide 25 mmol/L (21-32); Chloride 97 mmol/L (98-107); Creatinine Clr Calc Pharmacy 70.7 ml/min; Est GFR (Non-African American) 56.1; Glucose 147 mg/dl (70-99); Magnesium 1.9 mg/dl (1.8-2.4); Potassium 3.7 mmol/L (3.5-5.1); Sodium 132 mmol/L (136-145)
[2018-09-30 16:59] LABS: Albumin Globulin Ratio 0.8 (0.9-2); Alkaline Phosphatase 80 U/L (45-117); Bilirubin,Total 0.6 mg/dl (0.2-1); Globulin 4.1 gm/dl (2.5-4.0); Total Protein 7.5 gm/dl (6.4-8.2); Troponin I < 0.015 ng/ml (0-0.045)
[2018-09-30 17:24] LABS: Appearance Urine Clear (Clear); Bilirubin Urine Negative (Negative); Blood Urine Trace (Negative); Color Urine Yellow; Glucose Urine UA Negative (Negative); Ketones Urine Negative (Negative); Leukocyte Esterase Urine 3+ (Negative); Nitrite Urine Negative (Negative); Protein Urine Negative (Negative); Specific Gravity Urine 1.003 (1.000-1.030); Urobilinogen Urine Negative (Negative); pH Urine 7.5 (4.5-7.5)
[2018-09-30 17:49] LABS: Bacteria Urine Automated 1+ (Negative); RBC Urine Automated 0-4 /hpf (0-4); WBC Urine Automated >30 /hpf (0-5)
[2018-09-30] MEDS ORDERED: cefTRIAXone SODIUM 1,000 MG/50 ML BAG IV STA (18:26)
--- NOTE | 2018-09-30 18:56 | Emergency Department Note ---
Entered by Delmy Adam acting as a scribe for Constance Odom DO History of Present Illness General Chief complaint: Urinary Symptoms Stated complaint: URINARY SX Time Seen by Provider: 09/30/18 15:50 Source: other (caregiver) History of Present Illness Provider complaint: frequent urination Onset (ago): hour(s) (several days) Location: genitals Severity: similar to prior episodes Relieved By: + none Exacerbated By: + none Associated symptoms: + fever/chills, + weakness and + other (+less steady, +abdominal pain, +fatigue) The patient is a 58 year old female who presents to the Emergency Room with complaints of frequent urination. The patients caregiver states that she has had frequent UTIs in the past. She states that the patient was admitted here twice for a UTI. She states that the patient has been less steady, weak, and has been experiencing a fever, chills, and abdominal pain. The patients caregiver states that the patient has been complaining of abdominal pain for several days. She states that the patient has been more fatigued. She states that she has no change in her bowel movements and that she has chronic diarrhea, which is baseline. She reports that the patient normally wears adult briefs. Caregiver states she has previously been septic from a urinary tract infection. They states she has had poor p.o. intake today, although she has eaten. Home Medications Home Medications Medication Instructions Recorded Confirmed Type Calmoseptine 1 applic TOPICAL DAILY PRN 06/02/18 09/30/18 History Myrbetriq 50 mg PO DAILY 06/02/18 09/30/18 History Novolog Flexpen U-100 Insulin 0 unit SUBCUT BID 06/02/18 09/30/18 History acetaminophen 650 mg PO Q4H PRN 06/02/18 09/30/18 History clonazepam 2 mg PO HS 06/02/18 09/30/18 History dextromethorphan-guaifenesin 5 ml PO Q4H PRN 06/02/18 09/30/18 History [Siltussin-DM] divalproex 1,000 mg PO HS 06/02/18 09/30/18 History divalproex 500 mg PO QAM 06/02/18 09/30/18 History fluphenazine HCl 5 mg PO HS 06/02/18 09/30/18 History fluphenazine HCl 10 mg PO HS 06/02/18 09/30/18 History fluticasone propionate 2 spray INTRANASAL DAILY 06/02/18 09/30/18 History metformin 1,000 mg PO QPM 06/02/18 09/30/18 History metformin 500 mg PO QAM 06/02/18 09/30/18 History naproxen sodium 440 mg PO BID PRN 06/02/18 09/30/18 History nystatin 1 applic TOPICAL UD PRN 06/02/18 09/30/18 History omeprazole 20 mg PO BID 06/02/18 09/30/18 History propranolol 10 mg PO DAILY 06/02/18 09/30/18 History simvastatin 20 mg PO PM 06/02/18 09/30/18 History tolterodine 4 mg PO DAILY 06/02/18 09/30/18 History zonisamide 200 mg PO DAILY 06/02/18 09/30/18 History Probiotic 3,000 mmu cells PO TIDM 08/08/18 09/30/18 History fluphenazine decanoate 25 mg IM MONTHLY 08/08/18 09/30/18 History furosemide 20 mg PO DAILY 08/08/18 09/30/18 History ibuprofen 600 mg PO BID PRN 08/08/18 09/30/18 History loperamide 2 mg PO .DAILY UD PRN 08/08/18 09/30/18 History potassium chloride 10 meq PO DAILY 08/08/18 09/30/18 History bismuth subsalicylate 524 mg PO Q4H PRN 09/30/18 09/30/18 History [Pepto-Bismol] calcium carbonate [Tums] 200 mg PO TID PRN 09/30/18 09/30/18 History clotrimazole 1 applic TOPICAL BID 09/30/18 09/30/18 History Allergies Allergy/AdvReac Type Severity Reaction Status Date / Time No Known Allergies Allergy Unverified 09/30/18 17:52 Past Med/Surg History Medical History Osteoarthritis (Chronic) Morbid obesity (Chronic) Schizophrenia (Chronic) Overactive bladder (Chronic) Mild intellectual disability (Chronic) Dependent edema (Chronic) Bipolar disorder (Chronic) Seizure disorder (Chronic) GERD (gastroesophageal reflux disease) (Chronic) DM2 (diabetes mellitus, type 2) (Chronic) HLD (hyperlipidemia) (Chronic) Tobacco abuse (Chronic) Surgical History History of total left hip replacement (Chronic) H/O tubal ligation (Chronic) Family History Other Family history unobtainable Social History Preferred Language: Telugu Communication Ability: Effective Beliefs That Will Affect Care: None marital status: Current Living Situation: Boarding Home and Legal Guardian Current Living Situation Comment: Robi Ruffin current occupational status: unemployed and disabled Feels Safe at Home: Yes Smoking Status: Current every day smoker Tobacco Type: cigarettes Cigarettes Per Day: 10 Second Hand Exposure: Yes Hx Alcohol Use: No Hx Substance Use: No Review of Systems See HPI for pertinent positives & negatives. and A total of 10 systems reviewed and were otherwise negative Physical Exam Vital Signs Vital Signs - 24 hr 09/30/18 15:44 09/30/18 18:16 09/30/18 21:38 Temperature 37.3 C Temperature Source Oral Sepsis Recent Fever Within 48 Hours No Sepsis Action Taken by Nursing No Action Required Pulse Rate 85 92 H Pulse Rate [Right Finger] 86 Pulse Rhythm Regular Pulse Rhythm [Right Finger] Regular Pulse Strength [Right Finger] Normal Respiratory Rate 20 20 16 Respiratory Effort / Characteristics Non-Labored Spontaneous Non-Labored Non-Labored Respiratory Depth Normal Normal Normal Respiratory Pattern Regular Regular Blood Pressure 116/6 L Blood Pressure [Right Arm] 132/86 136/67 Blood Pressure Mean 42 Blood Pressure Mean [Right Arm] 101 90 Blood Pressure Position Sitting Blood Pressure Position [Right Arm] Lying Lying Pulse Oximetry 95 93 94 Oxygen Delivery Method Room Air Room Air Room Air GENERAL: alert, ill appearing, edentulous, obese, rigors during exam EYE EXAM: normal conjunctiva, PERRL and EOM's grossly intact OROPHARYNX: no exudate, no erythema, lips, buccal mucosa, and tongue normal and mucous membranes are very dry, edentulous NECK: supple, no nuchal rigidity, no adenopathy, non-tender LUNGS: Clear to auscultation. Normal chest wall mechanics, no w/r/r HEART: no murmurs, S1 normal and S2 normal ABDOMEN: abdomen soft, non-tender, normo-active bowel sounds, no masses, no rebound or guarding. BACK: Back is symmetrical on inspection and there is no deformity, no midline tenderness, no CVA tenderness. SKIN: no rashes and no bruising UPPER EXTREMITIES: upper extremities are grossly normal. from b/l, nml pulses b/l. LOWER EXTREMITIES: +2 bilateral lower extremity edema, from b/l, nml pulses b/l. NEURO EXAM: Normal sensorium, cranial nerves II-XII grossly intact, normal speech, no gross weakness of arms, no gross weakness of legs. Course 1553: The patient was evaluated in room B9, and a complete history and physical examination were performed. 1607: I reviewed prior cultures from EMR, the patient had prior klebsiella in urine culture and pseudomonas in the prior blood culture. 3: I reevaluated the patient and updated her on her test results. The patient still has left sided abdominal pain and raggers at bedside. 2135: I reviewed the patient's case with Dr. Niels Maynard. He will evaluate the patient for further management. Consultations Consultation #1: Dr. Niels Maynard Time: 21:35 Administered Medications Discontinued Medications Sodium Chloride (Nss 1000ml) 1,000 mls @ 999 mls/hr IV .Q1H1M ONE Stop: 09/30/18 17:02 Last Infusion: 09/30/18 22:29 Dose: 0 mls/hr Documented by: [id number] Admin: 09/30/18 19:37 Dose: 999 mls/hr Documented by: [id number] Sodium Chloride (Nss 1000ml) 1,000 mls @ 999 mls/hr IV .Q1H1M ONE Stop: 09/30/18 17:22 Last Infusion: 09/30/18 18:39 Dose: 0 mls/hr Documented by: [id number] Admin: 09/30/18 16:39 Dose: 999 mls/hr Documented by: [id number] Ceftriaxone Sodium (Rocephin) 1,000 mg in 50 mls @ 100 mls/hr IV NOW STA Stop: 09/30/18 18:55 Last Infusion: 09/30/18 19:18 Dose: 0 mls/hr Documented by: [id number] Admin: 09/30/18 18:38 Dose: 100 mls/hr Documented by: [id number] Sodium Chloride (Nss 1000ml) 1,000 mls @ 999 mls/hr IV .Q1H1M ONE Stop: 09/30/18 19:26 Last Infusion: 09/30/18 18:39 Dose: 0 mls/hr Documented by: [id number] Admin: 09/30/18 18:38 Dose: 999 mls/hr Documented by: [id number] Medical Decision Making Differential Diagnosis Differential diagnosis: Etiologies such as metabolic, infection, hypo/hyperglycemia, electrolyte abnormalities, cardiac sources, intracerebral event, toxicologic, neurologic, as well as others were entertained. Medical Records Attestation: I reviewed the patient's medical records. Home Medications Current Medication List: was personally reviewed by me Laboratory Data Attestation: I reviewed the patient's lab results. Result diagrams: 09/30/18 16:13 09/30/18 16:13 Lab Results 09/30/18 09/30/18 09/30/18 Range/Units 16:13 16:13 16:13 WBC 9.68 (4.8-10.8) K/uL RBC 3.90 L (4.2-5.4) M/uL Hgb 11.9 L (12.0-16.0) g/dL Hct 35.9 L (37-47) % MCV 92.1 (80-100) fL MCH 30.5 (25-34) pg MCHC 33.1 (32-36) g/dL RDW Std Deviation 47.6 H (36.4-46.3) fL RDW Coeff of Celio 14.2 (11.5-14.5) % Plt Count 112 L (130-400) K/uL MPV 11.2 H (7.4-10.4) fL Immature Gran % (Auto) 0.4 % Neut % (Auto) 54.4 % Lymph % (Auto) 32.3 % Sherman % (Auto) 12.1 % Eos % (Auto) 0.7 % Baso % (Auto) 0.1 % Immature Gran # (Auto) 0.04 H (0.00-0.02) K/uL Neut # (Auto) 5.26 (1.4-6.5) K/uL Lymph # (Auto) 3.13 (1.2-3.4) K/uL Sherman # (Auto) 1.17 H (0.11-0.59) K/uL Eos # (Auto) 0.07 (0-0.5) K/uL Baso # (Auto) 0.01 (0-0.2) K/uL PT (9.0-12.0) Seconds INR (0.9-1.1) APTT (21.0-31.0) Seconds PTT Ratio Sodium 132 L (136-145) mmol/L Potassium 3.7 (3.5-5.1) mmol/L Chloride 97 L (98-107) mmol/L Carbon Dioxide 25 (21-32) mmol/L Anion Gap 10.0 (3-11) BUN 13 (7-18) mg/dl Creatinine 1.10 (0.6-1.2) mg/dl Est Cr Clr Drug Dosing 70.7 ml/min Est GFR ( Amer) 65.0 Est GFR (Non-Af Amer) 56.1 BUN/Creatinine Ratio 11.4 (10-20) Glucose 147 H (70-99) mg/dl POC Lactic Acid Otoniel (0.90-1.70) mmol/L Calcium 8.9 (8.5-10.1) mg/dl Magnesium 1.9 (1.8-2.4) mg/dl Total Bilirubin 0.6 (0.2-1) mg/dl AST 25 (15-37) U/L ALT 23 (12-78) U/L Alkaline Phosphatase 80 (45-117) U/L Troponin I < 0.015 (0-0.045) ng/ml Total Protein 7.5 (6.4-8.2) gm/dl Albumin 3.4 (3.4-5.0) gm/dl Globulin 4.1 H (2.5-4.0) gm/dl Albumin/Globulin Ratio 0.8 L (0.9-2) Lipase 53 L (73-393) U/L Procalcitonin 0.14 (0-0.5) ng/ml Urine Color Urine Appearance (Clear) Urine pH (4.5-7.5) Ur Specific [place] (1.000-1.030) Urine Protein (Negative) Urine Glucose (UA) (Negative) Urine Ketones (Negative) Urine Blood (Negative) Urine Nitrite (Negative) Urine Bilirubin (Negative) Urine Urobilinogen (Negative) Ur Leukocyte Esterase (Negative) Urine WBC (Auto) (0-5) /hpf Urine RBC (Auto) (0-4) /hpf U Hyaline Cast (Auto) (0-5) /lpf U Epithel Cells (Auto) (0-5) /lpf Urine Bacteria (Auto) (Negative) 09/30/18 09/30/18 09/30/18 Range/Units 16:13 16:14 16:14 WBC (4.8-10.8) K/uL RBC (4.2-5.4) M/uL Hgb (12.0-16.0) g/dL Hct (37-47) % MCV (80-100) fL MCH (25-34) pg MCHC (32-36) g/dL RDW Std Deviation (36.4-46.3) fL RDW Coeff of Celio (11.5-14.5) % Plt Count (130-400) K/uL MPV (7.4-10.4) fL Immature Gran % (Auto) % Neut % (Auto) % Lymph % (Auto) % Sherman % (Auto) % Eos % (Auto) % Baso % (Auto) % Immature Gran # (Auto) (0.00-0.02) K/uL Neut # (Auto) (1.4-6.5) K/uL Lymph # (Auto) (1.2-3.4) K/uL Sherman # (Auto) (0.11-0.59) K/uL Eos # (Auto) (0-0.5) K/uL Baso # (Auto) (0-0.2) K/uL PT 10.5 (9.0-12.0) Seconds INR 1.0 (0.9-1.1) APTT 24.5 (21.0-31.0) Seconds PTT Ratio 0.9 Sodium (136-145) mmol/L Potassium (3.5-5.1) mmol/L Chloride (98-107) mmol/L Carbon Dioxide (21-32) mmol/L Anion Gap (3-11) BUN (7-18) mg/dl Creatinine (0.6-1.2) mg/dl Est Cr Clr Drug Dosing ml/min Est GFR ( Amer) Est GFR (Non-Af Amer) BUN/Creatinine Ratio (10-20) Glucose (70-99) mg/dl POC Lactic Acid Otoniel (0.90-1.70) mmol/L Calcium (8.5-10.1) mg/dl Magnesium Cancelled (1.8-2.4) mg/dl Total Bilirubin (0.2-1) mg/dl AST (15-37) U/L ALT (12-78) U/L Alkaline Phosphatase (45-117) U/L Troponin I Cancelled (0-0.045) ng/ml Total Protein (6.4-8.2) gm/dl Albumin (3.4-5.0) gm/dl Globulin (2.5-4.0) gm/dl Albumin/Globulin Ratio (0.9-2) Lipase (73-393) U/L Procalcitonin (0-0.5) ng/ml Urine Color Yellow Urine Appearance Clear (Clear) Urine pH 7.5 (4.5-7.5) Ur Specific [place] 1.003 (1.000-1.030) Urine Protein Negative (Negative) Urine Glucose (UA) Negative (Negative) Urine Ketones Negative (Negative) Urine Blood Trace H (Negative) Urine Nitrite Negative (Negative) Urine Bilirubin Negative (Negative) Urine Urobilinogen Negative (Negative) Ur Leukocyte Esterase 3+ H (Negative) Urine WBC (Auto) >30 H (0-5) /hpf Urine RBC (Auto) 0-4 (0-4) /hpf U Hyaline Cast (Auto) 1-5 (0-5) /lpf U Epithel Cells (Auto) 5-10 H (0-5) /lpf Urine Bacteria (Auto) 1+ H (Negative) 09/30/18 09/30/18 Range/Units 16:18 21:04 WBC (4.8-10.8) K/uL RBC (4.2-5.4) M/uL Hgb (12.0-16.0) g/dL Hct (37-47) % MCV (80-100) fL MCH (25-34) pg MCHC (32-36) g/dL RDW Std Deviation (36.4-46.3) fL RDW Coeff of Celio (11.5-14.5) % Plt Count (130-400) K/uL MPV (7.4-10.4) fL Immature Gran % (Auto) % Neut % (Auto) % Lymph % (Auto) % Sherman % (Auto) % Eos % (Auto) % Baso % (Auto) % Immature Gran # (Auto) (0.00-0.02) K/uL Neut # (Auto) (1.4-6.5) K/uL Lymph # (Auto) (1.2-3.4) K/uL Sherman # (Auto) (0.11-0.59) K/uL Eos # (Auto) (0-0.5) K/uL Baso # (Auto) (0-0.2) K/uL PT (9.0-12.0) Seconds INR (0.9-1.1) APTT (21.0-31.0) Seconds PTT Ratio Sodium (136-145) mmol/L Potassium (3.5-5.1) mmol/L Chloride (98-107) mmol/L Carbon Dioxide (21-32) mmol/L Anion Gap (3-11) BUN (7-18) mg/dl Creatinine (0.6-1.2) mg/dl Est Cr Clr Drug Dosing ml/min Est GFR ( Amer) Est GFR (Non-Af Amer) BUN/Creatinine Ratio (10-20) Glucose (70-99) mg/dl POC Lactic Acid Otoniel 4.12 H 3.28 H (0.90-1.70) mmol/L Calcium (8.5-10.1) mg/dl Magnesium (1.8-2.4) mg/dl Total Bilirubin (0.2-1) mg/dl AST (15-37) U/L ALT (12-78) U/L Alkaline Phosphatase (45-117) U/L Troponin I (0-0.045) ng/ml Total Protein (6.4-8.2) gm/dl Albumin (3.4-5.0) gm/dl Globulin (2.5-4.0) gm/dl Albumin/Globulin Ratio (0.9-2) Lipase (73-393) U/L Procalcitonin (0-0.5) ng/ml Urine Color Urine Appearance (Clear) Urine pH (4.5-7.5) Ur Specific [place] (1.000-1.030) Urine Protein (Negative) Urine Glucose (UA) (Negative) Urine Ketones (Negative) Urine Blood (Negative) Urine Nitrite (Negative) Urine Bilirubin (Negative) Urine Urobilinogen (Negative) Ur Leukocyte Esterase (Negative) Urine WBC (Auto) (0-5) /hpf Urine RBC (Auto) (0-4) /hpf U Hyaline Cast (Auto) (0-5) /lpf U Epithel Cells (Auto) (0-5) /lpf Urine Bacteria (Auto) (Negative) Imaging Data Radiologist's Impression: Radiology results as stated below per my review and the radiologist's interpretation: SINGLE VIEW CHEST CLINICAL HISTORY: Generalized weakness. FINDINGS: An AP, portable, upright chest radiograph is compared to study dated 08/08/2018. Antegrade The cardiomediastinal silhouette is unremarkable noting atherosclerotic calcification of the thoracic aorta. There are low lung volumes with bibasilar atelectasis. The lungs and pleural spaces are otherwise clear. No pneumothorax is seen. The skeletal structures are osteopenic. The bony thorax is grossly intact. IMPRESSION: Low lung volumes with no active disease in the chest. Electronically signed by: Angelo Barclay M.D. 09/30/2018 4:26 PM ULTRASOUND KIDNEYS AND BLADDER CLINICAL HISTORY: Recurrent urinary tract infection. COMPARISON STUDY: Abdominal CT dated 08/31/2018. TECHNIQUE: Real-time, grayscale, and color flow sonography of the kidneys and bladder is performed. Images are reviewed in the transverse and longitudinal planes. FINDINGS: Kidneys: The kidneys are normal in size and echotexture. The right kidney measures 11.6 cm in length and the left kidney measures 12.2 cm in length. There is no hydronephrosis. There is mild fullness of the left proximal ureter. No shadowing renal calculi are identified. There is no sonographic evidence of contour deforming renal mass lesion. No perinephric fluid is identified. Bladder: The bladder is decompressed and not evaluated. Question mild bladder wall thickening. A right ureteral jet was seen. Upper abdomen: Survey images of the liver show evidence of hepatomegaly and hepatic steatosis. IMPRESSION: 1. The kidneys are normal in size and without hydronephrosis. 2. The bladder is decompressed and not well evaluated. Bladder wall thickening suggested. Correlate clinically and with urinalysis for evidence of cystitis. 3. Hepatomegaly and hepatic steatosis. Electronically signed by: Angelo Barclay M.D. 09/30/2018 7:32 PM ECG Data Attestation: I personally reviewed and interpreted this ECG as follows: Indication: abdominal pain Rate (beats per minute): 80 Rhythm: sinus rhythm Findings: + other (normal axis and interval, baseline artifact noted) and + T- wave inversion (v4-v6); no acute ischemic change Comparison ECG Date: from (08/08/18) Change: the following changes noted (worsening T-wave inversion) Blood Pressure Blood Pressure Findings: Low blood pressure Blood Pressure Disposition: Referred to patients primary care provider MDM Narrative Patient well-appearing on presentation here in concern for possible evolving urinary tract infection given prior history of the same with similar symptoms. Patient was found to have a UTI. Patient was afebrile and hemodynamically stable throughout. Patient was given a gram of IV Rocephin and IV fluids due to obvious clinical dehydration. Patient's initial lactic acid markedly elevated, although this was improving following 2 L of IV fluids, this was still elevated. Given patient's prior history of sepsis, elevated lactic acid, current social situation, diabetic status, and UTI on evaluation today, case discussed with h ospitalist for additional inpatient management. Patient and caregiver made aware of all results and were in agreement with plan. Patient was hemodynamically stable in the emergency room. Blood and urine cultures drawn and sent. Procalcitonin reassuring. Despite reassuring vital signs at this ti me, patient with significant septic history, and given rigors here today in the setting of a known infection, I am concerned about possible evolving sepsis. Impression & Plan UTI (urinary tract infection), Weakness, Dehydration, Schizophrenia Discharge Plan Visit Data Chief Complaint: Urinary Symptoms Stated Complaint: URINARY SX ED Provider: Constance Odom Discharge Problem: UTI (urinary tract infection), Weakness, Dehydration, Schizophrenia Patient Disposition: Being Evaluated by Hospitalist Forms Stand Alone Forms: My [facility] [place] [employer] Prescriptions Prescriptions: No Action fluphenazine decanoate 25 mg/mL Solution 25 mg IM MONTHLY RF: 0 furosemide 20 mg Tablet 20 mg PO DAILY RF: 0 ibuprofen 600 mg Tablet 600 mg PO BID PRN (Reason: Pain) RF: 0 loperamide 2 mg Tablet 2 mg PO .DAILY UD PRN (Reason: Diarrhea) RF: 0 potassium chloride 10 mEq Capsule, Extended Release 10 meq PO DAILY RF: 0 Probiotic 3 billion cell Capsule 3,000 mmu cells PO TIDM RF: 0 metformin 500 mg Tablet 500 mg PO QAM RF: 0 metformin 500 mg Tablet 1,000 mg PO QPM RF: 0 acetaminophen 325 mg Tablet 650 mg PO Q4H PRN (Reason: Fever Or Pain) RF: 0 fluphenazine HCl 10 mg Tablet 10 mg PO HS RF: 0 clonazepam 2 mg Tablet 2 mg PO HS RF: 0 fluticasone propionate 50 mcg/actuation [place],Suspension 2 spray INTRANASAL DAILY RF: 0 fluphenazine HCl 5 mg Tablet 5 mg PO HS RF: 0 Calmoseptine 0.44-20.6 % Ointment 1 applic TOPICAL DAILY PRN (Reason: Itching) RF: 0 tolterodine 4 mg Capsule,Extended Release 24hr 4 mg PO DAILY RF: 0 dextromethorphan-guaifenesin [Siltussin-DM] 10-100 mg/5 mL Syrup 5 ml PO Q4H PRN (Reason: Cough) RF: 0 zonisamide 100 mg Capsule 200 mg PO DAILY RF: 0 propranolol 10 mg Tablet 10 mg PO DAILY RF: 0 simvastatin 20 mg Tablet 20 mg PO PM RF: 0 omeprazole 20 mg Capsule,Delayed Release(Dr/Ec) 20 mg PO BID RF: 0 nystatin 100,000 unit/gram Powder 1 applic TOPICAL UD PRN (Reason: .MONILIA INFECTION) RF: 0 Novolog Flexpen U-100 Insulin 100 unit/mL Insulin Pen SUBCUT BID RF: 0 naproxen sodium 220 mg Capsule 440 mg PO BID PRN (Reason: Pain) RF: 0 Myrbetriq 50 mg Tablet Extended Release 24 Hr 50 mg PO DAILY RF: 0 divalproex 500 mg Tablet,Delayed Release (Dr/Ec) 500 mg PO QAM RF: 0 divalproex 500 mg Tablet,Delayed Release (Dr/Ec) 1,000 mg PO HS RF: 0 bismuth subsalicylate [Pepto-Bismol] 262 mg/15 mL Suspension 524 mg PO Q4H PRN (Reason: Gi Upset) RF: 0 calcium carbonate [Tums] 200 mg calcium (500 mg) Tablet,Chewable 200 mg PO TID PRN (Reason: Heartburn) RF: 0 clotrimazole 1 % Cream 1 applic TOPICAL BID RF: 0 Referrals [facility] - Discharge Problem: UTI (urinary tract infection) Qualifiers: Urinary tract infection type: acute cystitis Hematuria presence: with hematuria Qualified Code(s): N30.01 - Acute cystitis with hematuria Schizophrenia Qualifiers: Schizophrenia type: paranoid schizophrenia Qualified Code(s): F20.0 - Paranoid schizophrenia The scribe's documentation has been prepared under my direction and personally reviewed by me in its entirety. I confirm that the note above accurately reflects all work, treatment, procedures, and medical decision making performed by me.
--- NOTE | 2018-09-30 19:33 | Ultrasound Report ---
ULTRASOUND KIDNEYS AND BLADDER CLINICAL HISTORY: Recurrent urinary tract infection. COMPARISON STUDY: Abdominal CT dated 08/31/2018. TECHNIQUE: Real-time, grayscale, and color flow sonography of the kidneys and bladder is performed. I mages are reviewed in the transverse and longitudinal planes. FINDINGS: Kidneys: The kidneys are normal in size and echotexture. The right kidney measures 11.6 cm in length and the left kidney measures 12.2 cm in length. There is no hydronephrosis. There is mild fullness of the left proximal ureter. No shadowing renal calculi are identified. There is no sonographic evidenc e of contour deforming renal mass lesion. No perinephric fluid is identified. Bladder: The bladder is decompressed and not evaluated. Question mild bladder wall thickening. A righ t ureteral jet was seen. Upper abdomen: Survey images of the liver show evidence of hepatomegaly and hepatic steatosis. IMPRESSION: 1. The kidneys are normal in size and without hydronephrosis. 2. The bladder is decompressed and not well evaluated. Bladder wall thickening suggested. Correlate c linically and with urinalysis for evidence of cystitis. 3. Hepatomegaly and hepatic steatosis. Electronically signed by: Angelo Barclay M.D. 09/30/2018 7:32 PM
[2018-10-01] MEDS ORDERED: GUAIFENESIN/DEXTROM SYRUP 100MG/10MG 5ML UDC PO PRN (00:28)
[2018-10-01] MEDS ORDERED: LOPERAMIDE HCL 2 MG CAP PO PRN (00:28)
[2018-10-01] MEDS ORDERED: CALCIUM CARBONATE 500 MG CHEWABLE TAB PO PRN (00:28)
[2018-10-01] MEDS ORDERED: DAPTOmycin 500 MG VIAL IV SCH (00:28)
[2018-10-01] MEDS ORDERED: ALBUT/IPRATROP 3MG/0.5MG NEB 3 ML VIAL NEB PRN (00:28)
[2018-10-01] MEDS ORDERED: NAPROXEN 250 MG TAB PO PRN (00:28)
[2018-10-01] MEDS ORDERED: ACETAMINOPHEN 325 MG TAB PO PRN (00:28)
[2018-10-01] MEDS ORDERED: NITROGLYCERIN SL 0.4 MG/TAB TAB SL PRN (00:28)
[2018-10-01] MEDS ORDERED: BISMUTH SUBSALICYLATE SUSP PO PRN (00:28)
[2018-10-01] MEDS ORDERED: ONDANSETRON INJ 2 MG/ML 2 ML VIAL IV PRN (00:28)
[2018-10-01] MEDS ORDERED: PIPERACILL/TAZOBAC CONSULT ACTIVE PRN (00:28)
[2018-10-01] MEDS ORDERED: DAPTOMYCIN CONSULT ACTIVE PRN (00:38)
[2018-10-01] MEDS ORDERED: CARBOHYDRATES FOR HYPOGLYCEMIA PO PRN (01:00)
[2018-10-01] MEDS: SODIUM CHLORIDE 0.9% 1000ML 1,000 ML IV SCH ×3 (01:00→13:59)
[2018-10-01] MEDS ORDERED: DEXTROSE 50% 50 ML SYRINGE IV PRN (01:00)
[2018-10-01] MEDS ORDERED: PIPERACILLIN/TAZOBACTAM 4.5 GM in DEXTROSE 5% 100 ML IV SCH (01:00)
[2018-10-01] MEDS ORDERED: GLUCOSE 40% GEL 15 GM TUBE PO PRN (01:00)
[2018-10-01] MEDS ORDERED: GLUCOSE 10 TABS/TUBE PO PRN (01:00)
[2018-10-01] MEDS ORDERED: GLUCAGON FOR INJ 1 MG VIAL SQ PRN (01:00)
[2018-10-01] MEDS ORDERED: DAPTOmycin 475 MG in SYRINGE 0 ML IV SCH (02:00)
--- NOTE | 2018-10-01 02:33 | History and Physical Report ---
DATE OF ADMISSION: 09/30/2018 CHIEF COMPLAINT: Urinary symptoms. HISTORY OF PRESENT ILLNESS: This is a 58-year-old female with past medical history significant for bipolar, schizophrenia, mild intellectual disability, recurrent urinary tract infections, Pseudomonas urinary tract infection and Pseudomonas bacteremia in June, history of gastroesophageal reflux disease, history of diabetes, hyperlipidemia, overactive bladder, epilepsy, tobacco disorder and dependent edema who presents with again urinary symptoms. She is from [facility], brought in by caregiver. The patient was again having some chills, burning micturition and smelly urine and also a low grade fever so they were concerned about urinary tract infection and brought her here. Urinalysis here is again positive. Hemodynamically stable.Point of care Lactic acid is elevated. The patient also complains of some diarrhea and some mild abdominal discomfort. Denies any cough. No headache. No blurred vision. No difficulty swallowing. No sore throat. Appetite is okay as per the caregivers. The patient can eat regular food, but has to be careful as the patient has no teeth. No chest pain. No shortness of breath. Some mild chronic lower extremity edema. Ambulating okay. ALLERGIES: No known drug allergies. PAST MEDICAL HISTORY: As mentioned above. PAST SURGICAL HISTORY: Ligation of oviduct and total hip replacement on the left side. MEDICATIONS: The patient is on metformin 500 mg p.o. a.m., Tums 500 mg t.i.d. p.r.n., clotrimazole b.i.d. p.r.n., Zocor 20 mg p.o. daily, ibuprofen 600 mg p.o. b.i.d. p.r.n., dextromethorphan guaifenesin 5 mL p.o. q. 4 hours p.r.n., Lasix 20 mg p.o. daily, potassium chloride 10 mEq p.o. daily, probiotic 1 capsule t.i.d., Myrbetriq 50 mg p.o. daily, fluticasone 2 sprays into each nostril daily, fluphenazine 50 mg p.o. at bedtime, propranolol 10 mg p.o. daily, insulin sliding scale, Aleve 440 mg p.o. b.i.d. p.r.n., Detrol 4 mg p.o. daily, Tylenol 650 mg p.o. q. 4 hours p.r.n., albuterol nebulization every 6 hours p.r.n., Klonopin 2 mg p.o. at bedtime, loperamide 2 mg p.r.n., omeprazole 20 mg p.o. b.i.d., Zonegran 200 mg p.o. daily, Depakote 500 mg in the a.m. and 1000 mg in p.m. and fluphenazine decanoate every 4 weeks IM. FAMILY HISTORY: No family history on file. SOCIAL HISTORY: Single, currently lives in [facility]. Smoked about a half pack a day for last 20 years. No alcohol use. No drug use. REVIEW OF SYMPTOMS: As per HPI. Rest of the review of systems negative. PHYSICAL EXAMINATION: GENERAL: The patient is obese, not in acute distress. VITAL SIGNS: Temperature 37.3, pulse 86, respiratory rate 16, blood pressure 136/67 and oxygen 94% on room air. HEENT: No pallor. No icterus. Pupils are equal, round and reactive to light. NECK: No JVD. No neck masses. No carotid bruits. CARDIOVASCULAR: S1, S2. Regular rate and rhythm. No murmur. No gallop. RESPIRATORY SYSTEM: Normal AP diameter. No accessory muscle use. No wheezing. No crackles. ABDOMEN: Soft. Bowel sounds present. Mild diffuse discomfort. No guarding. No rigidity. No distention. CENTRAL NERVOUS SYSTEM: Alert and awake and oriented, but slow to answer. Somewhat flat affect. Nonfocal. EXTREMITIES: No edema. No erythema. LABORATORY DATA: WBC of 9.6, hemoglobin 11.9, hematocrit 35.9 and platelets 112. PT 10.5, INR 1 and APTT 24.5. Sodium 132, potassium 3.7, chloride 97, bicarbonate 25, BUN 13, creatinine 1.1, serum glucose 147, lactic acid 3.2, calcium 8.9, magnesium 1.9, total bilirubin 0.6, AST 25, ALT 23 and alkaline phosphatase 80. Troponin I less than 0.015. Lipase 53. Procalcitonin 0.14. Urinalysis positive for leukocyte esterase. Renal ultrasound, right kidney is normal in size without hydronephrosis. The bladder is decompressed and not well evaluated. Chest x-ray, no acute disease in the chest. Electrocardiogram shows normal sinus rhythm, rate of [address] change seen, no significant change from previous ekg. ASSESSMENT AND PLAN: This patient is a 58-year-old female who presents with urinary symptoms and possible sepsis. 1. Recurrent urinary tract infection, possible early sepsis with elevated lactic acid. The patient has a history of Pseudomonas bacteremia in the past We will give I.V. fluids 150 mL per hour. We will place on I.V. daptomycin and I.V. Zosyn and follow the cultures and taper antibiotics once the cultures are available. We will repeat lactic acids. Closely monitor on tele floor. Consult Infectious Disease for antibiotics for recurrent urinary tract infection. 2. Hyponatremia. Sodium 132. Getting fluids. Will follow laboratories in a.m. 3. History of schizophrenia and bipolar disorder, currently stable. Continue her home medications. 4. History of diabetes. Hold metformin, insulin sliding scale and Lantus 5 units b.i.d., follow HbA1c levels, follow the blood sugars while in the hospital. 5. History of seizure disorder. Currently on Depakote. Seizure precautions. 6. History of dependent edema. Lasix and KCL held resume when spesis resolved. 7. Hyperlipidemia. Holding statin for daptomycin. 8. Overactive bladder. Continue Detrol and Myrbetriq. 9. Gastroesophageal reflux disease. On proton pump inhibitor. 10. Tobacco abuse. continue DuoNebs p.r.n. Needs counselling. 11. Thrombocytopenia Borderline. fluctuating. Needs followup. 12. Deep venous thrombosis prophylaxis. Sequential compression devices for now. DISPOSITION: Closely monitor in tele floor. Level 1 full code. Physical therapy and occupational therapy prior to discharge. Social Service to help with discharge planning. MTDD
[2018-10-01 05:25] LABS: Hematocrit (blood only) 32.3 % (37-47); Hemoglobin 10.8 g/dL (12.0-16.0); Mean Corpuscular Hgb Conc 33.4 g/dL (32-36); Mean Corpuscular Volume 92.3 fL (80-100); RDW Coefficient of Variation 14.3 % (11.5-14.5); RDW Standard Deviation 48.6 fL (36.4-46.3)
[2018-10-01 05:43] LABS: BUN Creatinine Ratio 9.1 (10-20); Calcium 8.2 mg/dl (8.5-10.1); Creatinine Clr Calc Pharmacy 101.1 ml/min; Est GFR (African American) 101.6; Est GFR (Non-African American) 87.7; Potassium 3.5 mmol/L (3.5-5.1)
[2018-10-01 05:45] LABS: Mean Platelet Volume 10.5 fL (7.4-10.4); Platelet Count 85 K/uL (130-400)
[2018-10-01 05:46] LABS: Basophils # (auto) 0.01 K/uL (0-0.2); Basophils % (auto) 0.2 %; Eosinophils # (auto) 0.05 K/uL (0-0.5); Eosinophils % (auto) 0.8 %; Immature Granulocytes # (auto) 0.02 K/uL (0.00-0.02); Immature Granulocytes % (auto) 0.3 %; Lymphocytes # (auto) 2.04 K/uL (1.2-3.4); Lymphocytes % (auto) 31.9 %; Monocytes # (auto) 0.86 K/uL (0.11-0.59); Monocytes % (auto) 13.4 %; Neutrophils # (auto) 3.42 K/uL (1.4-6.5); Neutrophils % (auto) 53.4 %; Platelet Estimate Decreased (Normal)
[2018-10-01] MEDS: PIPERACILLIN/TAZOBACTAM 4.5 GM in DEXTROSE 5% 100 ML IV SCH ×3 (05:50→21:56)
[2018-10-01] MEDS: NYSTATIN POWDER 15GM BTL EXT PRN ×2 (07:31→22:00)
[2018-10-01] MEDS: MENTHOL-ZINC OXIDE 360 APPLN/120 GM TUBE EXT PRN ×2 (07:32→22:05)
[2018-10-01] MEDS: TOLTERODINE TARTRATE LA 4 MG CAPCR PO SCH (07:33)
[2018-10-01] MEDS: DIVALPROEX DELAY RELEASE 500 MG TAB PO SCH (07:33)
[2018-10-01] MEDS: LACTOBACILLUS ACIDOPHILUS (FLORANEX) TAB PO SCH ×3 (07:34→17:37)
[2018-10-01] MEDS: MIRABEGRON ER 25 MG TAB PO SCH (07:34)
[2018-10-01] MEDS: PANTOprazole 40 MG TAB PO SCH ×2 (07:34→22:08)
[2018-10-01] MEDS: CLOTRIMAZOLE 1% CR 15 GM TUBE TOP SCH ×2 (07:35→22:05)
[2018-10-01] MEDS: PROPRANOLOL HCL 10 MG TAB PO SCH (07:36)
[2018-10-01] MEDS: FLUTICASONE PROPIONATE NA SPR 16 GM BTL SCH (07:37)
[2018-10-01] MEDS: INSULIN ASPART 100 UNITS/ML 3 ML PEN SC SCH ×4 (08:35→22:05)
[2018-10-01] MEDS: INSULIN GLARGINE SOLOSTAR 100 UNITS/ML 3 ML PEN SC SCH ×2 (08:35→22:01)
--- NOTE | 2018-10-01 14:04 | Hospitalist Progress Note ---
Date of Service October 01, 2018 Assessment & Plan (1) UTI (urinary tract infection): Urine culture growing gram-negative bacilli Admitted with fever chills urinary symptoms: Dysuria increased frequency History of recurrent urine tract infection with Pseudomonas: Urine culture on 06/02/2018: Pseudomonas pansensitive Patient continue with IV Zosyn, antibiotic will be adjusted once bacteria isolation and sensitivity is available ID evaluation requested No evidence of sepsis: Patient has normal white count, afebrile, lactic acid elevated on admission possible secondary dehydration, normalized with IV fluids and antibiotics (2) Schizophrenia: Continue outpatient meds (3) Mild intellectual disability: Patient able to understand her medical issues, able to answer questions appropriately (4) Seizure disorder: Continue on Depakote (5) Bipolar disorder: Continue outpatient meds (6) GERD (gastroesophageal reflux disease): On PPI (7) DM2 (diabetes mellitus, type 2): Insulin sliding scale (8) HLD (hyperlipidemia): Continue statin (9) Thrombocytopenia: Avoid antiplatelets, platelet count 85, no evidence of bleeding Follow CBC CODE STATUS full code DVT prophylaxis: Patient is encouraged to ambulate, ordered SCD and teds, Disposition: Patient is a resident at [facility] personal care PT OT evaluation ordered senior accounting specialist at [facility]: is the main contact for patient (patient does not have a POA) Remedios Ann :Phone number [phone] All medical updates will be discussed with program or project administrator Called Remedios Arora today given update Subjective Awake and alert, for no complaint, states that she is "peeing a lot" Denies of any dysuria, no lower abdominal pain or discomfort, no nausea Remains afebrile Physical Exam Physical Exam: GENERAL: No sign of distress, HEENT: Sclera nonicteric, pink-purple bilateral equal reactive to light extraocular muscle intact Normal oral mucosa, neck: No JVD, no thyromegaly, trachea midline Lungs: Clear to auscultate, no wheeze or rales Cardiovascular: Regular S1 and S2, no murmur or gallop, no JVD, no lower extremity edema Abdomen: Soft, nontender, bowel sounds active, no hepatosplenomegaly Extremities: No rash or deformity, normal joint, Neuro: No focal neurological deficit, no dysarthria, no facial droop Psych: Alert awake oriented x3: Euthymic Skin: No rash LYMPH NODES: No cervical lymphadenopathy Results & Data Vital Signs (Past 12 Hours) Vital Signs Temp Pulse Resp BP Pulse Ox 10/01/18 07:26 36.7 C 20 129/78 92 10/01/18 03:23 37.1 C 76 18 128/82 92 (1) UTI (urinary tract infection) Hematuria presence: with hematuria Urinary tract infection type: acute cystitis Qualified Code(s): N30.01 - Acute cystitis with hematuria (2) DM2 (diabetes mellitus, type 2) Diabetes mellitus nursing home insulin use: without nursing home use (3) Bipolar disorder Active/Remission status: remission status unspecified Qualified Code(s): F31.9 - Bipolar disorder, unspecified (4) Schizophrenia Schizophrenia type: paranoid schizophrenia Qualified Code(s): F20.0 - Paranoid schizophrenia
--- NOTE | 2018-10-01 20:04 | Infectious Disease Consult ---
Date of Consultation October 01, 2018 Assessment & Plan (1) UTI (urinary tract infection): 58-year-old female with recurrent urinary tract infection with gram- negative bacilli, Zosyn should provide adequate coverage pending final identification and sensitivity. Hopefully can transition to oral antibiotics in the next day or so depending on sensitivities. Will follow. History of Present Illness Reason for Consultation: Recurrent UTI Attending Physician: Trinidad Benítez MD History of Present Illness 58-year-old female with history of diabetes, recurrent urinary tract infection, bipolar disorder, schizophrenia, intellectual disability, hyperlipidemia, GERD, who was hospitalized in June for Pseudomonas urinary tract infection with Pseudomonas, now admitted with several days of worsening dysuria, frequency, low-grade fever. Was started empirically on IV Zosyn, and cultures are now growing gram-negative bacilli. Patient has been afebrile, blood cultures have been negative. No flank pain. Allergies Allergy/AdvReac Type Severity Reaction Status Date / Time No Known Allergies Allergy Unverified 09/30/18 17:52 Home Medications Home Medications Medication Instructions Recorded Confirmed Type Calmoseptine 1 applic TOPICAL DAILY PRN 06/02/18 09/30/18 History Myrbetriq 50 mg PO DAILY 06/02/18 09/30/18 History Novolog Flexpen U-100 Insulin 0 unit SUBCUT BID 06/02/18 09/30/18 History acetaminophen 650 mg PO Q4H PRN 06/02/18 09/30/18 History clonazepam 2 mg PO HS 06/02/18 09/30/18 History dextromethorphan-guaifenesin 5 ml PO Q4H PRN 06/02/18 09/30/18 History [Siltussin-DM] divalproex 1,000 mg PO HS 06/02/18 09/30/18 History divalproex 500 mg PO QAM 06/02/18 09/30/18 History fluphenazine HCl 5 mg PO HS 06/02/18 09/30/18 History fluphenazine HCl 10 mg PO HS 06/02/18 09/30/18 History fluticasone propionate 2 spray INTRANASAL DAILY 06/02/18 09/30/18 History metformin 500 mg PO QAM 06/02/18 09/30/18 History naproxen sodium 440 mg PO BID PRN 06/02/18 09/30/18 History nystatin 1 applic TOPICAL UD PRN 06/02/18 09/30/18 History omeprazole 20 mg PO BID 06/02/18 09/30/18 History propranolol 10 mg PO DAILY 06/02/18 09/30/18 History simvastatin 20 mg PO PM 06/02/18 09/30/18 History tolterodine 4 mg PO DAILY 06/02/18 09/30/18 History zonisamide 200 mg PO DAILY 06/02/18 09/30/18 History Probiotic 3,000 mmu cells PO TIDM 08/08/18 09/30/18 History fluphenazine decanoate 25 mg IM MONTHLY 08/08/18 09/30/18 History furosemide 20 mg PO DAILY 08/08/18 09/30/18 History ibuprofen 600 mg PO BID PRN 08/08/18 09/30/18 History loperamide 2 mg PO .DAILY UD PRN 08/08/18 09/30/18 History potassium chloride 10 meq PO DAILY 08/08/18 09/30/18 History bismuth subsalicylate 524 mg PO Q4H PRN 09/30/18 09/30/18 History [Pepto-Bismol] calcium carbonate [Tums] 200 mg PO TID PRN 09/30/18 09/30/18 History clotrimazole 1 applic TOPICAL BID 09/30/18 09/30/18 History sulfamethoxazole-trimethoprim 1 tab PO BID 7 Days #14 tab 10/02/18 Rx Patient History Medical History Osteoarthritis (Chronic) Morbid obesity (Chronic) Schizophrenia (Chronic) Overactive bladder (Chronic) Mild intellectual disability (Chronic) Dependent edema (Chronic) Bipolar disorder (Chronic) Seizure disorder (Chronic) GERD (gastroesophageal reflux disease) (Chronic) DM2 (diabetes mellitus, type 2) (Chronic) HLD (hyperlipidemia) (Chronic) Tobacco abuse (Chronic) Surgical History History of total left hip replacement (Chronic) H/O tubal ligation (Chronic) Family History Other Family history unobtainable Social History Preferred Language: Telugu Communication Ability: Impaired Union Organiser Required: No Beliefs That Will Affect Care: None marital status: Current Living Situation: Boarding Home and Legal Guardian Current Living Situation Comment: Robi Ruffin current occupational status: unemployed and disabled Feels Safe at Home: Yes Safety Concerns: Feels Safe At This Time Smoking Status: Current every day smoker Tobacco Type: cigarettes Cigarettes Per Day: 10 Second Hand Exposure: Yes Hx Alcohol Use: No Hx Substance Use: No Review of Systems Review of Systems: All systems reviewed & are unremarkable except as noted in HPI & below Physical Exam Constitutional: WD/WN, vitals as above comfortable; no acute distress Eyes: PERRL, conjunctivae normal, anicteric sclerae ENMT: external ear and nose normal, oropharynx normal Neck: trachea midline, no thyromegaly neck nontender Respiratory: normal respiratory effort, lungs clear to auscultation normal percussion; does not use accessory muscles Cardiovascular: Rate/Rhythm: regular rate and regular rhythm Heart Sounds: normal S1 and normal S2; no gallop, no murmur and no cardiac rub Vessels: normal peripheral pulses; no JVD Gastrointestinal (Abdomen): normal bowel sounds, soft, nontender, no hepatosplenomegaly Musculoskeletal: no cyanosis or clubbing, extremities motor strength 5/5 Spine: thoracic spine normal to inspection and lumbar spine normal to inspection; no cervical spinal tenderness Skin: no rashes, warm and dry normal turgor; no lesions Neurologic: patellar DTR's 2+ bilat, sensation intact no focal motor deficits Psychiatric: A+Ox3, euthymic affect Orientation: cooperative Lymphatic: no cervical or axillary lymphadenopathy no inguinal lymphadenopathy Results & Data Vital Signs (Past 12 Hours) Vital Signs Temp Pulse Resp BP Pulse Ox 10/01/18 15:23 36.7 C 60 20 140/80 98 Laboratory Results Short CBC 10/01/18 Range/Units 05:15 WBC 6.40 (4.8-10.8) K/uL Hgb 10.8 L (12.0-16.0) g/dL Hct 32.3 L (37-47) % Plt Count 85 L (130-400) K/uL BMP 10/01/18 05:15 Sodium 140 D Potassium 3.5 Chloride 108 H Carbon Dioxide 27 BUN 7 D Creatinine 0.76 D Glucose 140 H Calcium 8.2 L Diagnostic Findings Microbiology 09/30/18 16:37 Blood Aerobic Blood Culture - Preliminary No growth in Aerobic bottle after 24 hours. 09/30/18 16:37 Blood Anaerobic Blood Culture - Preliminary No growth in Anaerobic bottle after 24 hours. 09/30/18 16:38 Blood Aerobic Blood Culture - Preliminary No growth in Aerobic bottle after 24 hours. 09/30/18 16:38 Blood Anaerobic Blood Culture - Preliminary No growth in Anaerobic bottle after 24 hours. 09/30/18 16:14 Urine,Straight Cath Urine Culture - Preliminary Gram negative bacilli cc: ~ ULTRASOUND KIDNEYS AND BLADDER CLINICAL HISTORY: Recurrent urinary tract infection. COMPARISON STUDY: Abdominal CT dated 08/31/2018. TECHNIQUE: Real-time, grayscale, and color flow sonography of the kidneys and bladder is performed. Images are reviewed in the transverse and longitudinal planes. FINDINGS: Kidneys: The kidneys are normal in size and echotexture. The right kidney measures 11.6 cm in length and the left kidney measures 12.2 cm in length. There is no hydronephrosis. There is mild fullness of the left proximal ureter. No shadowing renal calculi are identified. There is no sonographic evidence of contour deforming renal mass lesion. No perinephric fluid is identified. Bladder: The bladder is decompressed and not evaluated. Question mild bladder wall thickening. A right ureteral jet was seen. Upper abdomen: Survey images of the liver show evidence of hepatomegaly and hepatic steatosis. IMPRESSION: 1. The kidneys are normal in size and without hydronephrosis. 2. The bladder is decompressed and not well evaluated. Bladder wall thickening suggested. Correlate clinically and with urinalysis for evidence of cystitis. 3. Hepatomegaly and hepatic steatosis. Electronically signed by: Angelo Barclay M.D. 09/30/2018 7:32 PM Dictated: 09/30/18 193 (1) UTI (urinary tract infection) Hematuria presence: with hematuria Urinary tract infection type: acute cystitis Qualified Code(s): N30.01 - Acute cystitis with hematuria
[2018-10-01] MEDS ORDERED: clonazePAM 1 MG TAB PO SCH (21:00)
[2018-10-01] MEDS ORDERED: DIVALPROEX DELAY RELEASE 500 MG TAB PO SCH (21:00)
[2018-10-02] MEDS: PIPERACILLIN/TAZOBACTAM 4.5 GM in DEXTROSE 5% 100 ML IV SCH (06:13)
[2018-10-02 06:17] LABS: Creatinine Clr Calc Pharmacy 103.8 ml/min; Est GFR (Non-African American) 90.6
[2018-10-02 06:50] LABS: Estimated Average Glucose 143 mg/dl; Hemoglobin A1C 6.6 % (4.5-5.6)
[2018-10-02 07:20] VITALS: BP 136/83; PULSE 66; TEMP 97.3; O2SAT 90
[2018-10-02] MEDS: PANTOprazole 40 MG TAB PO SCH (07:59)
[2018-10-02] MEDS: PROPRANOLOL HCL 10 MG TAB PO SCH (07:59)
[2018-10-02] MEDS: MIRABEGRON ER 25 MG TAB PO SCH (07:59)
[2018-10-02] MEDS: TOLTERODINE TARTRATE LA 4 MG CAPCR PO SCH (08:00)
[2018-10-02] MEDS: FLUTICASONE PROPIONATE NA SPR 16 GM BTL SCH (08:01)
[2018-10-02] MEDS: DIVALPROEX DELAY RELEASE 500 MG TAB PO SCH (08:01)
[2018-10-02] MEDS: LACTOBACILLUS ACIDOPHILUS (FLORANEX) TAB PO SCH ×2 (08:01→12:32)
[2018-10-02] MEDS: CLOTRIMAZOLE 1% CR 15 GM TUBE TOP SCH (08:03)
[2018-10-02] MEDS: INSULIN ASPART 100 UNITS/ML 3 ML PEN SC SCH ×2 (08:03→12:32)
[2018-10-02] MEDS: INSULIN GLARGINE SOLOSTAR 100 UNITS/ML 3 ML PEN SC SCH (08:03)
--- NOTE | 2018-10-02 21:34 | Hospitalist Progress Note ---
Date of Service October 02, 2018 Assessment & Plan (1) UTI (urinary tract infection): Presented to ED with chills, dysuria, foul-smelling urine. Was not septic. Cultures obtained and placed on IV piperacillin / tazobactam. Renal US did not show any evidence of calculi or obstruction. Urine culture grew Klebsiella pneumoniae. Transition to oral therapy with TMP/sulfa. (2) DM2 (diabetes mellitus, type 2): Hemoglobin A1C 6.6. Fasting blood sugar 134. Discharge on usual regimen. (3) DVT prophylaxis: SCD's. Ambulate. (4) Discharge planning issues: Discharge to [facility]. Family Medicine follow-up with Dr. Lopez. Subjective Recheck for UTI. Doing well. No fever. No dysuria, hematuria, flank pain. No nausea, vomiting, diarrhea. Physical Exam Constitutional: no acute distress Respiratory: no respiratory distress Auscultation: lungs clear to auscultation bilaterally Cardiovascular: Rate/Rhythm: regular rate and regular rhythm Vessels: no JVD Extremities: + edema (trace-1+ pretibial); no calf tenderness Gastrointestinal (Abdomen): normal bowel sounds, soft, nontender, no hepatosplenomegaly no CVA tenderness Skin: no rashes, warm and dry Psychiatric: Orientation: alert Results & Data Vital Signs (Past 12 Hours) Vital Signs Temp Pulse Resp BP BP Pulse Ox 10/02/18 13:19 36.3 C L 66 20 140/80 136/83 90 10/02/18 13:07 36.3 C L 66 20 140/80 136/83 90 (1) UTI (urinary tract infection) Hematuria presence: with hematuria Urinary tract infection type: acute cystitis Qualified Code(s): N30.01 - Acute cystitis with hematuria (2) DM2 (diabetes mellitus, type 2) Diabetes mellitus alf insulin use: without alf use
--- NOTE | 2018-10-03 05:04 | Discharge Summary ---
Date of Service Date of Admission: 09/30/18 Date of Discharge: 10/02/18 Admission HPI Per Admitting Provider This is a 58-year-old female with past medical history significant for bipolar, schizophrenia, mild intellectual disability, recurrent urinary tract infections, Pseudomonas urinary tract infection and Pseudomonas bacteremia in June, history of gastroesophageal reflux disease, history of diabetes, hyperlipidemia, overactive bladder, epilepsy, tobacco disorder and dependent edema who presents with again urinary symptoms. She is from [facility], brought in by caregiver. The patient was again having some chills, burning micturition and smelly urine and also a low grade fever so they were concerned about urinary tract infection and brought her here. Urinalysis here is again positive. Hemodynamically stable.Point of care Lactic acid is elevated. The patient also complains of some diarrhea and some mild abdominal discomfort. Denies any cough. No headache. No blurred vision. No difficulty swallowing. No sore throat. Appetite is okay as per the caregivers. The patient can eat regular food, but has to be careful as the patient has no teeth. No chest pain. No shortness of breath. Some mild chronic lower extremity edema. Ambulating okay. Admission Exam Per Admitting Provider GENERAL: The patient is obese, not in acute distress. VITAL SIGNS: Temperature 37.3, pulse 86, respiratory rate 16, blood pressure 136/67 and oxygen 94% on room air. HEENT: No pallor. No icterus. Pupils are equal, round and reactive to light. NECK: No JVD. No neck masses. No carotid bruits. CARDIOVASCULAR: S1, S2. Regular rate and rhythm. No murmur. No gallop. RESPIRATORY SYSTEM: Normal AP diameter. No accessory muscle use. No wheezing. No crackles. ABDOMEN: Soft. Bowel sounds present. Mild diffuse discomfort. No guarding. No rigidity. No distention. CENTRAL NERVOUS SYSTEM: Alert and awake and oriented, but slow to answer. Somewhat flat affect. Nonfocal. EXTREMITIES: No edema. No erythema. Principal Diagnosis urinary tract infection with Klebsiella pneumoniae Discharge Data Allergies Allergy/AdvReac Type Severity Reaction Status Date / Time No Known Allergies Allergy Unverified 09/30/18 17:52 Consultations 09/30/18 21:35 ED Decision to Admit Stat 10/01/18 00:28 Consult Case Management - Discharge Planning Routine 10/01/18 08:00 Consult Infectious Diseases Routine Ordered Studies 09/30/18 18:32 US renal/blad retro comp Stat Hospital Course (1) UTI (urinary tract infection): Presented to ED with chills, dysuria, foul-smelling urine. Was not septic. Cultures obtained and placed on IV piperacillin / tazobactam. Renal US did not show any evidence of calculi or obstruction. Urine culture grew Klebsiella pneumoniae. Transitioned to oral therapy with TMP/sulfa. (2) DM2 (diabetes mellitus, type 2): Hemoglobin A1C 6.6. Fasting blood sugar day of discharge was 134. Discharge on usual regimen. (3) DVT prophylaxis: SCD's. Ambulate. (4) Discharge planning issues: Discharged to [facility]. Family Medicine follow-up with Dr. Lopez. Total Time Total Time Spent Total Time Spent (In Minutes): 35 Discharge Plan Discharge Items Patient Disposition: Personal Intermediate Reason For Visit: urinary tract infection Discharge Diagnosis: urinary tract infection Condition: Good Discharge Goals: Decrease discomfort and Improve disease control Activity: Resume your previous activity Non-emergency contact: Primary Care Provider and Hospitalist Call non-emergency contact if: you have any medication questions, your symptoms worsen and you have a fever Follow-up/Referrals: Matthew Lopez MD [Physician] - (10/09/2018 2:20 PM Lacy Nguyen DO (covering for Dr. Lopez) [facility] ) [facility] - Diet: Carb Consistent or DM2 and Heart Healthy Addtl Provider Instructions: MEDICATION CHANGES: Take sulfamethoxazole-trimethoprim (Bactrim) twice a day for bladder infection. (prescription sent to [facility] in [place]) SUMMARY OF TEST RESULTS: Urine culture showed bladder infection with Klebsiella. PENDING TEST RESULTS: None. RECOMMENDATIONS FOR FOLLOW-UP: Follow-up with Dr. Lopez as noted above. OTHER INSTRUCTIONS: Seek medical attention if you have: * temperature above 101 * chest pain or trouble breathing * abdominal pain, nausea, vomiting * diarrhea, dark stools or bloody stools * any unanswered questions or concerns Call 911 if symptoms are severe. Please take good care of yourself. Call if you have any questions or problems. You can reach a [facility] hospitalist on duty at [facility] 24 hours a day by calling [phone]. My cell # is [phone]. Prescriptions: New sulfamethoxazole-trimethoprim 800-160 mg tablet 1 tab PO BID 7 Days Qty: 14 RF: 0 Continued fluphenazine decanoate 25 mg/mL Solution 25 mg IM MONTHLY RF: 0 furosemide 20 mg Tablet 20 mg PO DAILY RF: 0 ibuprofen 600 mg Tablet 600 mg PO BID PRN (Reason: Pain) RF: 0 loperamide 2 mg Tablet 2 mg PO .DAILY UD PRN (Reason: Diarrhea) RF: 0 potassium chloride 10 mEq Capsule, Extended Release 10 meq PO DAILY RF: 0 Probiotic 3 billion cell Capsule 3,000 mmu cells PO TIDM RF: 0 metformin 500 mg Tablet 500 mg PO QAM RF: 0 acetaminophen 325 mg Tablet 650 mg PO Q4H PRN (Reason: Fever Or Pain) RF: 0 fluphenazine HCl 10 mg Tablet 10 mg PO HS RF: 0 clonazepam 2 mg Tablet 2 mg PO HS RF: 0 fluticasone propionate 50 mcg/actuation [place],Suspension 2 spray INTRANASAL DAILY RF: 0 fluphenazine HCl 5 mg Tablet 5 mg PO HS RF: 0 Calmoseptine 0.44-20.6 % Ointment 1 applic TOPICAL DAILY PRN (Reason: Itching) RF: 0 tolterodine 4 mg Capsule,Extended Release 24hr 4 mg PO DAILY RF: 0 dextromethorphan-guaifenesin [Siltussin-DM] 10-100 mg/5 mL Syrup 5 ml PO Q4H PRN (Reason: Cough) RF: 0 zonisamide 100 mg Capsule 200 mg PO DAILY RF: 0 propranolol 10 mg Tablet 10 mg PO DAILY RF: 0 simvastatin 20 mg Tablet 20 mg PO PM RF: 0 omeprazole 20 mg Capsule,Delayed Release(Dr/Ec) 20 mg PO BID RF: 0 nystatin 100,000 unit/gram Powder 1 applic TOPICAL UD PRN (Reason: .MONILIA INFECTION) RF: 0 Novolog Flexpen U-100 Insulin 100 unit/mL Insulin Pen SUBCUT BID RF: 0 naproxen sodium 220 mg Capsule 440 mg PO BID PRN (Reason: Pain) RF: 0 Myrbetriq 50 mg Tablet Extended Release 24 Hr 50 mg PO DAILY RF: 0 divalproex 500 mg Tablet,Delayed Release (Dr/Ec) 500 mg PO QAM RF: 0 divalproex 500 mg Tablet,Delayed Release (Dr/Ec) 1,000 mg PO HS RF: 0 bismuth subsalicylate [Pepto-Bismol] 262 mg/15 mL Suspension 524 mg PO Q4H PRN (Reason: Gi Upset) RF: 0 calcium carbonate [Tums] 200 mg calcium (500 mg) Tablet,Chewable 200 mg PO TID PRN (Reason: Heartburn) RF: 0 clotrimazole 1 % Cream 1 applic TOPICAL BID RF: 0 Stand-Alone Forms: [facility] Discharge Orders: Discharge Order (Routine); Ordered 10/02/18 Ordered By: Foreign [place] Admission Data Admit Date/Time: 09/30/18 22:52 Attending Provider: Foreign [place] Admit Provider: Alejandro López Primary Care Provider: Robi Ruffin,[facility] Other Providers: Alejandro López ; Rafa Grady ; Trinidad Benítez Service: Telemetry Medical Other Interventions: Discharge Summary Assessment (RN) Last Done: 10/02/18 13:19 DC Date/Time DO NOT enter until pt leaves facility: 10/02/18 14:05
== END 2018-10-02 14:05 | disposition home health service (06) | DRG 690 ==
LOC: ED 15:27 → 2N 22:52 → SUATTDRO 22:52 → 2N 23:38

== ENCOUNTER 2020-04-22 13:06 | Inpatient (IN) ==
[2020-04-22] MEDS ORDERED: SODIUM CHLORIDE 0.9% 500 ML IV ONE (13:19)
--- NOTE | 2020-04-22 13:38 | XRay Report ---
XR chest 1V portable CLINICAL HISTORY: SEPSIS COMPARISON STUDY: 09/30/2018 FINDINGS: The heart is the upper limits of normal in size. There is no failure. There is no focal pul monary consolidation. There are no pleural effusions.[ IMPRESSION: No active disease in the chest. ACT 112: Negative or not required by law. Electronically signed by: Florin Cochran M.D. 04/22/2020 1:36 PM
[2020-04-22 13:39] LABS: Appearance Urine Clear (Clear); Bacteria Urine Automated Negative (Negative); Bilirubin Urine Negative (Negative); Blood Urine Negative (Negative); Color Urine Yellow; Epithelial Cell Urine Auto >30 /lpf (0-5); Glucose Urine UA Negative (Negative); Ketones Urine Negative (Negative); Leukocyte Esterase Urine 2+ (Negative); Nitrite Urine Negative (Negative); Protein Urine Negative (Negative); RBC Urine Automated 0-4 /hpf (0-4); Specific Gravity Urine 1.013 (1.000-1.030); Urobilinogen Urine Negative (Negative)
[2020-04-22 14:01] LABS: Basophils # (auto) 0.02 K/uL (0-0.2); Basophils % (auto) 0.2 %; Eosinophils # (auto) 0.13 K/uL (0-0.5); Eosinophils % (auto) 1.4 %; Hematocrit (blood only) 41.6 % (37-47); Hemoglobin 13.9 g/dL (12.0-16.0); Immature Granulocytes # (auto) 0.03 K/uL (0.00-0.02); Immature Granulocytes % (auto) 0.3 %; Lymphocytes # (auto) 2.85 K/uL (1.2-3.4); Lymphocytes % (auto) 30.6 %; Mean Corpuscular Hemoglobin 31.6 pg (25-34); Mean Corpuscular Hgb Conc 33.4 g/dL (32-36); Mean Corpuscular Volume 94.5 fL (80-100); Mean Platelet Volume 11.2 fL (7.4-10.4); Monocytes % (auto) 7.5 %; Neutrophils # (auto) 5.59 K/uL (1.4-6.5); Platelet Count 126 K/uL (130-400); RDW Coefficient of Variation 13.3 % (11.5-14.5); RDW Standard Deviation 46.1 fL (36.4-46.3); White Blood Count 9.32 K/uL (4.8-10.8)
--- NOTE | 2020-04-22 14:05 | CT Scan Report ---
CT head/brain wo con CLINICAL HISTORY: Acute change in mental status. COMPARISON STUDY: 08/08/2018 TECHNIQUE: Axial CT of the brain is performed from the vertex to the skull base. IV contrast was not administered for this examination. A dose lowering technique was utilized adhering to the principles of ALARA. CT DOSE: 767.83 mGy.cm FINDINGS: No intra or extra-axial mass lesions are visualized. There is no CT evidence of acute cortical infarc tion. There is no evidence of midline shift. There is no acute hemorrhage. No calvarial fractures ar e visualized. There are minor white matter hypodensities likely on a small vessel basis. There is no evidence of pathologic ventricular dilatation. There is no evidence of acute sinusitis IMPRESSION: No acute intracranial findings ACT 112: Negative or not required by law. Electronically signed by: Florin Cochran M.D. 04/22/2020 2:04 PM
[2020-04-22 14:13] LABS: Partial Thromboplastin Time 27.4 Seconds (21.0-31.0); Prothrombin Time 10.8 Seconds (9.0-12.0)
[2020-04-22 14:16] LABS: Albumin Level 3.3 gm/dl (3.4-5.0); BUN Creatinine Ratio 17.9 (10-20); Creatinine Clr Calc Pharmacy 81.1 ml/min; Est GFR (African American) 83.4; Est GFR (Non-African American) 71.9; Magnesium 2.2 mg/dl (1.8-2.4); Potassium 3.6 mmol/L (3.5-5.1)
[2020-04-22 14:27] LABS: Albumin Globulin Ratio 0.8 (0.9-2); Bilirubin Direct 0.1 mg/dl (0-0.2); Bilirubin,Total 0.5 mg/dl (0.2-1); Globulin 4.1 gm/dl (2.5-4.0); Phosphorus 2.6 mg/dl (2.5-4.9); Total Protein 7.4 gm/dl (6.4-8.2); Troponin I 0.023 ng/ml (0-0.045)
[2020-04-22] MEDS ORDERED: SODIUM CHLORIDE 0.9% 1000ML 1,000 ML IV ONE (14:31)
[2020-04-22 15:00] LABS: Influenza A virus by PCR Negative (Neg); Influenza B virus by PCR Negative (Neg); RSV by PCR Negative (Neg); SARS CoV2 RNA(COVID-19) InHosp NEGATIVE (Negative)
--- NOTE | 2020-04-22 15:55 | Emergency Department Note ---
Impression & Plan Valproic acid toxicity, Bipolar disorder, Seizure disorder, Elevated lactic acid level, Dehydration ED Provider Note NAME: YIFAN JOINER AGE: 59 SEX: F ARRIVES VIA: Ambulance INFORMANT: Patient, ED PROVIDER(S): Darin Vasquez MD CHIEF COMPLAINT: Confusion, weakness. PLAN: Disposition: Admit MEDICAL DECISION MAKING: The patient is a 59-year-old woman with a past medical history of schizophrenia, seizure disorder on Depakote and an Zonisamide who presents emergency department referred by her well logging operator mud analysis at her H at [facility] who noticed that she was more confused and drowsy than her baseline and were concerned the patient had a UTI given her history of urosepsis. There is no report of any fevers, cough, congestion, nausea, vomiting, diarrhea. The patient is mildly drowsy appearing but no alert and oriented to voice. She follows commands. She exhibits generalized weakness but no focal neurologic deficits. Neck is supple with FROM. She appears clinically dry. Abdomen benign. She has a beefy erythematous rash of her region c/w yeast dermatitis. EKG without overt acute ischemia. CXR negative for acute cardiopulmonar process. WBC and H/H wnl. Platelets 120s similar to prior range. Initial lactate 3.3 improved to 1.8 following IVF hydration. Chemistry without acidosis. LFTs and electrolytes without significant abnormality. Ammonia wnl. Troponon 0.023 wnl. BNP wnl. Covid19 PCR negative. Flu and RSV PCR negative. Depakote level is supratherapeutic at 122, which likely explains the patient's change in mental status for baseline, in the setting of dehydration. UA resulting with WBCs but with epitheleal cells>30. Procalcitonin undetectable. Will defer decision for ABX to admitting team. CT head negative for acute process. Patient is agreeable with plan for admission. Case was discussed with Vandana Lemus, with Dr. Erica Ross hospitalist who will evaluate the patient for admission. Triage Nursing notes reviewed and agree them. Prior medical records reviewed Vital Signs: reviewed and remarkable for no significant abnormalities Differential diagnosis: Infection, dehydration, metabolic abnormality, hypo/hyperglycemia, electrolyte disturbance, anemia, hypoxia, cardiac sources, intracerebral event, toxicologic, neurologic, as well as other pathologies. ER treatment provided: See below. Diagnostics interpreted by me: ECG: Sinus bradycardia, 58 bpm, no ectopy, nonspecific ST and TW abnormality, overt ST elevation or depression. QTC 380, QRS 82. Cardiac Monitoring: An order for continuous cardiac monitoring was placed and demonstrated sinus bradycardia, 58 bpm, no ectopy. Laboratory studies: See below Imaging studies: XR chest 1V portable CLINICAL HISTORY: SEPSIS COMPARISON STUDY: 09/30/2018 FINDINGS: The heart is the upper limits of normal in size. There is no failure. There is no focal pulmonary consolidation. There are no pleural effusions.[ IMPRESSION: No active disease in the chest. --- CT head/brain wo con CLINICAL HISTORY: Acute change in mental status. COMPARISON STUDY: 08/08/2018 TECHNIQUE: Axial CT of the brain is performed from the vertex to the skull base. IV contrast was not administered for this examination. A dose lowering technique was utilized adhering to the principles of ALARA. CT DOSE: 767.83 mGy.cm FINDINGS: No intra or extra-axial mass lesions are visualized. There is no CT evidence of acute cortical infarction. There is no evidence of midline shift. There is no acute hemorrhage. No calvarial fractures are visualized. There are minor white matter hypodensities likely on a small vessel basis. There is no evidence of pathologic ventricular dilatation. There is no evidence of acute sinusitis IMPRESSION: No acute intracranial findings Consultation(s): Case was discussed with Vandana Angela, with Dr. Erica Ross hospitalist who will evaluate the patient for admission. HPI: The patient is a 59-year-old woman with a past medical history of schizophrenia, seizure disorder on Depakote and an Zonisamide [place] referred by her well logging operator mud analysis at her H at [facility] who noticed that she was more confused and drowsy than her baseline and were concerned the patient had a UTI given her history of urosepsis. There is no report of any fevers, cough, congestion, nausea, vomiting, diarrhea. ROS: See above HPI for pertinent positives & negatives. A total of 10 systems reviewed and were otherwise negative. PAST MEDICAL HISTORY:See Below PAST SURGICAL HISTORY:See Below FAMILY HISTORY:See Below SOCIAL HISTORY:See Below HOME MEDICATIONS:See Below ALLERGIES:See Below VITALS:See Below PHYSICAL EXAMINATION: GENERAL: Awake, alert, fatigued/drowsy-appearing, in no distress HENT: Normocephalic, atraumatic. Oropharynx with dry/cracked mucous membranes and otherwise unremarkable. EYES: Normal conjunctiva. Sclera non-icteric. EOMI. No nystamgus. PEARRL. NECK: Supple. No nuchal rigidity. FROM. No JVD. RESPIRATORY: Clear to auscultation. CARDIAC: Regular rate, normal rhythm. Extremities warm and well perfused. Pulses equal. ABDOMEN: Soft, non-distended. No tenderness to palpation. No rebound or guarding. No masses. RECTAL: Deferred. : Beefy erythematous rash of her region c/w yeast dermatitis. MUSCULOSKELETAL: Chest examination reveals no tenderness. The back is symmetrical on inspection without obvious abnormality. There is no CVA ten derness to palpation. No joint edema. LOWER EXTREMITIES: Calves are equal size bilaterally and non-tender. No edema. No discoloration. NEURO: Drowsy. A&O x 4. No focal sensory or motor deficits noted. Moving all extremities equally with generalized weakness. SKIN: Warm, Dry. No jaundice noted. Darin Vasquez MD Past Med/Surg History Medical History Bipolar disorder Dependent edema DM2 (diabetes mellitus, type 2) GERD (gastroesophageal reflux disease) HLD (hyperlipidemia) Mild intellectual disability Morbid obesity Osteoarthritis Overactive bladder Recurrent UTI Schizophrenia Seizure disorder Sensorineural hearing loss (SNHL) of both ears Thrombocytopenia Tobacco abuse Surgical History H/O tubal ligation H/O wrist surgery Right History of total left hip replacement Hx of cholecystectomy Family History Father , age 46 Myocardial infarction Mother , age 60 No problems noted. Social History Smoking Status: Current every day smoker Cigarettes Per Day: 10; Second Hand Exposure: No; Do You Dip or Chew Tobacco: No; Tobacco Cessation Education Requested by Patient: No Hx Alcohol Use: No Hx Substance Use: No Preferred Language: Turkmen Communication Ability: Effective Cone Worker Required: No Beliefs That Will Affect Care: None marital status: Current Living Situation: Personal Care Facility Current Living Situation Comment: [facility] current occupational status: unemployed and disabled Other Information That Helps Us Care for You: No Feels Safe at Home: Yes Safety Concerns: Feels Safe At This Time Assistive Devices: Glasses and Walker Allergies Allergies Allergy/AdvReac Type Severity Reaction Status Date / Time cefdinir Allergy Rash Verified 04/22/20 14:48 Home Meds Home Medications Medication Instructions Recorded Confirmed Calmoseptine 1 applic TOPICAL DAILY PRN 06/02/18 04/22/20 acetaminophen 650 mg PO Q4H PRN 06/02/18 04/22/20 clonazepam 2 mg PO HS 06/02/18 04/22/20 dextromethorphan-guaifenesin 5 ml PO Q4H PRN 06/02/18 04/22/20 [Siltussin-DM] divalproex 1,000 mg PO HS 06/02/18 04/22/20 divalproex 500 mg PO QAM 06/02/18 04/22/20 fluphenazine HCl 10 mg PO DAILY 06/02/18 04/22/20 fluticasone propionate 2 spray INTRANASAL DAILY 06/02/18 04/22/20 insulin aspart U-100 [Novolog 0 unit SUBCUT .SLIDING SCALE 06/02/18 04/22/20 Flexpen U-100 Insulin] metformin 500 mg PO QAM 06/02/18 04/22/20 nystatin 1 applic TOPICAL UD PRN 06/02/18 04/22/20 omeprazole 20 mg PO BID 06/02/18 04/22/20 propranolol 10 mg PO BID 06/02/18 04/22/20 simvastatin 20 mg PO PM 06/02/18 04/22/20 zonisamide 200 mg PO DAILY 06/02/18 04/22/20 Probiotic 3,000 mmu cells PO TIDM 08/08/18 04/22/20 fluphenazine decanoate 25 mg IM MONTHLY 08/08/18 04/22/20 ibuprofen 600 mg PO BID PRN 08/08/18 04/22/20 loperamide 2 mg PO .DAILY UD PRN 08/08/18 04/22/20 potassium chloride 10 meq PO DAILY 08/08/18 04/22/20 calcium carbonate [Tums] 200 mg PO TID PRN 09/30/18 04/22/20 clotrimazole 1 applic TOPICAL BID 09/30/18 04/22/20 carboxymethylcellulose sodium 1 drp OPHTHALMIC (EYE) TID 04/22/20 04/22/20 [Artificial Tears (cmc)] cranberry extract 400 mg PO DAILY 04/22/20 04/22/20 furosemide 40 mg PO DAILY 04/22/20 04/22/20 naproxen sodium 440 mg PO BID PRN 04/22/20 04/22/20 nitrofurantoin monohyd/m-cryst 100 mg PO DAILY 04/22/20 04/22/20 Previous Rx's Medication Instructions Recorded mirabegron 50 mg tablet,extended 50 mg PO DAILY #90 tab 09/18/19 release 24 hr tolterodine 4 mg capsule,extended 4 mg PO DAILY #90 cap 09/18/19 release 24 hr Results & Data (ED) Vital Signs Vital Signs - 24 hr 04/22/20 13:23 04/22/20 14:10 04/22/20 14:12 Temperature 37 C Temperature Source Oral Pulse Rate 65 60 58 L Pulse Rate from SpO2 Sensor 58 L Respiratory Rate 18 19 17 Blood Pressure 129/53 L 124/78 Blood Pressure Mean 78 96 Pulse Oximetry 96 100 100 Oxygen Delivery Method Room Air Room Air Sepsis Recent Fever Within 48 Hours No Sepsis New/Unexplained Change in Mental Status Yes Sepsis Action Taken by Nursing No Action Required 04/22/20 14:20 04/22/20 14:30 04/22/20 14:40 Temperature Temperature Source Pulse Rate 58 L 60 59 L Pulse Rate from SpO2 Sensor 58 L 60 59 L Respiratory Rate 25 H 19 17 Blood Pressure Blood Pressure Mean Pulse Oximetry 99 99 99 Oxygen Delivery Method Sepsis Recent Fever Within 48 Hours Sepsis New/Unexplained Change in Mental Status Sepsis Action Taken by Nursing 04/22/20 14:50 04/22/20 15:00 04/22/20 15:01 Temperature Temperature Source Pulse Rate 57 L 58 L 58 L Pulse Rate from SpO2 Sensor 57 L 58 L 59 L Respiratory Rate 19 24 19 Blood Pressure Blood Pressure Mean Pulse Oximetry 99 98 100 Oxygen Delivery Method Sepsis Recent Fever Within 48 Hours Sepsis New/Unexplained Change in Mental Status Sepsis Action Taken by Nursing 04/22/20 15:10 04/22/20 15:20 04/22/20 15:30 Temperature Temperature Source Pulse Rate 61 59 L 59 L Pulse Rate from SpO2 Sensor 61 58 L 58 L Respiratory Rate 12 23 16 Blood Pressure Blood Pressure Mean Pulse Oximetry 99 100 100 Oxygen Delivery Method Sepsis Recent Fever Within 48 Hours Sepsis New/Unexplained Change in Mental Status Sepsis Action Taken by Nursing 04/22/20 15:31 04/22/20 15:40 04/22/20 15:50 Temperature Temperature Source Pulse Rate 60 60 58 L Pulse Rate from SpO2 Sensor 60 60 58 L Respiratory Rate 14 16 16 Blood Pressure 137/97 Blood Pressure Mean 104 Pulse Oximetry 100 99 98 Oxygen Delivery Method Sepsis Recent Fever Within 48 Hours Sepsis New/Unexplained Change in Mental Status Sepsis Action Taken by Nursing 04/22/20 16:00 04/22/20 16:01 04/22/20 16:10 Temperature Temperature Source Pulse Rate 58 L 69 59 L Pulse Rate from SpO2 Sensor 58 L 59 L 58 L Respiratory Rate 20 16 17 Blood Pressure 138/41 L Blood Pressure Mean 81 Pulse Oximetry 99 100 100 Oxygen Delivery Method Sepsis Recent Fever Within 48 Hours Sepsis New/Unexplained Change in Mental Status Sepsis Action Taken by Nursing Laboratory Data Attestation: I reviewed the patient's lab results. Result diagrams: 04/22/20 13:42 04/22/20 13:42 Lab Results 04/22/20 04/22/20 04/22/20 Range/Units 13:20 13:42 13:42 WBC 9.32 (4.8-10.8) K/uL RBC 4.40 (4.2-5.4) M/uL Hgb 13.9 (12.0-16.0) g/dL Hct 41.6 (37-47) % MCV 94.5 (80-100) fL MCH 31.6 (25-34) pg MCHC 33.4 (32-36) g/dL RDW Std Deviation 46.1 (36.4-46.3) fL RDW Coeff of Celio 13.3 (11.5-14.5) % Plt Count 126 L (130-400) K/uL MPV 11.2 H (7.4-10.4) fL Immature Gran % (Auto) 0.3 % Neut % (Auto) 60.0 % Lymph % (Auto) 30.6 % [place] % (Auto) 7.5 % Eos % (Auto) 1.4 % Baso % (Auto) 0.2 % Neut # (Auto) 5.59 (1.4-6.5) K/uL Lymph # (Auto) 2.85 (1.2-3.4) K/uL [place] # (Auto) 0.70 H (0.11-0.59) K/uL Eos # (Auto) 0.13 (0-0.5) K/uL Baso # (Auto) 0.02 (0-0.2) K/uL Immature Gran # (Auto) 0.03 H (0.00-0.02) K/uL PT 10.8 (9.0-12.0) Seconds INR 1.0 (0.9-1.1) APTT 27.4 (21.0-31.0) Seconds PTT Ratio 1.0 VBG pH (7.36-7.41) VBG pCO2 (38-50) mmHg VBG pO2 mmHg VBG HCO3 mmol/L VBG O2 Saturation % VBG Base Excess mEq/L Barometric Pressure mm/Hg Sodium (136-145) mmol/L Potassium (3.5-5.1) mmol/L Chloride (98-107) mmol/L Carbon Dioxide (21-32) mmol/L Anion Gap (3-11) BUN (7-18) mg/dl Creatinine (0.6-1.2) mg/dl Est Cr Clr Drug Dosing ml/min Est GFR ( Amer) Est GFR (Non-Af Amer) BUN/Creatinine Ratio (10-20) Glucose (70-99) mg/dl Lactate (0.4-2.0) mmol/L Calcium (8.5-10.1) mg/dl Phosphorus (2.5-4.9) mg/dl Magnesium (1.8-2.4) mg/dl Total Bilirubin (0.2-1) mg/dl Direct Bilirubin (0-0.2) mg/dl AST (15-37) U/L ALT (12-78) U/L Alkaline Phosphatase (45-117) U/L Ammonia (11-32) umol/L Troponin I (0-0.045) ng/ml NT-Pro-B Natriuret Pep (0-900) pg/ml Total Protein (6.4-8.2) gm/dl Albumin (3.4-5.0) gm/dl Globulin (2.5-4.0) gm/dl Albumin/Globulin Ratio (0.9-2) Lipase (73-393) U/L Procalcitonin (0-0.5) ng/ml Urine Color Yellow Urine Appearance Clear (Clear) Urine pH 5.0 (4.5-7.5) Ur Specific [place] 1.013 (1.000-1.030) Urine Protein Negative (Negative) Urine Glucose (UA) Negative (Negative) Urine Ketones Negative (Negative) Urine Blood Negative (Negative) Urine Nitrite Negative (Negative) Urine Bilirubin Negative (Negative) Urine Urobilinogen Negative (Negative) Ur Leukocyte Esterase 2+ H (Negative) Urine WBC (Auto) 10-30 H (0-5) /hpf Urine RBC (Auto) 0-4 (0-4) /hpf U Hyaline Cast (Auto) 1-5 (0-5) /lpf U Epithel Cells (Auto) >30 H (0-5) /lpf Urine Bacteria (Auto) Negative (Negative) Valproic Acid (50-100) mcg/ml COVID-19 Eval Order SARS-CoV-2 (PCR) (Negative) Influenza Type A (PCR) (Neg) Influenza Type B (PCR) (Neg) RSV (RT-PCR) (Neg) 04/22/20 04/22/20 04/22/20 Range/Units 13:42 13:42 13:42 WBC (4.8-10.8) K/uL RBC (4.2-5.4) M/uL Hgb (12.0-16.0) g/dL Hct (37-47) % MCV (80-100) fL MCH (25-34) pg MCHC (32-36) g/dL RDW Std Deviation (36.4-46.3) fL RDW Coeff of Celio (11.5-14.5) % Plt Count (130-400) K/uL MPV (7.4-10.4) fL Immature Gran % (Auto) % Neut % (Auto) % Lymph % (Auto) % [place] % (Auto) % Eos % (Auto) % Baso % (Auto) % Neut # (Auto) (1.4-6.5) K/uL Lymph # (Auto) (1.2-3.4) K/uL [place] # (Auto) (0.11-0.59) K/uL Eos # (Auto) (0-0.5) K/uL Baso # (Auto) (0-0.2) K/uL Immature Gran # (Auto) (0.00-0.02) K/uL PT (9.0-12.0) Seconds INR (0.9-1.1) APTT (21.0-31.0) Seconds PTT Ratio VBG pH (7.36-7.41) VBG pCO2 (38-50) mmHg VBG pO2 mmHg VBG HCO3 mmol/L VBG O2 Saturation % VBG Base Excess mEq/L Barometric Pressure mm/Hg Sodium 138 (136-145) mmol/L Potassium 3.6 (3.5-5.1) mmol/L Chloride 103 (98-107) mmol/L Carbon Dioxide 29 (21-32) mmol/L Anion Gap 6.0 (3-11) BUN 16 (7-18) mg/dl Creatinine 0.89 (0.6-1.2) mg/dl Est Cr Clr Drug Dosing 81.1 ml/min Est GFR ( Amer) 83.4 Est GFR (Non-Af Amer) 71.9 BUN/Creatinine Ratio 17.9 (10-20) Glucose 120 H (70-99) mg/dl Lactate (0.4-2.0) mmol/L Calcium 9.0 (8.5-10.1) mg/dl Phosphorus 2.6 (2.5-4.9) mg/dl Magnesium 2.2 (1.8-2.4) mg/dl Total Bilirubin 0.5 (0.2-1) mg/dl Direct Bilirubin 0.1 (0-0.2) mg/dl AST 18 (15-37) U/L ALT 20 (12-78) U/L Alkaline Phosphatase 77 (45-117) U/L Ammonia (11-32) umol/L Troponin I 0.023 (0-0.045) ng/ml NT-Pro-B Natriuret Pep 358 (0-900) pg/ml Total Protein 7.4 (6.4-8.2) gm/dl Albumin 3.3 L (3.4-5.0) gm/dl Globulin 4.1 H (2.5-4.0) gm/dl Albumin/Globulin Ratio 0.8 L (0.9-2) Lipase 110 (73-393) U/L Procalcitonin < 0.05 (0-0.5) ng/ml Urine Color Urine Appearance (Clear) Urine pH (4.5-7.5) Ur Specific [place] (1.000-1.030) Urine Protein (Negative) Urine Glucose (UA) (Negative) Urine Ketones (Negative) Urine Blood (Negative) Urine Nitrite (Negative) Urine Bilirubin (Negative) Urine Urobilinogen (Negative) Ur Leukocyte Esterase (Negative) Urine WBC (Auto) (0-5) /hpf Urine RBC (Auto) (0-4) /hpf U Hyaline Cast (Auto) (0-5) /lpf U Epithel Cells (Auto) (0-5) /lpf Urine Bacteria (Auto) (Negative) Valproic Acid 122 H (50-100) mcg/ml COVID-19 Eval Order SARS-CoV-2 (PCR) (Negative) Influenza Type A (PCR) (Neg) Influenza Type B (PCR) (Neg) RSV (RT-PCR) (Neg) 04/22/20 04/22/20 04/22/20 Range/Units 13:46 14:05 14:05 WBC (4.8-10.8) K/uL RBC (4.2-5.4) M/uL Hgb (12.0-16.0) g/dL Hct (37-47) % MCV (80-100) fL MCH (25-34) pg MCHC (32-36) g/dL RDW Std Deviation (36.4-46.3) fL RDW Coeff of Celio (11.5-14.5) % Plt Count (130-400) K/uL MPV (7.4-10.4) fL Immature Gran % (Auto) % Neut % (Auto) % Lymph % (Auto) % [place] % (Auto) % Eos % (Auto) % Baso % (Auto) % Neut # (Auto) (1.4-6.5) K/uL Lymph # (Auto) (1.2-3.4) K/uL [place] # (Auto) (0.11-0.59) K/uL Eos # (Auto) (0-0.5) K/uL Baso # (Auto) (0-0.2) K/uL Immature Gran # (Auto) (0.00-0.02) K/uL PT (9.0-12.0) Seconds INR (0.9-1.1) APTT (21.0-31.0) Seconds PTT Ratio VBG pH (7.36-7.41) VBG pCO2 (38-50) mmHg VBG pO2 mmHg VBG HCO3 mmol/L VBG O2 Saturation % VBG Base Excess mEq/L Barometric Pressure mm/Hg Sodium (136-145) mmol/L Potassium (3.5-5.1) mmol/L Chloride (98-107) mmol/L Carbon Dioxide (21-32) mmol/L Anion Gap (3-11) BUN (7-18) mg/dl Creatinine (0.6-1.2) mg/dl Est Cr Clr Drug Dosing ml/min Est GFR ( Amer) Est GFR (Non-Af Amer) BUN/Creatinine Ratio (10-20) Glucose (70-99) mg/dl Lactate 3.3 H* (0.4-2.0) mmol/L Calcium (8.5-10.1) mg/dl Phosphorus (2.5-4.9) mg/dl Magnesium (1.8-2.4) mg/dl Total Bilirubin (0.2-1) mg/dl Direct Bilirubin (0-0.2) mg/dl AST (15-37) U/L ALT (12-78) U/L Alkaline Phosphatase (45-117) U/L Ammonia (11-32) umol/L Troponin I (0-0.045) ng/ml NT-Pro-B Natriuret Pep (0-900) pg/ml Total Protein (6.4-8.2) gm/dl Albumin (3.4-5.0) gm/dl Globulin (2.5-4.0) gm/dl Albumin/Globulin Ratio (0.9-2) Lipase (73-393) U/L Procalcitonin (0-0.5) ng/ml Urine Color Urine Appearance (Clear) Urine pH (4.5-7.5) Ur Specific [place] (1.000-1.030) Urine Protein (Negative) Urine Glucose (UA) (Negative) Urine Ketones (Negative) Urine Blood (Negative) Urine Nitrite (Negative) Urine Bilirubin (Negative) Urine Urobilinogen (Negative) Ur Leukocyte Esterase (Negative) Urine WBC (Auto) (0-5) /hpf Urine RBC (Auto) (0-4) /hpf U Hyaline Cast (Auto) (0-5) /lpf U Epithel Cells (Auto) (0-5) /lpf Urine Bacteria (Auto) (Negative) Valproic Acid (50-100) mcg/ml COVID-[address] Eval [address] CovFluRsv at [facility] SARS-CoV-2 (PCR) NEGATIVE (Negative) Influenza Type A (PCR) Negative (Neg) Influenza Type B (PCR) Negative (Neg) RSV (RT-PCR) Negative (Neg) 04/22/20 04/22/20 04/22/20 Range/Units 15:51 15:51 15:51 WBC (4.8-10.8) K/uL RBC (4.2-5.4) M/uL Hgb (12.0-16.0) g/dL Hct (37-47) % MCV (80-100) fL MCH (25-34) pg MCHC (32-36) g/dL RDW Std Deviation (36.4-46.3) fL RDW Coeff of Celio (11.5-14.5) % Plt Count (130-400) K/uL MPV (7.4-10.4) fL Immature Gran % (Auto) % Neut % (Auto) % Lymph % (Auto) % [place] % (Auto) % Eos % (Auto) % Baso % (Auto) % Neut # (Auto) (1.4-6.5) K/uL Lymph # (Auto) (1.2-3.4) K/uL [place] # (Auto) (0.11-0.59) K/uL Eos # (Auto) (0-0.5) K/uL Baso # (Auto) (0-0.2) K/uL Immature Gran # (Auto) (0.00-0.02) K/uL PT (9.0-12.0) Seconds INR (0.9-1.1) APTT (21.0-31.0) Seconds PTT Ratio VBG pH 7.40 (7.36-7.41) VBG pCO2 50 (38-50) mmHg VBG pO2 28 mmHg VBG HCO3 30 mmol/L VBG O2 Saturation < 60.0 % VBG Base Excess 4.3 mEq/L Barometric Pressure 736.0 mm/Hg Sodium (136-145) mmol/L Potassium (3.5-5.1) mmol/L Chloride (98-107) mmol/L Carbon Dioxide (21-32) mmol/L Anion Gap (3-11) BUN (7-18) mg/dl Creatinine (0.6-1.2) mg/dl Est Cr Clr Drug Dosing ml/min Est GFR ( Amer) Est GFR (Non-Af Amer) BUN/Creatinine Ratio (10-20) Glucose (70-99) mg/dl Lactate 1.8 (0.4-2.0) mmol/L Calcium (8.5-10.1) mg/dl Phosphorus (2.5-4.9) mg/dl Magnesium (1.8-2.4) mg/dl Total Bilirubin (0.2-1) mg/dl Direct Bilirubin (0-0.2) mg/dl AST (15-37) U/L ALT (12-78) U/L Alkaline Phosphatase (45-117) U/L Ammonia 12.0 (11-32) umol/L Troponin I (0-0.045) ng/ml NT-Pro-B Natriuret Pep (0-900) pg/ml Total Protein (6.4-8.2) gm/dl Albumin (3.4-5.0) gm/dl Globulin (2.5-4.0) gm/dl Albumin/Globulin Ratio (0.9-2) Lipase (73-393) U/L Procalcitonin (0-0.5) ng/ml Urine Color Urine Appearance (Clear) Urine pH (4.5-7.5) Ur Specific [place] (1.000-1.030) Urine Protein (Negative) Urine Glucose (UA) (Negative) Urine Ketones (Negative) Urine Blood (Negative) Urine Nitrite (Negative) Urine Bilirubin (Negative) Urine Urobilinogen (Negative) Ur Leukocyte Esterase (Negative) Urine WBC (Auto) (0-5) /hpf Urine RBC (Auto) (0-4) /hpf U Hyaline Cast (Auto) (0-5) /lpf U Epithel Cells (Auto) (0-5) /lpf Urine Bacteria (Auto) (Negative) Valproic Acid (50-100) mcg/ml COVID-19 Eval Order SARS-CoV-2 (PCR) (Negative) Influenza Type A (PCR) (Neg) Influenza Type B (PCR) (Neg) RSV (RT-PCR) (Neg) Administered Medications Clonazepam (Clonazepam 1 Mg Tab) 2 mg PO HS MAGDA Stop: 05/22/20 20:59 Last Admin: 04/22/20 21:09 Dose: 2 mg Documented by: [id number] Sodium Chloride (Nss 1000ml) 1,000 mls @ 100 mls/hr IV .Q10H MAGDA Stop: 05/22/20 18:59 Last Admin: 04/22/20 18:53 Dose: 100 mls/hr Documented by: [id number] Insulin Aspart (Insulin Aspart 100 Units/Ml 3 Ml Pen) 0 units SC ACHS MAGDA Stop: 05/22/20 20:59 Last Admin: 04/22/20 21:35 Dose: Not Given Documented by: [id number] Cosigned by: [id number] Miscellaneous (Zonisamide: Order Awaiting Action) 1 ea N/A QS MAGDA Stop: 05/23/20 00:00 Last Admin: 04/22/20 23:16 Dose: Not Given Documented by: [id number] Pantoprazole Sodium (Pantoprazole 40 Mg Tab) 40 mg PO BID MAGDA Stop: 05/22/20 20:59 Last Admin: 04/22/20 21:10 Dose: 40 mg Documented by: [id number] Propranolol HCl (Propranolol Hcl 10 Mg Tab) 10 mg PO BID MAGDA Stop: 05/22/20 20:59 Last Admin: 04/22/20 21:09 Dose: 10 mg Documented by: [id number] Simvastatin (Simvastatin 20 Mg Tab) 20 mg PO PM MAGDA Stop: 05/22/20 20:59 Last Admin: 04/22/20 21:10 Dose: 20 mg Documented by: [id number] Discontinued Medications Sodium Chloride (Nss) 500 mls @ 999 mls/hr IV .Q31M ONE Stop: 04/22/20 13:49 Last Infusion: 04/22/20 16:13 Dose: 0 mls/hr Documented by: [id number] Admin: 04/22/20 13:48 Dose: 999 mls/hr Documented by: [id number] Sodium Chloride (Nss 1000ml) 1,000 mls @ 999 mls/hr IV .Q1H1M ONE Stop: 04/22/20 15:31 Last Admin: 04/22/20 18:32 Dose: Not Given Documented by: [id number] Discharge Plan Visit Data Chief Complaint: Urinary Symptoms ED Provider: Darin Vasquez Discharge Problem: Valproic acid toxicity, Bipolar disorder, Seizure disorder, Elevated lactic acid level, Dehydration Patient Disposition: Admitted As Inpatient Discharge Instructions Interventions: ED Discharge Assessment Last Done: 04/22/20 17:43 Discharge Problem: Valproic acid toxicity Qualifiers: Encounter type: initial encounter Injury intent: accidental or unintentional Qualified Code(s): T42.6X1A - Poisoning by other antiepileptic and sedative- hypnotic drugs, accidental (unintentional), initial encounter Bipolar disorder Qualifiers: Active/Remission status: remission status unspecified Qualified Code(s): F31.9 - Bipolar disorder, unspecified
[2020-04-22 16:01] LABS: Base Excess VBG 4.3 mEq/L; HCO3 VBG 30 mmol/L; PCO2 VBG 50 mmHg (38-50); PO2 VBG 28 mmHg
[2020-04-22 17:00] LABS: Oxygen Saturation VBG < 60.0 %
--- NOTE | 2020-04-22 17:22 | History & Physical Report ---
Date of Service April 22, 2020 Assessment & Plan (1) Dilantin toxicity: -Admit to [facility] with telemetry -Patient presenting from home (24-hour caregivers with [facility] services) for evaluation of increased generalized weakness and increased confusion. -In the ED, Dilantin level found to be 122 -hold Dilantin, hydrate with IVF, follow up Dilantin level in AM -Dilantin prescribed by Dr. Anna Rodas (psych) (2) Thrombocytopenia: -platelets 126K -chronic, at baseline -no signs of bleeding (3) Recurrent UTI: -on chronic Macrobid for suppression (4) Seizure disorder: -holding Dilantin as above (5) Bipolar disorder: -continue home meds (6) Dependent edema: -hold Lasix and K+ while giving IVF (7) DM2 (diabetes mellitus, type 2): -hgb a1c 6.1 10/2019 -hold oral agents and utilize SSI while hospitalized (8) DVT prophylaxis: -SCDs due to thrombocytopenia History of Present Illness Chief Complaint: Weakness, altered mental status Primary Care Provider: [employer] [facility] 59-year-old female with PMH schizoaffective disorder, bipolar disorder, seizure disorder, DM type II, recurrent UTI on chronic Macrobid therapy, and other problems listed below who presents the ED for evaluation of increased weakness and altered mental status. History is obtained from Yumiko, career technical counselor for [facility] services. Patient currently resides in apartment with 24- hour care arranged with [facility]. Remedios reports that this afternoon, patient became very weak and was heavily relying on caregivers to stand. Patient normally ambulates with a walker. She also seem to be mildly more confused than usual. Patient was then sent to the ED for further evaluation. Otherwise, patient has been doing well recently. No recent medication changes. No other symptoms reported. At the time of my exam, patient is without complaint. In the ED, valproic acid level is found to be high at 122. Initial lactate 3.3 , repeat after IVF 1.8. Other labs unremarkable/at patient's baseline. Patient is hemodynamically stable. Patient received IVF. Allergies Allergy/AdvReac Type Severity Reaction Status Date / Time cefdinir Allergy Rash Verified 04/22/20 14:48 Home Medications Medication Instructions Recorded Confirmed Type Calmoseptine 1 applic TOPICAL DAILY PRN 06/02/18 04/22/20 History acetaminophen 650 mg PO Q4H PRN 06/02/18 04/22/20 History clonazepam 2 mg PO HS 06/02/18 04/22/20 History dextromethorphan-guaifenesin 5 ml PO Q4H PRN 06/02/18 04/22/20 History [Siltussin-DM] divalproex 1,000 mg PO HS 06/02/18 04/22/20 History divalproex 500 mg PO QAM 06/02/18 04/22/20 History fluphenazine HCl 10 mg PO DAILY 06/02/18 04/22/20 History fluticasone propionate 2 spray INTRANASAL DAILY 06/02/18 04/22/20 History insulin aspart U-100 [Novolog 0 unit SUBCUT .SLIDING SCALE 06/02/18 04/22/20 History Flexpen U-100 Insulin] metformin 500 mg PO QAM 06/02/18 04/22/20 History nystatin 1 applic TOPICAL UD PRN 06/02/18 04/22/20 History omeprazole 20 mg PO BID 06/02/18 04/22/20 History propranolol 10 mg PO BID 06/02/18 04/22/20 History simvastatin 20 mg PO PM 06/02/18 04/22/20 History zonisamide 200 mg PO DAILY 06/02/18 04/22/20 History Probiotic 3,000 mmu cells PO TIDM 08/08/18 04/22/20 History fluphenazine decanoate 25 mg IM MONTHLY 08/08/18 04/22/20 History ibuprofen 600 mg PO BID PRN 08/08/18 04/22/20 History loperamide 2 mg PO .DAILY UD PRN 08/08/18 04/22/20 History potassium chloride 10 meq PO DAILY 08/08/18 04/22/20 History calcium carbonate [Tums] 200 mg PO TID PRN 09/30/18 04/22/20 History clotrimazole 1 applic TOPICAL BID 09/30/18 04/22/20 History mirabegron 50 mg tablet,extended 50 mg PO DAILY #90 tab 09/18/19 04/22/20 Rx release 24 hr tolterodine 4 mg capsule,extended 4 mg PO DAILY #90 cap 09/18/19 04/22/20 Rx release 24 hr carboxymethylcellulose sodium 1 drp OPHTHALMIC (EYE) TID 04/22/20 04/22/20 History [Artificial Tears ([facility])] cranberry extract 400 mg PO DAILY 04/22/20 04/22/20 History furosemide 40 mg PO DAILY 04/22/20 04/22/20 History naproxen sodium 440 mg PO BID PRN 04/22/20 04/22/20 History nitrofurantoin monohyd/m-cryst 100 mg PO DAILY 04/22/20 04/22/20 History Past Med/Surg History Medical History Bipolar disorder Dependent edema DM2 (diabetes mellitus, type 2) GERD (gastroesophageal reflux disease) HLD (hyperlipidemia) Mild intellectual disability Morbid obesity Osteoarthritis Overactive bladder Recurrent UTI Schizophrenia Seizure disorder Sensorineural hearing loss (SNHL) of both ears Thrombocytopenia Tobacco abuse Surgical History H/O tubal ligation H/O wrist surgery Right History of total left hip replacement Hx of cholecystectomy Family History Father , age 46 Myocardial infarction Mother , age 60 No problems noted. Social History Smoking Status: Current every day smoker Cigarettes Per Day: 10; Second Hand Exposure: No; Do You Dip or Chew Tobacco: No; Tobacco Cessation Education Requested by Patient: No Hx Alcohol Use: No Hx Substance Use: No Preferred Language: [place] Communication Ability: Effective Sous Chef Kitchen Manager Required: No Beliefs That Will Affect Care: None marital status: Current Living Situation: Personal Care Facility Current Living Situation Comment: [facility] current occupational status: unemployed and disabled Other Information That Helps Us Care for You: No Feels Safe at Home: Yes Safety Concerns: Feels Safe At This Time Assistive Devices: Walker Review of Systems Review of Systems: Unobtainable due to cognitive status Physical Exam Constitutional: WD/WN, vitals as above Eyes: PERRL, conjunctivae normal, anicteric sclerae ENMT: external ear and nose normal, oropharynx normal Respiratory: normal respiratory effort, lungs clear to auscultation Cardiovascular: Rate/Rhythm: regular rhythm and + bradycardic Vessels: normal peripheral pulses Extremities: + edema (+2 BLE) Gastrointestinal (Abdomen): normal bowel sounds, soft, nontender, no hepatosplenomegaly Musculoskeletal: no cyanosis or clubbing, extremities motor strength 5/5 Skin: no rashes, warm and dry Neurologic: PERRL, EOMI, accommodation nl, no face palsy, no dysarthria Psychiatric: Orientation: alert, oriented to person and oriented to place; + not oriented to time Affect: + flat affect Insight: + poor insight Slow to respond at times Genitourinary: Pure wick catheter in place Results & Data Results & Data ([facility]) Vital Signs (Past 12 Hours) Vital Signs Temp Pulse Resp BP Pulse Ox 04/22/20 16:50 59 L 15 99 04/22/20 16:40 56 L 20 98 04/22/20 16:31 56 L 19 144/56 H 97 04/22/20 16:30 55 L 20 99 04/22/20 16:20 56 L 19 100 04/22/20 16:10 59 L 17 100 04/22/20 16:01 69 16 138/41 L 100 04/22/20 16:00 58 L 20 99 04/22/20 15:50 58 L 16 98 04/22/20 15:40 60 16 99 04/22/20 15:31 60 14 137/97 100 04/22/20 15:30 59 L 16 100 04/22/20 15:20 59 L 23 100 04/22/20 15:10 61 12 99 04/22/20 15:01 58 L 19 100 04/22/20 15:00 58 L 24 98 04/22/20 14:50 57 L 19 99 04/22/20 14:40 59 L 17 99 04/22/20 14:30 60 19 99 04/22/20 14:20 58 L 25 H 99 04/22/20 14:12 58 L 17 124/78 100 04/22/20 14:10 60 19 100 04/22/20 13:23 37 C 65 18 129/53 L 96 Laboratory Results Short CBC 04/22/20 04/22/20 04/22/20 Range/Units 13:42 13:46 15:51 WBC 9.32 (4.8-10.8) K/uL Hgb 13.9 (12.0-16.0) g/dL Hct 41.6 (37-47) % Plt Count 126 L (130-400) K/uL Lactate 3.3 H* 1.8 (0.4-2.0) mmol/L BMP 04/22/20 13:42 Sodium 138 Potassium 3.6 Chloride 103 Carbon Dioxide 29 BUN 16 Creatinine 0.89 Glucose 120 H Calcium 9.0 Cardiac Enzymes 04/22/20 Range/Units 13:42 Troponin I 0.023 (0-0.045) ng/ml Liver Function 04/22/20 Range/Units 13:42 Total Bilirubin 0.5 (0.2-1) mg/dl Direct Bilirubin 0.1 (0-0.2) mg/dl AST 18 (15-37) U/L ALT 20 (12-78) U/L Alkaline Phosphatase 77 (45-117) U/L Albumin 3.3 L (3.4-5.0) gm/dl Urine 04/22/20 Range/Units 13:20 Urine Color Yellow Urine Appearance Clear (Clear) Urine pH 5.0 (4.5-7.5) Ur Specific Star 1.013 (1.000-1.030) Urine Protein Negative (Negative) Urine Glucose (UA) Negative (Negative) Diagnostic Findings HEAD CT IMPRESSION: No acute intracranial findings CXR IMPRESSION: No active disease in the chest. Code Status & VTE Plan Code Status Patient is a full code as per my discussion with staff at [facility]. VTE Prophylaxis Plan VTE Prophylaxis will be ordered: Yes Supervising Physician Co-Signing Physician Notes Attending addendum: The patient was seen and examined in the emergency room She is a 59-year-old woman with a past medical history of schizophrenia, seizure disorder on Depakote referred by her logistics technician who noticed that she was more confused and drowsy than her baseline. No history of fever and/or chills, no cough or shortness of breath, no abdominal pain, nausea and or vomiting Denied any symptoms in the emergency room On examination Hemodynamically stable Minimal upper extremity tremors, could be at her baseline Chest-decreased breath sounds bilaterally Heart-S1-S2 regular Abdomen-benign Extremities-trace to 1+ edema bilaterally Admission labs, EKG and imaging studies reviewed Noted to have borderline high Dilantin level at 122 likely has Likely has Dilantin toxicity, will rule out any infection Will observe in the hospital, hold Dilantin for now and will be given some intravenous fluids Agree with assessment and plan as outlined above by Arabella Maldonado (1) DM2 (diabetes mellitus, type 2) Diabetes mellitus [facility] insulin use: without [facility] use (2) Bipolar disorder Active/Remission status: remission status unspecified Qualified Code(s): F31.9 - Bipolar disorder, unspecified
[2020-04-22] MEDS ORDERED: GLUCAGON FOR INJ 1 MG VIAL SQ PRN (18:31)
[2020-04-22] MEDS ORDERED: CARBOHYDRATES FOR HYPOGLYCEMIA PO PRN (18:31)
[2020-04-22] MEDS ORDERED: DEXTROSE 50% 50 ML SYRINGE IV PRN (18:31)
[2020-04-22] MEDS ORDERED: ACETAMINOPHEN 325 MG TAB PO PRN (18:31)
[2020-04-22] MEDS ORDERED: GLUCOSE 10 TABS/TUBE PO PRN (18:31)
[2020-04-22] MEDS ORDERED: GLUCOSE 40% GEL 15 GM TUBE PO PRN (18:31)
[2020-04-22] MEDS ORDERED: NON-FORMULARY MEDICATION (Lactobacillus Combination No.4 [Probiotic] 3 billion cell Capsul PO SCH (18:31)
[2020-04-22] MEDS: SODIUM CHLORIDE 0.9% 1000ML 1,000 ML IV SCH (18:53)
[2020-04-22] MEDS: PROPRANOLOL HCL 10 MG TAB PO SCH (21:09)
[2020-04-22] MEDS: clonazePAM 1 MG TAB PO SCH (21:09)
[2020-04-22] MEDS: SIMVASTATIN 20 MG TAB PO SCH (21:10)
[2020-04-22] MEDS: PANTOprazole 40 MG TAB PO SCH (21:10)
[2020-04-22] MEDS: INSULIN ASPART 100 UNITS/ML 3 ML PEN SC SCH (21:35)
[2020-04-23] MEDS: SODIUM CHLORIDE 0.9% 1000ML 1,000 ML IV SCH ×3 (06:05→22:08)
[2020-04-23 06:49] LABS: Hematocrit (blood only) 36.2 % (37-47); Hemoglobin 12.2 g/dL (12.0-16.0); Mean Corpuscular Hemoglobin 31.7 pg (25-34); Mean Corpuscular Hgb Conc 33.7 g/dL (32-36); Mean Platelet Volume 10.9 fL (7.4-10.4); Platelet Count 109 K/uL (130-400); RDW Coefficient of Variation 13.5 % (11.5-14.5); RDW Standard Deviation 46.3 fL (36.4-46.3); Red Blood Count 3.85 M/uL (4.2-5.4); White Blood Count 5.78 K/uL (4.8-10.8)
[2020-04-23 07:11] LABS: BUN Creatinine Ratio 19.2 (10-20); Calcium 8.8 mg/dl (8.5-10.1); Creatinine Clr Calc Pharmacy 93.7 ml/min; Est GFR (African American) 99.3; Est GFR (Non-African American) 85.7; Potassium 3.2 mmol/L (3.5-5.1)
[2020-04-23 07:28] LABS: Estimated Average Glucose 131 mg/dl; Hemoglobin A1C 6.2 % (4.5-5.6)
[2020-04-23] MEDS: TOLTERODINE TARTRATE LA 4 MG CAPCR PO SCH (07:53)
[2020-04-23] MEDS: NITROFURANTOIN MONOHYDRATE 100 MG CAP PO SCH (07:53)
[2020-04-23] MEDS: MIRABEGRON ER 25 MG TAB PO SCH (07:54)
[2020-04-23] MEDS: PROPRANOLOL HCL 10 MG TAB PO SCH ×3 (07:54→20:27)
[2020-04-23] MEDS: PANTOprazole 40 MG TAB PO SCH ×2 (07:54→20:12)
[2020-04-23] MEDS: INSULIN ASPART 100 UNITS/ML 3 ML PEN SC SCH ×4 (07:59→20:18)
--- NOTE | 2020-04-23 08:26 | Hospitalist Progress Note ---
Date of Service April 23, 2020 Assessment & Plan (1) Dilantin toxicity: -Admitted to [facility] with telemetry -Patient presenting from home (24-hour caregivers with [facility] community services) for evaluation of increased generalized weakness and increased confusion. -In the ED, Dilantin level found to be 122 -hold Dilantin, hydrate with IVF, follow up Dilantin level in AM - 70 04/23 AM -Dilantin prescribed by Dr. Anna Rodas (psych) - contacted her office - talked to Pily - awaiting to hear back w/ recommendations (2) Thrombocytopenia: -platelets 126K -chronic, at baseline -no signs of bleeding (3) Recurrent UTI: -on chronic Macrobid for suppression -U cultx 20,000 colonies E.coli, WBC not elevated, pt does not seem to have dysuria but has poor skin in groin area d/t incontinence, nursing staff here as well as staff at [facility] aware, recommend good hygiene and keeping skin dry and clean (4) Seizure disorder: -holding Dilantin as above (5) Bipolar disorder: -continue home meds (6) Dependent edema: -hold Lasix and K+ while giving IVF (7) DM2 (diabetes mellitus, type 2): -hgb a1c 6.1 10/2019 -hold oral agents and utilize SSI while hospitalized (8) DVT prophylaxis: -SCDs due to thrombocytopenia Admission and Anticipated Discharge Date Admission Date: April 22, 2020 Subjective Pt seen in follow up of AMS, increased valproic acid. Currently pt is sitting up in chair in NAD. She is slow to answer questions but mostly answers appropriately. No concerns from nursing staff. No fever, chills, chest pain, abd. pain. Pt got up from chair and wanted to go to lay in bed and then wanted to show me her groin area- skin is bothering her. Nursing staff present ay the bedside. I called [facility] and talked to staff - pt usually is slow to answer and does not usually follow directions. She walks slowly w/ walker and is very methodical about it. She does hunch over a lot. They will also be calling the pt to see how she communicates with them. Lastly they are aware of poor skin condition in groin area - and they have been managing that. It can be sometimes difficult as pt is incontinent of urine. I also called Dr. Rodas's office - and informed Pily about elevated valproic acid levels. I was informed they now mostly do zoom meetings and i should hear back hopefully later today. Review of Systems Review of Systems: All systems reviewed & are unremarkable except as noted in HPI & below Constitutional: no fever and no chills Respiratory: no cough and no dyspnea Cardiovascular: no chest pain Gastrointestinal: no abdominal pain Genitourinary: groin skin discomfort Physical Exam Physical Exam: Constitutional: WD/WN, vitals as above Eyes: PERRL, conjunctivae normal, anicteric sclerae ENMT: external ear and nose normal, oropharynx normal Respiratory: normal respiratory effort, lungs clear to auscultation Cardiovascular: Rate/Rhythm: regular rhythm and + bradycardic Vessels: normal peripheral pulses Extremities: + edema (+1 BLE) Gastrointestinal (Abdomen): normal bowel sounds, soft, nontender, no hepatosplenomegaly Musculoskeletal: no cyanosis or clubbing, extremities motor strength 5/5 Skin: no rashes, warm and dry Neurologic: PERRL, EOMI, no face palsy, no dysarthria, speech slow, does not always follow commands (which is baseline) Psychiatric: Orientation: alert, oriented to person and oriented to place; + not oriented to time Affect: + flat affect Insight: + poor insight Slow to respond at times Genitourinary: Pure wick catheter was in place, pt incontinent (at baseline), groin skin in poor shape but no lacerations/open wounds Results & Data Results & Data ([facility]) Vital Signs (Past 12 Hours) Vital Signs Temp Pulse Pulse Resp BP Pulse Ox 04/23/20 07:31 36.9 C 58 L 20 101/65 96 04/23/20 03:50 36.7 C 61 18 110/70 98 04/23/20 00:29 54 L 04/22/20 23:00 36.5 C 60 18 101/56 L 94 Laboratory Results 04/23/20 04/23/20 04/23/20 Range/Units 07:29 06:07 06:07 WBC (4.8-10.8) K/uL RBC (4.2-5.4) M/uL Hgb (12.0-16.0) g/dL Hct (37-47) % MCV (80-100) fL MCH (25-34) pg MCHC (32-36) g/dL RDW Std Deviation (36.4-46.3) fL RDW Coeff of Celio (11.5-14.5) % Plt Count (130-400) K/uL MPV (7.4-10.4) fL Immature Gran % (Auto) % Neut % (Auto) % Lymph % (Auto) % [place] % (Auto) % Eos % (Auto) % Baso % (Auto) % Neut # (Auto) (1.4-6.5) K/uL Lymph # (Auto) (1.2-3.4) K/uL [place] # (Auto) (0.11-0.59) K/uL Eos # (Auto) (0-0.5) K/uL Baso # (Auto) (0-0.2) K/uL Immature Gran # (Auto) (0.00-0.02) K/uL PT (9.0-12.0) Seconds INR (0.9-1.1) APTT (21.0-31.0) Seconds PTT Ratio VBG pH (7.36-7.41) VBG pCO2 (38-50) mmHg VBG pO2 mmHg VBG HCO3 mmol/L VBG O2 Saturation % VBG Base Excess mEq/L Barometric Pressure mm/Hg Sodium (136-145) mmol/L Potassium (3.5-5.1) mmol/L Chloride (98-107) mmol/L Carbon Dioxide (21-32) mmol/L Anion Gap (3-11) BUN (7-18) mg/dl Creatinine (0.6-1.2) mg/dl Est Cr Clr Drug Dosing ml/min Est GFR ( Amer) Est GFR (Non-Af Amer) BUN/Creatinine Ratio (10-20) Glucose (70-99) mg/dl POC Glucose 125 H (70-99) mg/dl Estimat Average Glucose 131 mg/dl Hemoglobin A1c 6.2 H (4.5-5.6) % Lactate (0.4-2.0) mmol/L Calcium (8.5-10.1) mg/dl Phosphorus (2.5-4.9) mg/dl Magnesium (1.8-2.4) mg/dl Total Bilirubin (0.2-1) mg/dl Direct Bilirubin (0-0.2) mg/dl AST (15-37) U/L ALT (12-78) U/L Alkaline Phosphatase (45-117) U/L Ammonia (11-32) umol/L Troponin I (0-0.045) ng/ml NT-Pro-B Natriuret Pep (0-900) pg/ml Total Protein (6.4-8.2) gm/dl Albumin (3.4-5.0) gm/dl Globulin (2.5-4.0) gm/dl Albumin/Globulin Ratio (0.9-2) Lipase (73-393) U/L Procalcitonin (0-0.5) ng/ml Urine Color Urine Appearance (Clear) Urine pH (4.5-7.5) Ur Specific [place] (1.000-1.030) Urine Protein (Negative) Urine Glucose (UA) (Negative) Urine Ketones (Negative) Urine Blood (Negative) Urine Nitrite (Negative) Urine Bilirubin (Negative) Urine Urobilinogen (Negative) Ur Leukocyte Esterase (Negative) Urine WBC (Auto) (0-5) /hpf Urine RBC (Auto) (0-4) /hpf U Hyaline Cast (Auto) (0-5) /lpf U Epithel Cells (Auto) (0-5) /lpf Urine Bacteria (Auto) (Negative) Valproic Acid 70 (50-100) mcg/ml COVID-19 Eval Order SARS-CoV-2 (PCR) (Negative) Influenza Type A (PCR) (Neg) Influenza Type B (PCR) (Neg) RSV (RT-PCR) (Neg) 04/23/20 04/23/20 04/22/20 Range/Units 06:07 06:07 20:56 WBC 5.78 (4.8-10.8) K/uL RBC 3.85 L (4.2-5.4) M/uL Hgb 12.2 (12.0-16.0) g/dL Hct 36.2 L (37-47) % MCV 94.0 (80-100) fL MCH 31.7 (25-34) pg MCHC 33.7 (32-36) g/dL RDW Std Deviation 46.3 (36.4-46.3) fL RDW Coeff of Celio 13.5 (11.5-14.5) % Plt Count 109 L (130-400) K/uL MPV 10.9 H (7.4-10.4) fL Immature Gran % (Auto) % Neut % (Auto) % Lymph % (Auto) % [place] % (Auto) % Eos % (Auto) % Baso % (Auto) % Neut # (Auto) (1.4-6.5) K/uL Lymph # (Auto) (1.2-3.4) K/uL [place] # (Auto) (0.11-0.59) K/uL Eos # (Auto) (0-0.5) K/uL Baso # (Auto) (0-0.2) K/uL Immature Gran # (Auto) (0.00-0.02) K/uL PT (9.0-12.0) Seconds INR (0.9-1.1) APTT (21.0-31.0) Seconds PTT Ratio VBG pH (7.36-7.41) VBG pCO2 (38-50) mmHg VBG pO2 mmHg VBG HCO3 mmol/L VBG O2 Saturation % VBG Base Excess mEq/L Barometric Pressure mm/Hg Sodium 141 (136-145) mmol/L Potassium 3.2 L (3.5-5.1) mmol/L Chloride 107 (98-107) mmol/L Carbon Dioxide 28 (21-32) mmol/L Anion Gap 6.0 (3-11) BUN 15 (7-18) mg/dl Creatinine 0.77 (0.6-1.2) mg/dl Est Cr Clr Drug Dosing 93.7 ml/min Est GFR ( Amer) 99.3 Est GFR (Non-Af Amer) 85.7 BUN/Creatinine Ratio 19.2 (10-20) Glucose 115 H (70-99) mg/dl POC Glucose 134 H (70-99) mg/dl Estimat Average Glucose mg/dl Hemoglobin A1c (4.5-5.6) % Lactate (0.4-2.0) mmol/L Calcium 8.8 (8.5-10.1) mg/dl Phosphorus (2.5-4.9) mg/dl Magnesium (1.8-2.4) mg/dl Total Bilirubin (0.2-1) mg/dl Direct Bilirubin (0-0.2) mg/dl AST (15-37) U/L ALT (12-78) U/L Alkaline Phosphatase (45-117) U/L Ammonia (11-32) umol/L Troponin I (0-0.045) ng/ml NT-Pro-B Natriuret Pep (0-900) pg/ml Total Protein (6.4-8.2) gm/dl Albumin (3.4-5.0) gm/dl Globulin (2.5-4.0) gm/dl Albumin/Globulin Ratio (0.9-2) Lipase (73-393) U/L Procalcitonin (0-0.5) ng/ml Urine Color Urine Appearance (Clear) Urine pH (4.5-7.5) Ur Specific [place] (1.000-1.030) Urine Protein (Negative) Urine Glucose (UA) (Negative) Urine Ketones (Negative) Urine Blood (Negative) Urine Nitrite (Negative) Urine Bilirubin (Negative) Urine Urobilinogen (Negative) Ur Leukocyte Esterase (Negative) Urine WBC (Auto) (0-5) /hpf Urine RBC (Auto) (0-4) /hpf U Hyaline Cast (Auto) (0-5) /lpf U Epithel Cells (Auto) (0-5) /lpf Urine Bacteria (Auto) (Negative) Valproic Acid (50-100) mcg/ml COVID-19 Eval Order SARS-CoV-2 (PCR) (Negative) Influenza Type A (PCR) (Neg) Influenza Type B (PCR) (Neg) RSV (RT-PCR) (Neg) 04/22/20 04/22/20 04/22/20 Range/Units 18:43 15:51 15:51 WBC (4.8-10.8) K/uL RBC (4.2-5.4) M/uL Hgb (12.0-16.0) g/dL Hct (37-47) % MCV (80-100) fL MCH (25-34) pg MCHC (32-36) g/dL RDW Std Deviation (36.4-46.3) fL RDW Coeff of Celio (11.5-14.5) % Plt Count (130-400) K/uL MPV (7.4-10.4) fL Immature Gran % (Auto) % Neut % (Auto) % Lymph % (Auto) % [place] % (Auto) % Eos % (Auto) % Baso % (Auto) % Neut # (Auto) (1.4-6.5) K/uL Lymph # (Auto) (1.2-3.4) K/uL [place] # (Auto) (0.11-0.59) K/uL Eos # (Auto) (0-0.5) K/uL Baso # (Auto) (0-0.2) K/uL Immature Gran # (Auto) (0.00-0.02) K/uL PT (9.0-12.0) Seconds INR (0.9-1.1) APTT (21.0-31.0) Seconds PTT Ratio VBG pH 7.40 (7.36-7.41) VBG pCO2 50 (38-50) mmHg VBG pO2 28 mmHg VBG HCO3 30 mmol/L VBG O2 Saturation < 60.0 % VBG Base Excess 4.3 mEq/L Barometric Pressure 736.0 mm/Hg Sodium (136-145) mmol/L Potassium (3.5-5.1) mmol/L Chloride (98-107) mmol/L Carbon Dioxide (21-32) mmol/L Anion Gap (3-11) BUN (7-18) mg/dl Creatinine (0.6-1.2) mg/dl Est Cr Clr Drug Dosing ml/min Est GFR ( Amer) Est GFR (Non-Af Amer) BUN/Creatinine Ratio (10-20) Glucose (70-99) mg/dl POC Glucose 91 (70-99) mg/dl Estimat Average Glucose mg/dl Hemoglobin A1c (4.5-5.6) % Lactate 1.8 (0.4-2.0) mmol/L Calcium (8.5-10.1) mg/dl Phosphorus (2.5-4.9) mg/dl Magnesium (1.8-2.4) mg/dl Total Bilirubin (0.2-1) mg/dl Direct Bilirubin (0-0.2) mg/dl AST (15-37) U/L ALT (12-78) U/L Alkaline Phosphatase (45-117) U/L Ammonia (11-32) umol/L Troponin I (0-0.045) ng/ml NT-Pro-B Natriuret Pep (0-900) pg/ml Total Protein (6.4-8.2) gm/dl Albumin (3.4-5.0) gm/dl Globulin (2.5-4.0) gm/dl Albumin/Globulin Ratio (0.9-2) Lipase (73-393) U/L Procalcitonin (0-0.5) ng/ml Urine Color Urine Appearance (Clear) Urine pH (4.5-7.5) Ur Specific [place] (1.000-1.030) Urine Protein (Negative) Urine Glucose (UA) (Negative) Urine Ketones (Negative) Urine Blood (Negative) Urine Nitrite (Negative) Urine Bilirubin (Negative) Urine Urobilinogen (Negative) Ur Leukocyte Esterase (Negative) Urine WBC (Auto) (0-5) /hpf Urine RBC (Auto) (0-4) /hpf U Hyaline Cast (Auto) (0-5) /lpf U Epithel Cells (Auto) (0-5) /lpf Urine Bacteria (Auto) (Negative) Valproic Acid (50-100) mcg/ml COVID-19 Eval Order SARS-CoV-2 (PCR) (Negative) Influenza Type A (PCR) (Neg) Influenza Type B (PCR) (Neg) RSV (RT-PCR) (Neg) 04/22/20 04/22/20 04/22/20 Range/Units 15:51 14:05 14:05 WBC (4.8-10.8) K/uL RBC (4.2-5.4) M/uL Hgb (12.0-16.0) g/dL Hct (37-47) % MCV (80-100) fL MCH (25-34) pg MCHC (32-36) g/dL RDW Std Deviation (36.4-46.3) fL RDW Coeff of Celio (11.5-14.5) % Plt Count (130-400) K/uL MPV (7.4-10.4) fL Immature Gran % (Auto) % Neut % (Auto) % Lymph % (Auto) % [place] % (Auto) % Eos % (Auto) % Baso % (Auto) % Neut # (Auto) (1.4-6.5) K/uL Lymph # (Auto) (1.2-3.4) K/uL [place] # (Auto) (0.11-0.59) K/uL Eos # (Auto) (0-0.5) K/uL Baso # (Auto) (0-0.2) K/uL Immature Gran # (Auto) (0.00-0.02) K/uL PT (9.0-12.0) Seconds INR (0.9-1.1) APTT (21.0-31.0) Seconds PTT Ratio VBG pH (7.36-7.41) VBG pCO2 (38-50) mmHg VBG pO2 mmHg VBG HCO3 mmol/L VBG O2 Saturation % VBG Base Excess mEq/L Barometric Pressure mm/Hg Sodium (136-145) mmol/L Potassium (3.5-5.1) mmol/L Chloride (98-107) mmol/L Carbon Dioxide (21-32) mmol/L Anion Gap (3-11) BUN (7-18) mg/dl Creatinine (0.6-1.2) mg/dl Est Cr Clr Drug Dosing ml/min Est GFR ( Amer) Est GFR (Non-Af Amer) BUN/Creatinine Ratio (10-20) Glucose (70-99) mg/dl POC Glucose (70-99) mg/dl Estimat Average Glucose mg/dl Hemoglobin A1c (4.5-5.6) % Lactate (0.4-2.0) mmol/L Calcium (8.5-10.1) mg/dl Phosphorus (2.5-4.9) mg/dl Magnesium (1.8-2.4) mg/dl Total Bilirubin (0.2-1) mg/dl Direct Bilirubin (0-0.2) mg/dl AST (15-37) U/L ALT (12-78) U/L Alkaline Phosphatase (45-117) U/L Ammonia 12.0 (11-32) umol/L Troponin I (0-0.045) ng/ml NT-Pro-B Natriuret Pep (0-900) pg/ml Total Protein (6.4-8.2) gm/dl Albumin (3.4-5.0) gm/dl Globulin (2.5-4.0) gm/dl Albumin/Globulin Ratio (0.9-2) Lipase (73-393) U/L Procalcitonin (0-0.5) ng/ml Urine Color Urine Appearance (Clear) Urine pH (4.5-7.5) Ur Specific [place] (1.000-1.030) Urine Protein (Negative) Urine Glucose (UA) (Negative) Urine Ketones (Negative) Urine Blood (Negative) Urine Nitrite (Negative) Urine Bilirubin (Negative) Urine Urobilinogen (Negative) Ur Leukocyte Esterase (Negative) Urine WBC (Auto) (0-5) /hpf Urine RBC (Auto) (0-4) /hpf U Hyaline Cast (Auto) (0-5) /lpf U Epithel Cells (Auto) (0-5) /lpf Urine Bacteria (Auto) (Negative) Valproic Acid (50-100) mcg/ml COVID-19 Eval Order CovFluRsv at [facility] SARS-CoV-2 (PCR) NEGATIVE (Negative) Influenza Type A (PCR) Negative (Neg) Influenza Type B (PCR) Negative (Neg) RSV (RT-PCR) Negative (Neg) 04/22/20 04/22/20 04/22/20 Range/Units 13:46 13:42 13:42 WBC (4.8-10.8) K/uL RBC (4.2-5.4) M/uL Hgb (12.0-16.0) g/dL Hct (37-47) % MCV (80-100) fL MCH (25-34) pg MCHC (32-36) g/dL RDW Std Deviation (36.4-46.3) fL RDW Coeff of Celio (11.5-14.5) % Plt Count (130-400) K/uL MPV (7.4-10.4) fL Immature Gran % (Auto) % Neut % (Auto) % Lymph % (Auto) % [place] % (Auto) % Eos % (Auto) % Baso % (Auto) % Neut # (Auto) (1.4-6.5) K/uL Lymph # (Auto) (1.2-3.4) K/uL [place] # (Auto) (0.11-0.59) K/uL Eos # (Auto) (0-0.5) K/uL Baso # (Auto) (0-0.2) K/uL Immature Gran # (Auto) (0.00-0.02) K/uL PT (9.0-12.0) Seconds INR (0.9-1.1) APTT (21.0-31.0) Seconds PTT Ratio VBG pH (7.36-7.41) VBG pCO2 (38-50) mmHg VBG pO2 mmHg VBG HCO3 mmol/L VBG O2 Saturation % VBG Base Excess mEq/L Barometric Pressure mm/Hg Sodium (136-145) mmol/L Potassium (3.5-5.1) mmol/L Chloride (98-107) mmol/L Carbon Dioxide (21-32) mmol/L Anion Gap (3-11) BUN (7-18) mg/dl Creatinine (0.6-1.2) mg/dl Est Cr Clr Drug Dosing ml/min Est GFR ( Amer) Est GFR (Non-Af Amer) BUN/Creatinine Ratio (10-20) Glucose (70-99) mg/dl POC Glucose (70-99) mg/dl Estimat Average Glucose mg/dl Hemoglobin A1c (4.5-5.6) % Lactate 3.3 H* (0.4-2.0) mmol/L Calcium (8.5-10.1) mg/dl Phosphorus (2.5-4.9) mg/dl Magnesium (1.8-2.4) mg/dl Total Bilirubin (0.2-1) mg/dl Direct Bilirubin (0-0.2) mg/dl AST (15-37) U/L ALT (12-78) U/L Alkaline Phosphatase (45-117) U/L Ammonia (11-32) umol/L Troponin I (0-0.045) ng/ml NT-Pro-B Natriuret Pep (0-900) pg/ml Total Protein (6.4-8.2) gm/dl Albumin (3.4-5.0) gm/dl Globulin (2.5-4.0) gm/dl Albumin/Globulin Ratio (0.9-2) Lipase (73-393) U/L Procalcitonin < 0.05 (0-0.5) ng/ml Urine Color Urine Appearance (Clear) Urine pH (4.5-7.5) Ur Specific [place] (1.000-1.030) Urine Protein (Negative) Urine Glucose (UA) (Negative) Urine Ketones (Negative) Urine Blood (Negative) Urine Nitrite (Negative) Urine Bilirubin (Negative) Urine Urobilinogen (Negative) Ur Leukocyte Esterase (Negative) Urine WBC (Auto) (0-5) /hpf Urine RBC (Auto) (0-4) /hpf U Hyaline Cast (Auto) (0-5) /lpf U Epithel Cells (Auto) (0-5) /lpf Urine Bacteria (Auto) (Negative) Valproic Acid 122 H (50-100) mcg/ml COVID-19 Eval Order SARS-CoV-2 (PCR) (Negative) Influenza Type A (PCR) (Neg) Influenza Type B (PCR) (Neg) RSV (RT-PCR) (Neg) 04/22/20 04/22/20 04/22/20 Range/Units 13:42 13:42 13:42 WBC 9.32 (4.8-10.8) K/uL RBC 4.40 (4.2-5.4) M/uL Hgb 13.9 (12.0-16.0) g/dL Hct 41.6 (37-47) % MCV 94.5 (80-100) fL MCH 31.6 (25-34) pg MCHC 33.4 (32-36) g/dL RDW Std Deviation 46.1 (36.4-46.3) fL RDW Coeff of Celio 13.3 (11.5-14.5) % Plt Count 126 L (130-400) K/uL MPV 11.2 H (7.4-10.4) fL Immature Gran % (Auto) 0.3 % Neut % (Auto) 60.0 % Lymph % (Auto) 30.6 % [place] % (Auto) 7.5 % Eos % (Auto) 1.4 % Baso % (Auto) 0.2 % Neut # (Auto) 5.59 (1.4-6.5) K/uL Lymph # (Auto) 2.85 (1.2-3.4) K/uL [place] # (Auto) 0.70 H (0.11-0.59) K/uL Eos # (Auto) 0.13 (0-0.5) K/uL Baso # (Auto) 0.02 (0-0.2) K/uL Immature Gran # (Auto) 0.03 H (0.00-0.02) K/uL PT 10.8 (9.0-12.0) Seconds INR 1.0 (0.9-1.1) APTT 27.4 (21.0-31.0) Seconds PTT Ratio 1.0 VBG pH (7.36-7.41) VBG pCO2 (38-50) mmHg VBG pO2 mmHg VBG HCO3 mmol/L VBG O2 Saturation % VBG Base Excess mEq/L Barometric Pressure mm/Hg Sodium 138 (136-145) mmol/L Potassium 3.6 (3.5-5.1) mmol/L Chloride 103 (98-107) mmol/L Carbon Dioxide 29 (21-32) mmol/L Anion Gap 6.0 (3-11) BUN 16 (7-18) mg/dl Creatinine 0.89 (0.6-1.2) mg/dl Est Cr Clr Drug Dosing 81.1 ml/min Est GFR ( Amer) 83.4 Est GFR (Non-Af Amer) 71.9 BUN/Creatinine Ratio 17.9 (10-20) Glucose 120 H (70-99) mg/dl POC Glucose (70-99) mg/dl Estimat Average Glucose mg/dl Hemoglobin A1c (4.5-5.6) % Lactate (0.4-2.0) mmol/L Calcium 9.0 (8.5-10.1) mg/dl Phosphorus 2.6 (2.5-4.9) mg/dl Magnesium 2.2 (1.8-2.4) mg/dl Total Bilirubin 0.5 (0.2-1) mg/dl Direct Bilirubin 0.1 (0-0.2) mg/dl AST 18 (15-37) U/L ALT 20 (12-78) U/L Alkaline Phosphatase 77 (45-117) U/L Ammonia (11-32) umol/L Troponin I 0.023 (0-0.045) ng/ml NT-Pro-B Natriuret Pep 358 (0-900) pg/ml Total Protein 7.4 (6.4-8.2) gm/dl Albumin 3.3 L (3.4-5.0) gm/dl Globulin 4.1 H (2.5-4.0) gm/dl Albumin/Globulin Ratio 0.8 L (0.9-2) Lipase 110 (73-393) U/L Procalcitonin (0-0.5) ng/ml Urine Color Urine Appearance (Clear) Urine pH (4.5-7.5) Ur Specific [place] (1.000-1.030) Urine Protein (Negative) Urine Glucose (UA) (Negative) Urine Ketones (Negative) Urine Blood (Negative) Urine Nitrite (Negative) Urine Bilirubin (Negative) Urine Urobilinogen (Negative) Ur Leukocyte Esterase (Negative) Urine WBC (Auto) (0-5) /hpf Urine RBC (Auto) (0-4) /hpf U Hyaline Cast (Auto) (0-5) /lpf U Epithel Cells (Auto) (0-5) /lpf Urine Bacteria (Auto) (Negative) Valproic Acid (50-100) mcg/ml COVID-19 Eval Order SARS-CoV-2 (PCR) (Negative) Influenza Type A (PCR) (Neg) Influenza Type B (PCR) (Neg) RSV (RT-PCR) (Neg) 04/22/20 Range/Units 13:20 WBC (4.8-10.8) K/uL RBC (4.2-5.4) M/uL Hgb (12.0-16.0) g/dL Hct (37-47) % MCV (80-100) fL MCH (25-34) pg MCHC (32-36) g/dL RDW Std Deviation (36.4-46.3) fL RDW Coeff of Celio (11.5-14.5) % Plt Count (130-400) K/uL MPV (7.4-10.4) fL Immature Gran % (Auto) % Neut % (Auto) % Lymph % (Auto) % [place] % (Auto) % Eos % (Auto) % Baso % (Auto) % Neut # (Auto) (1.4-6.5) K/uL Lymph # (Auto) (1.2-3.4) K/uL [place] # (Auto) (0.11-0.59) K/uL Eos # (Auto) (0-0.5) K/uL Baso # (Auto) (0-0.2) K/uL Immature Gran # (Auto) (0.00-0.02) K/uL PT (9.0-12.0) Seconds INR (0.9-1.1) APTT (21.0-31.0) Seconds PTT Ratio VBG pH (7.36-7.41) VBG pCO2 (38-50) mmHg VBG pO2 mmHg VBG HCO3 mmol/L VBG O2 Saturation % VBG Base Excess mEq/L Barometric Pressure mm/Hg Sodium (136-145) mmol/L Potassium (3.5-5.1) mmol/L Chloride (98-107) mmol/L Carbon Dioxide (21-32) mmol/L Anion Gap (3-11) BUN (7-18) mg/dl Creatinine (0.6-1.2) mg/dl Est Cr Clr Drug Dosing ml/min Est GFR ( Amer) Est GFR (Non-Af Amer) BUN/Creatinine Ratio (10-20) Glucose (70-99) mg/dl POC Glucose (70-99) mg/dl Estimat Average Glucose mg/dl Hemoglobin A1c (4.5-5.6) % Lactate (0.4-2.0) mmol/L Calcium (8.5-10.1) mg/dl Phosphorus (2.5-4.9) mg/dl Magnesium (1.8-2.4) mg/dl Total Bilirubin (0.2-1) mg/dl Direct Bilirubin (0-0.2) mg/dl AST (15-37) U/L ALT (12-78) U/L Alkaline Phosphatase (45-117) U/L Ammonia (11-32) umol/L Troponin I (0-0.045) ng/ml NT-Pro-B Natriuret Pep (0-900) pg/ml Total Protein (6.4-8.2) gm/dl Albumin (3.4-5.0) gm/dl Globulin (2.5-4.0) gm/dl Albumin/Globulin Ratio (0.9-2) Lipase (73-393) U/L Procalcitonin (0-0.5) ng/ml Urine Color Yellow Urine Appearance Clear (Clear) Urine pH 5.0 (4.5-7.5) Ur Specific [place] 1.013 (1.000-1.030) Urine Protein Negative (Negative) Urine Glucose (UA) Negative (Negative) Urine Ketones Negative (Negative) Urine Blood Negative (Negative) Urine Nitrite Negative (Negative) Urine Bilirubin Negative (Negative) Urine Urobilinogen Negative (Negative) Ur Leukocyte Esterase 2+ H (Negative) Urine WBC (Auto) 10-30 H (0-5) /hpf Urine RBC (Auto) 0-4 (0-4) /hpf U Hyaline Cast (Auto) 1-5 (0-5) /lpf U Epithel Cells (Auto) >30 H (0-5) /lpf Urine Bacteria (Auto) Negative (Negative) Valproic Acid (50-100) mcg/ml COVID-19 Eval Order SARS-CoV-2 (PCR) (Negative) Influenza Type A (PCR) (Neg) Influenza Type B (PCR) (Neg) RSV (RT-PCR) (Neg) Medications Administered Current Inpatient Medications Acetaminophen (Acetaminophen 325 Mg Tab) 650 mg PO Q4H PRN PRN Reason: Pain or Fever Stop: 05/22/20 18:30 Clonazepam (Clonazepam 1 Mg Tab) 2 mg PO HS MAGDA Stop: 05/22/20 20:59 Last Admin: 04/22/20 21:09 Dose: 2 mg Documented by: Dextrose (Dextrose 50% 50 Ml Syringe) 25 - 50 ml IV UD PRN; Protocol PRN Reason: Hypoglycemia Protocol Stop: 05/22/20 18:30 Fluphenazine HCl (Fluphenazine Hcl 2.5 Mg Tab) 10 mg PO DAILY MAGDA Stop: 05/23/20 08:59 Last Admin: 04/23/20 07:54 Dose: 10 mg Documented by: Glucagon (Glucagon For Inj 1 Mg Vial) 1 mg SQ UD PRN; Protocol PRN Reason: Hypoglycemia Protocol Stop: 05/22/20 18:30 Glucose (Glucose 10 Tabs/Tube) 4 - 8 tabs PO UD PRN; Protocol PRN Reason: Hypoglycemia Protocol Stop: 05/22/20 18:30 Glucose (Glucose 40% Gel 15 Gm Tube) 15 - 30 gm PO UD PRN; Protocol PRN Reason: Hypoglycemia Protocol Stop: 05/22/20 18:30 Sodium Chloride (Nss 1000ml) 1,000 mls @ 100 mls/hr IV .Q10H MAGDA Stop: 05/22/20 18:59 Last Admin: 04/23/20 06:05 Dose: 100 mls/hr Documented by: Insulin Aspart (Insulin Aspart 100 Units/Ml 3 Ml Pen) 0 units SC ACHS MAGDA Stop: 05/22/20 20:59 Last Admin: 04/23/20 07:59 Dose: Not Given Documented by: Mirabegron (Mirabegron Er 25 Mg Tab) 50 mg PO DAILY MAGDA Stop: 05/23/20 08:59 Last Admin: 04/23/20 07:54 Dose: 50 mg Documented by: Miscellaneous (Zonisamide: Order Awaiting Action) 1 ea N/A QS MAGDA Stop: 05/23/20 00:00 Last Admin: 04/23/20 07:53 Dose: Not Given Documented by: Miscellaneous (Carbohydrates For Hypoglycemia ) 15 - 30 gm PO UD PRN PRN Reason: Hypoglycemia Protocol Stop: 05/22/20 18:30 Nitrofurantoin Macrocrystals (Nitrofurantoin Monohydrate 100 Mg Cap) 100 mg PO DAILY MAGDA Stop: 05/23/20 08:59 Last Admin: 04/23/20 07:53 Dose: 100 mg Documented by: Pantoprazole Sodium (Pantoprazole 40 Mg Tab) 40 mg PO BID MAGDA Stop: 05/22/20 20:59 Last Admin: 04/23/20 07:54 Dose: 40 mg Documented by: Potassium Chloride (Potassium Chloride Crtab 20 Meq Tabcr) 40 meq PO NOW STA Stop: 04/23/20 08:23 Propranolol HCl (Propranolol Hcl 10 Mg Tab) 10 mg PO BID MAGDA Stop: 05/22/20 20:59 Last Admin: 04/23/20 07:54 Dose: 10 mg Documented by: Simvastatin (Simvastatin 20 Mg Tab) 20 mg PO PM MAGDA Stop: 05/22/20 20:59 Last Admin: 04/22/20 21:10 Dose: 20 mg Documented by: Tolterodine Tartrate (Tolterodine Tartrate La 4 Mg Capcr) 4 mg PO DAILY MAGDA Stop: 05/23/20 08:59 Last Admin: 04/23/20 07:53 Dose: 4 mg Documented by: (1) Bipolar disorder Active/Remission status: remission status unspecified Qualified Code(s): F31.9 - Bipolar disorder, unspecified (2) DM2 (diabetes mellitus, type 2) Diabetes mellitus fdc insulin use: without fdc use
[2020-04-23] MEDS ORDERED: POTASSIUM CHLORIDE CRTAB 20 MEQ TABCR PO ONE (09:00)
[2020-04-23] MEDS ORDERED: MICONAZOLE NITRATE POWDER 43 GM EXT PRN (10:16)
[2020-04-23] MEDS ORDERED: DIVALPROEX EXTENDED RELEASE 500 MG TAB PO ONE (16:15)
[2020-04-23] MEDS: clonazePAM 1 MG TAB PO SCH (20:12)
[2020-04-23] MEDS: SIMVASTATIN 20 MG TAB PO SCH (20:12)
[2020-04-23] MEDS: DIVALPROEX DELAY RELEASE 500 MG TAB PO SCH (20:12)
--- NOTE | 2020-04-23 23:49 | Electrocardiogram Report ---
Test Reason : Blood Pressure : / mmHG Vent. Rate : 058 BPM Atrial Rate : 058 BPM P-R Int : 140 ms QRS Dur : 082 ms QT Int : 388 ms P-R-T Axes : 060 035 129 degrees QTc Int : 380 ms Sinus bradycardia Abnormal ECG When compared with ECG of 30-SEP-2018 16:25, T wave inversion no longer evident in Inferior leads Nonspecific T wave abnormality has replaced inverted T waves in Lateral leads Confirmed by Barrington Riley ([id number] on 04/23/2020 11:49:10 PM Referred By: REFERRED SELF Confirmed By:Barrington Riley
[2020-04-24 06:00] LABS: Hematocrit (blood only) 36.1 % (37-47); Hemoglobin 11.9 g/dL (12.0-16.0); Mean Corpuscular Hemoglobin 31.4 pg (25-34); Mean Corpuscular Volume 95.3 fL (80-100); RDW Coefficient of Variation 13.6 % (11.5-14.5); RDW Standard Deviation 47.1 fL (36.4-46.3); Red Blood Count 3.79 M/uL (4.2-5.4); White Blood Count 5.49 K/uL (4.8-10.8)
[2020-04-24 06:21] LABS: Mean Platelet Volume 10.6 fL (7.4-10.4); Platelet Count 99 K/uL (130-400)
[2020-04-24 06:32] LABS: BUN Creatinine Ratio 18.3 (10-20); Calcium 8.5 mg/dl (8.5-10.1); Creatinine Clr Calc Pharmacy 107.7 ml/min; Est GFR (African American) 113.1; Est GFR (Non-African American) 97.6; Potassium 4.1 mmol/L (3.5-5.1)
[2020-04-24] MEDS: PROPRANOLOL HCL 10 MG TAB PO SCH (08:17)
[2020-04-24] MEDS: DIVALPROEX DELAY RELEASE 500 MG TAB PO SCH (08:17)
[2020-04-24] MEDS: INSULIN ASPART 100 UNITS/ML 3 ML PEN SC SCH ×2 (08:17→11:58)
[2020-04-24] MEDS: PANTOprazole 40 MG TAB PO SCH (08:17)
[2020-04-24] MEDS: TOLTERODINE TARTRATE LA 4 MG CAPCR PO SCH (08:17)
[2020-04-24] MEDS: NITROFURANTOIN MONOHYDRATE 100 MG CAP PO SCH (08:17)
[2020-04-24] MEDS: MIRABEGRON ER 25 MG TAB PO SCH (08:17)
[2020-04-24] MEDS: SODIUM CHLORIDE 0.9% 1000ML 1,000 ML IV SCH (08:17)
--- NOTE | 2020-04-24 09:21 | Hospitalist Progress Note ---
Date of Service April 24, 2020 Assessment & Plan (1) Dilantin toxicity: -Admitted to [facility] with telemetry -Patient presenting from home (24-hour caregivers with [facility] services) for evaluation of increased generalized weakness and increased confusion. -In the ED, Dilantin level found to be 122 -held Dilantin, gave IVF, follow up Dilantin level- 70 1/20 AM -Dilantin prescribed by Dr. Anna Rodas (psych) - talked to Dr. Rodas ([phone]), who recommends to decrease the dose to 500 mg BID, she plans to recheck valproic acid level in the near future. (2) Thrombocytopenia: -platelets 126K -chronic, at baseline -no signs of bleeding (3) Recurrent UTI: -on chronic Macrobid for suppression -U cultx 20,000 colonies E.coli, WBC not elevated, pt does not seem to have dysuria but has poor skin in groin area d/t incontinence, nursing staff here as well as staff at [facility] aware, recommend good hygiene and keeping skin dry and clean (4) Seizure disorder: -holding Dilantin as above (5) Bipolar disorder: -continue home meds (6) Dependent edema: -hold Lasix and K+ while giving IVF (7) DM2 (diabetes mellitus, type 2): -hgb a1c 6.1 10/2019 -hold oral agents and utilize SSI while hospitalized (8) DVT prophylaxis: -SCDs due to thrombocytopenia Admission and Anticipated Discharge Date Admission Date: April 23, 2020 Subjective Pt seen in follow up of AMS, increased valproic acid. Currently pt is sitting up in chair in NAD. She is slow to answer questions but mostly answers appropriately. No concerns from nursing staff. No fever, chills, chest pain, abd. pain. Per [facility] staff - pt is at her baseline - pt usually is slow to answer and does not usually follow directions. She walks slowly w/ walker and is very methodical about it. She does hunch over a lot. Lastly they are aware of poor skin condition in groin area - and they have been managing that. It can be sometimes difficult as pt is incontinent of urine. I talked to Dr. Rodas's who recommends to decrease valproic acid level to 500 bid and will be re-checking level. Review of Systems Review of Systems: All systems reviewed & are unremarkable except as noted in HPI & below Constitutional: no fever and no chills Respiratory: no cough and no dyspnea Cardiovascular: no chest pain Genitourinary: groin skin discomfort Physical Exam Physical Exam: Constitutional: WD/WN, vitals as above Eyes: PERRL, conjunctivae normal, anicteric sclerae ENMT: external ear and nose normal, oropharynx normal Respiratory: normal respiratory effort, lungs clear to auscultation Cardiovascular: Rate/Rhythm: RRR Vessels: normal peripheral pulses Extremities: + edema (+1 BLE) Gastrointestinal (Abdomen): normal bowel sounds, soft, nontender Musculoskeletal: no cyanosis or clubbing, extremities motor strength 5/5 Skin: no rashes, warm and dry Neurologic: PERRL, EOMI, no face palsy, no dysarthria, speech slow, does not always follow commands (which is baseline) Psychiatric: Orientation: alert, oriented x3 Affect: + flat affect Insight: + poor insight Slow to respond at times Genitourinary: pt incontinent (at baseline), groin skin in poor shape but no lacerations/open wounds Results & Data Results & Data ([facility]) Vital Signs (Past 12 Hours) Vital Signs Temp Pulse Pulse Resp BP Pulse Ox 04/24/20 07:36 63 04/24/20 07:29 36.7 C 56 L 20 138/70 96 04/24/20 04:00 36.6 C 68 20 116/54 L 96 04/24/20 01:21 49 L 04/23/20 23:22 36.4 C L 53 L 20 118/71 96 Laboratory Results 04/24/20 04/24/20 04/24/20 Range/Units 07:36 05:21 05:21 WBC 5.49 (4.8-10.8) K/uL RBC 3.79 L (4.2-5.4) M/uL Hgb 11.9 L (12.0-16.0) g/dL Hct 36.1 L (37-47) % MCV 95.3 (80-100) fL MCH 31.4 (25-34) pg MCHC 33.0 (32-36) g/dL RDW Std Deviation 47.1 H (36.4-46.3) fL RDW Coeff of Celio 13.6 (11.5-14.5) % Plt Count 99 L (130-400) K/uL MPV 10.6 H (7.4-10.4) fL Sodium 145 (136-145) mmol/L Potassium 4.1 D (3.5-5.1) mmol/L Chloride 114 H (98-107) mmol/L Carbon Dioxide 28 (21-32) mmol/L Anion Gap 3.0 (3-11) BUN 12 (7-18) mg/dl Creatinine 0.67 (0.6-1.2) mg/dl Est Cr Clr Drug Dosing 107.7 ml/min Est GFR ( Amer) 113.1 Est GFR (Non-Af Amer) 97.6 BUN/Creatinine Ratio 18.3 (10-20) Glucose 121 H (70-99) mg/dl POC Glucose 136 H (70-99) mg/dl Calcium 8.5 (8.5-10.1) mg/dl 04/23/20 04/23/20 04/23/20 Range/Units 20:13 16:34 11:47 WBC (4.8-10.8) K/uL RBC (4.2-5.4) M/uL Hgb (12.0-16.0) g/dL Hct (37-47) % MCV (80-100) fL MCH (25-34) pg MCHC (32-36) g/dL RDW Std Deviation (36.4-46.3) fL RDW Coeff of Celio (11.5-14.5) % Plt Count (130-400) K/uL MPV (7.4-10.4) fL Sodium (136-145) mmol/L Potassium (3.5-5.1) mmol/L Chloride (98-107) mmol/L Carbon Dioxide (21-32) mmol/L Anion Gap (3-11) BUN (7-18) mg/dl Creatinine (0.6-1.2) mg/dl Est Cr Clr Drug Dosing ml/min Est GFR ( Amer) Est GFR (Non-Af Amer) BUN/Creatinine Ratio (10-20) Glucose (70-99) mg/dl POC Glucose 124 H 112 H 117 H (70-99) mg/dl Calcium (8.5-10.1) mg/dl Medications Administered Current Inpatient Medications Acetaminophen (Acetaminophen 325 Mg Tab) 650 mg PO Q4H PRN PRN Reason: Pain or Fever Stop: 05/22/20 18:30 Clonazepam (Clonazepam 1 Mg Tab) 2 mg PO HS [facility] Stop: 05/22/20 20:59 Last Admin: 04/23/20 20:12 Dose: 2 mg Documented by: Dextrose (Dextrose 50% 50 Ml Syringe) 25 - 50 ml IV UD PRN; Protocol PRN Reason: Hypoglycemia Protocol Stop: 05/22/20 18:30 Divalproex Sodium (Divalproex Delay Release 500 Mg Tab) 500 mg PO BID MAGDA Stop: 05/23/20 20:59 Last Admin: 04/24/20 08:17 Dose: 500 mg Documented by: Fluphenazine HCl (Fluphenazine Hcl 2.5 Mg Tab) 10 mg PO DAILY MAGDA Stop: 05/23/20 08:59 Last Admin: 04/24/20 08:17 Dose: 10 mg Documented by: Glucagon (Glucagon For Inj 1 Mg Vial) 1 mg SQ UD PRN; Protocol PRN Reason: Hypoglycemia Protocol Stop: 05/22/20 18:30 Glucose (Glucose 10 Tabs/Tube) 4 - 8 tabs PO UD PRN; Protocol PRN Reason: Hypoglycemia Protocol Stop: 05/22/20 18:30 Glucose (Glucose 40% Gel 15 Gm Tube) 15 - 30 gm PO UD PRN; Protocol PRN Reason: Hypoglycemia Protocol Stop: 05/22/20 18:30 Sodium Chloride (Nss 1000ml) 1,000 mls @ 100 mls/hr IV .Q10H MAGDA Stop: 05/22/20 18:59 Last Admin: 04/24/20 08:17 Dose: 100 mls/hr Documented by: Insulin Aspart (Insulin Aspart 100 Units/Ml 3 Ml Pen) 0 units SC ACHS MAGDA Stop: 05/22/20 20:59 Last Admin: 04/24/20 08:17 Dose: 1 units Documented by: Miconazole Nitrate (Miconazole Nitrate Powder 43 Gm) 1 appln EXT PRN PRN PRN Reason: Affected Skin Folds Stop: 05/23/20 10:15 Mirabegron (Mirabegron Er 25 Mg Tab) 50 mg PO DAILY [facility] Stop: 05/23/20 08:59 Last Admin: 04/24/20 08:17 Dose: 50 mg Documented by: Miscellaneous (Zonisamide: Order Awaiting Action) 1 ea N/A QS MAGDA Stop: 05/23/20 00:00 Last Admin: 04/24/20 07:22 Dose: Not Given Documented by: Miscellaneous (Carbohydrates For Hypoglycemia ) 15 - 30 gm PO UD PRN PRN Reason: Hypoglycemia Protocol Stop: 05/22/20 18:30 Nitrofurantoin Macrocrystals (Nitrofurantoin Monohydrate 100 Mg Cap) 100 mg PO DAILY MAGDA Stop: 05/23/20 08:59 Last Admin: 04/24/20 08:17 Dose: 100 mg Documented by: Pantoprazole Sodium (Pantoprazole 40 Mg Tab) 40 mg PO BID MAGDA Stop: 05/22/20 20:59 Last Admin: 04/24/20 08:17 Dose: 40 mg Documented by: Propranolol HCl (Propranolol Hcl 10 Mg Tab) 10 mg PO BID MAGDA Stop: 05/22/20 20:59 Last Admin: 04/24/20 08:17 Dose: 10 mg Documented by: Simvastatin (Simvastatin 20 Mg Tab) 20 mg PO PM MAGDA Stop: 05/22/20 20:59 Last Admin: 04/23/20 20:12 Dose: 20 mg Documented by: Tolterodine Tartrate (Tolterodine Tartrate La 4 Mg Capcr) 4 mg PO DAILY MAGDA Stop: 05/23/20 08:59 Last Admin: 04/24/20 08:17 Dose: 4 mg Documented by: (1) Bipolar disorder Active/Remission status: remission status unspecified Qualified Code(s): F31.9 - Bipolar disorder, unspecified (2) DM2 (diabetes mellitus, type 2) Diabetes mellitus group home insulin use: without terminal block assembler use
--- NOTE | 2020-04-24 10:04 | Discharge Summary ---
Date of Service April 24, 2020 Admission HPI Per Admitting Provider 59-year-old female with PMH schizoaffective disorder, bipolar disorder, seizure disorder, DM type II, recurrent UTI on chronic Macrobid therapy, and other problems listed below who presents the ED for evaluation of increased weakness and altered mental status. History is obtained from Yumiko, care mgr for [facility]. Patient currently resides in apartment with 24- hour care arranged with [facility]. Remedios reports that this afternoon, patient became very weak and was heavily relying on caregivers to stand. Patient normally ambulates with a walker. She also seem to be mildly more c onfused than usual. Patient was then sent to the ED for further evaluation. Otherwise, patient has been doing well recently. No recent medication changes. No other symptoms reported. At the time of my exam, patient is without complaint. In the ED, valproic acid level is found to be high at 122. Initial lactate 3.3 , repeat after IVF 1.8. Other labs unremarkable/at patient's baseline. Patient is hemodynamically stable. Patient received IVF. Admission Exam Per Admitting Provider Constitutional: WD/WN, vitals as above Eyes: PERRL, conjunctivae normal, anicteric sclerae ENMT: external ear and nose normal, oropharynx normal Respiratory: normal respiratory effort, lungs clear to auscultation Cardiovascular: Rate/Rhythm: regular rhythm and + bradycardic Vessels: normal peripheral pulses Extremities: + edema (+2 BLE) Gastrointestinal (Abdomen): normal bowel sounds, soft, nontender, no hepatosplenomegaly Musculoskeletal: no cyanosis or clubbing, extremities motor strength 5/5 Skin: no rashes, warm and dry Neurologic: PERRL, EOMI, accommodation nl, no face palsy, no dysarthria Psychiatric: Orientation: alert, oriented to person and oriented to place; + not oriented to time Affect: + flat affect Insight: + poor insight Slow to respond at times Genitourinary: Pure wick catheter in place Principal Diagnosis Metabolic/ Toxic encephalopathy Valproic acid toxicity Discharge Exam Constitutional: WD/WN, vitals as above Eyes: PERRL, conjunctivae normal, anicteric sclerae ENMT: external ear and nose normal, oropharynx normal Respiratory: normal respiratory effort, lungs clear to auscultation Cardiovascular: Rate/Rhythm: RRR Vessels: normal peripheral pulses Extremities: + edema (+1 BLE) Gastrointestinal (Abdomen): normal bowel sounds, soft, nontender Musculoskeletal: no cyanosis or clubbing, extremities motor strength 5/5 Skin: no rashes, warm and dry Neurologic: PERRL, EOMI, no face palsy, no dysarthria, speech slow, does not always follow commands (which is baseline) Psychiatric: Orientation: alert, oriented x3 Affect: + flat affect Insight: + poor insight Slow to respond at times Genitourinary: pt incontinent (at baseline), groin skin in poor shape but no lacerations/open wounds Discharge Data Allergies Allergy/AdvReac Type Severity Reaction Status Date / Time cefdinir Allergy Rash Verified 04/22/20 14:48 Consultations 04/22/20 15:48 ED Decision to Admit Stat 04/22/20 18:31 Consult Case Management - Discharge Planning Routine Ordered Studies 04/22/20 13:21 CT head/brain wo con Stat IMPRESSION: No acute intracranial findings Hospital Course (1) Dilantin toxicity: Metabolic/ Toxic encephalopathy Admitted to [facility] with telemetry -Patient presenting from home (24-hour caregivers with [facility] services) for evaluation of increased generalized weakness and increased confusion. -In the ED, Dilantin level found to be 122 -held Dilantin, gave IVF, follow up Dilantin level- 70 1/20 AM -Dilantin prescribed by Dr. Anna Rodas (psych) - talked to Dr. Rodas ([phone]), who recommends to decrease the dose to 500 mg BID, she plans to recheck valproic acid level in the near future. -staff from [facility] contacted and also talked to the pt - report pt's mental status is back to baseline (2) Thrombocytopenia: -platelets 126K -chronic, at baseline -no signs of bleeding (3) Recurrent UTI: -on chronic Macrobid for suppression -Update: U cultx 20,000 colonies Klebsiella pneumonia - resistant to nitrofurantoin otherwise sensitive (to levofloxacin, ciprofloxacin,..) - WBC not elevated, pt does not seem to have dysuria but has poor skin in groin area d/t incontinence, nursing staff here as well as staff at [facility] aware, recommend good hygiene and keeping skin dry and clean - mental status seems to be back to baseline - if concern for UTI at [facility], would re-check UA and Ucltx or treat empirically with levofloxacin or ciprofloxacin (4) Seizure disorder: -holding Dilantin on admission, now on 500 BID (5) Bipolar disorder: -continue home meds (6) Dependent edema: -hold Lasix and K+ while giving IVF - recommend compression stockings (7) DM2 (diabetes mellitus, type 2): -hgb a1c 6.1 10/2019 -hold oral agents and utilize SSI while hospitalized (8) DVT prophylaxis: -SCDs due to thrombocytopenia Total Time Total Time Spent Total Time Spent (In Minutes): 35 Total Time Includes: Examination of the Patient, Discharge Planning, Medication Reconciliation and Communication With Other Providers Discharge Plan Discharge Items Patient Disposition: Personal Fdc Reason For Visit: AMS, DILATIN TOXICITY Discharge Diagnosis: Metabolic/ Toxic encephalopathy Valproic acid toxicity Activity: Per Instructions section Non-emergency contact: Primary Care Provider and Psychiatrist Call non-emergency contact if: you have any medication questions and your symptoms worsen Follow-up/Referrals: [facility] [Primary Care Provider] - Diet: Carb Consistent or DM2 Diet Texture: Easy to Chew Addtl Attending Provider Instructions: Follow up with your primary care doctor and Dr. Rodas. Your valproic acid level was decreased to 500 mg twice a day. You will need to have valproic acid level re-checked soon. Dr. Rodas will arrange that. It is important to keep your skin (in your groin area) clean and dry, good skin care is crucial. Pending Studies at Discharge: No Stand-Alone Forms: My [facility] [place], Smoking Cessation Skilled Items Patient informed of condition?: Yes DNR: No Discharge Level of Care: Other Communicable Disease: No Discharge Prognosis: Stable Lines: None Urinary Catheter: No Medications and DC Order Prescriptions: Continued Myrbetriq 50 mg tablet extended release 24 hr 50 mg PO DAILY Qty: 90 RF: 3 tolterodine 4 mg capsule,extended release 24hr 4 mg PO DAILY Qty: 90 RF: 3 fluphenazine decanoate 25 mg/mL Solution 25 mg IM MONTHLY RF: 0 ibuprofen 600 mg Tablet 600 mg PO BID PRN (Reason: Pain) RF: 0 loperamide 2 mg Tablet 2 mg PO .DAILY UD PRN (Reason: Diarrhea) RF: 0 potassium chloride 10 mEq Capsule, Extended Release 10 meq PO DAILY RF: 0 Probiotic 3 billion cell Capsule 3,000 mmu cells PO TIDM RF: 0 naproxen sodium 220 mg Tablet 440 mg PO BID PRN (Reason: Pain) RF: 0 nitrofurantoin monohyd/m-cryst 100 mg capsule 100 mg PO DAILY RF: 0 cranberry extract 200 mg Capsule 400 mg PO DAILY RF: 0 Artificial Tears (cmc) 1 % Drops 1 drp OPHTHALMIC (EYE) TID RF: 0 metformin 500 mg Tablet 500 mg PO QAM RF: 0 acetaminophen 325 mg Tablet 650 mg PO Q4H PRN (Reason: Fever Or Pain) RF: 0 fluphenazine HCl 10 mg Tablet 10 mg PO DAILY RF: 0 clonazepam 2 mg Tablet 2 mg PO HS RF: 0 fluticasone propionate 50 mcg/actuation [place],Suspension 2 spray INTRANASAL DAILY RF: 0 Calmoseptine 0.44-20.6 % Ointment 1 applic TOPICAL DAILY PRN (Reason: Itching) RF: 0 dextromethorphan-guaifenesin [Siltussin-DM] 10-100 mg/5 mL Syrup 5 ml PO Q4H PRN (Reason: Cough) RF: 0 zonisamide 100 mg Capsule 200 mg PO DAILY RF: 0 propranolol 10 mg Tablet 10 mg PO BID RF: 0 simvastatin 20 mg Tablet 20 mg PO PM RF: 0 omeprazole 20 mg Capsule,Delayed Release(Dr/Ec) 20 mg PO BID RF: 0 nystatin 100,000 unit/gram Powder 1 applic TOPICAL UD PRN (Reason: .MONILIA INFECTION) RF: 0 insulin aspart U-100 [Novolog Flexpen U-100 Insulin] 100 unit/mL Insulin Pen 0 unit SUBCUT .SLIDING SCALE RF: 0 divalproex 500 mg Tablet,Delayed Release (Dr/Ec) 500 mg PO QAM RF: 0 calcium carbonate [Tums] 200 mg calcium (500 mg) Tablet,Chewable 200 mg PO TID PRN (Reason: Heartburn) RF: 0 clotrimazole 1 % Cream 1 applic TOPICAL BID RF: 0 Changed divalproex 500 mg Tablet,Delayed Release (Dr/Ec) 500 mg PO HS Qty: 0 RF: 0 furosemide 40 mg tablet 20 mg PO DAILY Qty: 0 RF: 0 Discharge Orders: Discharge Order (Routine); Ordered 04/24/20 Ordered By: Albert Rodríguez/Other Patient Handouts: Managing Type 2 Diabetes Admission Data Admit Date/Time: 04/23/20 16:00 Attending Provider: Albert Meyer Admit Provider: Madiha Maldonado Primary Care Provider: Robi Ruffin,[facility], [facility] Other Providers: Madiha Maldonado
== END 2020-04-24 12:44 | disposition home or self-care (01) | DRG 93 ==
LOC: ED 13:06 → 2N 13:06 → SUATTDRO 16:11 → 2N 17:43

== ENCOUNTER 2020-09-06 11:00 | Inpatient (IN) ==
--- NOTE | 2020-09-06 13:03 | CT Scan Report ---
HEAD CT NONCONTRAST CT DOSE: 930.61 mGy.cm HISTORY: Altered mental status. TECHNIQUE: Multiaxial CT images of the head were performed without the use of intravenous contrast. A utomated exposure control was utilized for this study. A dose lowering technique was utilized adheri ng to the principles of ALARA. Comparison: None. Findings: The paranasal sinuses and mastoid air cells are clear. Significant motion artifact resultin g in suboptimal evaluation. No definite mass, hematoma, midline shift, acute infarct. The ventricles and sulci are within normal limits. Prominent perivascular space inferior to the right basal ganglia, unchanged. Impression: Motion artifact. No definite acute intracranial abnormality. ACT 112: Negative or not required by law. Electronically signed by: Chet Hernandez M.D. 09/06/2020 1:02 PM
[2020-09-06 13:12] LABS: Basophils # (auto) 0.01 K/uL (0-0.2); Basophils % (auto) 0.1 %; Hematocrit (blood only) 43.4 % (37-47); Hemoglobin 14.7 g/dL (12.0-16.0); Immature Granulocytes # (auto) 0.03 K/uL (0.00-0.02); Immature Granulocytes % (auto) 0.2 %; Lymphocytes # (auto) 3.23 K/uL (1.2-3.4); Lymphocytes % (auto) 23.8 %; Mean Corpuscular Hemoglobin 30.2 pg (25-34); Mean Corpuscular Hgb Conc 33.9 g/dL (32-36); Mean Corpuscular Volume 89.1 fL (80-100); Mean Platelet Volume 11.4 fL (7.4-10.4); Monocytes # (auto) 1.66 K/uL (0.11-0.59); Monocytes % (auto) 12.2 %; Neutrophils # (auto) 8.64 K/uL (1.4-6.5); Neutrophils % (auto) 63.7 %; Platelet Count 162 K/uL (130-400); RDW Coefficient of Variation 13.5 % (11.5-14.5); Red Blood Count 4.87 M/uL (4.2-5.4); Toxic Vacuolation 1+; White Blood Count 13.57 K/uL (4.8-10.8)
[2020-09-06 13:18] LABS: Alanine Aminotransferase 7 U/L (12-78); Albumin Level 3.7 gm/dl (3.4-5.0); Aspartate Aminotransferase 27 U/L (15-37); BUN Creatinine Ratio 11.5 (10-20); Blood Urea Nitrogen 11 mg/dl (7-18); Calcium 9.3 mg/dl (8.5-10.1); Carbon Dioxide 26 mmol/L (21-32); Chloride 99 mmol/L (98-107); Est GFR (African American) 74.2 ml/min; Glucose 112 mg/dl (70-99); Potassium 3.6 mmol/L (3.5-5.1); Sodium 134 mmol/L (136-145)
[2020-09-06 13:21] LABS: Albumin Globulin Ratio 0.8 (0.9-2); Alkaline Phosphatase 104 U/L (45-117); Globulin 4.9 gm/dl (2.5-4.0); Total Protein 8.6 gm/dl (6.4-8.2)
[2020-09-06 13:27] LABS: Appearance Urine Cloudy (Clear); Bacteria Urine Automated 2+ (Negative); Bilirubin Urine Negative (Negative); Blood Urine 1+ (Negative); Color Urine Yellow; Epithelial Cell Urine Auto 0-5 /lpf (0-5); Glucose Urine UA Negative (Negative); Ketones Urine Trace (Negative); Leukocyte Esterase Urine 2+ (Negative); Nitrite Urine Negative (Negative); Protein Urine Negative (Negative); RBC Urine Automated 0-4 /hpf (0-4); Specific Gravity Urine 1.009 (1.000-1.030); Urobilinogen Urine Negative (Negative); WBC Urine Automated >30 /hpf (0-5); pH Urine 5.5 (4.5-7.5)
[2020-09-06] MEDS ORDERED: PIPERACILLIN/TAZOBACTAM 4.5 GM/120 ML BAG IV ONE (16:22)
[2020-09-06] MEDS ORDERED: PIPERACILL/TAZOBAC CONSULT ACTIVE PRN (16:22)
[2020-09-06] MEDS ORDERED: SODIUM CHLORIDE 0.9% 1000ML 1,000 ML IV STA (16:23)
[2020-09-06] MEDS ORDERED: SODIUM CHLORIDE 0.9% 1000ML 500 ML IV ONE (16:24)
--- NOTE | 2020-09-06 20:15 | History & Physical Report ---
Date of Service September 06, 2020 Assessment & Plan (1) Encephalopathy: (2) Fall: (3) Recurrent UTI: Patient is a 59 yo female who presented to the ED with history of confusion x 1 day. Her caregiver also noted that she fell yesterday but did not sustain any injuries. She has history of recurrent UTI with multiple organisms including Klebsiella, Enterobacter (resistant), and Pseudomonas. Admit to Med/Surg Tele Encephalopathy and fall possibly secondary to UTI. Urine and blood cultures pending. WBC count was slightly elevated- will repeat in AM. Renal function stable- will repeat in AM as well. With medication history, will also check Ammonia and Valproic acid levels. Check Magnesium Appetite has been poor, but she ate well at dinner. Continue carb consistent diet. Continue IV fluids Continue Zosyn pending urine and blood cultures. Fall precautions. PT/OT (4) DM2 (diabetes mellitus, type 2): Hold Metformin. Start insulin while inpatient. Last A1C was 6.1 in 05/2020. Recheck in AM (5) Mild intellectual disability: (6) Bipolar disorder: (7) Parkinsonism: (8) Seizure disorder: Complicated home medication regimen. Will continue home medications pending above levels. 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 She lives at [facility] and has 24/7 caregivers. One of her caregivers, Peggy is with her during my exam and provides the history. The patient was fine up until yesterday when she started to get slightly wobbly. She fell yesterday but did not sustain any injuries. She had CT head upon arrival which was negative for intracranial abnormalities. Since this morning, the patient was slightly confused with decreased appetite, dizziness, and overall was not herself. Since presentation to the ED, she was noted to have mildly elevated WBC count with left shift and dirty UA. Otherwise, renal function and other labs were unrevealing. The patient does have history of recurrent UTI with different bacteria including Klebsiella, Enterobacter, and Pseudomonas. She does have history of Pseudomonas bacteremia as well. She is on chronic suppressive therapy with Macrobid daily for UTI hx. COVID negative. Vitals stable. Allergies Allergy/AdvReac Type Severity Reaction Status Date / Time cefdinir Allergy Rash Verified 09/06/20 13:39 Home Medications Medication Instructions Recorded Confirmed Type Calmoseptine 1 applic TOPICAL DAILY PRN 06/02/18 09/06/20 History acetaminophen 650 mg PO Q4H PRN 06/02/18 09/06/20 History dextromethorphan-guaifenesin 5 ml PO Q4H PRN 06/02/18 09/06/20 History [Siltussin-DM] insulin aspart U-100 [Novolog 0 unit SUBCUT .SLIDING SCALE 06/02/18 09/06/20 History Flexpen U-100 Insulin] metformin 500 mg PO QAM 06/02/18 09/06/20 History nystatin 1 applic TOPICAL UD PRN 06/02/18 09/06/20 History omeprazole 20 mg PO BID 06/02/18 09/06/20 History simvastatin 20 mg PO PM 06/02/18 09/06/20 History zonisamide 200 mg PO DAILY 06/02/18 09/06/20 History Probiotic 3,000 mmu cells PO TIDM 08/08/18 09/06/20 History fluphenazine decanoate 25 mg IM MONTHLY 08/08/18 09/06/20 History ibuprofen 600 mg PO BID PRN 08/08/18 09/06/20 History loperamide 2 mg PO DIRECTED PRN 08/08/18 09/06/20 History potassium chloride 10 meq PO QAM 08/08/18 09/06/20 History calcium carbonate [Tums] 200 mg PO TID PRN 09/30/18 09/06/20 History clotrimazole 1 applic TOPICAL BID 09/30/18 09/06/20 History Artificial Tears (cmc) 1 drp OPHTHALMIC (EYE) TID 04/22/20 09/06/20 History cranberry extract 400 mg PO QDL 04/22/20 09/06/20 History naproxen sodium 440 mg PO BID PRN 04/22/20 09/06/20 History nitrofurantoin monohyd/m-cryst 100 mg PO QAM 04/22/20 09/06/20 History divalproex 500 mg PO HS #0 tab 04/24/20 09/06/20 Rx albuterol sulfate 90 mcg/actuation 2 puff INHALATION Q6H PRN 05/02/20 09/06/20 History aerosol inhaler ciprofloxacin HCl 0.3 % eye drops 1 - 2 drp OPHTHALMIC (EYE) 05/02/20 09/06/20 History DIRECTED Myrbetriq 50 mg PO QAM 09/06/20 09/06/20 History azelastine 1 spray INTRANASAL BID 09/06/20 09/06/20 History carbidopa-levodopa 1 tab PO TID 09/06/20 09/06/20 History cholecalciferol (vitamin D3) 8,000 unit PO QDL 09/06/20 09/06/20 History [Vitamin D3] clonazepam 1.5 mg PO HS 09/06/20 09/06/20 History divalproex [Depakote] 250 mg PO QAM 09/06/20 09/06/20 History fluphenazine HCl 5 mg PO HS 09/06/20 09/06/20 History furosemide 20 mg PO QAM 09/06/20 09/06/20 History tolterodine 4 mg PO QAM 09/06/20 09/06/20 History Past Med/Surg History Medical History (Updated 09/06/20 @ 20:13 by Alice Gonsales PA-C) Bacteremia due to Pseudomonas Bipolar disorder Dilantin toxicity DM2 (diabetes mellitus, type 2) GERD (gastroesophageal reflux disease) HLD (hyperlipidemia) Mild intellectual disability Morbid obesity Osteoarthritis Overactive bladder Recurrent UTI Schizophrenia Seizure disorder Sensorineural hearing loss (SNHL) of both ears Tobacco abuse Valproic acid toxicity Surgical History H/O tubal ligation H/O wrist surgery Right History of total left hip replacement Hx of cholecystectomy Family History Father Myocardial infarction Mother No problems noted. Social History Smoking Status: Never smoker Cigarettes Per Day: 10; Second Hand Exposure: No; Do You Dip or Chew Tobacco: No; Tobacco Cessation Education Requested by Patient: No Hx Alcohol Use: No Hx Substance Use: No Preferred Language: Moroccan Communication Ability: Effective It Security Architect Required: No Beliefs That Will Affect Care: None marital status: Single Current Living Situation: Personal Care Facility Current Living Situation Comment: [facility] current occupational status: unemployed and disabled Other Information That Helps Us Care for You: No Feels Safe at Home: Yes Safety Concerns: Feels Safe At This Time Assistive Devices: None Review of Systems Review of Systems: All systems reviewed & are unremarkable except as noted in HPI & below (Reviewed with patient and caregiver) Physical Exam Constitutional: well nourished and + behavioral limitations (mild intellectual disability); no acute distress and not ill appearing Eyes: PERRL, conjunctivae normal, anicteric sclerae ENMT: external ear and nose normal, oropharynx normal Neck: trachea midline, no thyromegaly Respiratory: normal respiratory effort, lungs clear to auscultation Cardiovascular: Rate/Rhythm: regular rate and regular rhythm Heart Sounds: + murmur Extremities: no edema Gastrointestinal (Abdomen): normal bowel sounds, soft, nontender, no hepatosplenomegaly Musculoskeletal: Head/Neck/Chest: normocephalic and head atraumatic Skin: no rashes, warm and dry Results & Data Results & Data ([facility]) Vital Signs (Past 12 Hours) Vital Signs Temp Pulse Pulse Resp BP BP Pulse Ox 09/06/20 17:45 90 20 116/94 97 09/06/20 15:24 94 H 20 159/130 H 99 09/06/20 13:30 76 18 136/93 98 09/06/20 11:15 36.7 C 94 H 16 111/72 99 Laboratory Results Laboratory Results - last 24 hr 09/06/20 09/06/20 09/06/20 11:45 11:45 13:05 WBC 13.57 H RBC 4.87 Hgb 14.7 Hct 43.4 MCV 89.1 MCH 30.2 MCHC 33.9 RDW Std Deviation 44.0 RDW Coeff of Celio 13.5 Plt Count 162 MPV 11.4 H Immature Gran % (Auto) 0.2 Neut % (Auto) 63.7 Lymph % (Auto) 23.8 [place] % (Auto) 12.2 Eos % (Auto) 0.0 Baso % (Auto) 0.1 Neut # (Auto) 8.64 H Lymph # (Auto) 3.23 [place] # (Auto) 1.66 H Eos # (Auto) 0.00 Baso # (Auto) 0.01 Immature Gran # (Auto) 0.03 H Toxic Vacuolation 1+ Sodium 134 L Potassium 3.6 Chloride 99 Carbon Dioxide 26 Anion Gap 9.0 BUN 11 Creatinine 0.98 Est Cr Clr Drug Dosing Not Reportable Est GFR ( Amer) 74.2 Est GFR (Non-Af Amer) 64.0 BUN/Creatinine Ratio 11.5 Glucose 112 H Lactate Calcium 9.3 Magnesium Pending Total Bilirubin 1.0 AST 27 ALT 7 L Alkaline Phosphatase 104 Total Protein 8.6 H Albumin 3.7 Globulin 4.9 H Albumin/Globulin Ratio 0.8 L TSH 1.850 Urine Color Yellow Urine Appearance Cloudy A Urine pH 5.5 Ur Specific [place] 1.009 Urine Protein Negative Urine Glucose (UA) Negative Urine Ketones Trace H Urine Blood 1+ H Urine Nitrite Negative Urine Bilirubin Negative Urine Urobilinogen Negative Ur Leukocyte Esterase 2+ H Urine WBC (Auto) >30 H Urine RBC (Auto) 0-4 U Hyaline Cast (Auto) 1-5 U Epithel Cells (Auto) 0-5 Urine Bacteria (Auto) 2+ H COVID-19 Eval Order SARS-CoV-2 (PCR) 09/06/20 09/06/20 09/06/20 13:30 13:30 17:26 WBC RBC Hgb Hct MCV MCH MCHC RDW Std Deviation RDW Coeff of Celio Plt Count MPV Immature Gran % (Auto) Neut % (Auto) Lymph % (Auto) [place] % (Auto) Eos % (Auto) Baso % (Auto) Neut # (Auto) Lymph # (Auto) [place] # (Auto) Eos # (Auto) Baso # (Auto) Immature Gran # (Auto) Toxic Vacuolation Sodium Potassium Chloride Carbon Dioxide Anion Gap BUN Creatinine Est Cr Clr Drug Dosing Est GFR ( Amer) Est GFR (Non-Af Amer) BUN/Creatinine Ratio Glucose Lactate 1.5 Calcium Magnesium Total Bilirubin AST ALT Alkaline Phosphatase Total Protein Albumin Globulin Albumin/Globulin Ratio TSH Urine Color Urine Appearance Urine pH Ur Specific [place] Urine Protein Urine Glucose (UA) Urine Ketones Urine Blood Urine Nitrite Urine Bilirubin Urine Urobilinogen Ur Leukocyte Esterase Urine WBC (Auto) Urine RBC (Auto) U Hyaline Cast (Auto) U Epithel Cells (Auto) Urine Bacteria (Auto) COVID-19 Eval Order Covid19 at [facility] SARS-CoV-2 (PCR) NEGATIVE Diagnostic Findings CT Head: Impression: Motion artifact. No definite acute intracranial abnormality. Code Status & VTE Plan VTE Prophylaxis Plan VTE Prophylaxis will be ordered: Yes Supervising Physician Co-Signing Physician Notes IM ATTENDING : Patient seen and examined. History obtained from patient and records. Preceding documentation by Ms. Nicole Gonsales PA-C reviewed. FINAL ASSESSMENT AND PLAN as follows : Encephalopathy Multifactorial : Complicated UTI, history recurrent UTI on chronic suppression therapy, no overt sepsis for now Mild dehydration with note of ketonuria Home neuropsychotropic meds possibly contributory Rule out hyperammonemia given valproic acid intake DM2, insulin requiring, well-controlled as of recent hemoglobin A1c of 6.05 May 2020 Seizure disorder, stable on regimen History of parkinsonism on Sinemet Mood disorder/schizoaffective disorder/mild intellectual disability Chronic thrombocytopenia past tobacco abuse Medical telemetry CS, Zosyn IVF, hold home diuretic for now until patient euvolemic Check valproic acid and serum ammonia levels Hold parameters for sedation confusion for home benzo Basal insulin, ISS BG goal 1 10-1 40, carb count coverage, update hemoglobin A1c DVT prophylaxis. SCDs Re: Chronic thrombocytopenia Full code as per prior directives as per caregiver. Text document was generated using [employer] voice recognition software. It may contain grammatical or spelling errors. Kindly contact undersigned for clarification of any documentation item in question. (1) DM2 (diabetes mellitus, type 2) Diabetes mellitus salvage determiner insulin use: without usp use (2) Bipolar disorder Active/Remission status: remission status unspecified Qualified Code(s): F31.9 - Bipolar disorder, unspecified
[2020-09-06 20:27] LABS: Magnesium 2.1 mg/dl (1.8-2.4)
[2020-09-06] MEDS ORDERED: GLUCOSE 40% GEL 15 GM TUBE PO PRN (20:54)
[2020-09-06] MEDS ORDERED: ENOXAPARIN INJ 40 MG/0.4 ML SYR SQ SCH (20:54)
[2020-09-06] MEDS ORDERED: ACETAMINOPHEN 325 MG TAB PO PRN ×2 (20:54)
[2020-09-06] MEDS ORDERED: GLUCAGON FOR INJ 1 MG VIAL SQ PRN (20:54)
[2020-09-06] MEDS ORDERED: CARBOHYDRATES FOR HYPOGLYCEMIA PO PRN (20:54)
[2020-09-06] MEDS ORDERED: PROMETHAZINE HCL 12.5 MG in SODIUM CHLORIDE 0.9% 50 ML IV PRN (20:54)
[2020-09-06] MEDS ORDERED: DEXTROSE 50% 50 ML SYRINGE IV PRN (20:54)
[2020-09-06] MEDS ORDERED: GLUCOSE 10 TABS/TUBE PO PRN (20:54)
[2020-09-06] MEDS ORDERED: POTASSIUM CHLORIDE 40 MEQ in SODIUM CHLORIDE 0.9% 1000ML 1,000 ML IV ONE (21:15)
--- NOTE | 2020-09-06 21:16 | Emergency Department Note ---
History of Present Illness General Chief complaint: Confusion Stated complaint: CONFUSED/LOW VIT D LEVELS Time Seen by Provider: 09/06/20 11:42 Source: patient, RN notes reviewed and old records reviewed Mode of arrival: ambulatory Limitations: no limitations History of Present Illness Provider complaint: Altered mental status, weakness This patient is a 59-year-old female with a history of intellectual disability who resides at a personal care facility. According to caregivers at the bedside, she has had some decreased responsiveness over the last 24 to 48 hours. They are concerned about her lack of p.o. intake and ability to help get out of bed/ambulate. They have reported several elevated glucose levels. There has been no report of vomiting, diarrhea. Patient has had several falls but they deny any significant head injury. There is no reported fever, cough. States the patient is vaccinated against Covid. Home Medications Medication Instructions Recorded Confirmed Type Calmoseptine 1 applic TOPICAL DAILY PRN 06/02/18 09/06/20 History acetaminophen 650 mg PO Q4H PRN 06/02/18 09/06/20 History dextromethorphan-guaifenesin 5 ml PO Q4H PRN 06/02/18 09/06/20 History [Siltussin-DM] insulin aspart U-100 [Novolog 0 unit SUBCUT .SLIDING SCALE 06/02/18 09/06/20 History Flexpen U-100 Insulin] metformin 500 mg PO QAM 06/02/18 09/06/20 History nystatin 1 applic TOPICAL UD PRN 06/02/18 09/06/20 History omeprazole 20 mg PO BID 06/02/18 09/06/20 History simvastatin 20 mg PO PM 06/02/18 09/06/20 History zonisamide 200 mg PO DAILY 06/02/18 09/06/20 History Probiotic 3,000 mmu cells PO TIDM 08/08/18 09/06/20 History fluphenazine decanoate 25 mg IM MONTHLY 08/08/18 09/06/20 History ibuprofen 600 mg PO BID PRN 08/08/18 09/06/20 History loperamide 2 mg PO DIRECTED PRN 08/08/18 09/06/20 History potassium chloride 10 meq PO QAM 08/08/18 09/06/20 History calcium carbonate [Tums] 200 mg PO TID PRN 09/30/18 09/06/20 History clotrimazole 1 applic TOPICAL BID 09/30/18 09/06/20 History Artificial Tears (cmc) 1 drp OPHTHALMIC (EYE) TID 04/22/20 09/06/20 History cranberry extract 400 mg PO QDL 04/22/20 09/06/20 History naproxen sodium 440 mg PO BID PRN 04/22/20 09/06/20 History nitrofurantoin monohyd/m-cryst 100 mg PO QAM 04/22/20 09/06/20 History divalproex 500 mg PO HS #0 tab 04/24/20 09/06/20 Rx albuterol sulfate 90 mcg/actuation 2 puff INHALATION Q6H PRN 05/02/20 09/06/20 History aerosol inhaler ciprofloxacin HCl 0.3 % eye drops 1 - 2 drp OPHTHALMIC (EYE) 05/02/20 09/06/20 History DIRECTED Myrbetriq 50 mg PO QAM 09/06/20 09/06/20 History azelastine 1 spray INTRANASAL BID 09/06/20 09/06/20 History carbidopa-levodopa 1 tab PO TID 09/06/20 09/06/20 History cholecalciferol (vitamin D3) 8,000 unit PO QDL 09/06/20 09/06/20 History [Vitamin D3] clonazepam 1.5 mg PO HS 09/06/20 09/06/20 History divalproex [Depakote] 250 mg PO QAM 09/06/20 09/06/20 History fluphenazine HCl 5 mg PO HS 09/06/20 09/06/20 History furosemide 20 mg PO QAM 09/06/20 09/06/20 History tolterodine 4 mg PO QAM 09/06/20 09/06/20 History Allergies Allergy/AdvReac Type Severity Reaction Status Date / Time cefdinir Allergy Rash Verified 09/06/20 13:39 Past Med/Surg History Medical History Bacteremia due to Pseudomonas Bipolar disorder Dilantin toxicity DM2 (diabetes mellitus, type 2) GERD (gastroesophageal reflux disease) HLD (hyperlipidemia) Mild intellectual disability Morbid obesity Osteoarthritis Overactive bladder Recurrent UTI Schizophrenia Seizure disorder Sensorineural hearing loss (SNHL) of both ears Tobacco abuse Valproic acid toxicity Surgical History H/O tubal ligation H/O wrist surgery Right History of total left hip replacement Hx of cholecystectomy Family History Father , age 46 Myocardial infarction Mother , age 60 No problems noted. Social History Smoking Status: Never smoker Cigarettes Per Day: 10; Second Hand Exposure: No; Do You Dip or Chew Tobacco: No; Tobacco Cessation Education Requested by Patient: No Hx Alcohol Use: No Hx Substance Use: No Preferred Language: Montserratian Communication Ability: Impaired Grapple Operator Required: No Beliefs That Will Affect Care: None marital status: Single Current Living Situation: Personal Care Facility Current Living Situation Comment: [facility] current occupational status: unemployed and disabled Other Information That Helps Us Care for You: No Feels Safe at Home: Yes Safety Concerns: Feels Safe At This Time Assistive Devices: None Review of Systems Unobtainable due to cognitive status (Patient answers some questions but unable to answer all questions appropriately.) History obtained from nursing records and caregiver at the bedside. Physical Exam Vital Signs Vital Signs - 24 hr 09/06/20 11:15 09/06/20 13:30 09/06/20 15:24 Temperature 36.7 C Temperature Source Temporal Artery Scan Pulse Rate 94 H Pulse Rate [Left] 76 94 H Pulse Rhythm Regular Pulse Rhythm [Left] Regular Pulse Strength Normal Pulse Strength [Left] Normal Respiratory Rate 16 18 20 Respiratory Effort / Characteristics Non-Labored Non-Labored Spontaneous Non-Labored Spontaneous Respiratory Depth Normal Normal Normal Respiratory Pattern Regular Blood Pressure 111/72 Blood Pressure [Left Arm] 136/93 159/130 H Blood Pressure Mean 85 Blood Pressure Mean [Left Arm] 107 139 Blood Pressure Position Sitting Blood Pressure Position [Left Arm] Lying Pulse Oximetry 99 98 99 Oxygen Delivery Method Room Air Room Air Room Air Sepsis Recent Fever Within 48 Hours No Sepsis New/Unexplained Change in Mental Status N/A Sepsis Action Taken by Nursing No Action Required 09/06/20 17:45 09/06/20 18:30 Temperature Temperature Source Pulse Rate Pulse Rate [Left] 90 82 Pulse Rhythm Pulse Rhythm [Left] Pulse Strength Pulse Strength [Left] Respiratory Rate 20 20 Respiratory Effort / Characteristics Non-Labored Spontaneous Non-Labored Spontaneous Respiratory Depth Normal Normal Respiratory Pattern Regular Regular Blood Pressure Blood Pressure [Left Arm] 116/94 134/52 L Blood Pressure Mean Blood Pressure Mean [Left Arm] 101 79 Blood Pressure Position Blood Pressure Position [Left Arm] Lying Pulse Oximetry 97 98 Oxygen Delivery Method Room Air Room Air Sepsis Recent Fever Within 48 Hours Sepsis New/Unexplained Change in Mental Status Sepsis Action Taken by Nursing Vital signs reviewed. General: Somewhat ill-appearing 59-year-old female, somnolent but in no significant distress. HEENT: No scleral icterus, PERRLA, neck supple. Dry mucous membranes atraumatic. Cardiovascular: Regular rate and rhythm, no extra sounds. Pulmonary: Clear to auscultation bilaterally, normal work of breathing. Abdomen: Soft, obese, nontender, nondistended, positive bowel sounds. Musculoskeletal: Atraumatic, minimal peripheral edema. Nontender to palpation over the cervical spine Neurologic: Patient somnolent but arousable. Answers simple questions and is able to follow simple commands. Skin: Warm, dry, no rash Course Administered Medications Carbidopa/Levodopa (Carbidopa/Levodopa 25/100mg Tab) 1 tab PO TID [facility] Stop: 10/06/20 20:59 Last Admin: 09/07/20 13:39 Dose: 1 tab Documented by: [id number] Admin: 09/07/20 08:53 Dose: 1 tab Documented by: [id number] Admin: 09/06/20 21:53 Dose: 1 tab Documented by: [id number] Divalproex Sodium (Divalproex Delay Release 250 Mg Tabec) 250 mg PO QAM [facility] Stop: 10/07/20 08:59 Last Admin: 09/07/20 08:54 Dose: 250 mg Documented by: [id number] Divalproex Sodium (Divalproex Delay Release 500 Mg Tab) 500 mg PO HS [facility] Stop: 10/06/20 22:04 Last Admin: 09/06/20 22:41 Dose: 500 mg Documented by: [id number] Piperacillin Sod/Tazobactam (Sod 3.375 gm/ Dextrose) 115 mls @ 28.75 mls/hr IV Q8H [facility]; Protocol Stop: 09/16/20 21:59 Last Infusion: 09/07/20 18:09 Dose: 0 mls/hr Documented by: [id number] Admin: 09/07/20 13:46 Dose: 28.8 mls/hr Documented by: [id number] Infusion: 09/07/20 10:30 Dose: 0 mls/hr Documented by: [id number] Admin: 09/07/20 05:56 Dose: 28.8 mls/hr Documented by: [id number] Infusion: 09/07/20 02:34 Dose: 0 mls/hr Documented by: [id number] Admin: 09/06/20 22:07 Dose: 28.8 mls/hr Documented by: [id number] Insulin Aspart (Insulin Aspart 100 Units/Ml 3 Ml Pen) 0 units SC ACHS [facility] Stop: 10/06/20 20:59 Last Admin: 09/07/20 18:08 Dose: Not Given Documented by: [id number] Admin: 09/07/20 13:37 Dose: Not Given Documented by: [id number] Admin: 09/07/20 08:51 Dose: 2 units Documented by: [id number] Cosigned by: [id number] Admin: 09/06/20 22:05 Dose: Not Given Documented by: [id number] Insulin Glargine (Insulin Glargine Solostar 100 Units/Ml 3 Ml Pen) 5 units SC DAILY [facility] Stop: 10/07/20 08:59 Last Admin: 09/07/20 11:41 Dose: 5 units Documented by: [id number] Cosigned by: [id number] Lactobacillus Acidoph/Casei/Rhamnos (Advanced Probiotic 1250 Mg Capsule) 2 cap PO DAILY [facility] Stop: 10/07/20 08:59 Last Admin: 09/07/20 08:55 Dose: 2 cap Documented by: [id number] Mirabegron (Mirabegron Er 25 Mg Tab) 50 mg PO QAM [facility] Stop: 10/07/20 08:59 Last Admin: 09/07/20 08:54 Dose: 50 mg Documented by: [id number] Miscellaneous (Azelastine~Order Awaiting Action) 1 ea N/A QS [facility] Stop: 10/07/20 00:00 Last Admin: 09/07/20 18:03 Dose: Not Given Documented by: [id number] Admin: 09/07/20 08:52 Dose: Not Given Documented by: [id number] Admin: 09/06/20 23:58 Dose: Not Given Documented by: [id number] Miscellaneous (Zonisamide~Order Awaiting Action) 1 ea N/A QS [facility] Stop: 10/07/20 00:00 Last Admin: 09/07/20 18:08 Dose: Not Given Documented by: [id number] Admin: 09/07/20 08:52 Dose: Not Given Documented by: [id number] Admin: 09/06/20 23:59 Dose: Not Given Documented by: [id number] Miscellaneous Information (Piperacill/Tazobac Consult Active) 1 ea N/A UD PRN PRN Reason: Consult Stop: 10/06/20 16:21 Last Admin: 09/06/20 16:40 Dose: 1 ea Documented by: [id number] Nicotine (Nicotine 14 Mg/24 Hr Patch) [facility] Stop: 10/07/20 12:29 Last Admin: 09/07/20 13:38 Dose: 14 mg Documented by: [id number] Pantoprazole Sodium (Pantoprazole 40 Mg Tab) 40 mg PO BID [facility] Stop: 10/07/20 08:59 Last Admin: 09/07/20 08:53 Dose: 40 mg Documented by: [id number] Simvastatin (Simvastatin 20 Mg Tab) 20 mg PO PM MAGDA Stop: 10/06/20 20:59 Last Admin: 09/06/20 21:53 Dose: 20 mg Documented by: [id number] Tolterodine Tartrate (Tolterodine Tartrate La 4 Mg Capcr) 4 mg PO QAM [facility] Stop: 10/07/20 08:59 Last Admin: 09/07/20 08:54 Dose: 4 mg Documented by: [id number] Vitamin D (Cholecalciferol 1,000 Units 25 Mcg Tab) 8,000 units PO QDL [facility] Stop: 10/07/20 11:29 Last Admin: 09/07/20 13:38 Dose: 8,000 units Documented by: [id number] Zonisamide (Zonisamide 100 Mg Capsule) 200 mg PO DAILY [facility] Stop: 10/07/20 08:59 Last Admin: 09/07/20 09:47 Dose: 200 mg Documented by: [id number] Discontinued Medications Piperacillin Sod/Tazobactam Sod (Zosyn) 4.5 gm in 120 mls @ 240 mls/hr IV NOW ONE Stop: 09/06/20 16:51 Last Infusion: 09/06/20 18:19 Dose: 0 mls/hr Documented by: [id number] Admin: 09/06/20 17:44 Dose: 240 mls/hr Documented by: [id number] Sodium Chloride (Nss 1000ml) 1,000 mls @ 125 mls/hr IV .Q8H STA Stop: 09/07/20 00:22 Last Infusion: 09/06/20 21:41 Dose: 0 mls/hr Documented by: [id number] Admin: 09/06/20 20:10 Dose: 125 mls/hr Documented by: [id number] Sodium Chloride (Nss 1000ml) 500 mls @ 999 mls/hr IV .Q31M ONE Stop: 09/06/20 16:54 Last Infusion: 09/06/20 17:29 Dose: 0 mls/hr Documented by: [id number] Admin: 09/06/20 16:40 Dose: 999 mls/hr Documented by: [id number] Potassium Chloride 40 meq/ (Sodium Chloride) 1,020 mls @ 75 mls/hr IV .[id number] ONE Stop: 09/07/20 10:50 Last Infusion: 09/07/20 11:36 Dose: 0 mls/hr Documented by: [id number] Admin: 09/06/20 21:52 Dose: 75 mls/hr Documented by: [id number] Miscellaneous (Patient's Height And/Or Weight Needed) 1 ea N/A Q30M MAGDA Stop: 10/06/20 21:29 Last Admin: 09/06/20 21:42 Dose: 1 ea Documented by: [id number] Admin: 09/06/20 21:42 Dose: 1 ea Documented by: [id number] Admin: 09/06/20 21:42 Dose: 1 ea Documented by: [id number] Admin: 09/06/20 21:42 Dose: 1 ea Documented by: [id number] Admin: 09/06/20 21:41 Dose: 1 ea Documented by: [id number] Medical Decision Making Differential Diagnosis Infection, dehydration, metabolic abnormality, hypo/hyperglycemia, electrolyte disturbance, anemia, hypoxia, cardiac sources, intracerebral event, toxicologic, neurologic, as well as other pathologies. Medical Records Attestation: I reviewed the patient's medical records. Home Medications Current Medication List: was personally reviewed by me Laboratory Data Attestation: I reviewed the patient's lab results. Result diagrams: 09/07/20 05:41 09/07/20 05:41 Lab Results 09/06/20 09/06/20 09/06/20 Range/Units 11:45 11:45 13:05 WBC 13.57 H (4.8-10.8) K/uL RBC 4.87 (4.2-5.4) M/uL Hgb 14.7 (12.0-16.0) g/dL Hct 43.4 (37-47) % MCV 89.1 (80-100) fL MCH 30.2 (25-34) pg MCHC 33.9 (32-36) g/dL RDW Std Deviation 44.0 (36.4-46.3) fL RDW Coeff of Celio 13.5 (11.5-14.5) % Plt Count 162 (130-400) K/uL MPV 11.4 H (7.4-10.4) fL Immature Gran % (Auto) 0.2 % Neut % (Auto) 63.7 % Lymph % (Auto) 23.8 % [place] % (Auto) 12.2 % Eos % (Auto) 0.0 % Baso % (Auto) 0.1 % Neut # (Auto) 8.64 H (1.4-6.5) K/uL Lymph # (Auto) 3.23 (1.2-3.4) K/uL [place] # (Auto) 1.66 H (0.11-0.59) K/uL Eos # (Auto) 0.00 (0-0.5) K/uL Baso # (Auto) 0.01 (0-0.2) K/uL Immature Gran # (Auto) 0.03 H (0.00-0.02) K/uL Toxic Vacuolation 1+ Sodium 134 L (136-145) mmol/L Potassium 3.6 (3.5-5.1) mmol/L Chloride 99 (98-107) mmol/L Carbon Dioxide 26 (21-32) mmol/L Anion Gap 9.0 (3-11) BUN 11 (7-18) mg/dl Creatinine 0.98 (0.6-1.2) mg/dl Est Cr Clr Drug Dosing Not Reportable Est GFR ( Amer) 74.2 ml/min Est GFR (Non-Af Amer) 64.0 ml/min BUN/Creatinine Ratio 11.5 (10-20) Glucose 112 H (70-99) mg/dl Lactate (0.4-2.0) mmol/L Calcium 9.3 (8.5-10.1) mg/dl Magnesium 2.1 (1.8-2.4) mg/dl Total Bilirubin 1.0 (0.2-1) mg/dl AST 27 (15-37) U/L ALT 7 L (12-78) U/L Alkaline Phosphatase 104 (45-117) U/L Total Protein 8.6 H (6.4-8.2) gm/dl Albumin 3.7 (3.4-5.0) gm/dl Globulin 4.9 H (2.5-4.0) gm/dl Albumin/Globulin Ratio 0.8 L (0.9-2) TSH 1.850 (0.300-4.500) uIu/ml Urine Color Yellow Urine Appearance Cloudy A (Clear) Urine pH 5.5 (4.5-7.5) Ur Specific [place] 1.009 (1.000-1.030) Urine Protein Negative (Negative) Urine Glucose (UA) Negative (Negative) Urine Ketones Trace H (Negative) Urine Blood 1+ H (Negative) Urine Nitrite Negative (Negative) Urine Bilirubin Negative (Negative) Urine Urobilinogen Negative (Negative) Ur Leukocyte Esterase 2+ H (Negative) Urine WBC (Auto) >30 H (0-5) /hpf Urine RBC (Auto) 0-4 (0-4) /hpf U Hyaline Cast (Auto) 1-5 (0-5) /lpf U Epithel Cells (Auto) 0-5 (0-5) /lpf Urine Bacteria (Auto) 2+ H (Negative) COVID-19 Eval Order SARS-CoV-2 (PCR) (Negative) 09/06/20 09/06/20 09/06/20 Range/Units 13:30 13:30 17:26 WBC (4.8-10.8) K/uL RBC (4.2-5.4) M/uL Hgb (12.0-16.0) g/dL Hct (37-47) % MCV (80-100) fL MCH (25-34) pg MCHC (32-36) g/dL RDW Std Deviation (36.4-46.3) fL RDW Coeff of [place]io (11.5-14.5) % Plt Count (130-400) K/uL MPV (7.4-10.4) fL Immature Gran % (Auto) % Neut % (Auto) % Lymph % (Auto) % [place] % (Auto) % Eos % (Auto) % Baso % (Auto) % Neut # (Auto) (1.4-6.5) K/uL Lymph # (Auto) (1.2-3.4) K/uL [place] # (Auto) (0.11-0.59) K/uL Eos # (Auto) (0-0.5) K/uL Baso # (Auto) (0-0.2) K/uL Immature Gran # (Auto) (0.00-0.02) K/uL Toxic Vacuolation Sodium (136-145) mmol/L Potassium (3.5-5.1) mmol/L Chloride (98-107) mmol/L Carbon Dioxide (21-32) mmol/L Anion Gap (3-11) BUN (7-18) mg/dl Creatinine (0.6-1.2) mg/dl Est Cr Clr Drug Dosing Est GFR ( Amer) ml/min Est GFR (Non-Af Amer) ml/min BUN/Creatinine Ratio (10-20) Glucose (70-99) mg/dl Lactate 1.5 (0.4-2.0) mmol/L Calcium (8.5-10.1) mg/dl Magnesium (1.8-2.4) mg/dl Total Bilirubin (0.2-1) mg/dl AST (15-37) U/L ALT (12-78) U/L Alkaline Phosphatase (45-117) U/L Total Protein (6.4-8.2) gm/dl Albumin (3.4-5.0) gm/dl Globulin (2.5-4.0) gm/dl Albumin/Globulin Ratio (0.9-2) TSH (0.300-4.500) uIu/ml Urine Color Urine Appearance (Clear) Urine pH (4.5-7.5) Ur Specific [place] (1.000-1.030) Urine Protein (Negative) Urine Glucose (UA) (Negative) Urine Ketones (Negative) Urine Blood (Negative) Urine Nitrite (Negative) Urine Bilirubin (Negative) Urine Urobilinogen (Negative) Ur Leukocyte Esterase (Negative) Urine WBC (Auto) (0-5) /hpf Urine RBC (Auto) (0-4) /hpf U Hyaline Cast (Auto) (0-5) /lpf U Epithel Cells (Auto) (0-5) /lpf Urine Bacteria (Auto) (Negative) COVID-19 Eval Order Covid19 at [facility] SARS-CoV-2 (PCR) NEGATIVE (Negative) Imaging Data Radiologist's Impression: Head CT 09/06/20 12:[address] DOSE: 930.61 mGy.cm HISTORY: Altered mental status. TECHNIQUE: Multiaxial CT images of the head were performed without the use of intravenous contrast. Automated exposure control was utilized for this study. A dose lowering technique was utilized adhering to the principles of ALARA. Comparison: None. Findings: The paranasal sinuses and mastoid air cells are clear. Significant motion artifact resulting in suboptimal evaluation. No definite mass, hematoma, midline shift, acute infarct. The ventricles and sulci are within normal limits. Prominent perivascular space inferior to the right basal ganglia, unchanged. Impression: Motion artifact. No definite acute intracranial abnormality. ACT 112: Negative or not required by law. Electronically signed by: Chet Hernandez M.D. 09/06/2020 1:02 PM ECG Data Attestation: I personally reviewed and interpreted this ECG as follows: Indication: + weakness Rate (beats per minute): 89 Rhythm: + normal sinus ECG Intervals/blocks: + Normal QRS and + Normal QT-c ECG [place]: + Normal ECG ST segments: + T-wave inversions (Anterolateral) and + Nonspecific ST abnormalities (anterolateral) ECG Findings: no PACs and no PVCs Blood Pressure Blood Pressure Findings: Normal blood pressure Blood Pressure Disposition: did not require urgent referral MDM Narrative This patient was evaluated and appeared to be in no significant distress. IV access was obtained and laboratory work was drawn. Patient was hydrated with normal saline solution. An order for cardiac monitoring was placed and the patient is noted to be in a normal sinus rhythm at 94 bpm. Patient's laboratory work reveals mild elevation of the WBC. Head CT was performed and is negative for acute pathology. Patient's urinalysis is indicative of infection. She was given 4.5 g of IV Zosyn. IV hydration was continued. Patient's case was discussed with the hospitalist service who will evaluate the patient for admission and further management. Patient's caregiver was updated on the findings and agrees with the plan. Impression & Plan Encephalopathy, Recurrent UTI Discharge Plan Visit Data Chief Complaint: Confusion Stated Complaint: CONFUSED/LOW VIT D LEVELS ED Provider: Huma Mayes Discharge Problem: Encephalopathy, Recurrent UTI Patient Disposition: Admitted As Inpatient Discharge Instructions Interventions: ED Discharge Assessment Last Done: 09/06/20 20:18
[2020-09-06] MEDS: PATIENT'S HEIGHT AND/OR WEIGHT NEEDED SCH ×2 (21:41→21:42)
[2020-09-06] MEDS: CARBIDOPA/LEVODOPA 25/100MG TAB PO SCH (21:53)
[2020-09-06] MEDS: SIMVASTATIN 20 MG TAB PO SCH (21:53)
[2020-09-06] MEDS: INSULIN ASPART 100 UNITS/ML 3 ML PEN SC SCH (22:05)
[2020-09-06] MEDS: PIPERACILLIN/TAZOBACTAM 3.375 GM in DEXTROSE 5% 100 ML IV SCH (22:07)
[2020-09-06] MEDS: DIVALPROEX DELAY RELEASE 500 MG TAB PO SCH (22:41)
[2020-09-06] MEDS: AZELASTINE~ORDER AWAITING ACTION SCH (23:58)
[2020-09-07] MEDS: PIPERACILLIN/TAZOBACTAM 3.375 GM in DEXTROSE 5% 100 ML IV SCH ×3 (05:56→22:41)
[2020-09-07 06:06] LABS: Basophils # (auto) 0.01 K/uL (0-0.2); Basophils % (auto) 0.1 %; Eosinophils # (auto) 0.02 K/uL (0-0.5); Eosinophils % (auto) 0.2 %; Hemoglobin 12.1 g/dL (12.0-16.0); Immature Granulocytes # (auto) 0.02 K/uL (0.00-0.02); Immature Granulocytes % (auto) 0.2 %; Lymphocytes # (auto) 2.98 K/uL (1.2-3.4); Lymphocytes % (auto) 27.3 %; Mean Corpuscular Hemoglobin 30.2 pg (25-34); Mean Corpuscular Hgb Conc 33.6 g/dL (32-36); Mean Corpuscular Volume 89.8 fL (80-100); Monocytes # (auto) 1.18 K/uL (0.11-0.59); Monocytes % (auto) 10.8 %; Neutrophils # (auto) 6.71 K/uL (1.4-6.5); Neutrophils % (auto) 61.4 %; Platelet Count 116 K/uL (130-400); RDW Coefficient of Variation 13.4 % (11.5-14.5); RDW Standard Deviation 44.1 fL (36.4-46.3); Red Blood Count 4.01 M/uL (4.2-5.4); White Blood Count 10.92 K/uL (4.8-10.8)
[2020-09-07 06:42] LABS: BUN Creatinine Ratio 11.3 (10-20); Calcium 8.5 mg/dl (8.5-10.1); Creatinine Clr Calc Pharmacy 104.3 ml/min; Est GFR (Non-African American) 96.6 ml/min
--- NOTE | 2020-09-07 08:33 | Electrocardiogram Report ---
Test Reason : Blood Pressure : / mmHG Vent. Rate : 089 BPM Atrial Rate : 089 BPM P-R Int : 132 ms QRS Dur : 072 ms QT Int : 324 ms P-R-T Axes : 041 019 157 degrees QTc Int : 394 ms Normal sinus rhythm Abnormal ECG When compared with ECG of 22-APR-2020 13:16, Vent. rate has increased BY 31 BPM T wave inversion now evident in Lateral leads Confirmed by Grady Oconnor ([id number]) on 09/07/2020 8:32:50 AM Referred By: Manuel Rosenbaum Stinnett Confirmed By:Grady Oconnor
[2020-09-07] MEDS: INSULIN ASPART 100 UNITS/ML 3 ML PEN SC SCH ×4 (08:51→20:39)
[2020-09-07] MEDS: AZELASTINE~ORDER AWAITING ACTION SCH ×3 (08:52→23:10)
[2020-09-07] MEDS: CARBIDOPA/LEVODOPA 25/100MG TAB PO SCH ×3 (08:53→20:33)
[2020-09-07] MEDS: PANTOprazole 40 MG TAB PO SCH ×2 (08:53→20:37)
[2020-09-07] MEDS: DIVALPROEX DELAY RELEASE 250 MG TABEC PO SCH (08:54)
[2020-09-07] MEDS: MIRABEGRON ER 25 MG TAB PO SCH (08:54)
[2020-09-07] MEDS: TOLTERODINE TARTRATE LA 4 MG CAPCR PO SCH (08:54)
[2020-09-07] MEDS: ADVANCED PROBIOTIC 1250 MG CAPSULE PO SCH (08:55)
[2020-09-07] MEDS ORDERED: ENOXAPARIN INJ 40 MG/0.4 ML SYR SQ SCH (09:00)
[2020-09-07] MEDS: ZONISAMIDE 100 MG CAPSULE PO SCH (09:47)
[2020-09-07] MEDS ORDERED: CRANBERRY EXTRACT 200 MG PO SCH (11:30)
[2020-09-07] MEDS: INSULIN GLARGINE SOLOSTAR 100 UNITS/ML 3 ML PEN SC SCH (11:41)
[2020-09-07] MEDS: NICOTINE 14 MG/24 HR PATCH TD SCH (13:38)
[2020-09-07] MEDS: CHOLECALCIFEROL 1,000 UNITS 25 MCG TAB PO SCH (13:38)
--- NOTE | 2020-09-07 15:39 | Hospitalist Progress Note ---
Date of Service September 07, 2020 Assessment & Plan (1) Encephalopathy: Likely secondary to UTI (2) Fall: May be contributed by current infection Fall precautions. PT/OT (3) Recurrent UTI: Her caregiver also noted that she fell yesterday but did not sustain any injuries. She has history of recurrent UTI with multiple organisms including Klebsiella, Enterobacter (resistant), and Pseudomonas. Encephalopathy and fall possibly secondary to UTI. Urine and blood cultures pending. Valproic acid level is within normal limit at 75 Ammonia level is low at less than 10 Appetite has been poor, but she ate well at dinner. Continue carb consistent diet. Continue IV fluids Continue Zosyn pending urine and blood cultures. Remains stable without any signs and/or symptoms of infection We will continue current antibiotic (4) DM2 (diabetes mellitus, type 2): Hold Metformin. Start insulin while inpatient. Last A1C was 6.1 in 05/2020. Recheck in AM (5) Mild intellectual disability: (6) Bipolar disorder: (7) Parkinsonism: (8) Seizure disorder: Complicated home medication regimen. Will continue home medications pending above levels. (9) GERD (gastroesophageal reflux disease): Continue omeprazole 20 mg BID (10) DVT prophylaxis: Lovenox SQ Admission and Anticipated Discharge Date Admission Date: September 06, 2020 Subjective 09/07/2020 The patient was seen and examined in medical telemetry unit She is a 59-year-old with mild intellectual impairment and also history of recurrent UTI was admitted with acute confusion for 1 day and noted to have another UTI Denies any complaints this morning Denies any fever and/or chills Review of Systems Review of Systems: Unobtainable due to cognitive status Physical Exam Physical Exam: Lying in bed comfortably Constitutional: well developed, well nourished, + ill appearing and + obese Eyes: PERRL, conjunctivae normal, anicteric sclerae ENMT: external ear and nose normal, oropharynx normal Neck: trachea midline, no thyromegaly Respiratory: + labored breathing; no respiratory distress Auscultation: lungs clear to auscultation bilaterally Cardiovascular: Rate/Rhythm: regular rate and regular rhythm Heart Sounds: no murmur Extremities: + edema (Trace edema bilaterally) Gastrointestinal (Abdomen): Inspection/Auscultation: normal bowel sounds; abdomen not distended Percussion/Palpation: abdomen nontender Musculoskeletal: No acute arthritis in any joint Neurologic: Alert and awake. Moving all the limbs equally but generally weak Lymphatic: no cervical or axillary lymphadenopathy Results & Data Results & Data ([facility]) Vital Signs (Past 12 Hours) Vital Signs Temp Pulse Pulse Resp BP Pulse Ox 09/07/20 15:09 36.7 C 76 18 118/63 09/07/20 11:23 36.5 C 76 18 127/70 95 09/07/20 07:18 36.4 C L 80 20 125/75 96 09/07/20 03:33 37.3 C 77 18 114/59 L 95 Laboratory Results Short CBC 09/07/20 Range/Units 05:41 WBC 10.92 H (4.8-10.8) K/uL Hgb 12.1 (12.0-16.0) g/dL Hct 36.0 L (37-47) % Plt Count 116 L (130-400) K/uL BMP 09/07/20 05:41 Sodium 138 Potassium 4.0 Chloride 108 H Carbon Dioxide 24 BUN 8 Creatinine 0.69 Glucose 134 H Calcium 8.5 Medications Administered Current Inpatient Medications Acetaminophen (Acetaminophen 325 Mg Tab) 650 mg PO Q4H PRN PRN Reason: Pain or Fever Stop: 10/06/20 20:53 Carbidopa/Levodopa (Carbidopa/Levodopa 25/100mg Tab) 1 tab PO TID [facility] Stop: 10/06/20 20:59 Last Admin: 09/07/20 13:39 Dose: 1 tab Documented by: Clonazepam (Clonazepam 0.5 Mg Tab) 1.5 mg PO [facility] Stop: 10/07/20 20:59 Dextrose (Dextrose 50% 50 Ml Syringe) 25 - 50 ml IV UD PRN; Protocol PRN Reason: Hypoglycemia Protocol Stop: 10/06/20 20:53 Divalproex Sodium (Divalproex Delay Release 250 Mg Tabec) 250 mg PO QA [facility] Stop: 10/07/20 08:59 Last Admin: 09/07/20 08:54 Dose: 250 mg Documented by: Divalproex Sodium (Divalproex Delay Release 500 Mg Tab) 500 mg PO [facility] Stop: 10/06/20 22:04 Last Admin: 09/06/20 22:41 Dose: 500 mg Documented by: Fluphenazine HCl (Fluphenazine Hcl 2.5 Mg Tab) 5 mg PO [facility] Stop: 10/07/20 20:59 Glucagon (Glucagon For Inj 1 Mg Vial) 1 mg SQ UD PRN; Protocol PRN Reason: Hypoglycemia Protocol Stop: 10/06/20 20:53 Glucose (Glucose 10 Tabs/Tube) 4 - 8 tabs PO UD PRN; Protocol PRN Reason: Hypoglycemia Protocol Stop: 10/06/20 20:53 Glucose (Glucose 40% Gel 15 Gm Tube) 15 - 30 gm PO UD PRN; Protocol PRN Reason: Hypoglycemia Protocol Stop: 10/06/20 20:53 Promethazine HCl 12.5 mg/ (Sodium Chloride) 50.5 mls @ 202 mls/hr IV Q6H PRN PRN Reason: Nausea And Vomiting Stop: 10/06/20 20:53 Piperacillin Sod/Tazobactam (Sod 3.375 gm/ Dextrose) 115 mls @ 28.75 mls/hr IV Q8H [facility]; Protocol Stop: 09/16/20 21:59 Last Admin: 09/07/20 13:46 Dose: 28.8 mls/hr Documented by: Insulin Aspart (Insulin Aspart 100 Units/Ml 3 Ml Pen) 0 units SC ACHS [facility] Stop: 10/06/20 20:59 Last Admin: 09/07/20 13:37 Dose: Not Given Documented by: Insulin Glargine (Insulin Glargine Solostar 100 Units/Ml 3 Ml Pen) 5 units SC DAILY [facility] Stop: 10/07/20 08:59 Last Admin: 09/07/20 11:41 Dose: 5 units Documented by: Lactobacillus Acidoph/Casei/Rhamnos (Advanced Probiotic 1250 Mg Capsule) 2 cap PO DAILY [facility] Stop: 10/07/20 08:59 Last Admin: 09/07/20 08:55 Dose: 2 cap Documented by: Mirabegron (Mirabegron Er 25 Mg Tab) 50 mg PO QAM [facility] Stop: 10/07/20 08:59 Last Admin: 09/07/20 08:54 Dose: 50 mg Documented by: Miscellaneous (Azelastine~Order Awaiting Action) 1 ea N/A QS [facility] Stop: 10/07/20 00:00 Last Admin: 09/07/20 08:52 Dose: Not Given Documented by: Miscellaneous (Carbohydrates For Hypoglycemia ) 15 - 30 gm PO UD PRN PRN Reason: Hypoglycemia Protocol Stop: 10/06/20 20:53 Miscellaneous (Zonisamide~Order Awaiting Action) 1 ea N/A QS [facility] Stop: 10/07/20 00:00 Last Admin: 09/07/20 08:52 Dose: Not Given Documented by: Miscellaneous (Remove Nicoderm Patch) 1 ea N/A DAILY@0859 [facility] Stop: 10/08/20 08:58 Miscellaneous Information (Piperacill/Tazobac Consult Active) 1 ea N/A UD PRN PRN Reason: Consult Stop: 10/06/20 16:21 Last Admin: 09/06/20 16:40 Dose: 1 ea Documented by: Nicotine (Nicotine 14 Mg/24 Hr Patch) 14 mg TD QAM [facility] Stop: 10/07/20 12:29 Last Admin: 09/07/20 13:38 Dose: 14 mg Documented by: Pantoprazole Sodium (Pantoprazole 40 Mg Tab) 40 mg PO BID [facility] Stop: 10/07/20 08:59 Last Admin: 09/07/20 08:53 Dose: 40 mg Documented by: Simvastatin (Simvastatin 20 Mg Tab) 20 mg PO PM [facility] Stop: 10/06/20 20:59 Last Admin: 09/06/20 21:53 Dose: 20 mg Documented by: Tolterodine Tartrate (Tolterodine Tartrate La 4 Mg Capcr) 4 mg PO QAM [facility] Stop: 10/07/20 08:59 Last Admin: 09/07/20 08:54 Dose: 4 mg Documented by: Vitamin D (Cholecalciferol 1,000 Units 25 Mcg Tab) 8,000 units PO QDL [facility] Stop: 10/07/20 11:29 Last Admin: 09/07/20 13:38 Dose: 8,000 units Documented by: Zonisamide (Zonisamide 100 Mg Capsule) 200 mg PO DAILY [facility] Stop: 10/07/20 08:59 Last Admin: 09/07/20 09:47 Dose: 200 mg Documented by: (1) DM2 (diabetes mellitus, type 2) Diabetes mellitus jail insulin use: without jail use (2) Bipolar disorder Active/Remission status: remission status unspecified Qualified Code(s): F31.9 - Bipolar disorder, unspecified
[2020-09-07] MEDS: DIVALPROEX DELAY RELEASE 500 MG TAB PO SCH (20:33)
[2020-09-07] MEDS: clonazePAM 0.5 MG TAB PO SCH (20:36)
[2020-09-07] MEDS: SIMVASTATIN 20 MG TAB PO SCH (20:39)
[2020-09-08] MEDS: PIPERACILLIN/TAZOBACTAM 3.375 GM in DEXTROSE 5% 100 ML IV SCH (05:51)
[2020-09-08 07:26] LABS: Estimated Average Glucose 131 mg/dl; Hemoglobin A1C 6.2 % (4.5-5.6)
[2020-09-08 07:29] LABS: Estimated Average Glucose 131 mg/dl; Hemoglobin A1C 6.2 % (4.5-5.6)
[2020-09-08 07:29] LABS: Basophils # (auto) 0.02 K/uL (0-0.2); Basophils % (auto) 0.3 %; Eosinophils # (auto) 0.13 K/uL (0-0.5); Eosinophils % (auto) 1.8 %; Hematocrit (blood only) 35.5 % (37-47); Immature Granulocytes # (auto) 0.02 K/uL (0.00-0.02); Immature Granulocytes % (auto) 0.3 %; Lymphocytes # (auto) 2.72 K/uL (1.2-3.4); Lymphocytes % (auto) 37.4 %; Mean Corpuscular Hemoglobin 30.8 pg (25-34); Mean Corpuscular Hgb Conc 33.8 g/dL (32-36); Mean Platelet Volume 10.4 fL (7.4-10.4); Monocytes % (auto) 8.2 %; Neutrophils # (auto) 3.79 K/uL (1.4-6.5); Platelet Count 115 K/uL (130-400); RDW Coefficient of Variation 13.5 % (11.5-14.5); RDW Standard Deviation 44.7 fL (36.4-46.3); White Blood Count 7.28 K/uL (4.8-10.8)
[2020-09-08 08:00] LABS: BUN Creatinine Ratio 11.7 (10-20); Calcium 8.6 mg/dl (8.5-10.1); Creatinine Clr Calc Pharmacy 96.7 ml/min; Est GFR (African American) 104.2 ml/min; Est GFR (Non-African American) 89.9 ml/min; Magnesium 2.4 mg/dl (1.8-2.4); Potassium 3.9 mmol/L (3.5-5.1)
[2020-09-08] MEDS: CARBIDOPA/LEVODOPA 25/100MG TAB PO SCH ×3 (08:27→21:19)
[2020-09-08] MEDS: ADVANCED PROBIOTIC 1250 MG CAPSULE PO SCH (08:27)
[2020-09-08] MEDS: PANTOprazole 40 MG TAB PO SCH ×2 (08:28→21:20)
[2020-09-08] MEDS: MIRABEGRON ER 25 MG TAB PO SCH (08:28)
[2020-09-08] MEDS: TOLTERODINE TARTRATE LA 4 MG CAPCR PO SCH (08:28)
[2020-09-08] MEDS: NICOTINE 14 MG/24 HR PATCH TD SCH (08:29)
[2020-09-08] MEDS: INSULIN GLARGINE SOLOSTAR 100 UNITS/ML 3 ML PEN SC SCH (08:30)
[2020-09-08] MEDS: DIVALPROEX DELAY RELEASE 250 MG TABEC PO SCH (08:30)
[2020-09-08] MEDS: AZELASTINE~ORDER AWAITING ACTION SCH (08:30)
[2020-09-08] MEDS: INSULIN ASPART 100 UNITS/ML 3 ML PEN SC SCH ×4 (08:32→21:27)
[2020-09-08] MEDS: ZONISAMIDE 100 MG CAPSULE PO SCH ×2 (09:38→10:57)
[2020-09-08] MEDS: CHOLECALCIFEROL 1,000 UNITS 25 MCG TAB PO SCH (10:57)
[2020-09-08] MEDS ORDERED: cefTRIAXone SODIUM 2,000 MG in DEXTROSE 5% 50 ML IV SCH (14:00)
--- NOTE | 2020-09-08 15:25 | Hospitalist Progress Note ---
Date of Service September 08, 2020 Assessment & Plan (1) Encephalopathy: Metabolic encephalopathy Likely secondary to UTI (2) Fall: May be contributed by current infection Fall precautions. PT/OT (3) Recurrent UTI: Her caregiver also noted that she fell yesterday but did not sustain any injuries. She has history of recurrent UTI with multiple organisms including Klebsiella, Enterobacter (resistant), and Pseudomonas. Encephalopathy and fall possibly secondary to UTI. Urine and blood cultures pending. Valproic acid level is within normal limit at 75 Ammonia level is low at less than 10 Appetite has been poor, but she ate well at dinner. Continue carb consistent diet. Continue IV fluids Continue Zosyn pending urine and blood cultures. Remains stable without any signs and/or symptoms of infection Urine culture is growing Klebsiella pneumoniae which is pansensitive except Macrobid Antibiotic changed to intravenous ceftriaxone and plan to give Keflex on discharge (4) DM2 (diabetes mellitus, type 2): Hold Metformin. Start insulin while inpatient. Last A1C was 6.1 in 05/2020. Recheck in AM (5) Mild intellectual disability: (6) Bipolar disorder: (7) Parkinsonism: (8) Seizure disorder: Complicated home medication regimen. Will continue home medications pending above levels. (9) GERD (gastroesophageal reflux disease): Continue omeprazole 20 mg BID (10) DVT prophylaxis: Lovenox SQ Has been doing very well with PT and OT Likely be transferred tomorrow Admission and Anticipated Discharge Date Admission Date: September 06, 2020 Subjective 09/07/2020 The patient was seen and examined in medical telemetry unit She is a 59-year-old with mild intellectual impairment and also history of recurrent UTI was admitted with acute confusion for 1 day and noted to have another UTI Denies any complaints this morning Denies any fever and/or chills 09/08/2020 The patient was seen and examined in medical telemetry unit She has been much better today She has been getting physical therapy with much improvement of her overall weakness and stability Denies any significant symptoms Review of Systems Review of Systems: Unobtainable due to cognitive status Physical Exam Physical Exam: Lying in bed comfortably Constitutional: well developed, well nourished, + ill appearing and + obese Eyes: PERRL, conjunctivae normal, anicteric sclerae ENMT: external ear and nose normal, oropharynx normal Neck: trachea midline, no thyromegaly Respiratory: + labored breathing; no respiratory distress Auscultation: lungs clear to auscultation bilaterally Cardiovascular: Rate/Rhythm: regular rate and regular rhythm Heart Sounds: no murmur Extremities: + edema (Trace edema bilaterally) Gastrointestinal (Abdomen): Inspection/Auscultation: normal bowel sounds; abdomen not distended Percussion/Palpation: abdomen nontender Musculoskeletal: No acute arthritis in any joint Neurologic: Alert and awake. Pleasantly confused and has intellectual impairment Lymphatic: no cervical or axillary lymphadenopathy Results & Data Results & Data ([facility]) Vital Signs (Past 12 Hours) Vital Signs Temp Pulse Resp BP Pulse Ox 09/08/20 11:28 36.4 C L 60 20 129/75 98 09/08/20 08:23 36.7 C 58 L 18 130/84 98 Laboratory Results Short CBC 09/08/20 Range/Units 07:04 WBC 7.28 (4.8-10.8) K/uL Hgb 12.0 (12.0-16.0) g/dL Hct 35.5 L (37-47) % Plt Count 115 L (130-400) K/uL BMP 09/08/20 07:04 Sodium 139 Potassium 3.9 Chloride 106 Carbon Dioxide 26 BUN 9 Creatinine 0.74 Glucose 132 H Calcium 8.6 Medications Administered Current Inpatient Medications Acetaminophen (Acetaminophen 325 Mg Tab) 650 mg PO Q4H PRN PRN Reason: Pain or Fever Stop: 10/06/20 20:53 Azelastine HCl (Azelastine Hcl 0.1% Nasal 200 Sprays/27,400 Mcg Btl) 1 sprays NA BID [facility] Stop: 10/08/20 20:59 Carbidopa/Levodopa (Carbidopa/Levodopa 25/100mg Tab) 1 tab PO TID [facility] Stop: 10/06/20 20:59 Last Admin: 09/08/20 14:56 Dose: 1 tab Documented by: Clonazepam (Clonazepam 0.5 Mg Tab) 1.5 mg PO HS [facility] Stop: 10/07/20 20:59 Last Admin: 09/07/20 20:36 Dose: 1.5 mg Documented by: Dextrose (Dextrose 50% 50 Ml Syringe) 25 - 50 ml IV UD PRN; Protocol PRN Reason: Hypoglycemia Protocol Stop: 10/06/20 20:53 Divalproex Sodium (Divalproex Delay Release 250 Mg Tabec) 250 mg PO QAM [facility] Stop: 10/07/20 08:59 Last Admin: 09/08/20 08:30 Dose: 250 mg Documented by: Divalproex Sodium (Divalproex Delay Release 500 Mg Tab) 500 mg PO HS [facility] Stop: 10/06/20 22:04 Last Admin: 09/07/20 20:33 Dose: 500 mg Documented by: Fluphenazine HCl (Fluphenazine Hcl 2.5 Mg Tab) 5 mg PO [facility] Stop: 10/07/20 20:59 Last Admin: 09/07/20 20:33 Dose: 5 mg Documented by: Glucagon (Glucagon For Inj 1 Mg Vial) 1 mg SQ UD PRN; Protocol PRN Reason: Hypoglycemia Protocol Stop: 10/06/20 20:53 Glucose (Glucose 10 Tabs/Tube) 4 - 8 tabs PO UD PRN; Protocol PRN Reason: Hypoglycemia Protocol Stop: 10/06/20 20:53 Glucose (Glucose 40% Gel 15 Gm Tube) 15 - 30 gm PO UD PRN; Protocol PRN Reason: Hypoglycemia Protocol Stop: 10/06/20 20:53 Promethazine HCl 12.5 mg/ (Sodium Chloride) 50.5 mls @ 202 mls/hr IV Q6H PRN PRN Reason: Nausea And Vomiting Stop: 10/06/20 20:53 Ceftriaxone Sodium 2,000 mg/ (Dextrose) 70 mls @ 140 mls/hr IV Q24H [facility]; Protocol Stop: 09/16/20 13:59 Last Admin: 09/08/20 14:56 Dose: 140 mls/hr Documented by: Insulin Aspart (Insulin Aspart 100 Units/Ml 3 Ml Pen) 0 units SC ACHS [facility] Stop: 10/06/20 20:59 Last Admin: 09/08/20 12:37 Dose: Not Given Documented by: Insulin Glargine (Insulin Glargine Solostar 100 Units/Ml 3 Ml Pen) 5 units SC DAILY [facility] Stop: 10/07/20 08:59 Last Admin: 09/08/20 08:30 Dose: 5 units Documented by: Lactobacillus Acidoph/Casei/Rhamnos (Advanced Probiotic 1250 Mg Capsule) 2 cap PO DAILY [facility] Stop: 10/07/20 08:59 Last Admin: 09/08/20 08:27 Dose: 2 cap Documented by: Mirabegron (Mirabegron Er 25 Mg Tab) 50 mg PO QAM [facility] Stop: 10/07/20 08:59 Last Admin: 09/08/20 08:28 Dose: 50 mg Documented by: Miscellaneous (Carbohydrates For Hypoglycemia ) 15 - 30 gm PO UD PRN PRN Reason: Hypoglycemia Protocol Stop: 10/06/20 20:53 Miscellaneous (Remove Nicoderm Patch) 1 ea N/A DAILY@0859 [facility] Stop: 10/08/20 08:58 Last Admin: 09/08/20 08:30 Dose: 1 ea Documented by: Nicotine (Nicotine 14 Mg/24 Hr Patch) 14 mg TD QAM [facility] Stop: 10/07/20 12:29 Last Admin: 09/08/20 08:29 Dose: 14 mg Documented by: Pantoprazole Sodium (Pantoprazole 40 Mg Tab) 40 mg PO BID [facility] Stop: 10/07/20 08:59 Last Admin: 09/08/20 08:28 Dose: 40 mg Documented by: Simvastatin (Simvastatin 20 Mg Tab) 20 mg PO PM [facility] Stop: 10/06/20 20:59 Last Admin: 09/07/20 20:39 Dose: 20 mg Documented by: Tolterodine Tartrate (Tolterodine Tartrate La 4 Mg Capcr) 4 mg PO QAM [facility] Stop: 10/07/20 08:59 Last Admin: 09/08/20 08:28 Dose: 4 mg Documented by: Vitamin D (Cholecalciferol 1,000 Units 25 Mcg Tab) 8,000 units PO QDL [facility] Stop: 10/07/20 11:29 Last Admin: 09/08/20 10:57 Dose: 8,000 units Documented by: Zonisamide (Zonisamide 100 Mg Capsule) 200 mg PO DAILY [facility] Stop: 10/08/20 09:44 Last Admin: 09/08/20 10:57 Dose: 200 mg Documented by: (1) DM2 (diabetes mellitus, type 2) Diabetes mellitus detention insulin use: without terminal operations manager use (2) Bipolar disorder Active/Remission status: remission status unspecified Qualified Code(s): F31.9 - Bipolar disorder, unspecified
[2020-09-08] MEDS: DIVALPROEX DELAY RELEASE 500 MG TAB PO SCH (21:19)
[2020-09-08] MEDS: SIMVASTATIN 20 MG TAB PO SCH (21:20)
[2020-09-08] MEDS: AZELASTINE HCL 0.1% NASAL 200 SPRAYS/27,400 MCG BTL SCH (21:21)
[2020-09-08] MEDS: clonazePAM 0.5 MG TAB PO SCH (21:25)
[2020-09-09] MEDS: AZELASTINE HCL 0.1% NASAL 200 SPRAYS/27,400 MCG BTL SCH (08:09)
[2020-09-09] MEDS: DIVALPROEX DELAY RELEASE 250 MG TABEC PO SCH (08:10)
[2020-09-09] MEDS: ADVANCED PROBIOTIC 1250 MG CAPSULE PO SCH (08:10)
[2020-09-09] MEDS: TOLTERODINE TARTRATE LA 4 MG CAPCR PO SCH (08:10)
[2020-09-09] MEDS: MIRABEGRON ER 25 MG TAB PO SCH (08:10)
[2020-09-09] MEDS: CARBIDOPA/LEVODOPA 25/100MG TAB PO SCH ×2 (08:11→13:23)
[2020-09-09] MEDS: NICOTINE 14 MG/24 HR PATCH TD SCH (08:11)
[2020-09-09] MEDS: PANTOprazole 40 MG TAB PO SCH (08:11)
[2020-09-09] MEDS: ZONISAMIDE 100 MG CAPSULE PO SCH (08:12)
[2020-09-09] MEDS: INSULIN GLARGINE SOLOSTAR 100 UNITS/ML 3 ML PEN SC SCH (08:12)
[2020-09-09] MEDS: INSULIN ASPART 100 UNITS/ML 3 ML PEN SC SCH ×2 (08:19→12:30)
--- NOTE | 2020-09-09 11:11 | Hospitalist Progress Note ---
Date of Service September 09, 2020 Assessment & Plan (1) Encephalopathy: Metabolic encephalopathy Likely secondary to UTI Resolved (2) Fall: May be contributed by current infection Fall precautions. PT/OT (3) Recurrent UTI: Her caregiver also noted that she fell yesterday but did not sustain any injuries. She has history of recurrent UTI with multiple organisms including Klebsiella, Enterobacter (resistant), and Pseudomonas. Encephalopathy and fall possibly secondary to UTI. Urine and blood cultures pending. Valproic acid level is within normal limit at 75 Ammonia level is low at less than 10 Appetite has been poor, but she ate well at dinner. Continue carb consistent diet. Continue IV fluids Continue Zosyn pending urine and blood cultures. Remains stable without any signs and/or symptoms of infection Urine culture is growing Klebsiella pneumoniae which is pansensitive except Macrobid Antibiotic changed to intravenous ceftriaxone and plan to give Keflex on discharge Will finish a 7 days course of antibiotic in total (4) DM2 (diabetes mellitus, type 2): Hold Metformin. Start insulin while inpatient. Last A1C was 6.1 in 05/2020. Recheck in AM (5) Mild intellectual disability: (6) Bipolar disorder: (7) Parkinsonism: Remains stable and will continue current medications (8) Seizure disorder: Complicated home medication regimen. Will continue home medications Valproic acid level is within normal range (9) GERD (gastroesophageal reflux disease): Continue omeprazole 20 mg BID (10) DVT prophylaxis: Lovenox SQ Has been doing very well with PT and OT She will be transferred to [facility] this afternoon Admission and Anticipated Discharge Date Admission Date: September 06, 2020 Subjective 09/07/2020 The patient was seen and examined in medical telemetry unit She is a 59-year-old with mild intellectual impairment and also history of recurrent UTI was admitted with acute confusion for 1 day and noted to have another UTI Denies any complaints this morning Denies any fever and/or chills 09/08/2020 The patient was seen and examined in medical telemetry unit She has been much better today She has been getting physical therapy with much improvement of her overall weakness and stability Denies any significant symptoms 09/09/2020 The patient was seen and examined in medical telemetry unit She remains stable and denies any symptoms She has been getting physical therapy and has been doing much better She will be discharged to [facility] this afternoon Review of Systems Review of Systems: All systems reviewed and are unremarkable except as noted below Physical Exam Physical Exam: Lying in bed comfortably Constitutional: well developed, well nourished, + ill appearing and + obese Eyes: PERRL, conjunctivae normal, anicteric sclerae ENMT: external ear and nose normal, oropharynx normal Neck: trachea midline, no thyromegaly Respiratory: + labored breathing; no respiratory distress Auscultation: lungs clear to auscultation bilaterally Cardiovascular: Rate/Rhythm: regular rate and regular rhythm Heart Sounds: no murmur Extremities: + edema (Trace edema bilaterally) Gastrointestinal (Abdomen): Inspection/Auscultation: normal bowel sounds; abdomen not distended Percussion/Palpation: abdomen nontender Musculoskeletal: No acute arthritis in any joint Neurologic: Alert and awake. Pleasantly confused and has intellectual impairment, moves all extremities Lymphatic: no cervical or axillary lymphadenopathy Results & Data Results & Data ([facility]) Vital Signs (Past 12 Hours) Vital Signs Temp Pulse Pulse Resp BP Pulse Ox 09/09/20 10:04 58 L 09/09/20 07:08 36.7 C 58 L 20 120/60 99 09/09/20 03:40 36.6 C 60 12 127/67 98 Medications Administered Current Inpatient Medications Acetaminophen (Acetaminophen 325 Mg Tab) 650 mg PO Q4H PRN PRN Reason: Pain or Fever Stop: 10/06/20 20:53 Azelastine HCl (Azelastine Hcl 0.1% Nasal 200 Sprays/27,400 Mcg Btl) 1 sprays NA BID [facility] Stop: 10/08/20 20:59 Last Admin: 09/09/20 08:09 Dose: 1 sprays Documented by: Carbidopa/Levodopa (Carbidopa/Levodopa 25/100mg Tab) 1 tab PO TID [facility] Stop: 10/06/20 20:59 Last Admin: 09/09/20 08:11 Dose: 1 tab Documented by: Clonazepam (Clonazepam 0.5 Mg Tab) 1.5 mg PO HS [facility] Stop: 10/07/20 20:59 Last Admin: 09/08/20 21:25 Dose: 1.5 mg Documented by: Dextrose (Dextrose 50% 50 Ml Syringe) 25 - 50 ml IV UD PRN; Protocol PRN Reason: Hypoglycemia Protocol Stop: 10/06/20 20:53 Divalproex Sodium (Divalproex Delay Release 250 Mg Tabec) 250 mg PO QAM [facility] Stop: 10/07/20 08:59 Last Admin: 09/09/20 08:10 Dose: 250 mg Documented by: Divalproex Sodium (Divalproex Delay Release 500 Mg Tab) 500 mg PO HS [facility] Stop: 10/06/20 22:04 Last Admin: 09/08/20 21:19 Dose: 500 mg Documented by: Fluphenazine HCl (Fluphenazine Hcl 2.5 Mg Tab) 5 mg PO HS [facility] Stop: 10/07/20 20:59 Last Admin: 09/08/20 21:22 Dose: 5 mg Documented by: Glucagon (Glucagon For Inj 1 Mg Vial) 1 mg SQ UD PRN; Protocol PRN Reason: Hypoglycemia Protocol Stop: 10/06/20 20:53 Glucose (Glucose 10 Tabs/Tube) 4 - 8 tabs PO UD PRN; Protocol PRN Reason: Hypoglycemia Protocol Stop: 10/06/20 20:53 Glucose (Glucose 40% Gel 15 Gm Tube) 15 - 30 gm PO UD PRN; Protocol PRN Reason: Hypoglycemia Protocol Stop: 10/06/20 20:53 Promethazine HCl 12.5 mg/ (Sodium Chloride) 50.5 mls @ 202 mls/hr IV Q6H PRN PRN Reason: Nausea And Vomiting Stop: 10/06/20 20:53 Ceftriaxone Sodium 2,000 mg/ (Dextrose) 70 mls @ 140 mls/hr IV Q24H [facility]; Protocol Stop: 09/16/20 13:59 Last Infusion: 09/08/20 16:42 Dose: Infused Documented by: Insulin Aspart (Insulin Aspart 100 Units/Ml 3 Ml Pen) 0 units SC ACHS [facility] Stop: 10/06/20 20:59 Last Admin: 09/09/20 08:19 Dose: Not Given Documented by: Insulin Glargine (Insulin Glargine Solostar 100 Units/Ml 3 Ml Pen) 5 units SC DAILY [facility] Stop: 10/07/20 08:59 Last Admin: 09/09/20 08:12 Dose: 5 units Documented by: Lactobacillus Acidoph/Casei/Rhamnos (Advanced Probiotic 1250 Mg Capsule) 2 cap PO DAILY [facility] Stop: 10/07/20 08:59 Last Admin: 09/09/20 08:10 Dose: 2 cap Documented by: Mirabegron (Mirabegron Er 25 Mg Tab) 50 mg PO QAM [facility] Stop: 10/07/20 08:59 Last Admin: 09/09/20 08:10 Dose: 50 mg Documented by: Miscellaneous (Carbohydrates For Hypoglycemia ) 15 - 30 gm PO UD PRN PRN Reason: Hypoglycemia Protocol Stop: 10/06/20 20:53 Miscellaneous (Remove Nicoderm Patch) 1 ea N/A DAILY@0859 [facility] Stop: 10/08/20 08:58 Last Admin: 09/09/20 08:12 Dose: 1 ea Documented by: Nicotine (Nicotine 14 Mg/24 Hr Patch) 14 mg TD QAM [facility] Stop: 10/07/20 12:29 Last Admin: 09/09/20 08:11 Dose: 14 mg Documented by: Pantoprazole Sodium (Pantoprazole 40 Mg Tab) 40 mg PO BID [facility] Stop: 10/07/20 08:59 Last Admin: 09/09/20 08:11 Dose: 40 mg Documented by: Simvastatin (Simvastatin 20 Mg Tab) 20 mg PO PM [facility] Stop: 10/06/20 20:59 Last Admin: 09/08/20 21:20 Dose: 20 mg Documented by: Tolterodine Tartrate (Tolterodine Tartrate La 4 Mg Capcr) 4 mg PO QAM [facility] Stop: 10/07/20 08:59 Last Admin: 09/09/20 08:10 Dose: 4 mg Documented by: Vitamin D (Cholecalciferol 1,000 Units 25 Mcg Tab) 8,000 units PO QDL [facility] Stop: 10/07/20 11:29 Last Admin: 09/08/20 10:57 Dose: 8,000 units Documented by: Zonisamide (Zonisamide 100 Mg Capsule) 200 mg PO DAILY [facility] Stop: 10/08/20 09:44 Last Admin: 09/09/20 08:12 Dose: 200 mg Documented by: (1) DM2 (diabetes mellitus, type 2) Diabetes mellitus termination clerk insulin use: without termination clerk use (2) Bipolar disorder Active/Remission status: remission status unspecified Qualified Code(s): F31.9 - Bipolar disorder, unspecified
[2020-09-09] MEDS: CHOLECALCIFEROL 1,000 UNITS 25 MCG TAB PO SCH (12:31)
[2020-09-09] MEDS ORDERED: cephALEXin 500 MG CAP PO SCH (14:00)
--- NOTE | 2020-09-10 09:08 | Discharge Summary ---
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 She lives at [facility] and has 24/7 caregivers. One of her caregivers, Peggy is with her during my exam and provides the history. The patient was fine up until yesterday when she started to get slightly wobbly. She fell yesterday but did not sustain any injuries. She had CT head upon arrival which was negative for intracranial abnormalities. Since this morning, the patient was slightly confused with decreased appetite, dizziness, and overall was not herself. Since presentation to the ED, she was noted to have mildly elevated WBC count with left shift and dirty UA. Otherwise, renal function and other labs were unrevealing. The patient does have history of recurrent UTI with different bacteria including Klebsiella, Enterobacter, and Pseudomonas. She does have history of Pseudomonas bacteremia as well. She is on chronic suppressive therapy with Macrobid daily for UTI hx. COVID negative. Vitals stable. Admission Exam Per Admitting Provider Constitutional: well nourished and + behavioral limitations (mild intellectual disability); no acute distress and not ill appearing Eyes: PERRL, conjunctivae normal, anicteric sclerae ENMT: external ear and nose normal, oropharynx normal Neck: trachea midline, no thyromegaly Respiratory: normal respiratory effort, lungs clear to auscultation Cardiovascular: Rate/Rhythm: regular rate and regular rhythm Heart Sounds: + murmur Extremities: no edema Gastrointestinal (Abdomen): normal bowel sounds, soft, nontender, no hepatosplenomegaly Musculoskeletal: Head/Neck/Chest: normocephalic and head atraumatic Skin: no rashes, warm and dry Principal Diagnosis Metabolic and colopathy, recurrent UTI, status post fall, parkinsonism, seizure disorder, diabetes type 2, intellectual impairment Discharge Exam Constitutional well developed, well nourished, + ill appearing and + obese Eyes PERRL, conjunctivae normal, anicteric sclerae ENMT external ear and nose normal, oropharynx normal Neck trachea midline, no thyromegaly Respiratory + labored breathing; no respiratory distress Auscultation: lungs clear to auscultation bilaterally Cardiovascular Rate/Rhythm: regular rate and regular rhythm Heart Sounds: no murmur Extremities: + edema (Trace edema bilaterally) Gastrointestinal (Abdomen) Inspection/Auscultation: normal bowel sounds; abdomen not distended Percussion/Palpation: abdomen nontender Lymphatic no cervical or axillary lymphadenopathy Discharge Data Allergies Allergy/AdvReac Type Severity Reaction Status Date / Time cefdinir Allergy Rash Verified 09/06/20 13:39 Ordered Studies 09/06/20 12:35 CT head/brain wo con Stat Hospital Course (1) Encephalopathy: Metabolic encephalopathy Likely secondary to UTI Resolved (2) Fall: May be contributed by current infection Fall precautions. PT/OT (3) Recurrent UTI: Her caregiver also noted that she fell yesterday but did not sustain any injuries. She has history of recurrent UTI with multiple organisms including Klebsiella, Enterobacter (resistant), and Pseudomonas. Encephalopathy and fall possibly secondary to UTI. Urine and blood cultures pending. Valproic acid level is within normal limit at 75 Ammonia level is low at less than 10 Appetite has been poor, but she ate well at dinner. Continue carb consistent diet. Continue IV fluids Continue Zosyn pending urine and blood cultures. Remains stable without any signs and/or symptoms of infection Urine culture is growing Klebsiella pneumoniae which is pansensitive except Macrobid Antibiotic changed to intravenous ceftriaxone and plan to give Keflex on discharge Will finish a 7 days course of antibiotic in total (4) DM2 (diabetes mellitus, type 2): Hold Metformin. Start insulin while inpatient. Last A1C was 6.1 in 05/2020. Recheck in AM (5) Mild intellectual disability: (6) Bipolar disorder: (7) Parkinsonism: Remains stable and will continue current medications (8) Seizure disorder: Complicated home medication regimen. Will continue home medications Valproic acid level is within normal range (9) GERD (gastroesophageal reflux disease): Continue omeprazole 20 mg BID (10) DVT prophylaxis: Lovenox SQ Has been doing very well with PT and OT She will be transferred to [facility] this afternoon Total Time Total Time Spent Total Time Spent (In Minutes): 45 minutes Total Time Includes: Examination of the Patient, Discharge Planning, Medication Reconciliation and Communication With Other Providers Discharge Plan Discharge Items Patient Disposition: Personal Custodial Reason For Visit: CONFUSION Discharge Diagnosis: Metabolic and colopathy, recurrent UTI, status post fall, parkinsonism, seizure disorder, diabetes type 2, intellectual impairment Condition on Discharge: Fair Activity: Resume your previous activity Non-emergency contact: Primary Care Provider Call non-emergency contact if: you have any medication questions and your symptoms worsen Follow-up/Referrals: Matthew Lopez MD [Outside Practitioners] - (Date & Time 09/12/2020 11:20 AM Provider Matthew Lopez MD [facility] ) [employer] [Primary Care Provider] - Diet: Carb Consistent or DM2 Addtl Attending Provider Instructions: Please take extra precaution to avoid falls Finish the course of antibiotics Try to drink more fluid Pending Studies at Discharge: No Stand-Alone Forms: My BeGo, Smoking Cessation Skilled Items Patient informed of condition?: Yes DNR: No Discharge Level of Care: Other Communicable Disease: No Discharge Prognosis: Stable Lines: None Urinary Catheter: Yes Medications and DC Order Prescriptions: New cephalexin 500 mg Capsule 500 mg PO TID Qty: 12 RF: 0 Continued ciprofloxacin HCl 0.3 % drops 1 - 2 drp ophthalmic (eye) DIRECTED RF: 0 albuterol sulfate [Ventolin HFA] 90 mcg/actuation HFA aerosol inhaler 2 puff inhalation Q6H PRN (Reason: SOB) RF: 0 fluphenazine decanoate 25 mg/mL Solution 25 mg IM MONTHLY RF: 0 ibuprofen 600 mg Tablet 600 mg PO BID PRN (Reason: Pain) RF: 0 loperamide 2 mg Tablet 2 mg PO DIRECTED PRN (Reason: Diarrhea) RF: 0 potassium chloride 10 mEq Capsule, Extended Release 10 meq PO QAM RF: 0 Probiotic 3 billion cell Capsule 3,000 mmu cells PO TIDM RF: 0 naproxen sodium 220 mg Tablet 440 mg PO BID PRN (Reason: Pain) RF: 0 cranberry extract 200 mg Capsule 400 mg PO QDL RF: 0 Artificial Tears (cmc) 1 % Drops 1 drp OPHTHALMIC (EYE) TID RF: 0 divalproex 500 mg Tablet,Delayed Release (Dr/Ec) 500 mg PO HS Qty: 0 RF: 0 metformin 500 mg Tablet 500 mg PO QAM RF: 0 acetaminophen 325 mg Tablet 650 mg PO Q4H PRN (Reason: Fever Or Pain) RF: 0 Calmoseptine 0.44-20.6 % Ointment 1 applic TOPICAL DAILY PRN (Reason: Itching) RF: 0 dextromethorphan-guaifenesin [Siltussin-DM] 10-100 mg/5 mL Syrup 5 ml PO Q4H PRN (Reason: Cough) RF: 0 zonisamide 100 mg Capsule 200 mg PO DAILY RF: 0 simvastatin 20 mg Tablet 20 mg PO PM RF: 0 omeprazole 20 mg Capsule,Delayed Release(Dr/Ec) 20 mg PO BID RF: 0 nystatin 100,000 unit/gram Powder 1 applic TOPICAL UD PRN (Reason: MONILIA INFECTION) RF: 0 insulin aspart U-100 [Novolog Flexpen U-100 Insulin] 100 unit/mL Insulin Pen 0 unit SUBCUT .SLIDING SCALE RF: 0 calcium carbonate [Tums] 200 mg calcium (500 mg) Tablet,Chewable 200 mg PO TID PRN (Reason: Heartburn) RF: 0 clotrimazole 1 % Cream 1 applic TOPICAL BID RF: 0 divalproex [Depakote] 250 mg tablet,delayed release (DR/EC) 250 mg PO QAM RF: 0 clonazepam 1 mg tablet 1.5 mg PO HS RF: 0 furosemide 20 mg Tablet 20 mg PO QAM RF: 0 carbidopa-levodopa 25-100 mg Tablet 1 tab PO TID RF: 0 cholecalciferol (vitamin D3) [Vitamin D3] 50 mcg (2,000 unit) Capsule 8,000 unit PO QDL RF: 0 tolterodine 4 mg capsule,extended release 24hr 4 mg PO QAM RF: 0 Myrbetriq 50 mg tablet extended release 24 hr 50 mg PO QAM RF: 0 azelastine 137 mcg (0.1 %) Aerosol,[place] 1 spray INTRANASAL BID RF: 0 fluphenazine HCl 5 mg tablet 5 mg PO HS RF: 0 Discontinued nitrofurantoin monohyd/m-cryst 100 mg capsule 100 mg PO QAM RF: 0 Discharge Orders: Discharge Order (Routine); Ordered 09/09/20 Ordered By: Madiha Rodríguez/Other Patient Handouts: A1C Admission Data Admit Date/Time: 09/06/20 19:28 Attending Provider: Madiha Maldonado Admit Provider: Leonardo Chung Primary Care Provider: Robi [facility], [facility] Other Interventions: Discharge Summary Assessment (RN) Last Done: 09/09/20 12:52
== END 2020-09-09 13:55 | disposition home or self-care (01) | DRG 689 ==
LOC: ED 11:00 → SUATTDRO 19:28 → 2N 19:28 → UNDODISIN 09-09 12:59

== ENCOUNTER 2021-01-07 19:04 | Inpatient (IN) ==
[2021-01-07] MEDS ORDERED: ALBUT/IPRATROP 3MG/0.5MG NEB 3 ML VIAL NEB ONE (19:22)
--- NOTE | 2021-01-07 19:24 | Emergency Department Note ---
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 Diffuse rhonchi and wheezing and junky lung sounds. Given parkinsonism with multiple other medical issues I am highly concerned this is aspiration in nature. She was given neb and sepsis work-up initiated. Blood cultures/lactate obtained, fluids ordered (Given the patients BMI >30, IBW was used to calculate the 30ml/kg fluid bolus), and empir ic abx started. Sats noted to be trending down and thus NC O2 started. She actually looks much improved with fluid resus and nebs (Department Chair agrees) though lung exam is quite poor and she is still a bit tachypneic. Covid is negative, CXR without clear infiltrate but I do not find evidence of heart failure. Hospitalist consulted for further management and evaluation. Prior Medical Record and Triage/Nursing Notes reviewed by Me Additional history obtained from chart Differentials:Reactive airway disease, pneumonia, pneumothorax, COPD, CHF, i nfections, cardiac ischemia, pulmonary embolism, musculoskeletal, gastrointestinal, as well as other pathologies. Vital Signs: reviewed and remarkable for tachypnea, hypoxia Interventions: Saline Lock, NSS Bolus 2 L IV, Zosyn IV, Vanco IV, Duoneb Labs:Reviewed and remarkable for elevated lactate Imaging:X ray results are stated below per my interpretation: Chest: 1 view: No infiltrate, no effusion, normal cardiac border. EKG:Per My Interpretation: Indication Shob: NSR 70 bpm, qtc 373. No Ectopy. No Ischemia. Compared to EKG 09/06/20, no significant changes when factoring bad baseline. Cardiac/Tele Monitoring: Cardiac Monitoring: An Order was placed for continuous cardiac monitoring. The monitor shows a rate of 70 with a normal sinus rhythm. Consults:Dr Sheldon Ross Hospitalist Plan: Disposition:Hospitalization. Condition: Fair History of Present Illness:60 yr old female arrives for evaluation of shortness of breath. Patient lives in longterm and notes that she started coughing 3 days ago. Increasing cough, shortness of breath and exhaustion over last few days. Associated body aches, headache, back pain, nausea, amongst others. Denies overt chest pain, syncope, abdominal pain, neuro deficits, current headache, neck pain/stiffness, nor other symptoms. States that her legs have in creased in swelling the last few days. Denies fevers, chills, vomiting. No known sick contacts. She has a covid vaccination per patient. Cough medicine has not helped. Nothing makes better nor worse. ROS: See above HPI for pertinent positives & negatives. A total of 10 systems reviewed and were otherwise negative. Past Medical History:See Below Past Surgical History:See Below Family History:See Below Social History:See Below Home Medications:See Below Allergies:cefdinir Vitals:Blood Pressure: 126/69, Pulse 79, RR 19, T 36.9C, O2 95% on RA Physical Exam: GENERAL: Patient is uncomfortable/tired appearing and in mild distress. EYES: No scleral icterus, unremarkable pupils. ENT: Mucous membranes moist, no nasal congestion. NECK: No masses appreciated, nomeningismus, trachea is midline. RESPIRATORY: Diffuse crackles, wheezing, and moderate dyspnea CARDIOVASCULAR: Regular rate and rhythm.No murmurs, rubs, gallops appreciated. GASTROINTESTINAL: Abdomen soft, non-tender, no peritonitis.Bowel sounds positive.No masses appreciated. BACK: No midline tenderness, no CVA tenderness EXTREMITIES: Normal motion all extremities, no cyanosis, mild bilateral edema. NEUROLOGIC: Alert and oriented, no acute motor or sensory deficits, no focal weakness, cranial nerves grossly intact. SKIN: No rash, no jaundice, no diaphoresis. PSYCH: Appropriate GCS: 15 ED Course: Times/Reassessments: much improved with fluids/nebs but is hypoxic with tachypnea Critical Care: I have personally spent 35 minutes of critical care time in the direct management of this patient. Acute respiratory illness with lactic acidosis. This was a life/limb threatening event. This 35 minutes is in excess of all separately billable procedures. Anupam Mcfarland MD Past Med/Surg History Medical History Bacteremia due to Pseudomonas Bipolar disorder Dilantin toxicity DM2 (diabetes mellitus, type 2) GERD (gastroesophageal reflux disease) HLD (hyperlipidemia) Mild intellectual disability Morbid obesity Osteoarthritis Overactive bladder Recurrent UTI Schizophrenia Seizure disorder Sensorineural hearing loss (SNHL) of both ears Tobacco abuse Valproic acid toxicity Surgical History H/O tubal ligation H/O wrist surgery Right History of total left hip replacement Hx of cholecystectomy Family History Father , age 46 Myocardial infarction Mother , age 60 No problems noted. 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 Beliefs That Will Affect Care: None marital status: Single Current Living Situation: Personal Care Facility Current Living Situation Comment: [facility] current occupational status: unemployed and disabled Other Information That Helps Us Care for You: No Feels Safe at Home: Yes Safety Concerns: Feels Safe At This Time Assistive Devices: Walker Allergies Allergies Allergy/AdvReac Type Severity Reaction Status Date / Time cefdinir Allergy Rash Verified 01/07/21 20:34 Home Meds Home Medications Medication Instructions Recorded Confirmed acetaminophen 325 mg tablet 650 mg PO Q4H PRN MDD 3g 06/02/18 01/07/21 dextromethorphan-guaifenesin 10 5 ml PO Q4H PRN 06/02/18 01/07/21 mg-100 mg/5 mL oral syrup (Siltussin-DM) insulin aspart U-100 100 unit/mL 0 unit SUBCUT BID 06/02/18 01/07/21 (3 mL) subcutaneous pen (Novolog Flexpen U-100 Insulin aspart) menthol 0.44 %-zinc oxide 20.6 % 1 applic TOPICAL DAILY PRN 06/02/18 01/07/21 topical ointment (Calmoseptine) nystatin 100,000 unit/gram topical 1 applic TOPICAL DAILY PRN MDD 1 06/02/18 01/07/21 powder time omeprazole 20 mg capsule,delayed 20 mg PO BID 06/02/18 01/07/21 release simvastatin 20 mg tablet 20 mg PO PM 06/02/18 01/07/21 zonisamide 100 mg capsule 200 mg PO DAILY 06/02/18 01/07/21 fluphenazine decanoate 25 mg/mL 25 mg IM MONTHLY 08/08/18 01/07/21 injection solution ibuprofen 600 mg tablet 600 mg PO BID PRN 08/08/18 01/07/21 loperamide 2 mg tablet 2 mg PO DIRECTED PRN MDD 1 08/08/18 01/07/21 potassium chloride 10 mEq 10 meq PO QAM 08/08/18 01/07/21 capsule,extended release clotrimazole 1 % topical cream 1 applic TOPICAL BID PRN 09/30/18 01/07/21 cranberry extract 200 mg capsule 400 mg PO QDL 04/22/20 01/07/21 naproxen sodium 220 mg tablet 440 mg PO BID PRN 04/22/20 01/07/21 azelastine 137 mcg (0.1 %) nasal 1 spray INTRANASAL BID 09/06/20 01/07/21 spray aerosol carbidopa 25 mg-levodopa 100 mg 1.5 tab PO TID 09/06/20 01/07/21 tablet clonazepam 1 mg tablet 1.5 mg PO HS 09/06/20 01/07/21 divalproex 250 mg tablet,delayed 250 mg PO QAM 09/06/20 01/07/21 release (Depakote) fluphenazine HCl 5 mg tablet 5 mg PO HS 09/06/20 01/07/21 furosemide 20 mg tablet 20 mg PO QAM 09/06/20 01/07/21 mirabegron 50 mg tablet,extended 50 mg PO QAM 09/06/20 01/07/21 release 24 hr (Myrbetriq) tolterodine 4 mg capsule,extended 4 mg PO QAM 09/06/20 01/07/21 release 24 hr Saccharomyces boulardii 1 cap PO TIDWMEAL 01/07/21 01/07/21 calcium carbonate 200 mg calcium 200 mg PO TID PRN 01/07/21 01/07/21 (500 mg) chewable tablet (Calcium Antacid) cephalexin 250 mg tablet 250 mg PO BID 01/07/21 01/07/21 cholecalciferol (vitamin D3) 50 50 mcg PO DAILY 01/07/21 01/07/21 mcg (2,000 unit) tablet (Vitamin D3) fluphenazine HCl 2.5 mg tablet 2.5 mg PO HS 01/07/21 01/07/21 metformin 500 mg tablet,extended 500 mg PO QAM 01/07/21 01/07/21 release 24 hr sodium chloride 0.65 % nasal drops 2 drp INTRANASAL BID 01/07/21 01/07/21 ([place] Saline) Previous Rx's Medication Instructions Recorded divalproex 500 mg tablet,delayed 500 mg PO HS #0 tab 04/24/20 release Results & Data (ED) Vital Signs Vital Signs - 24 hr 01/07/21 19:08 01/07/21 19:47 01/07/21 21:06 Temperature 36.9 C Temperature Source Temporal Artery Scan Pulse Rate 79 Pulse Rate [Right Apical] 88 Pulse Rate from SpO2 Sensor 90 Respiratory Rate 19 20 26 H Respiratory Effort / Characteristics Non-Labored Spontaneous Respiratory Depth Normal Respiratory Pattern Regular Blood Pressure 126/69 159/72 H Blood Pressure [Right Arm] Blood Pressure Mean 88 101 Blood Pressure Mean [Right Arm] Pulse Oximetry 95 93 89 L Oxygen Delivery Method Room Air Room Air Oxygen Flow Rate Sepsis Recent Fever Within 48 Hours No Sepsis New/Unexplained Change in Mental Status N/A Sepsis Action Taken by Nursing No Action Required 01/07/21 21:07 01/07/21 21:30 01/07/21 21:37 Temperature 37.0 C Temperature Source Oral Pulse Rate Pulse Rate [Right Apical] 83 86 Pulse Rate from SpO2 Sensor 89 Respiratory Rate 22 23 Respiratory Effort / Characteristics Respiratory Depth Respiratory Pattern Blood Pressure Blood Pressure [Right Arm] 157/72 H 157/72 H Blood Pressure Mean Blood Pressure Mean [Right Arm] 100 100 Pulse Oximetry 92 96 94 Oxygen Delivery Method Nasal Cannula Nasal Cannula Nasal Cannula Oxygen Flow Rate 2 2 2 Sepsis Recent Fever Within 48 Hours Sepsis New/Unexplained Change in Mental Status Sepsis Action Taken by Nursing 01/07/21 22:00 01/07/21 22:30 01/07/21 23:00 Temperature Temperature Source Pulse Rate 85 80 76 Pulse Rate [Right Apical] Pulse Rate from SpO2 Sensor 85 80 76 Respiratory Rate 22 23 24 Respiratory Effort / Characteristics Respiratory Depth Respiratory Pattern Blood Pressure Blood Pressure [Right Arm] Blood Pressure Mean Blood Pressure Mean [Right Arm] Pulse Oximetry 96 98 96 Oxygen Delivery Method Nasal Cannula Nasal Cannula Nasal Cannula Oxygen Flow Rate 2 2 2 Sepsis Recent Fever Within 48 Hours Sepsis New/Unexplained Change in Mental Status Sepsis Action Taken by Nursing Laboratory Data Result diagrams: 01/07/21 19:35 01/07/21 19:35 Lab Results 01/07/21 01/07/21 01/07/21 Range/Units 19:34 19:34 19:35 WBC 8.37 (4.8-10.8) K/uL RBC 4.21 (4.2-5.4) M/uL Hgb 12.8 (12.0-16.0) g/dL Hct 38.2 (37-47) % MCV 90.7 (80-100) fL MCH 30.4 (25-34) pg MCHC 33.5 (32-36) g/dL RDW Std Deviation 48.2 H (36.4-46.3) fL RDW Coeff of Celio 14.4 (11.5-14.5) % Plt Count 137 (130-400) K/uL MPV 10.3 (7.4-10.4) fL Immature Gran % (Auto) 0.1 % Neut % (Auto) 42.5 % Lymph % (Auto) 43.1 % Wagoner % (Auto) 13.7 % Eos % (Auto) 0.1 % Baso % (Auto) 0.5 % Neut # (Auto) 3.55 (1.4-6.5) K/uL Lymph # (Auto) 3.61 H (1.2-3.4) K/uL Wagoner # (Auto) 1.15 H (0.11-0.59) K/uL Eos # (Auto) 0.01 (0-0.5) K/uL Baso # (Auto) 0.04 (0-0.2) K/uL Immature Gran # (Auto) 0.01 (0.00-0.02) K/uL PT (9.0-12.0) Seconds INR (0.9-1.1) Sodium (136-145) mmol/L Potassium (3.5-5.1) mmol/L Chloride (98-107) mmol/L Carbon Dioxide (21-32) mmol/L Anion Gap (3-11) BUN (7-18) mg/dl Creatinine (0.6-1.2) mg/dl Est Cr Clr Drug Dosing ml/min Est GFR ( Amer) ml/min Est GFR (Non-Af Amer) ml/min BUN/Creatinine Ratio (10-20) Glucose (70-99) mg/dl Lactate (0.4-2.0) mmol/L Calcium (8.5-10.1) mg/dl Magnesium (1.8-2.4) mg/dl Total Bilirubin (0.2-1) mg/dl Direct Bilirubin (0-0.2) mg/dl AST (15-37) U/L ALT (12-78) U/L Alkaline Phosphatase (45-117) U/L Troponin I (0-0.045) ng/ml NT-Pro-B Natriuret Pep (0-900) pg/ml Total Protein (6.4-8.2) gm/dl Albumin (3.4-5.0) gm/dl Procalcitonin (0-0.5) ng/ml Valproic Acid (50-100) mcg/ml COVID-19 Eval Order Covid19 at [facility] SARS-CoV-2 (PCR) NEGATIVE (Negative) 01/07/21 01/07/21 01/07/21 Range/Units 19:35 19:35 19:35 WBC (4.8-10.8) K/uL RBC (4.2-5.4) M/uL Hgb (12.0-16.0) g/dL Hct (37-47) % MCV (80-100) fL MCH (25-34) pg MCHC (32-36) g/dL RDW Std Deviation (36.4-46.3) fL RDW Coeff of Celio (11.5-14.5) % Plt Count (130-400) K/uL MPV (7.4-10.4) fL Immature Gran % (Auto) % Neut % (Auto) % Lymph % (Auto) % Wagoner % (Auto) % Eos % (Auto) % Baso % (Auto) % Neut # (Auto) (1.4-6.5) K/uL Lymph # (Auto) (1.2-3.4) K/uL Wagoner # (Auto) (0.11-0.59) K/uL Eos # (Auto) (0-0.5) K/uL Baso # (Auto) (0-0.2) K/uL Immature Gran # (Auto) (0.00-0.02) K/uL PT (9.0-12.0) Seconds INR (0.9-1.1) Sodium 133 L (136-145) mmol/L Potassium 3.9 (3.5-5.1) mmol/L Chloride 101 (98-107) mmol/L Carbon Dioxide 27 (21-32) mmol/L Anion Gap 4.0 (3-11) BUN 11 (7-18) mg/dl Creatinine 0.94 (0.6-1.2) mg/dl Est Cr Clr Drug Dosing 75.8 ml/min Est GFR ( Amer) 77.5 ml/min Est GFR (Non-Af Amer) 66.9 ml/min BUN/Creatinine Ratio 11.8 (10-20) Glucose 146 H (70-99) mg/dl Lactate 2.6 H* (0.4-2.0) mmol/L Calcium 8.8 (8.5-10.1) mg/dl Magnesium 2.3 (1.8-2.4) mg/dl Total Bilirubin 0.4 (0.2-1) mg/dl Direct Bilirubin 0.1 (0-0.2) mg/dl AST 19 (15-37) U/L ALT 29 (12-78) U/L Alkaline Phosphatase 86 (45-117) U/L Troponin I < 0.015 (0-0.045) ng/ml NT-Pro-B Natriuret Pep 505 (0-900) pg/ml Total Protein 7.5 (6.4-8.2) gm/dl Albumin 3.1 L (3.4-5.0) gm/dl Procalcitonin (0-0.5) ng/ml Valproic Acid 78 (50-100) mcg/ml COVID-19 Eval Order SARS-CoV-2 (PCR) (Negative) 01/07/21 01/07/21 01/07/21 Range/Units 19:35 19:35 21:33 WBC (4.8-10.8) K/uL RBC (4.2-5.4) M/uL Hgb (12.0-16.0) g/dL Hct (37-47) % MCV (80-100) fL MCH (25-34) pg MCHC (32-36) g/dL RDW Std Deviation (36.4-46.3) fL RDW Coeff of Celio (11.5-14.5) % Plt Count (130-400) K/uL MPV (7.4-10.4) fL Immature Gran % (Auto) % Neut % (Auto) % Lymph % (Auto) % Wagoner % (Auto) % Eos % (Auto) % Baso % (Auto) % Neut # (Auto) (1.4-6.5) K/uL Lymph # (Auto) (1.2-3.4) K/uL [place]er # (Auto) (0.11-0.59) K/uL Eos # (Auto) (0-0.5) K/uL Baso # (Auto) (0-0.2) K/uL Immature Gran # (Auto) (0.00-0.02) K/uL PT 9.9 (9.0-12.0) Seconds INR 1.0 (0.9-1.1) Sodium (136-145) mmol/L Potassium (3.5-5.1) mmol/L Chloride (98-107) mmol/L Carbon Dioxide (21-32) mmol/L Anion Gap (3-11) BUN (7-18) mg/dl Creatinine (0.6-1.2) mg/dl Est Cr Clr Drug Dosing ml/min Est GFR ( Amer) ml/min Est GFR (Non-Af Amer) ml/min BUN/Creatinine Ratio (10-20) Glucose (70-99) mg/dl Lactate 2.8 H* (0.4-2.0) mmol/L Calcium (8.5-10.1) mg/dl Magnesium (1.8-2.4) mg/dl Total Bilirubin (0.2-1) mg/dl Direct Bilirubin (0-0.2) mg/dl AST (15-37) U/L ALT (12-78) U/L Alkaline Phosphatase (45-117) U/L Troponin I (0-0.045) ng/ml NT-Pro-B Natriuret Pep (0-900) pg/ml Total Protein (6.4-8.2) gm/dl Albumin (3.4-5.0) gm/dl Procalcitonin 0.05 (0-0.5) ng/ml Valproic Acid (50-100) mcg/ml COVID-19 Eval Order SARS-CoV-2 (PCR) (Negative) Administered Medications Discontinued Medications Albuterol (Albut/Ipratrop 3mg/0.5mg Neb 3 Ml Vial) 12 ml NEB ONE ONE Stop: 01/07/21 19:23 Last Admin: 01/07/21 19:46 Dose: 12 ml Documented by: [id number] Piperacillin Sod/Tazobactam Sod (Zosyn) 4.5 gm in 120 mls @ 240 mls/hr IV NOW ONE Stop: 01/07/21 20:40 Last Infusion: 01/07/21 20:55 Dose: 0 mls/hr Documented by: [id number] Admin: 01/07/21 20:25 Dose: 240 mls/hr Documented by: [id number] Vancomycin HCl 2,000 mg/ (Sodium Chloride) 540 mls @ 200 mls/hr IV NOW ONE Stop: 01/07/21 22:52 Last Admin: 01/07/21 21:02 Dose: 200 mls/hr Documented by: [id number] Sodium Chloride (Nss 1000ml) 2,000 mls @ 999 mls/hr IV .Q2H1M ONE Stop: 01/07/21 22:11 Last Infusion: 01/07/21 22:24 Dose: 0 mls/hr Documented by: [id number] Admin: 01/07/21 20:23 Dose: 999 mls/hr Documented by: [id number] Lactated Ringer's (Lr) 1,000 mls @ 500 mls/hr IV .Q2H ONE Stop: 01/08/21 00:14 Last Admin: 01/08/21 01:03 Dose: 500 mls/hr Documented by: [id number] Methylprednisolone 20 mg/ (Syringe) 0.32 mls @ 1.5 mls/min IV ONE ONE Stop: 01/07/21 22:31 Last Admin: 01/07/21 23:47 Dose: 1.5 mls/min Documented by: [id number] Imaging Data Radiologist's Impression: Chest X-Ray 01/07/21 19:22 XR chest 1V portable HISTORY: Shortness of breath. COMPARISON: Chest 04/22/2020. FINDINGS: There are low lung volumes. The heart remains mildly enlarged. No pleural effusions. No pneumothorax. No new focal lung consolidations to suggest pneumonia. No evidence for pulmonary edema. IMPRESSION: No significant change compared to the prior study. No acute process. Stable mild cardiomegaly. ACT 112: Negative or not required by law. Electronically signed by: Chet Hernandez M.D. 01/07/2021 8:31 PM Discharge Plan Visit Data Chief Complaint: Cough Stated Complaint: COUGH, WHEEZING, HEADACHE, WEAK ED Provider: Anupam Mcfarland Discharge Problem: Pneumonia, Hypoxia, Lactic acidosis Patient Disposition: Admitted As Inpatient Discharge Instructions Interventions: ED Discharge Assessment Last Done: 01/08/21 00:27 Discharge Problem: Pneumonia Qualifiers: Pneumonia type: due to unspecified organism Laterality: unspecified laterality Lung location: unspecified part of lung Qualified Code(s): J18.9 - Pneumonia, unspecified organism
[2021-01-07 19:58] LABS: Basophils # (auto) 0.04 K/uL (0-0.2); Basophils % (auto) 0.5 %; Eosinophils # (auto) 0.01 K/uL (0-0.5); Eosinophils % (auto) 0.1 %; Hematocrit (blood only) 38.2 % (37-47); Hemoglobin 12.8 g/dL (12.0-16.0); Immature Granulocytes # (auto) 0.01 K/uL (0.00-0.02); Immature Granulocytes % (auto) 0.1 %; Lymphocytes # (auto) 3.61 K/uL (1.2-3.4); Lymphocytes % (auto) 43.1 %; Mean Corpuscular Hemoglobin 30.4 pg (25-34); Mean Corpuscular Hgb Conc 33.5 g/dL (32-36); Mean Corpuscular Volume 90.7 fL (80-100); Mean Platelet Volume 10.3 fL (7.4-10.4); Monocytes # (auto) 1.15 K/uL (0.11-0.59); Monocytes % (auto) 13.7 %; Neutrophils # (auto) 3.55 K/uL (1.4-6.5); Neutrophils % (auto) 42.5 %; Platelet Count 137 K/uL (130-400); RDW Coefficient of Variation 14.4 % (11.5-14.5); RDW Standard Deviation 48.2 fL (36.4-46.3); Red Blood Count 4.21 M/uL (4.2-5.4); White Blood Count 8.37 K/uL (4.8-10.8)
[2021-01-07 20:07] LABS: Albumin Level 3.1 gm/dl (3.4-5.0); BUN Creatinine Ratio 11.8 (10-20); Blood Urea Nitrogen 11 mg/dl (7-18); Calcium 8.8 mg/dl (8.5-10.1); Carbon Dioxide 27 mmol/L (21-32); Chloride 101 mmol/L (98-107); Creatinine Clr Calc Pharmacy 75.8 ml/min; Est GFR (African American) 77.5 ml/min; Est GFR (Non-African American) 66.9 ml/min; Glucose 146 mg/dl (70-99); Magnesium 2.3 mg/dl (1.8-2.4); Potassium 3.9 mmol/L (3.5-5.1); Sodium 133 mmol/L (136-145)
[2021-01-07] MEDS ORDERED: PIPERACILL/TAZOBAC CONSULT ACTIVE PRN (20:11)
[2021-01-07] MEDS ORDERED: VANCOMYCIN CONSULT ACTIVE PRN (20:11)
[2021-01-07] MEDS ORDERED: VANCOMYCIN HCL 2,000 MG in SODIUM CHLORIDE 0.9% 500 ML IV ONE (20:11)
[2021-01-07] MEDS ORDERED: PIPERACILLIN/TAZOBACTAM 4.5 GM/120 ML BAG IV ONE (20:11)
[2021-01-07] MEDS ORDERED: SODIUM CHLORIDE 0.9% 1000ML 2,000 ML IV ONE (20:11)
[2021-01-07 20:13] LABS: Prothrombin Time 9.9 Seconds (9.0-12.0)
[2021-01-07 20:19] LABS: Alanine Aminotransferase 29 U/L (12-78); Alkaline Phosphatase 86 U/L (45-117); Aspartate Aminotransferase 19 U/L (15-37); Bilirubin Direct 0.1 mg/dl (0-0.2); Bilirubin,Total 0.4 mg/dl (0.2-1); NT Pro B Type Natriuretic Pept 505 pg/ml (0-900); Total Protein 7.5 gm/dl (6.4-8.2); Troponin I < 0.015 ng/ml (0-0.045)
--- NOTE | 2021-01-07 20:32 | XRay Report ---
XR chest 1V portable HISTORY: Shortness of breath. COMPARISON: Chest 04/22/2020. FINDINGS: There are low lung volumes. The heart remains mildly enlarged. No pleural effusions. No pne umothorax. No new focal lung consolidations to suggest pneumonia. No evidence for pulmonary edema. IMPRESSION: No significant change compared to the prior study. No acute process. Stable mild cardiomegaly. ACT 112: Negative or not required by law. Electronically signed by: Chet Hernandez M.D. 01/07/2021 8:31 PM
[2021-01-07] MEDS ORDERED: LACTATED RINGER'S 1,000 ML IV ONE (22:15)
[2021-01-07] MEDS ORDERED: methylPREDNISolone 20 MG in SYRINGE 0 ML IV ONE (22:30)
--- NOTE | 2021-01-07 23:10 | History & Physical Report ---
Date of Service January 07, 2021 Assessment & Plan (1) Acute hypoxemic respiratory failure: Plan: Secondary to possible aspiration pneumonitis No overt sepsis for now mild intellectual impairment schizoaffective disorder/mood disorder seizure disorder, stable on regimen Drug parkinsonism on Sinemet hyperlipidemia on statin Rx DM2 insulin requiring, well-controlled as of recent hemoglobin A1c of 6.03 September 2020 Chronic thrombocytopenia ongoing tobacco abuse Medical telemetry Supplemental O2 Solu-Medrol 1 dose given bronchospasm causing hypoxemia Nebs RTC Augmentin course Aspiration precautions Swallow eval Basal insulin, ISS BG goal 1 10-1 40, carb count coverage, update hemoglobin A1c Nicotine patch as needed DVT prophylaxis. SCDs Re: Thrombocytopenia Full code as per prior directives. Patient contacts requesting updates for providers. Mr. Freda Conklin (brother), contact #[phone]. Ms. Whittaker Maite (resident coordinator at [facility]), contact #[phone]. Text document was generated using 7write voice recognition software. It may contain grammatical or spelling errors. Kindly contact undersigned for clarification of any documentation item in question. History of Present Illness Chief Complaint: Coughing Primary Care Provider: Matthew Lopez MD History obtained from patient, family, and records. Limited history from patient secondary to intellectual impairment. Medical history significant for mild intellectual impairment, schizoaffective disorder, mood disorder, seizure disorder, drug-induced parkinsonism on Sinemet, hyperlipidemia, DM2 insulin requiring, chronic thrombocytopenia, ongoing tobacco abuse. Last confinement September 2020 for encephalopathy secondary to recurrent UTI. 3 days history off junky cough symptoms and wheezing. Headache, body aches nausea. Occasional choking on food/water intake if not careful because if she eats fast as per caregiver. No known recent COVID-19 contacts. Patient completed COVID-19 vaccination. Patient brought to the ER for evaluation. O2 sats 80s on room air at some point during ER stay. IV vancomycin and Zosyn given at the ER. Medical History as above Surgical History : BTL, hip replacement Family History : Could not be obtained Personal/Social history : Tobacco abuse, no EtOH abuse, [facility] resident (independent housing) Allergies Allergy/AdvReac Type Severity Reaction Status Date / Time cefdinir Allergy Rash Verified 01/07/21 20:34 Home Medications Medication Instructions Recorded Confirmed Type acetaminophen 325 mg tablet 650 mg PO Q4H PRN MDD 3g 03/01/19 10/06/21 History dextromethorphan-guaifenesin 10 5 ml PO Q4H PRN 06/02/18 01/07/21 History mg-100 mg/5 mL oral syrup (Siltussin-DM) insulin aspart U-100 100 unit/mL 0 unit SUBCUT BID 06/02/18 01/07/21 History (3 mL) subcutaneous pen (Novolog Flexpen U-100 Insulin aspart) menthol 0.44 %-zinc oxide 20.6 % 1 applic TOPICAL DAILY PRN 06/02/18 01/07/21 History topical ointment (Calmoseptine) nystatin 100,000 unit/gram topical 1 applic TOPICAL DAILY PRN MDD 1 06/02/18 01/07/21 History powder time omeprazole 20 mg capsule,delayed 20 mg PO BID 06/02/18 01/07/21 History release simvastatin 20 mg tablet 20 mg PO PM 06/02/18 01/07/21 History zonisamide 100 mg capsule 200 mg PO DAILY 06/02/18 01/07/21 History fluphenazine decanoate 25 mg/mL 25 mg IM MONTHLY 08/08/18 01/07/21 History injection solution ibuprofen 600 mg tablet 600 mg PO BID PRN 08/08/18 01/07/21 History loperamide 2 mg tablet 2 mg PO DIRECTED PRN MDD 1 08/08/18 01/07/21 History potassium chloride 10 mEq 10 meq PO QAM 08/08/18 01/07/21 History capsule,extended release clotrimazole 1 % topical cream 1 applic TOPICAL BID PRN 09/30/18 01/07/21 History cranberry extract 200 mg capsule 400 mg PO QDL 04/22/20 01/07/21 History naproxen sodium 220 mg tablet 440 mg PO BID PRN 04/22/20 01/07/21 History divalproex 500 mg tablet,delayed 500 mg PO HS #0 tab 04/24/20 01/07/21 Rx release azelastine 137 mcg (0.1 %) nasal 1 spray INTRANASAL BID 09/06/20 01/07/21 History spray aerosol carbidopa 25 mg-levodopa 100 mg 1.5 tab PO TID 09/06/20 01/07/21 History tablet clonazepam 1 mg tablet 1.5 mg PO HS 09/06/20 01/07/21 History divalproex 250 mg tablet,delayed 250 mg PO QAM 09/06/20 01/07/21 History release (Depakote) fluphenazine HCl 5 mg tablet 5 mg PO HS 09/06/20 01/07/21 History furosemide 20 mg tablet 20 mg PO QAM 09/06/20 01/07/21 History mirabegron 50 mg tablet,extended 50 mg PO QAM 09/06/20 01/07/21 History release 24 hr (Myrbetriq) tolterodine 4 mg capsule,extended 4 mg PO QAM 09/06/20 01/07/21 History release 24 hr Saccharomyces boulardii 1 cap PO TIDWMEAL 01/07/21 01/07/21 History calcium carbonate 200 mg calcium 200 mg PO TID PRN 01/07/21 01/07/21 History (500 mg) chewable tablet (Calcium Antacid) cephalexin 250 mg tablet 250 mg PO BID 01/07/21 01/07/21 History cholecalciferol (vitamin D3) 50 50 mcg PO DAILY 01/07/21 01/07/21 History mcg (2,000 unit) tablet (Vitamin D3) fluphenazine HCl 2.5 mg tablet 2.5 mg PO HS 01/07/21 01/07/21 History metformin 500 mg tablet,extended 500 mg PO QAM 01/07/21 01/07/21 History release 24 hr sodium chloride 0.65 % nasal drops 2 drp INTRANASAL BID 01/07/21 01/07/21 History (Sciota Saline) Past Med/Surg History Medical History Bacteremia due to Pseudomonas Bipolar disorder Dilantin toxicity DM2 (diabetes mellitus, type 2) GERD (gastroesophageal reflux disease) HLD (hyperlipidemia) Mild intellectual disability Morbid obesity Osteoarthritis Overactive bladder Recurrent UTI Schizophrenia Seizure disorder Sensorineural hearing loss (SNHL) of both ears Tobacco abuse Valproic acid toxicity Surgical History H/O tubal ligation H/O wrist surgery Right History of total left hip replacement Hx of cholecystectomy Family History Father , age 46 Myocardial infarction Mother , age 60 No problems noted. Social History Smoking Status: Never smoker Cigarettes Per Day: 10; Second Hand Exposure: No; Hx Alcohol Use: No Hx Substance Use: No Preferred Language: Spanish Communication Ability: Impaired Liquefaction And Regasification Helper Required: No Beliefs That Will Affect Care: None marital status: Single Current Living Situation: Personal Care Facility Current Living Situation Comment: [facility] current occupational status: unemployed and disabled Other Information That Helps Us Care for You: No Feels Safe at Home: Yes Safety Concerns: Feels Safe At This Time Assistive Devices: Oxygen - Continuous Review of Systems Review of Systems: Could not be reliably obtained Physical Exam Physical Exam: GENERAL: Slightly uncomfortable, obese, minimal respiratory distress SKIN: Normal color, warm HEENT: [place] palpebral conjunctivae, no ptosis, dry buccal mucosa, nasal cannula in place NECK : Supple, short neck, no tenderness CHEST : Decreased breath sounds, expiratory wheezes, no tenderness HEART : RRR, no obvious murmurs ABDOMEN: Some distention, nontender EXTREMITIES : Minimal LE swelling, no LE tenderness, no other conspicuous deformities noted NEUROLOGIC : Coherent, oriented to month, no facial asymmetry, gait and stance not assessed Results & Data Results & Data ([facility]) Vital Signs (Past 12 Hours) Vital Signs Temp Pulse Pulse Resp BP BP Pulse Ox 01/07/21 21:37 37.0 C 86 23 157/72 H 94 01/07/21 21:30 83 22 157/72 H 94 01/07/21 21:07 92 01/07/21 21:06 26 H 159/72 H 89 L 01/07/21 19:47 88 20 93 01/07/21 19:08 36.9 C 79 19 126/69 95 Laboratory Results Laboratory Results WBC 8.37 K/uL (4.8-10.8) 01/07/21 19:35 RBC 4.21 M/uL (4.2-5.4) 01/07/21 19:35 Hgb 12.8 g/dL (12.0-16.0) 01/07/21 19:35 Hct 38.2 % (37-47) 01/07/21 19:35 MCV 90.7 fL (80-100) 01/07/21 19:35 MCH 30.4 pg (25-34) 01/07/21 19:35 MCHC 33.5 g/dL (32-36) 01/07/21 19:35 RDW Std Deviation 48.2 fL (36.4-46.3) H 01/07/21 19:35 RDW Coeff of Celio 14.4 % (11.5-14.5) 01/07/21 19:35 Plt Count 137 K/uL (130-400) 01/07/21 19:35 MPV 10.3 fL (7.4-10.4) 01/07/21 19:35 Immature Gran % (Auto) 0.1 % 01/07/21 19:35 Neut % (Auto) 42.5 % 01/07/21 19:35 Lymph % (Auto) 43.1 % 01/07/21 19:35 [place] % (Auto) 13.7 % 01/07/21 19:35 Eos % (Auto) 0.1 % 01/07/21 19:35 Baso % (Auto) 0.5 % 01/07/21 19:35 Neut # (Auto) 3.55 K/uL (1.4-6.5) 01/07/21 19:35 Lymph # (Auto) 3.61 K/uL (1.2-3.4) H 01/07/21 19:35 [place] # (Auto) 1.15 K/uL (0.11-0.59) H 01/07/21 19:35 Eos # (Auto) 0.01 K/uL (0-0.5) 01/07/21 19:35 Baso # (Auto) 0.04 K/uL (0-0.2) 01/07/21 19:35 Immature Gran # (Auto) 0.01 K/uL (0.00-0.02) 01/07/21 19:35 PT 9.9 Seconds (9.0-12.0) 01/07/21 19:35 INR 1.0 (0.9-1.1) 01/07/21 19:35 Sodium 133 mmol/L (136-145) L 01/07/21 19:35 Potassium 3.9 mmol/L (3.5-5.1) 01/07/21 19:35 Chloride 101 mmol/L (98-107) 01/07/21 19:35 Carbon Dioxide 27 mmol/L (21-32) 01/07/21 19:35 Anion Gap 4.0 (3-11) 01/07/21 19:35 BUN 11 mg/dl (7-18) 01/07/21 19:35 Creatinine 0.94 mg/dl (0.6-1.2) 01/07/21 19:35 Est Cr Clr Drug Dosing 75.8 ml/min 01/07/21 19:35 Est GFR ( Amer) 77.5 ml/min 01/07/21 19:35 Est GFR (Non-Af Amer) 66.9 ml/min 01/07/21 19:35 BUN/Creatinine Ratio 11.8 (10-20) 01/07/21 19:35 Glucose 146 mg/dl (70-99) H 01/07/21 19:35 Lactate 2.8 mmol/L (0.4-2.0) H* 01/07/21 21:33 Calcium 8.8 mg/dl (8.5-10.1) 01/07/21 19:35 Magnesium 2.3 mg/dl (1.8-2.4) 01/07/21 19:35 Total Bilirubin 0.4 mg/dl (0.2-1) 01/07/21 19:35 Direct Bilirubin 0.1 mg/dl (0-0.2) 01/07/21 19:35 AST 19 U/L (15-37) 01/07/21 19:35 ALT 29 U/L (12-78) 01/07/21 19:35 Alkaline Phosphatase 86 U/L (45-117) 01/07/21 19:35 Troponin I < 0.015 ng/ml (0-0.045) 01/07/21 19:35 NT-Pro-B Natriuret Pep 505 pg/ml (0-900) 01/07/21 19:35 Total Protein 7.5 gm/dl (6.4-8.2) 01/07/21 19:35 Albumin 3.1 gm/dl (3.4-5.0) L 01/07/21 19:35 Procalcitonin 0.05 ng/ml (0-0.5) 01/07/21 19:35 Valproic Acid 78 mcg/ml (50-100) 01/07/21 19:35 COVID-19 Eval Order Covid19 at [facility] 01/07/21 19:34 SARS-CoV-2 (PCR) NEGATIVE (Negative) 01/07/21 19:34 Impressions Chest X-Ray 01/07/21 19:22 XR chest 1V portable HISTORY: Shortness of breath. COMPARISON: Chest 04/22/2020. FINDINGS: There are low lung volumes. The heart remains mildly enlarged. No pleural effusions. No pneumothorax. No new focal lung consolidations to suggest pneumonia. No evidence for pulmonary edema. IMPRESSION: No significant change compared to the prior study. No acute process. Stable mild cardiomegaly. ACT 112: Negative or not required by law. Electronically signed by: Chet Hernandez M.D. 01/07/2021 8:31 PM Diagnostic Findings EKG as per my interpretation: Rate 70, NSR, normal axis, diffuse T wave abnormalities
[2021-01-08] MEDS ORDERED: GLUCAGON FOR INJ 1 MG VIAL SQ PRN (00:53)
[2021-01-08] MEDS ORDERED: LEVALBUTEROL 1.25MG/0.5ML NEB INH SCH (00:53)
[2021-01-08] MEDS ORDERED: GLUCOSE 40% GEL 15 GM TUBE PO PRN (00:53)
[2021-01-08] MEDS ORDERED: ACETAMINOPHEN 325 MG TAB PO PRN (00:53)
[2021-01-08] MEDS ORDERED: DEXTROSE 50% 50 ML SYRINGE IV PRN (00:53)
[2021-01-08] MEDS ORDERED: CALCIUM CARBONATE 500 MG CHEWABLE TAB PO PRN (00:53)
[2021-01-08] MEDS ORDERED: CARBOHYDRATES FOR HYPOGLYCEMIA PO PRN (00:53)
[2021-01-08] MEDS ORDERED: PROMETHAZINE HCL 12.5 MG in SODIUM CHLORIDE 0.9% 50 ML IV PRN (00:53)
[2021-01-08] MEDS ORDERED: GLUCOSE 10 TABS/TUBE PO PRN (00:53)
[2021-01-08] MEDS ORDERED: IPRATROPIUM BROMIDE NEB SOLN 0.02% 2.5 ML VIAL INH SCH (00:53)
[2021-01-08] MEDS ORDERED: XOPENEX/ATROVENT 1.25mg/0.5MG NEB COMBO NEB SCH (01:00)
[2021-01-08] MEDS ORDERED: INSULIN ASPART 100 UNITS/ML 3 ML PEN SC SCH (01:00)
[2021-01-08 01:20] LABS: Appearance Urine Clear (Clear); Bilirubin Urine Negative (Negative); Blood Urine Negative (Negative); Color Urine Yellow; Glucose Urine UA Negative (Negative); Ketones Urine Negative (Negative); Leukocyte Esterase Urine Negative (Negative); Nitrite Urine Negative (Negative); Protein Urine Negative (Negative); Specific Gravity Urine 1.007 (1.000-1.030); Urobilinogen Urine Negative (Negative); pH Urine 6.5 (4.5-7.5)
[2021-01-08] MEDS: DIVALPROEX DELAY RELEASE 500 MG TAB PO SCH ×2 (01:44→21:17)
[2021-01-08] MEDS: CARBIDOPA/LEVODOPA 25/100MG TAB PO SCH ×4 (01:45→21:08)
[2021-01-08] MEDS: IPRATROPIUM BROMIDE NEB SOLN 0.02% 2.5 ML VIAL INH SCH ×4 (01:51→19:30)
[2021-01-08] MEDS: LEVALBUTEROL 1.25MG/0.5ML NEB INH SCH ×4 (01:51→19:32)
[2021-01-08] MEDS ORDERED: LACTATED RINGER'S 1,000 ML IV SCH ×2 (02:00→07:30)
[2021-01-08] MEDS: SACCHAROMYCES BOULARDII 250 MG CAP PO SCH ×4 (03:47→17:46)
[2021-01-08 05:12] LABS: Calcium 8.8 mg/dl (8.5-10.1); Creatinine Clr Calc Pharmacy 81.9 ml/min; Est GFR (African American) 86.3 ml/min; Est GFR (Non-African American) 74.5 ml/min; Potassium 4.4 mmol/L (3.5-5.1)
[2021-01-08] MEDS ORDERED: LACTATED RINGER'S 1,000 ML IV ONE (05:14)
[2021-01-08 06:05] LABS: Basophils # (auto) 0.01 K/uL (0-0.2); Basophils % (auto) 0.2 %; Hematocrit (blood only) 36.7 % (37-47); Hemoglobin 12.3 g/dL (12.0-16.0); Immature Granulocytes # (auto) 0.01 K/uL (0.00-0.02); Immature Granulocytes % (auto) 0.2 %; Lymphocytes # (auto) 1.22 K/uL (1.2-3.4); Mean Corpuscular Volume 89.5 fL (80-100); Mean Platelet Volume 10.3 fL (7.4-10.4); Monocytes # (auto) 0.18 K/uL (0.11-0.59); Monocytes % (auto) 4.1 %; Neutrophils # (auto) 2.94 K/uL (1.4-6.5); Neutrophils % (auto) 67.5 %; Platelet Count 129 K/uL (130-400); RDW Coefficient of Variation 14.5 % (11.5-14.5); White Blood Count 4.36 K/uL (4.8-10.8)
[2021-01-08 06:29] LABS: Mean Corpuscular Hgb Conc 33.5 g/dL (32-36)
[2021-01-08 06:37] LABS: RBC Morphology Unremarkable
[2021-01-08 07:32] LABS: Estimated Average Glucose 146 mg/dl; Hemoglobin A1C 6.7 % (4.5-5.6)
[2021-01-08] MEDS: PANTOprazole 40 MG TAB PO SCH ×2 (08:24→21:16)
[2021-01-08] MEDS: ZONISAMIDE 100 MG CAPSULE PO SCH (08:24)
[2021-01-08] MEDS: MIRABEGRON ER 25 MG TAB PO SCH (08:24)
[2021-01-08] MEDS: DIVALPROEX DELAY RELEASE 250 MG TABEC PO SCH (08:24)
[2021-01-08] MEDS: AMOXICILLIN/CLAVULANATE 875 MG TAB PO SCH ×2 (08:24→17:46)
[2021-01-08] MEDS: TOLTERODINE TARTRATE LA 4 MG CAPCR PO SCH (08:24)
[2021-01-08] MEDS: INSULIN ASPART 100 UNITS/ML 3 ML PEN SC SCH ×4 (08:31→21:08)
[2021-01-08] MEDS: SODIUM CHLORIDE 0.65% NA SOLN 45 ML (OCEAN) SCH ×2 (08:35→21:20)
[2021-01-08] MEDS ORDERED: AMOXICILLIN/CLAVULANATE CONSULT ACTIVE PRN (09:00)
[2021-01-08] MEDS ORDERED: AZELASTINE HCL 0.1% NASAL 200 SPRAYS/27,400 MCG BTL SCH (09:00)
[2021-01-08 09:08] LABS: RSV by PCR Positive (Negative)
[2021-01-08 09:15] LABS: Influenza A virus by PCR Negative (Negative); Influenza B virus by PCR Negative (Negative)
[2021-01-08] MEDS ORDERED: ALBUTEROL 0.083% NEBU SOLN 3 ML VIAL NEB PRN (09:21)
--- NOTE | 2021-01-08 09:55 | Hospitalist Progress Note ---
Date of Service January 08, 2021 Assessment & Plan (1) Acute hypoxemic respiratory failure: Plan: This is a 60yo F with a PMH of DM II, tobacco use, seizure disorder, bipolar disorder, mild intellectual disability, Parkinsonism and other medical problems listed below who presents with hypoxic respiratory failure in setting of possible aspiration pneumonitis. Initially hypoxic in 80s, now saturating at 96% on room air Received Solu-Medrol 1 dose given bronchospasm Afebrile, no leukocytosis, procal wnl Started on Augmentin + RSV positive on test this morning, flu A/B negative, covid 19 negative Contact precautions Continue nebulizer treatments Incentive spirometry Speech evaluation - Lactic acidosis Appears chronic, no improvement with fluids No fever, leukocytosis or other evidence of sepsis Likely 2/2 metformin use Discontinue IV fluids DM II Insulin requiring Well-controlled as of recent hemoglobin A1c of 6.03 September 2020 Hold home agents Basal/bolus insulin per protocol BSG AC HS Mild intellectual impairment Resides at [facility] Schizoaffective disorder/mood disorder Continue Depakote, Klonopin Seizure disorder Stable, continue Depakote, Zonegran Drug parkinsonism Continue Sinemet Hyperlipidemia Continue statin Chronic thrombocytopenia Stable, baseline 115-120sk Ongoing tobacco abuse Cessation recommended DVT Ppx: SCDs, history of thrombocytopenia Code status: FULL PCP: [facility] Dispo: Admitted to PCU Patient seen in collaboration with Dr. Ríos. Please see addendum. Updated brother and Remedios at [facility] today. Patient contacts requesting updates for providers. Mr. Freda Conklin (brother), contact #[phone]. Remedios Arora (resident coordinator at [facility]), contact #[phone]. Admission and Anticipated Discharge Date Admission Date: January 07, 2021 Supervising Physician Co-Signing Physician Notes Patient is seen and examined at bedside. States having cough, slightly better when compared to time of admission. Denies any shortness of breath, chest pain, dizziness, nausea, abdominal pain. On exam patient is moderately built and nourished, no apparent distress, normocephalic atraumatic, EOMI, LUNGS: Breath sounds equal, no wheezes, rales, or rhonchi heard. No tachypnea or dyspnea.- Normal breath sounds, scattered wheezes, Rales, S1-S2, no murmur, trace bilateral lower extremity edema, abdominal soft, nontender, normal bowel sounds, alert, awake, oriented, grossly no focal deficits. Acute respiratory failure with hypoxia secondary to RSV infection. Aspiration precautions. Continue supplemental oxygen as needed. Empirically started on Augmentin. Speech therapy evaluation. Continue contact isolation. Consider low-dose prednisone. Bronchodilators as needed. I personally reviewed the record. Patient is interviewed and examined at bedside. Patient's care is coordinated with Luzma Díaz PA-C. Please refer to the documentation above for details of patient's presentation and for discussion of other issues. Subjective Seen and examined in 233-1. Feeling better than last evening, specifically following breathing treatments. Denies any chest pain or shortness of breath. Endorses wheezing. No fever, chills, nausea, vomiting or abdominal pain. Denies history of aspiration prior to yesterday. Resides at [facility]. Review of Systems Review of Systems: At least ten systems reviewed and negative except as noted in the HPI. Physical Exam Physical Exam: General Appearance: WD/WN, vitals as above, NAD, sitting up in bed, pleasant, conversing easily Head: normocephalic, atraumatic Eyes: normal inspection, PERRL, conjunctivae normal, anicteric sclerae ENT: external ear and nose normal, oropharynx normal Neck: normal visual inspection, trachea midline, no thyromegaly Respiratory: normal respiratory effort, diffuse rhonchi, expiratory wheezing. No accessory muscle use Cardiovascular: regular rate, rhythm, no murmur, normal peripheral pulses, no BLE edema. Vessels: no JVD Chest: normal inspection of chest Abdomen/GI: normal bowel sounds, soft, nontender, no hepatosplenomegaly Extremities/Musculoskeletal: no cyanosis or clubbing, extremities motor strength 5/5 Neurologic: PERRL, EOMI, accommodation nl, no face palsy, no dysarthria, CN's II-XI intact bilaterally and moves all extremities Psychiatric: A+Ox3, euthymic affect. Poor insight Skin: no rashes, normal color, warm/dry Results & Data Results & Data ([facility]) Vital Signs (Past 12 Hours) Vital Signs Temp Pulse Pulse Resp BP BP Pulse Ox 01/08/21 07:36 37.0 C 93 H 22 165/78 H 92 01/08/21 07:08 82 18 95 01/08/21 04:34 36.7 C 77 24 153/82 H 95 01/08/21 01:53 18 92 01/08/21 00:45 36.8 C 79 28 H 143/85 H 100 01/08/21 00:30 76 29 H 98 01/08/21 00:00 73 20 98 01/07/21 23:30 72 22 01/07/21 23:00 76 24 96 01/07/21 22:30 80 23 98 01/07/21 22:00 85 22 96 Laboratory Results Short CBC 01/07/21 01/08/21 01/08/21 Range/Units 19:35 04:33 05:44 WBC 8.37 Cancelled 4.36 L (4.8-10.8) K/uL Hgb 12.8 Cancelled 12.3 (12.0-16.0) g/dL Hct 38.2 Cancelled 36.7 L (37-47) % Plt Count 137 Cancelled 129 L (130-400) K/uL BMP 01/07/21 01/08/21 19:35 04:33 Sodium 133 L 140 D Potassium 3.9 4.4 Chloride 101 109 H Carbon Dioxide 27 24 BUN 11 8 Creatinine 0.94 0.86 Glucose 146 H 176 H Calcium 8.8 8.8 Cardiac Enzymes 01/07/21 Range/Units 19:35 Troponin I < 0.015 (0-0.045) ng/ml Liver Function 01/07/21 Range/Units 19:35 Total Bilirubin 0.4 (0.2-1) mg/dl Direct Bilirubin 0.1 (0-0.2) mg/dl AST 19 (15-37) U/L ALT 29 (12-78) U/L Alkaline Phosphatase 86 (45-117) U/L Albumin 3.1 L (3.4-5.0) gm/dl Urine 01/08/21 Range/Units Unknown Urine Color Yellow Urine Appearance Clear (Clear) Urine pH 6.5 (4.5-7.5) Ur Specific [place] 1.007 (1.000-1.030) Urine Protein Negative (Negative) Urine Glucose (UA) Negative (Negative) Diagnostic Findings Chest X-Ray 01/07/21 19:22 XR chest 1V portable HISTORY: Shortness of breath. COMPARISON: Chest 04/22/2020. FINDINGS: There are low lung volumes. The heart remains mildly enlarged. No pleural effusions. No pneumothorax. No new focal lung consolidations to suggest pneumonia. No evidence for pulmonary edema. IMPRESSION: No significant change compared to the prior study. No acute process. Stable mild cardiomegaly. ACT 112: Negative or not required by law. Electronically signed by: Chet Hernandez M.D. 01/07/2021 8:31 PM
[2021-01-08] MEDS: FUROSEMIDE 20 MG TAB PO SCH (15:09)
[2021-01-08] MEDS: predniSONE 20 MG TAB PO SCH (17:53)
[2021-01-08] MEDS ORDERED: ALBUTEROL 0.083% NEBU SOLN 3 ML VIAL NEB SCH (19:00)
[2021-01-08] MEDS ORDERED: SIMVASTATIN 20 MG TAB PO SCH (21:00)
[2021-01-08] MEDS ORDERED: clonazePAM 0.5 MG TAB PO SCH (21:00)
[2021-01-09] MEDS: LEVALBUTEROL 1.25MG/0.5ML NEB INH SCH ×3 (01:47→14:18)
[2021-01-09] MEDS: IPRATROPIUM BROMIDE NEB SOLN 0.02% 2.5 ML VIAL INH SCH ×3 (01:47→14:18)
[2021-01-09 06:07] LABS: Hematocrit (blood only) 36.4 % (37-47); Hemoglobin 12.2 g/dL (12.0-16.0); Mean Corpuscular Hgb Conc 33.5 g/dL (32-36); Mean Corpuscular Volume 89.7 fL (80-100); Mean Platelet Volume 10.4 fL (7.4-10.4); Platelet Count 146 K/uL (130-400); RDW Coefficient of Variation 14.3 % (11.5-14.5); RDW Standard Deviation 47.1 fL (36.4-46.3); Red Blood Count 4.06 M/uL (4.2-5.4)
[2021-01-09 07:06] LABS: Calcium 9.2 mg/dl (8.5-10.1); Creatinine Clr Calc Pharmacy 85.9 ml/min; Est GFR (African American) 91.4 ml/min; Est GFR (Non-African American) 78.9 ml/min
[2021-01-09 09:25] LABS: Potassium 4.2 mmol/L (3.5-5.1)
[2021-01-09 09:26] LABS: Magnesium 2.6 mg/dl (1.8-2.4)
[2021-01-09] MEDS: INSULIN ASPART 100 UNITS/ML 3 ML PEN SC SCH ×2 (10:12→13:21)
[2021-01-09] MEDS: CARBIDOPA/LEVODOPA 25/100MG TAB PO SCH (10:23)
[2021-01-09] MEDS: MIRABEGRON ER 25 MG TAB PO SCH (10:23)
[2021-01-09] MEDS: SACCHAROMYCES BOULARDII 250 MG CAP PO SCH ×2 (10:23→13:31)
[2021-01-09] MEDS: AMOXICILLIN/CLAVULANATE 875 MG TAB PO SCH (10:25)
[2021-01-09] MEDS: TOLTERODINE TARTRATE LA 4 MG CAPCR PO SCH (10:26)
[2021-01-09] MEDS: FUROSEMIDE 20 MG TAB PO SCH (10:26)
[2021-01-09] MEDS: DIVALPROEX DELAY RELEASE 250 MG TABEC PO SCH (10:27)
[2021-01-09] MEDS: PANTOprazole 40 MG TAB PO SCH (10:27)
[2021-01-09] MEDS: predniSONE 20 MG TAB PO SCH (10:27)
[2021-01-09] MEDS: SODIUM CHLORIDE 0.65% NA SOLN 45 ML (OCEAN) SCH (10:31)
--- NOTE | 2021-01-09 11:01 | Discharge Summary ---
Date of Service January 09, 2021 Admission HPI Per Admitting Provider History obtained from patient, family, and records. Limited history from patient secondary to intellectual impairment. Medical history significant for mild intellectual impairment, schizoaffective disorder, mood disorder, seizure disorder, drug-induced parkinsonism on Sinemet, hyperlipidemia, DM2 insulin requiring, chronic thrombocytopenia, ongoing tobacco abuse. Last confinement September 2020 for encephalopathy secondary to recurrent UTI. 3 days history off junky cough symptoms and wheezing. Headache, body aches nausea. Occasional choking on food/water intake if not careful because if she eats fast as per caregiver. No known recent COVID-19 contacts. Patient completed COVID-19 vaccination. Patient brought to the ER for evaluation. O2 sats 80s on room air at some point during ER stay. IV vancomycin and Zosyn given at the ER. Medical History as above Surgical History : BTL, hip replacement Family History : Could not be obtained Personal/Social history : Tobacco abuse, no EtOH abuse, [facility] resident (independent housing) Admission Exam Per Admitting Provider GENERAL: Slightly uncomfortable, obese, minimal respiratory distress SKIN: Normal color, warm HEENT: [place] palpebral conjunctivae, no ptosis, dry buccal mucosa, nasal cannula in place NECK : Supple, short neck, no tenderness CHEST : Decreased breath sounds, expiratory wheezes, no tenderness HEART : RRR, no obvious murmurs ABDOMEN: Some distention, nontender EXTREMITIES : Minimal LE swelling, no LE tenderness, no other conspicuous deformities noted NEUROLOGIC : Coherent, oriented to month, no facial asymmetry, gait and stance not assessed Principal Diagnosis RSV Discharge Exam General Appearance: WD/WN, vitals as above, NAD, sitting up in bed, pleasant, conversing easily Head: normocephalic, atraumatic Eyes: normal inspection, PERRL, conjunctivae normal, anicteric sclerae ENT: external ear and nose normal, oropharynx normal Neck: normal visual inspection, trachea midline, no thyromegaly Respiratory: normal respiratory effort, diffuse rhonchi, expiratory wheezing. No accessory muscle use Cardiovascular: regular rate, rhythm, no murmur, normal peripheral pulses, no BLE edema. Vessels: no JVD Chest: normal inspection of chest Abdomen/GI: normal bowel sounds, soft, nontender, no hepatosplenomegaly Extremities/Musculoskeletal: no cyanosis or clubbing, extremities motor strengt h 5/5 Neurologic: PERRL, EOMI, accommodation nl, no face palsy, no dysarthria, CN's II-XI intact bilaterally and moves all extremities Psychiatric: A+Ox3, euthymic affect. Poor insight Skin: no rashes, normal color, warm/dry Discharge Data Allergies Allergy/AdvReac Type Severity Reaction Status Date / Time cefdinir Allergy Rash Verified 01/07/21 20:34 Consultations 01/07/21 21:28 ED Decision to Admit Stat Hospital Course (1) Acute hypoxemic respiratory failure: (2) RSV (respiratory syncytial virus infection): (3) Parkinsonism: (4) Recurrent UTI: (5) Mild intellectual disability: (6) Bipolar disorder: (7) Seizure disorder: (8) DM2 (diabetes mellitus, type 2): This is a 60yo F with a PMH of DM II, tobacco use, seizure disorder, bipolar disorder, mild intellectual disability, Parkinsonism and other medical problems listed below who presents with hypoxic respiratory failure in setting of possible aspiration pneumonitis. Was found the following morning to be RSV +. Covid PCR and Flu A/B PCR negative. She initially required oxygen for a short time in the ER but has been saturating at 95% on room air since then. Was started on Augmentin at time of admission and will continue for total of 5 day course. Will also be discharged on 5 day course of prednisone as well as PRN Xopenex nebulizer. Was evaluated by speech therapy who recommended normal diet but cueing to slow down and eat smaller bites due to impulsivity. A 2 step test determined she does not need to be sent on oxygen to [facility] at discharge. Needs to remain on contact precautions until asymptomatic. Okay to resume chronic suppressive therapy for UTIs following completion of Augmentin. Patient feeling much improved and hemodynamically stable at time of discharge back to [facility]. Total Time Total Time Spent Total Time Spent (In Minutes): 35 Discharge Plan Discharge Items Patient Disposition: Transfer Jail Fac Reason For Visit: RESP FAILURE Discharge Diagnosis: Respiratory syncytial virus Activity: Resume your previous activity Non-emergency contact: Primary Care Provider Call non-emergency contact if: you have any medication questions, your symptoms worsen and you have a fever Follow-up/Referrals: Matthew Lopez MD [Primary Care Provider] - 01/15/21 10:20 am (Date & Time 01/15/2021 10:20 AM Provider Matthew Lopez MD Department [facility] ) Diet: Carb Consistent or DM2 Addtl Attending Provider Instructions: Winifred was admitted for shortness of breath, cough and congestion. She initially required oxygen for a short time in the ER but has been saturating at 95% on room air since then. A 2 step test determined she does not require oxygen upon discharge back to [facility]. Needs to remain on contact precautions until asymptomatic. MEDICATION CHANGES: Please complete course of Augmentin twice daily until gone. You have also been prescribed once daily prednisone to take until gone. Duoneb medication will be sent to use as needed every 6 hours for wheezing or shortness of breath. Okay to resume chronic suppressive therapy for UTIs following completion of Augmentin. RECOMMENDATIONS FOR FOLLOW-UP: Please follow up with Dr. Lopez on 01/15/21 at 10:20am. OTHER INSTRUCTIONS: Seek medical attention if you have: * temperature above 101 * chest pain or trouble breathing * abdominal pain, nausea, vomiting * diarrhea, dark stools or bloody stools * any unanswered questions or concerns Call 911 if symptoms are severe. Please take good care of yourself. Call if you have any questions or problems. You can reach a [facility] hospitalist on duty at [facility] 24 hours a day by calling [phone]. Luzma Díaz PA-C [facility] Hospitalist Pending Studies at Discharge: No Stand-Alone Forms: My [facility] Skilled Items Patient informed of condition?: Yes DNR: No Discharge Level of Care: Skilled Communicable Disease: Yes Discharge Prognosis: Stable Lines: None Urinary Catheter: No Medications and DC Order Prescriptions: New prednisone 20 mg tablet 20 mg PO DAILY Qty: 5 RF: 0 amoxicillin-pot clavulanate [Augmentin] 875-125 mg tablet 1 tab PO BIDM Qty: 7 RF: 0 levalbuterol HCl 1.25 mg/0.5 mL solution for nebulization 1.25 mg inhalation Q8H PRN (Reason: shortness of breath or wheezing) 5 Days Qty: 1 RF: 0 Continued fluphenazine decanoate 25 mg/mL Solution 25 mg IM MONTHLY RF: 0 ibuprofen 600 mg Tablet 600 mg PO BID PRN (Reason: Pain, Mild) RF: 0 loperamide 2 mg Tablet 2 mg PO DIRECTED MDD 1 PRN (Reason: Diarrhea) RF: 0 potassium chloride 10 mEq Capsule, Extended Release 10 meq PO QAM RF: 0 naproxen sodium 220 mg Tablet 440 mg PO BID PRN (Reason: Pain) RF: 0 cranberry extract 200 mg Capsule 400 mg PO QDL RF: 0 divalproex 500 mg Tablet,Delayed Release (Dr/Ec) 500 mg PO HS Qty: 0 RF: 0 acetaminophen 325 mg Tablet 650 mg PO Q4H MDD 3g PRN (Reason: Fever Or Pain) RF: 0 menthol-zinc oxide [Calmoseptine] 0.44-20.6 % Ointment 1 applic TOPICAL DAILY PRN (Reason: excoriated area) RF: 0 dextromethorphan-guaifenesin [Siltussin-DM] 10-100 mg/5 mL Syrup 5 ml PO Q4H PRN (Reason: Cough) RF: 0 zonisamide 100 mg Capsule 200 mg PO DAILY RF: 0 simvastatin 20 mg Tablet 20 mg PO PM RF: 0 omeprazole 20 mg Capsule,Delayed Release(Dr/Ec) 20 mg PO BID RF: 0 nystatin 100,000 unit/gram Powder 1 applic TOPICAL DAILY MDD 1 time PRN (Reason: irritation/rash) RF: 0 insulin aspart U-100 [Novolog Flexpen U-100 Insulin] 100 unit/mL Insulin Pen 0 unit SUBCUT BID RF: 0 clotrimazole 1 % Cream 1 applic TOPICAL BID PRN (Reason: rash/irritation) RF: 0 cholecalciferol (vitamin D3) [Vitamin D3] 50 mcg (2,000 unit) Tablet 50 mcg PO DAILY RF: 0 metformin 500 mg Tablet Extended Release 24 Hr 500 mg PO QAM RF: 0 Saccharomyces boulardii 1 cap PO TIDWMEAL RF: 0 fluphenazine HCl 2.5 mg tablet 2.5 mg PO HS RF: 0 [place] Saline 0.65 % Drops 2 drp INTRANASAL BID RF: 0 calcium carbonate [Calcium Antacid] 200 mg calcium (500 mg) Tablet,Chewable 200 mg PO TID PRN (Reason: Heartburn) RF: 0 divalproex [Depakote] 250 mg tablet,delayed release (DR/EC) 250 mg PO QAM RF: 0 clonazepam 1 mg tablet 1.5 mg PO HS RF: 0 furosemide 20 mg Tablet 20 mg PO QAM RF: 0 carbidopa-levodopa 25-100 mg Tablet 1.5 tab PO TID RF: 0 tolterodine 4 mg capsule,extended release 24hr 4 mg PO QAM RF: 0 Myrbetriq 50 mg tablet extended release 24 hr 50 mg PO QAM RF: 0 azelastine 137 mcg (0.1 %) Aerosol,Fowler 1 spray INTRANASAL BID RF: 0 fluphenazine HCl 5 mg tablet 5 mg PO HS RF: 0 Discontinued cephalexin 250 mg Tablet 250 mg PO BID RF: 0 Discharge Orders: Discharge Order (Routine); Ordered 01/09/21 Ordered By: Luzma Rodríguez/Other Patient Handouts: A1C, Managing Type 2 Diabetes Admission Data Admit Date/Time: 01/07/21 23:21 Attending Provider: Chapincito Ríos Admit Provider: Loenardo Chung Primary Care Provider: Matthew Lopez Other Providers: Luzma Díaz ; Leonardo Chung Other Interventions: Discharge Summary Assessment (RN) Last Done: 01/09/21 13:35
[2021-01-09] MEDS: ZONISAMIDE 100 MG CAPSULE PO SCH (11:56)
--- NOTE | 2021-01-09 16:49 | Electrocardiogram Report ---
Test Reason : Blood Pressure : / mmHG Vent. Rate : 070 BPM Atrial Rate : 070 BPM P-R Int : 128 ms QRS Dur : 068 ms QT Int : 346 ms P-R-T Axes : 039 046 131 degrees QTc Int : 373 ms Poor data quality, interpretation may be adversely affected Normal sinus rhythm Nonspecific ST abnormality Abnormal ECG When compared with ECG of 06-SEP-2020 11:39, T wave inversion no longer evident in Anterior leads Confirmed by Jose A Hays ([id number]) on 01/09/2021 4:48:59 PM Referred By: REFERRED SELF Confirmed By:Missael Hays
--- NOTE | 2021-01-09 17:15 | Communication Note ---
Date of Service: January 09, 2021 Patient is seen and examined at bedside. States feeling well today. Updated patient's family over the phone. 2 step: did not qualify for oxygen. Cough im proved. Denies any shortness of breath, chest pain, dizziness, nausea, abdominal pain. On exam patient is moderately built and nourished, no apparent distress, normocephalic atraumatic, EOMI, Normal breath sounds, B/L wheezes, rhonchi, S1-S2, no murmur, trace bilateral lower extremity edema, abdominal soft, nontender, normal bowel sounds, alert, awake, oriented, grossly no focal deficits. Acute respiratory failure with hypoxia secondary to RSV infection. Aspiration precautions. Saturating well on room air. Continue Augmentin. Speech therapy evaluation completed. Continue contact isolation. Continue low- dose prednisone. Bronchodilators as needed. I personally reviewed the record. Patient is interviewed and examined at bedside. Patient's care is coordinated with Luzma Díaz PA-C. Please refer to the documentation above for details of patient's presentation and for discussion of other issues.
--- NOTE | 2021-01-19 10:37 | Coding Query ---
CODING QUERY To promote full compliance with coding requirements relating to patient care, provider participation is requested in all cases of rfid analyst uncertainty. Please assist us with the question(s) below: Coding Question(s): 1. Please specify below, in your clinical opinion, to specify the RSV (respiratory syncytial virus infection). ( ) RSV Pneumonia ( x) RSV Upper Respiratory Infection ( ) RSV Bronchiolitis ( ) RSV Bronchitis ( ) RSV Bronchopneumonia ( ) RSV Otitis Media ( ) RVS Other: Please Specify ( ) Unknown likely specificity 2. It is not clear if the possible Aspiration Pneumonia was still possible or if it was Ruled-out. Please specify below, in your clinical opinion. ( ) Possible Aspiration Pneumonia ( x ) Aspiration Pneumonia is Ruled-out ( ) Other: Please Specify Physician's Response(s): Thank you Tisha Pathak Principal Diagnosis: "that condition established after study, to be chiefly responsible for occasioning the admission of the patient to the hospital for care." Co-Existing Principal Diagnosis: "when two or more diagnoses equally meet the criteria for principal diagnosis as determined by the circumstances of admission, diagnostic work up, and/or therapy provided, and the Alphabetic Index, Tabular List, or another coding guideline does not provide sequencing direction, any one of the diagnoses may be sequenced first." "When the physician has documented what appears to be a current diagnosis in the body of the record, but has not included the diagnosis in the final diagnostic statement, the physician should be asked whether the diagnosis should be added." (Source [facility]oding [facility] 2 QTR90. p3-4) FELIBERTO
== END 2021-01-09 14:21 | disposition home or self-care (01) | DRG 152 ==
LOC: ED 19:04 → 2S 23:21 → SUATTDRO 23:21 → 2S 01-08 00:27 → 3E 01-08 16:07